=== PATIENT | male | born 1950 | race Caucasian/White ===

== ENCOUNTER → 2018-11-04 | Outpatient (CLI) | payer MEDICARE ==
--- NOTE | 2018-11-04 13:24 | MR ---
EXAMINATION TYPE: MR shoulder LT wo con DATE OF EXAM: 11/04/2018 COMPARISON: None HISTORY: Left shoulder pain TECHNIQUE: Multiplanar, multisequence imaging of the left shoulder is performed without contrast. FINDINGS: Rotator Cuff: There appears to be a supraspinatus tendon tear with approximately 1.3 cm of retraction . This lies just just under the distal acromion. Moderate joint effusion is present. Fluid transverse s the supraspinatus tendon at this level. This may be an incomplete tear however with more complete f ibers posteriorly. Acromioclavicular Joint: There is somewhat some downward sloping acromion which can contribute to imp ingement syndrome. Significant hypertrophy is not present. Glenohumeral Joint: Humeral head articulates with the glenoid. Labrum: Superior glenoid labrum likely is a partial tear. Consider SLAP lesion. Biceps Tendon: The long head of biceps is in normal location within bicipital groove. Fluid surrounds the long head of the biceps tendon. Mild tendinosis may be present. Bone marrow signal: No focal abnormal marrow signal is appreciated. Other: No additional significant abnormality is appreciated. IMPRESSION: Superior supraspinatus tendon tear appears to have retraction to under the distal acromion. 2. Moderate joint effusion. 3. Mild tendinosis long head biceps tendon 4. Consider SLAP lesion of the superior glenoid labrum
== END | disposition home or self-care (01) ==
LOC: RADMRIMAIN 06:27
PROVIDERS: ATTEND Orthopaedic Surgery
DX: M75.102 Unspecified rotator cuff tear or rupture of left shoulder, not specified as traumatic (principal); M75.22 Bicipital tendinitis, left shoulder

== ENCOUNTER → 2018-12-15 | Outpatient (CLI) | payer OTHER ==
--- NOTE | 2018-12-16 12:47 | ENG ---
ELECTRONYSTAGMOGRAM REPORT VNG REPORT: DATE OF SERVICE: 12/15/2018 VNG INDICATIONS: A 68-year-old male with vertigo and other dizziness ongoing for 2-3 years, gradual onset and staying the same. Spells occur every day, 1-2 episodes a day, lasting for 2- 3 minutes at a time. Dizziness can be triggered by positional changes such as going from a lying to a seated position, turning the head left to right, moving the head or when driving. No imbalance or falling. Denies difficulty with hearing, but has pressure in the left ear and has a steady buzzing in the left ear. Dizziness can be associated with lightheadedness. VNG FINDINGS: Saccades shows IMPAIRED velocities, accuracies and latencies. Gaze with fixation shows no nystagmus in any of the directions of gaze including centrally with vision denied. Tracking shows no break-ups. Optokinetic nystagmus shows no significant asymmetry. Static position testing shows no nystagmus in any of the 6 positions tested with eyes open and then with vision denied. Mccalla-Hallpike maneuvers were not performed due to the patient having shoulder pain. Caloric testing shows 5% unilateral right caloric weakness, which is within normal limits. IMPRESSION: Impaired peak velocities, accuracies and latencies saccades favor central nervous system dysfunction. Benign positional vertigo not excluded due to inability to perform Mccalla-Hallpike maneuvers today. MMROYALL / IJN: [id number] /
== END ==
LOC: NEUROMAIN 08:52
PROVIDERS: ATTEND Otolaryngology
DX: R42 Dizziness and giddiness (principal)
CPT/HCPCS: 92537; 92540

== ENCOUNTER 2018-12-23 13:33 | Day surgery (SDC) | payer MEDICARE ==
[2018-12-22 10:25] VITALS: BMI 32.3
--- NOTE | 2018-12-22 16:01 | HP ---
HISTORY AND PHYSICAL DATE OF SURGERY: 12/23/2018 Teodoro Burgess is a 68-year-old patient seen with progressive left shoulder pain. Treatment options were discussed and he elected to proceed with arthroscopy. Consent was obtained. Medical clearance was provided by Dr. Wing Macedo. PAST MEDICAL HISTORY: Hypertension. PAST SURGICAL HISTORY: Appendectomy. DAILY MEDICATIONS: Lexapro, Lotrel. ALLERGIES: NONE. SOCIAL HISTORY: Denies current tobacco use. PHYSICAL EVALUATION OF THE LEFT SHOULDER: Flexion is 150 degrees, abduction 120 degrees, external rotation 50 degrees with pain and weakness. Tenderness along the anterolateral acromion and rotator cuff insertion site. Impingement sign positive at 90 degrees. Drop-arm sign is positive. Distal neurovascular exam is intact. RADIOGRAPHS: Radiographs of the left shoulder demonstrate type 2 anterior acromion, cystic changes of the greater tuberosity. MRI of left shoulder shows retracted rotator cuff tear, biceps tendinosis. IMPRESSION: 1. Left shoulder impingement with rotator cuff tear. 2. Hypertension. PLAN: Left shoulder arthroscopy with subacromial decompression, probable arthroscopic rotator cuff repair, biceps tendon release and debridement. MMODL / IJN: [id number] /
--- NOTE | 2018-12-23 09:11 | P.ONQ ---
Anesthesiology Proc Note - PNB - Peripheral Nerve Block Performed Right Interscalene Single Time Out Performed: Yes Procedure Stop Time: 08:50 Indication: Acute Post-Operative Pain Specifically requested for management of pain by DrGayathri: Francesco Lopez Sedation Type: Sedate with meaningful contact maintained Preparation: Sterile Prep Position: Supine Catheter: None Needle Types: Other (see comment) (Pajunk) Needle Size: 50mm (2") Needle Gauge: 21 Technique: Ultrasound Injectate: 0.5% Ropivacaine (see comment for volume) (20 cc) Blood Aspirated: No Pain Paresthesia on Injection Noted: No Resistance on Injection: Normal Events: Uneventful and Well Tolerated
[2018-12-23 09:15] VITALS: RESP 16
[2018-12-23 11:32] VITALS: TEMP 96.8
--- NOTE | 2018-12-23 11:33 | P.OP ---
Date of Procedure: 12/23/18 Preoperative Diagnosis: Left shoulder impingement Postoperative Diagnosis: 1. Left shoulder rotator cuff tear 2. Left shoulder impingement 3. Left shoulder acromioclavicular joint osteoarthritis 4. Left shoulder partial long head biceps tendon tear Procedure(s) Performed: 1. Left shoulder arthroscopic rotator cuff repair 2. Left shoulder arthroscopic subacromial decompression 3. Left shoulder arthroscopic Tomas procedure 4. Left shoulder arthroscopic biceps tenotomy Implants: 44.75 Arthrex swivel lock anchors Anesthesia: GETA, regional (Interscalene block) Surgeon: Francesco Lopez Deicer Element Winder Machine #1: Kt Alba Estimated Blood Loss (ml): 10 Pathology: none sent Condition: stable Disposition: PACU Indications for Procedure: 68-year-old patient seen with progressive left shoulder pain. After having treatment options discussed, he elected to proceed with arthroscopy. Operative Findings: See description of procedure Description of Procedure: Patient underwent an interscalene block by department of anesthesia. The patient was then taken to the operative suite. The patient underwent a general anesthetic by the department of anesthesia. The patient was placed into a lateral position and secured. There was appropriate padding of the bony prominence. Left shoulder was then prepped and draped in normal sterile orthopedic fashion. We placed the extremity in 10 pounds of longitudinal traction. A posterior incision was now made for a posterior working portal site. The trocar and cannula were inserted into the glenohumeral joint. Arthroscopy was initiated. Spinal needle was now inserted anteriorly, to ascertain the anterior working portal site. An incision was now made in that area, a trocar was inserted followed by a probe. There was significant partial tearing long head biceps tendon with maybe 20% of the fibers remaining. There was some fraying of the anterior labrum. There were grade 1/2 chondromalacia changes of the glenoid with no osteochondral tears present. I could clearly visualize rotator cuff tear from the glenohumeral side. I performed an arthroscopic biceps tenotomy. I debrided that superficial labral fraying with a motorized shaver. The residual labrum was stable. Instruments were removed from the glenohumeral joint. Utilizing the posterior working portal site, the trocar and cannula were inserted into the subacromial space. Arthroscopy initiated. I made an incision 2 fingerbreadths lateral to the acromion. I introduced my trocar followed by my ArthroCare ablator. I now began ablating thick subacromial bursal tissue, which exposed the undersurface of the anterior acromion. There was diminished subacromial space. There was a very prominent anterior acromion. A motorized bur was introduced and a subacromial decompression was performed. I also excised some osteophytes off the inferior aspect of the distal clavicle. The AC joint was visualized and noted to be fairly arthritic. The motorized bur was introduced in the anterior portal site and a Tomas procedure was performed without difficulty, decompressing the AC joint nicely. I turned my attention to the rotator cuff. There was a 2.5 cm rotator cuff tear. I debrided the margins getting down to stable tendon tissue. I introduced my motorized bur and abraded the footprint area, getting some petechial bleeding. I now made an accessory portal site off the lateral aspect of the acromion. I punched 2 holes medial for medial row fixation with the assistance of Alexis PEREZ carefully tapping the punch with a mallet as I held the punch and the camera. I now introduced both anchors into the pre-punched holes and Alexis PEREZ tapped them with the mallet as I held anchors and the camera. Alexis PEREZ now screwed the anchors in place a while I held the anchor guide and camera. All 8 limbs of suture were now passed through good bites of rotator cuff tendon. I now punched 2 holes for lateral row fixation again I held the punch and camera while Alexis PEREZ used a mallet to tap in the punch. We now passed sutures through both anchors and individually I introduced the anchors into the pre- punch holes I held the anchor guide in position with one hand holding the camera with the other hand while Alexis PEREZ tensioned the sutures and screwed in the anchors one at a time. All residual suture limbs were now clipped. We had good compression of the tendon along the entire footprint. Instruments now removed from the portal sites. All portal sites were approximated with nylon suture. Sterile dressings were applied followed by a shoulder immobilizer. Kt PEREZ assisted in this complex case. The patient was awakened, transferred to a bed, and taken to recovery in stable condition.
[2018-12-23 12:49] VITALS: BP 126/69; PULSE 85
[~2018-12-23 13:33] MED LIST: DEXAMETHASONE SOD PHOSPHATE 10 MG/ML 1 ML VIAL IV ONE; GLYCOPYRROLATE 0.2 MG/ML 2 ML VIAL ONE; HYDROmorphone 0.5 MG/0.5 ML SYRINGE IVP PRN; LACTATED RINGERS 1,000 ML IV SCH; LIDOCAINE 1% INJ 10MG/ML (20 ML MDV) ONE; MIDAZOLAM 2 MG/2 ML VIAL IV PRN; MIDAZOLAM 2 MG/2 ML VIAL ONE; NEOSTIGMINE 1 MG/ML 10 ML VIAL ONE; ONDANSETRON 4 MG/2 ML VIAL IVP ONE; PROPOFOL 10 MG/ML 20 ML VIAL IV ONE; ROCURONIUM BROMIDE 10 MG/ML 10 ML VIAL IV ONE; ROPIVACAINE 5 MG/ML 30 ML VIAL ONE; SUCCINYLCHOLINE CHLORIDE VIAL 200 MG/10 ML VIAL IV ONE; ceFAZolin IN SWFI 2 GM/20 ML SYRINGE IVP ONE; ePHEDrine SULFATE/0.9% NACL/PF 50 MG/5 ML SYRINGE IV ONE; fentaNYL (PF) 50 MCG/ML 2 ML AMP IV ONE; fentaNYL (PF) 50 MCG/ML 2 ML AMP ONE
--- NOTE | 2018-12-28 13:57 | CDI ---
Date: 12/28/18 CDS/Well Blower Name: Meena Castillo Phone: If any questions, call Wendy Whitley Human Resources Associate at [phone] Patient Name: Teodoro Burgess Admit Date: 12/23/18 Discharge Date: 12/23/18 ATTENTION: The [facility] Coding Staff appreciate your assistance in clarifying documentation. Please respond to the clarification below the line at the bottom and electronically sign. The [facility] Coding staff will review the response and follow-up if needed. Please note: Queries are made part of the Legal Health Record. If you have any questions, please contact the Human Resources Associate. Dear Dr. Lopez, Please provide clarification as to the reason for the interscalene block to the left shoulder. The patient also received general anesthesia along with the interscalene block to the shoulder. Please clarify if this was for postoperative pain control. Thank you for your kind consideration. MTDD
--- NOTE | 2018-12-30 13:42 | CDI ---
Date: 12/30/18 CDS/Cnc Machine Programmer Name: Meena Castillo Phone: If any questions, call Wendy Whitley Filter Screen Cleaner at [phone] Patient Name: Teodoro Burgess Admit Date: 12/23/18 Discharge Date: 12/23/18 ATTENTION: The [facility] Coding Staff appreciate your assistance in clarifying documentation. Please respond to the clarification below the line at the bottom and electronically sign. The [facility] Coding staff will review the response and follow-up if needed. Please note: Queries are made part of the Legal Health Record. If you have any questions, please contact the Filter Screen Cleaner. Dear Dr. Lopez, In order to capture the correct CPT codes(s), please provide clarification as to the reason for the interscalene block to the left shoulder. The patient also received general anesthesia along with the interscalene block to the shoulder. Please clarify if this was for postoperative pain control or provided along with the general anesthesia for intraoperative anesthesia purposes. Postoperative pain control MTDD
== END 2018-12-23 13:40 | disposition home or self-care (01) ==
LOC: OR 13:33
PROVIDERS: ATTEND Orthopaedic Surgery
DX: M75.102 Unspecified rotator cuff tear or rupture of left shoulder, not specified as traumatic (principal); M75.42 Impingement syndrome of left shoulder; M19.012 Primary osteoarthritis, left shoulder; S46.112A Strain of muscle, fascia and tendon of long head of biceps, left arm, initial encounter; X58.XXXA Exposure to other specified factors, initial encounter; M94.212 Chondromalacia, left shoulder; M25.712 Osteophyte, left shoulder; I10 Essential (primary) hypertension; G47.33 Obstructive sleep apnea (adult) (pediatric); Z99.89 Dependence on other enabling machines and devices; F39 Unspecified mood [affective] disorder; Z79.890 Hormone replacement therapy; Z79.899 Other long term (current) drug therapy
CPT/HCPCS: 29826; 29827; 29824; 64415; C1713 ×3; C1765; J2250; J0330; J1100; J2710; J2405; J2001; J3010; J2795; J2704; J0690

== ENCOUNTER 2021-07-20 12:01 | Emergency (ER) | payer MEDICARE ==
[2021-07-20 12:07] VITALS: BP 117/80; PULSE 96; RESP 20; TEMP 97.7
--- NOTE | 2021-07-20 13:50 | ED ---
General Adult HPI - General Chief complaint: Extremity Problem,Nontraumatic Stated complaint: medication reaction Time Seen by Provider: 07/20/21 13:48 Source: patient Mode of arrival: ambulatory Limitations: no limitations - History of Present Illness Initial comments: 71-year-old male presents to the emergency room for a chief complaint of joint pain. Patient states for the past month or so he has had pain in all of his joints. States it is in his elbows and knees hips and back. Patient states he has seen his primary care provider several times for this. Sates whenever he is on steroids his symptoms resolved. States that this past week he started on steroids and now has no pain. However his doctor told him to come into the emergency room. Patient has had an outpatient workup started for her polyarthralgia but has not seen a napper grinder or specialist. Patient has no other complaints at this time including shortness of breath, chest pain, abdominal pain, nausea or vomiting, headache, or visual changes. - Related Data Home Medications Medication Instructions Recorded Confirmed Benazepril [Lotensin] 20 mg PO DAILY 10/09/14 12/23/18 Citalopram Hydrobromide [CeleXA] 40 mg PO DAILY 10/09/14 12/23/18 amLODIPine [Norvasc] 10 mg PO DAILY 10/09/14 12/23/18 Testosterone [Androgel 1.62% Gel 1 applic TOPICAL DAILY 12/22/18 12/23/18 Pump] Previous Rx's Medication Instructions Recorded Hydrocodone/Acetaminophen [[place] 1 each PO Q6HR PRN #21 tab 12/23/18 5-325] HYDROcodone/APAP 5-325MG [[place] 1 tab PO Q6HR PRN #12 tab 07/20/21 5-325] Allergies Allergy/AdvReac Type Severity Reaction Status Date / Time No Known Allergies Allergy Verified 07/20/21 12:07 Review of Systems ROS Statement: Those systems with pertinent positive or pertinent negative responses have been documented in the HPI. ROS Other: All systems not noted in ROS Statement are negative. Past Medical History Past Medical History: Hypertension, Sleep Apnea/CPAP/BIPAP Additional Past Medical History / Comment(s): hx. colon polyps, mom hx. of colon cancer, Joint inflamation History of Any Multi-Drug Resistant Organisms: None Reported Past Surgical History: Appendectomy, Orthopedic Surgery Additional Past Surgical History / Comment(s): rotator cuff surg., nasal surg. Past Anesthesia/Blood Transfusion Reactions: No Reported Reaction Past Psychological History: Depression Smoking Status: Never smoker Past Alcohol Use History: Heavy Past Drug Use History: None Reported - Past Family History Mother Family Medical History: Cancer Sister(s) Family Medical History: Cancer General Exam Limitations: no limitations General appearance: alert Head exam: Present: atraumatic Eye exam: Present: normal appearance, PERRL, EOMI. Absent: scleral icterus, conjunctival injection ENT exam: Present: normal exam, mucous membranes moist Neck exam: Present: normal inspection, full ROM. Absent: tenderness Respiratory exam: Present: normal lung sounds bilaterally. Absent: respiratory distress, wheezes Cardiovascular Exam: Present: regular rate, normal rhythm, normal heart sounds GI/Abdominal exam: Present: soft, normal bowel sounds. Absent: distended, tenderness Extremities exam: Present: full ROM (Full range of motion of all joints of upper and lower extremities bilaterally). Absent: other (No swelling of the upper or lower extremities) Course Vital Signs 07/20/21 12:04 Temperature 97.7 F Pulse Rate 96 Respiratory 20 Rate Blood Pressure 117/80 O2 Sat by Pulse 96 Oximetry Medical Decision Making - Medical Decision Making Patient has had an negative VENTURA screen, negative Lyme disease screen, normal rheumatoid factor of 10. I discussed with patient that unfortunately we are limited for our testing in the emergency room. At this time there is no evidence for emergent cause of polyarthralgia. There is no evidence for a septic arthritis. At this time I discussed the patient that I could treat his pain outpatient he is agreeable to this. I discussed the need to see a napper grinder referral was given. He will also follow up with primary care. He will return to the emergency room for any worsening symptoms. Disposition Clinical Impression: Polyarthralgia Disposition: HOME SELF-CARE Instructions (If sedation given, give patient instructions): Arthralgia (ED) Additional Instructions: Take Tylenol for pain. If pain is severe take [place]. Follow-up with your doctor in one to 2 days. Return to the emergency room for any worsening symptoms. Prescriptions: HYDROcodone/APAP 5-325MG [[place] 5-325] 1 tab PO Q6HR PRN #12 tab PRN Reason: Pain Is patient prescribed a controlled substance at d/c from ED?: Yes When asked, does pt state using other controlled substances?: No If prescribed controlled substance>3 days was MAPS reviewed?: Prescribed <3 Days If opioid is for acute pain is fill amount 7 days or less?: Yes If Rx opioid, was Start Talking consent form obtained?: Yes Referrals: Wing Macedo DO [Primary Care Provider] - 1-2 days Time of Disposition: 14:33
== END 2021-07-20 14:42 | disposition home or self-care (01) ==
LOC: EC 12:01
DX: M25.50 Pain in unspecified joint (principal); I10 Essential (primary) hypertension; Z79.899 Other long term (current) drug therapy
CPT/HCPCS: 99282

== ENCOUNTER 2021-07-26 11:31 | Day surgery (SDC) | payer MEDICARE ==
[2021-07-23 14:30] VITALS: BMI 32.3
[~2021-07-26 11:31] MED LIST changes: -DEXAMETHASONE SOD PHOSPHATE 10 MG/ML 1 ML VIAL IV ONE; -GLYCOPYRROLATE 0.2 MG/ML 2 ML VIAL ONE; -HYDROmorphone 0.5 MG/0.5 ML SYRINGE IVP PRN; -LIDOCAINE 1% INJ 10MG/ML (20 ML MDV) ONE; -MIDAZOLAM 2 MG/2 ML VIAL IV PRN; -MIDAZOLAM 2 MG/2 ML VIAL ONE; -NEOSTIGMINE 1 MG/ML 10 ML VIAL ONE; -ONDANSETRON 4 MG/2 ML VIAL IVP ONE; -PROPOFOL 10 MG/ML 20 ML VIAL IV ONE; -ROCURONIUM BROMIDE 10 MG/ML 10 ML VIAL IV ONE; -ROPIVACAINE 5 MG/ML 30 ML VIAL ONE; -SUCCINYLCHOLINE CHLORIDE VIAL 200 MG/10 ML VIAL IV ONE; -ceFAZolin IN SWFI 2 GM/20 ML SYRINGE IVP ONE; -ePHEDrine SULFATE/0.9% NACL/PF 50 MG/5 ML SYRINGE IV ONE; -fentaNYL (PF) 50 MCG/ML 2 ML AMP IV ONE; -fentaNYL (PF) 50 MCG/ML 2 ML AMP ONE
[2021-07-26 12:03] VITALS: TEMP 97.3
--- NOTE | 2021-07-26 13:30 | P.GSHP ---
History of Present Illness H&P Date: 07/26/21 Chief Complaint: Anemia This a 71-year-old male presents today for EGD colonoscopy. And issues with anemia. Past Medical History Past Medical History: Hypertension, Sleep Apnea/CPAP/BIPAP Additional Past Medical History / Comment(s): hx. colon polyps, "inflammation of ligaments and tendons in arms,elbows, knees and hips for about 3 weeks". anemia, COVID test neg for antibodies 07/11/21. pt states saw his chiropractor 07/09/21, found out later his chiropractor was exposed to covid on weekend of 07/06- 07/06/21.(not sure of his symptoms). he saw chiropractor again 07/22/21. History of Any Multi-Drug Resistant Organisms: None Reported Past Surgical History: Appendectomy, Orthopedic Surgery Additional Past Surgical History / Comment(s): gema rotator cuff surg., nasal surg. Past Anesthesia/Blood Transfusion Reactions: No Reported Reaction Smoking Status: Never smoker - Past Family History Mother Family Medical History: Cancer Additional Family Medical History / Comment(s): colon Sister(s) Family Medical History: Cancer Medications and Allergies Home Medications Medication Instructions Recorded Confirmed Type Benazepril [Lotensin] 20 mg PO DAILY 10/09/14 07/23/21 History amLODIPine [Norvasc] 10 mg PO DAILY 10/09/14 07/23/21 History Testosterone [Androgel 1.62% Gel 2 pump TOPICAL DAILY 12/22/18 07/26/21 History Pump] HYDROcodone/APAP 5-325MG [[place] 1 tab PO Q6HR PRN #12 tab 07/20/21 07/26/21 Rx 5-325] Ascorbic Acid [Vitamin C] 500 mg PO DAILY 07/23/21 07/23/21 History Citalopram Hydrobromide 20 mg PO DAILY 07/23/21 07/23/21 History [Citalopram HBr] Cyanocobalamin (Vitamin B-12) 1,000 mcg PO DAILY 07/23/21 07/23/21 History [Vitamin B-12] Krill Oil 500 mg PO DAILY 07/23/21 07/23/21 History Latanoprost/Pf [Latanoprost 0.005% 1 drop BOTH EYES HS 07/23/21 07/23/21 History Eye Drop] Querectin 500 mg PO DAILY 07/23/21 07/23/21 History Sambucus 2 tab PO DAILY 07/23/21 07/23/21 History Selenium 200 mcg PO DAILY 07/23/21 07/23/21 History Turmeric Root Extract [Turmeric] 1,053 mg PO DAILY 07/23/21 07/26/21 History Vitamin D3 +K2 1 tab PO DAILY 07/23/21 07/23/21 History Zinc 50 mg PO DAILY 07/23/21 07/23/21 History methylPREDNISolone [Medrol Dose 4 mg PO DIRECTED 07/23/21 07/23/21 History Pack] Allergies Allergy/AdvReac Type Severity Reaction Status Date / Time No Known Allergies Allergy Verified 07/26/21 11:47 Surgical - Exam Vital Signs Temp Pulse Resp BP Pulse Ox 97.3 F L 76 15 134/68 97 07/26/21 12:01 07/26/21 12:01 07/26/21 12:01 07/26/21 12:01 07/26/21 12:01 - General well developed, well nourished, no distress - Eyes PERRL - ENT normal pinna - Neck no masses - Respiratory normal expansion - Cardiovascular Rhythm: regular - Abdomen Abdomen: soft, non tender Assessment and Plan Plan: Anemia. We'll perform EGD and colonoscopy.
[2021-07-26] MEDS ORDERED: PROPOFOL 10 MG/ML 20 ML VIAL IV ONE (13:32)
--- NOTE | 2021-07-26 13:59 | P.OP ---
Date of Procedure: 07/26/21 Preoperative Diagnosis: Anemia Screening colonoscopy Postoperative Diagnosis: Antral gastritis Rectal polyp Procedure(s) Performed: EGD Colonoscopy Anesthesia: MAC Surgeon: Pedro Hill Pathology: other (Antrum, rectal polyp) Condition: stable Disposition: PACU Description of Procedure: The patient's placed on the endoscopy table in the lateral position. She received he received IV sedation. The gastroscope placed oropharynx passed in the esophagus and stomach. Scope was placed through the pylorus. The first and second portion of the duodenum appeared normal. Scope was then brought back the antrum this. Mildly inflamed. A biopsies performed. Scope was then retroflexed and the remainder of the stomach appeared normal. The GE junction was at 47 is. The distal esophagus. Normal. The proximal esophagus. All. Her is no is of any GI bleed in the upper GI tract. Next digital rectal exam was performed which revealed no abnormalities. The prostate was symmetric without nodules. The flexible colonoscope was then placed 8 placed patient anus passed throughout the entire colon. The ileocecal valve was visualized. The cecum, ascending and transverse colon appeared normal. The descending and sigmoid colon appeared normal. Scope was brought back the rectum and a small polyp was seen. This removed with a cold forcep. Scope was withdrawn for patient.
[2021-07-26 14:05] VITALS: RESP 16
[2021-07-26 14:16] VITALS: BP 117/75; PULSE 77
== END 2021-07-26 14:49 | disposition home or self-care (01) ==
LOC: ORWHC2ENDO 11:31
PROVIDERS: ATTEND Surgery
DX: Z12.11 Encounter for screening for malignant neoplasm of colon (principal); D64.9 Anemia, unspecified; G47.30 Sleep apnea, unspecified; I10 Essential (primary) hypertension; F32.9 Major depressive disorder, single episode, unspecified; K62.1 Rectal polyp; Z79.52 Long term (current) use of systemic steroids; Z79.899 Other long term (current) drug therapy; Z87.19 Personal history of other diseases of the digestive system; Z90.49 Acquired absence of other specified parts of digestive tract
CPT/HCPCS: 87635; 45380; 43239; J2704; 88305

== ENCOUNTER → 2025-03-06 | Outpatient (CLI) | payer MEDICARE ==
[2025-03-06 14:56] LABS: HCT 35.4 % (39.6-50.0); HGB 11.4 g/dL (13.0-17.0); MCH 35.1 pg (27.0-32.0); MCHC 32.2 g/dL (32.0-37.0); MCV 108.9 FL (80.0-97.0); Mean Platelet Volume 12.2 FL (9.5-12.2); Platelet Count 126 X 10*3/uL (140-440); RBC 3.25 X 10*6/uL (4.40-5.60); RDW 17.5 % (11.5-14.5); WBC 5.49 X 10*3/uL (4.50-10.00)
[2025-03-06 15:22] LABS: Chloride 102 mmol/L (96-109); Potassium 4.7 mmol/L (3.5-5.5); Sodium 137 mmol/L (135-145)
== END | disposition home or self-care (01) ==
LOC: LABPAT 08:17
PROVIDERS: ATTEND Internal Medicine Interventional Cardiology
DX: Z01.812 Encounter for preprocedural laboratory examination (principal); I35.1 Nonrheumatic aortic (valve) insufficiency; I42.8 Other cardiomyopathies
CPT/HCPCS: 80051; 82565; 84520; 85027

== ENCOUNTER 2025-03-08 06:13 | Day surgery (SDC) | payer MEDICARE ==
[~2025-03-08 06:13] MED LIST changes: +ALPRAZolam 0.25 MG TAB PO PRN; +ALPRAZolam 0.5 MG TAB PO PRN; +HEPARIN SODIUM,PORCINE (1 ML) 2,500 UNIT in SODIUM CHLORIDE 0.9% 250 ML IRRIGATION PRN; +HEPARIN SODIUM,PORCINE 10,000 UNIT in SODIUM CHLORIDE 0.9% 1,000 ML IRRIGATION PRN; -LACTATED RINGERS 1,000 ML IV SCH; +NITROGLYCERIN SL TABS 0.4 MG TAB SUBLINGUAL PRN; +SODIUM CHLORIDE 0.9% 1,000 ML in EMPTY BAG 1 BAG IV SCH
[2025-03-08 06:40] VITALS: RESP 18; TEMP 97.8
[2025-03-08] MEDS: IV FLUID CONTINUATION 1,000 ML IV ONE ×3 (06:40→10:00)
[2025-03-08] MEDS ORDERED: ASPIRIN 325 MG TAB PO ONE (07:00)
[2025-03-08] MEDS: BENZOCAINE SPRAY 1 EACH MM ONE (07:30)
[2025-03-08] MEDS: MIDAZOLAM 2 MG/2 ML VIAL IVP ONE (07:35)
[2025-03-08] MEDS: fentaNYL (PF) 50 MCG/ML 2 ML AMP IVP ONE (07:35)
--- NOTE | 2025-03-08 07:43 | P.GSHP ---
History of Present Illness H&P Date: 03/08/25 CHIEF COMPLAINT: GERD and colon screen HISTORY OF PRESENT ILLNESS: The patient is a 74-year-old male who presents with gastroesophageal reflux disease and need for colon screen. Upper and lower endoscopy were offered for further evaluation and management. PAST MEDICAL HISTORY: Please see list. PAST SURGICAL HISTORY: Please see list. MEDICATIONS: Please see list. ALLERGIES: Please see list. SOCIAL HISTORY: No illicit drug use FAMILY HISTORY: No reports of Crohn disease or ulcerative colitis. REVIEW OF ORGAN SYSTEMS: CONSTITUTIONAL: No reports of fevers or chills. GI: Denies any blood in stools or constipation. PHYSICAL EXAM: VITAL SIGNS: Stable GENERAL: Well-developed pleasant in no acute distress. HEENT: No scleral icterus. Extraocular movements grossly intact. Moist buccal mucosa. NECK: Supple without lymphadenopathy. CHEST: Unlabored respirations. Equal bilateral excursions. CARDIOVASCULAR: Regular rate and rhythm. Distal 2+ pulses. ABDOMEN: Soft, nondistended. MUSCULOSKELETAL: No clubbing, cyanosis, or edema. ASSESSMENT: 1. Gastroesophageal reflux disease 2. Colon screen. PLAN: 1. Recommend proceeding with an upper and lower endoscopy Past Medical History Past Medical History: Atrial Fibrillation, Coronary Artery Disease (CAD), Hypertension, Skin Disorder, Sleep Apnea/CPAP/BIPAP Additional Past Medical History / Comment(s): hx. colon polyps, mom hx. of colon cancer, Joint inflammation. current SOB with exertion. uses cpap. actinic keratosis History of Any Multi-Drug Resistant Organisms: None Reported Past Surgical History: Appendectomy, Orthopedic Surgery Additional Past Surgical History / Comment(s): gema r otator cuff surg., nasal surg. cataract removed and lenses placed. colonoscopy Past Anesthesia/Blood Transfusion Reactions: No Reported Reaction Smoking Status: Never smoker - Past Family History Mother Family Medical History: Cancer Additional Family Medical History / Comment(s): colon cancer Sister(s) Family Medical History: Cancer Medications and Allergies Home Medications Medication Instructions Recorded Confirmed Type Benazepril [Lotensin] 20 mg PO DAILY 10/09/14 03/08/25 History Testosterone [Androgel 1.62% Gel 2 pump TOPICAL Q48H 12/22/18 03/08/25 History Pump] Ascorbic Acid [Vitamin C] 500 mg PO DAILY 07/23/21 03/08/25 History Citalopram Hydrobromide 20 mg PO DAILY 07/23/21 03/08/25 History [Citalopram HBr] Cyanocobalamin (Vitamin B-12) 1,000 mcg PO DAILY 07/23/21 03/08/25 History [Vitamin B-12] Sambucus 2 tab PO DAILY 07/23/21 03/08/25 History Selenium 200 mcg PO DAILY 07/23/21 03/08/25 History Turmeric Root Extract [Turmeric] 1,053 mg PO DAILY 07/23/21 03/08/25 History Vitamin D3 +K2 1 tab PO DAILY 07/23/21 03/08/25 History Zinc 50 mg PO DAILY 07/23/21 03/08/25 History Apixaban [Eliquis] 5 mg PO BID 03/03/25 03/08/25 History carvediloL [Coreg] 6.25 mg PO BID 03/03/25 03/08/25 History Allergies Allergy/AdvReac Type Severity Reaction Status Date / Time No Known Allergies Allergy Verified 03/03/25 13:31 Surgical - Exam Vital Signs Temp Pulse Resp BP Pulse Ox 97.8 F 66 18 128/70 97 03/08/25 06:37 03/08/25 06:37 03/08/25 06:37 03/08/25 06:37 03/08/25 06:37
[2025-03-08] MEDS: HEPARIN SODIUM (1,000 UNIT/ML) 1,000 UNIT in SODIUM CHLORIDE 0.9% 1,000 ML IRRIGATION ONE (07:47)
[2025-03-08] MEDS: HEPARIN SODIUM,PORCINE (1 ML) 2,500 UNIT in SODIUM CHLORIDE 0.9% 250 ML IRRIGATION ONE (07:48)
--- NOTE | 2025-03-08 07:52 | P.PCN ---
Date of Procedure: 03/08/25 Description of Procedure: PREOPERATIVE DIAGNOSIS: Gastroesophageal reflux disease. Dysphagia POSTOPERATIVE DIAGNOSIS: Gastroesophageal reflux disease with erosive esophagitis Esophageal ulcers Gastritis, acute with bleeding Diaphragmatic hiatal hernia OPERATION: Esophagogastroduodenoscopy with cold forceps biopsies along esophagus, antrum and duodenum SURGEON: Kathy Chen MD ANESTHESIA: MAC. INDICATIONS: The patient is a 74-year-old male who presents with dysphagia and reflux disease. Benefits and risks of the procedure were described. Informed consent was obtained. DESCRIPTION: The patient was brought into the endoscopy suite and laid in the left lateral decubitus position. An Olympus gastroscope was passed along the posterior oropharynx down to the distal esophagus where the squamocolumnar junction was encountered at 37 cm from the incisors. The stomach was entered and no bile ref lux was found. Additional findings are listed below. Biopsies with cold forceps were obtained of the antrum. The first through third portion of the duodenum was examined. Retroflexion of the scope confirmed Hill grade 3 lower esophageal valve. The squamocolumnar junction demonstrated LA grade B erosive esophagitis. The stomach was desufflated. The patient tolerated the procedure well. FINDINGS: Squamocolumnar junction 37 cm from the incisors. Diaphragmatic hiatus at 40 cm. Hiatal hernia, 3 cm sliding-type, Hill grade 3 lower esophageal valve. LA grade C erosive esophagitis. Acute esophageal ulcers without bleeding Biopsies obtained of the duodenum. Acute on chronic gastritis with bleeding with with biopsies obtained. RECOMMENDATIONS: Omeprazole 40 mg daily May benefit from repeat upper endoscopy
--- NOTE | 2025-03-08 07:52 | P.PCN ---
Date of Procedure: 03/08/25 Description of Procedure: Indication: Aortic regurgitation Procedure Description: After explaining the procedure to the patient, it's risk and complications, blood pressure, heart rate and O2 saturation were monitored. The throat was sprayed with Cetacaine. Patient received 2 mg intravenous Versed, 50 mcg intravenous fentanyl. The probe was introduced into the esophagus without difficulty. Images were obtained. Following that, the probe was removed. There was no immediate complication. Findings: Left atrial size is mildly dilated, left atrial appendage is normal. Left ventricular systolic function is estimated at 50 to 55% with global hypokinesis. The aortic valve is a tricuspid valve with mild fibrocalcific changes, mild thickening of the mitral valve leaflets was noted. The tricuspid and pulmonic valve are normal. Descending thoracic aorta appears to be normal. Contrast bubble study revealed no shunting across the interatrial septum. No pericardial effusion was noted. Doppler: Pulse wave and color Doppler were obtained, and revealed moderate to severe aortic with mild to moderate mitral and tricuspid regurgitation. There was no shunting across the interatrial septum. Conclusion: 1. Dilated left atrium with normal appearance of the left atrial appendage 2. Left ventricle systolic function borderline normal 3. Moderate to severe aortic regurgitation 4. Mild to moderate mitral and tricuspid regurgitation 5. No shunting across the interatrial septum Duration of sedation: 15 minutes
[2025-03-08] MEDS: LIDOCAINE 1% INJ 10MG/ML (20 ML MDV) SQ ONE (07:56)
[2025-03-08] MEDS: VERAPAMIL SYRINGE (5 MG/10 ML) INTRAARTER ONE (07:58)
[2025-03-08] MEDS: HEPARIN SODIUM 1,000 UN/ML (10ML VL) IVP ONE (08:17)
[2025-03-08 08:23] LABS: O2 Sat Blood Gas 50.4 %
[2025-03-08] MEDS: IOPAMIDOL-370 100ML BTL INJ ONE (08:24)
[2025-03-08 08:25] LABS: O2 Sat Blood Gas 49.9 %
[2025-03-08 08:27] LABS: O2 Sat Blood Gas 95.2 %
[2025-03-08] MEDS ORDERED: RX INFO: IV CONTRAST WAS GIVEN 1 EACH MISC MISCELLANE PRN (08:38)
[2025-03-08] MEDS ORDERED: SODIUM CHLORIDE 0.9% 1,000 ML IV SCH (08:45)
--- NOTE | 2025-03-08 08:50 | P.CARDCATH ---
Date of Procedure: 03/08/25 Description of Procedure: Cardiac Catheterization: The patient is a 74-year-old male with known history of permanent atrial fibrillation, aortic valve disease who has been complaining of significant dyspnea on exertion and was found to have evidence of cardiomyopathy. Recommendations were made regarding cardiac catheterization, the risks and the complications were discussed with the patient who is in full understanding and agreement. Procedure Description: Patient was brought to cardiac cath lab technologist in fasting semi-sedated state after receiving Fentanyl and Benadryl achieiving moderate conscious sedated state. Using Xylocaine Anesthesia and modified Seldinger technique, a 6-Ghanaian sheath was introduced in the right radial artery . The intravenous access in the right basilic vein was exchanged over the wire to a 6 [place]ian sheath. Right heart catheterization was performed using Startex-Issca catheter, multiple pressure and samples were obtained. Cardiac output by thermodilution was calculated. Subsequently, selective coronary angiography was performed using a 5-Gh[place]ian 3.5 bend Shun catheter. Multiple views of the coronary artery including hemiaxial views were obtained. The 6 [place]ian pigtail catheter was used to cross the aortic valve and LVEDP was calculated. An ITALIAN view of the ascending aorta was performed. Following that, catheter and sheath were removed. Hemostasis was obtained with deployment of vascular band . There was no immediate complication. Patient was returned to room in stable condition. Of note, the patient received a total of 4500 units of intravenous heparin as well as intra-arterial verapamil. Findings: Left main: This is a short size vessel, trifurcating into LAD, ramus intermedius and left circumflex, the left main has no obstructive disease LAD: This is a large size vessel, giving rise to a very proximal diagonal branch. The LAD and its branches have no obstructive disease Left circumflex: This is a nondominant vessel moderate caliber giving rise to 1 obtuse marginal branch. High-grade stenosis RCA: This is a dominant vessel tortuous in the midsegment. The mid RCA has 20% stenosis with no high-grade stenosis. It bifurcates distally to PDA and PLV. Ramus intermedius: This is a large size vessel that has no evidence of high- grade stenosis Left Ventriculogram: Not performed. Aortogram: Performed in the ITALIAN view and revealed a 4+ aortic regurgitation. Hemodynamics: Pulmonary artery systolic of 52, diastolic of 30 with a mean of 37 mmHg, pulmonary capillary wedge pressure V wave of 25 with a mean of 26 mmHg, right ventricular systolic pressure of 52 with an end-diastolic 16 mmHg. Right atrium V wave of 16 with a mean of 13 mmHg. LVEDP was 20- 25 mmHg. Cardiac output by thermodilution of 3.9 l/min and by Janell 4 L/min. Right atrial saturation 50%, pulmonary artery saturation 50% arterial saturation 95% Conclusion: 1. Mild obstructive disease 2. Right dominance 3. Moderate pulmonary hypertension 4. 4+ aortic regurgitation Recommendations: I have recommended to continue medical therapy and evaluate the patient for the need to undergo aortic valve intervention. The findings and the recommendations were discussed with the patient and the family and they were in full understanding and agreement. Duration of sedation is 30 minutes.
[2025-03-08 11:39] VITALS: BP 140/65; PULSE 75
[2025-03-08] MEDS ORDERED: carvediloL 6.25 MG TAB PO SCH (17:30)
[2025-03-09] MEDS ORDERED: lisinopriL 20 MG TAB PO SCH (09:00)
== END 2025-03-08 11:39 | disposition home or self-care (01) ==
LOC: CATHCVL 06:13
PROVIDERS: ATTEND Internal Medicine Interventional Cardiology
DX: I48.21 Permanent atrial fibrillation (principal); I08.2 Rheumatic disorders of both aortic and tricuspid valves; I42.8 Other cardiomyopathies; I27.20 Pulmonary hypertension, unspecified; I10 Essential (primary) hypertension; Z82.49 Family history of ischemic heart disease and other diseases of the circulatory system; Z79.899 Other long term (current) drug therapy
CPT/HCPCS: 93312; 93320; 93325; 93460; 93567; 85018; 82810; 99152; C1769 ×2; C1894; C1751; J2250; J1644 ×2; J2003; J3010; Q9967

== ENCOUNTER 2025-04-06 05:39 | Inpatient (IN) | payer MEDICARE ==
[~2025-04-06 05:39] MED LIST changes: +ALBUMIN HUMAN 25% 50 ML IV ONE; +ALBUMIN HUMAN 5% 500 ML IVPB ONE; -ALPRAZolam 0.25 MG TAB PO PRN; -ALPRAZolam 0.5 MG TAB PO PRN; +CALCIUM CHLORIDE 100 MG/ML 10 ML SYRINGE IV ONE; +CARDIOPLEGIC SOLN (K+ 16 MEQ/L 1,000 ML with SODIUM BICARB (1 MEQ/ML) 20 ML, LIDOCAINE ... PERFUSION ONE; +CLEVIDIPINE BUTYRATE 25 MG in EMPTY BAG 1 BAG IV ONE; +HEPARIN SODIUM 1,000 UN/ML (10ML VL) IV ONE; -HEPARIN SODIUM,PORCINE (1 ML) 2,500 UNIT in SODIUM CHLORIDE 0.9% 250 ML IRRIGATION PRN; +HEPARIN SODIUM,PORCINE (1 ML) 5,000 UNIT in SODIUM CHLORIDE 0.9% 500 ML 500 ML IV ONE; -HEPARIN SODIUM,PORCINE 10,000 UNIT in SODIUM CHLORIDE 0.9% 1,000 ML IRRIGATION PRN; +INSULIN REGULAR 100 UNIT in SODIUM CHLORIDE 0.9% 100 ML IV ONE; +LACTATED RINGERS 1,000 ML IV ONE; +MAGNESIUM SULFATE 16.24 MEQ in EMPTY SYRINGE 1 SYR IV ONE; +MANNITOL 25% 12.5 GM/50 ML VIAL IV ONE; +NITROGLYCERIN SL TABS 0.4 MG TAB SUBLINGUAL ONE; -NITROGLYCERIN SL TABS 0.4 MG TAB SUBLINGUAL PRN; +NITROGLYCERIN-D5W PMX 25 MG/250 ML BTL IV ONE; +NITROGLYCERIN-D5W PMX 50 MG in DEXTROSE/WATER 1 250ML.BAG IV ONE; +NOREPINEPHRINE 4 MG in SODIUM CHLORIDE 0.9% 250 ML IV ONE; +PAPAVERINE 360 MG in SODIUM CHLORIDE 0.9% 90 ML IV ONE; +PHENYLEPHRINE 10 MG/ML VIAL IV ONE; +PHENYLEPHRINE 40 MG in SODIUM CHLORIDE 0.9% 250 ML IV ONE; +PROTAMINE SULFATE 10 MG/ML 25 ML VIAL IV ONE; +PROTAMINE SULFATE 250 MG in EMPTY BAG 1 BAG IV ONE; +SODIUM BICARB 8.4% 50 ML SYR (1 MEQ/ML) IV ONE; +SODIUM CHLORIDE 0.9% 1,000 ML IV ONE; -SODIUM CHLORIDE 0.9% 1,000 ML in EMPTY BAG 1 BAG IV SCH; +TRANEXAMIC ACID 2,000 MG in SODIUM CHLORIDE 0.9% 80 ML IV ONE; +ceFAZolin 1,000 MG in SODIUM CHLORIDE 0.9% IRRIGATIO 1,000 ML IRRIGATION ONE; +ceFAZolin 2 GM in DEXTROSE 5% IN WATER 50 ML IVPB ONE; +propofoL 1,000 MG/100 ML VIAL IV ONE
[2025-04-06] MEDS: IV FLUID CONTINUATION 1,000 ML IV ONE (05:53)
[2025-04-06] MEDS ORDERED: MUPIROCIN 2% OINT 22 GM TUBE NASAL ONE (06:00)
[2025-04-06] MEDS: ASPIRIN 325 MG TAB PO ONE (06:31)
[2025-04-06] MEDS: ATORVASTATIN 10 MG TAB PO ONE (06:31)
[2025-04-06] MEDS: CHLORHEXIDINE GLUCONATE 15 ML CUP MUCOUS MEM ONE (06:35)
[2025-04-06] MEDS: METOPROLOL TARTRATE 12.5 MG TAB PO ONE (06:35)
[2025-04-06] MEDS: SODIUM CHLORIDE 0.9% 100 ML with ceFAZolin 2,000 MG IV ONE (08:14)
[2025-04-06] MEDS ORDERED: MIDAZOLAM HCL 10 MG/10 ML VIAL ONE (08:14)
[2025-04-06] MEDS ORDERED: ePHEDrine 50 MG/ML 1 ML VIAL ONE (08:14)
[2025-04-06] MEDS ORDERED: VECURONIUM 10 MG VIAL IV ONE (08:14)
[2025-04-06] MEDS ORDERED: PHENYLEPHRINE 10 MG/ML VIAL ONE (08:14)
[2025-04-06] MEDS ORDERED: TRANEXAMIC 1,000 MG/100ML-NACL PREMIX BAG ONE (08:14)
[2025-04-06] MEDS ORDERED: fentaNYL (PF) 50 MCG/ML 50 ML VIAL ONE (08:14)
[2025-04-06] MEDS ORDERED: PROPOFOL 10 MG/ML 20 ML VIAL IV ONE (08:14)
[2025-04-06] MEDS ORDERED: ALBUMIN HUMAN 5% (25gm) 500 ML VIAL IVPB ONE (08:14)
[2025-04-06] MEDS ORDERED: PROTAMINE SULFATE 10 MG/ML 25 ML VIAL IV ONE (08:14)
[2025-04-06 08:49] LABS: ABG Base Excess -2.7 mmol/L; ABG HCO3 22 mmol/L (21-25); ABG Hematocrit 27 % (34.0-46.0); ABG Ionized Calcium 4.8 mg/dL (4.5-5.3); ABG Oxygen Saturation 97.4 % (94-97); ABG PCO2 39 mmHg (35-45); ABG PH 7.37 (7.35-7.45); ABG PO2 102 mmHg (83-108); ABG Potassium Whole Blood 4.3 mmol/L (3.4-4.5); ABG Sodium Whole Blood 140 mmol/L (135-146); ABG TCO2 21 mmol/L (19-24)
[2025-04-06 09:22] LABS: ABG Base Excess -2.7 mmol/L; ABG HCO3 23 mmol/L (21-25); ABG Hematocrit 27 % (34.0-46.0); ABG Ionized Calcium 4.8 mg/dL (4.5-5.3); ABG Oxygen Saturation 97.5 % (94-97); ABG PCO2 45 mmHg (35-45); ABG PH 7.32 (7.35-7.45); ABG PO2 105 mmHg (83-108); ABG Potassium Whole Blood 4.7 mmol/L (3.4-4.5); ABG Sodium Whole Blood 139 mmol/L (135-146); ABG TCO2 22 mmol/L (19-24)
[2025-04-06] MEDS: SODIUM CHLORIDE 0.9% 500 ML 500 ML with HEPARIN SODIUM,PORCINE (1 ML) 5,000 UNIT IV ONE (09:33)
[2025-04-06] MEDS: ceFAZolin 1,000 MG in SODIUM CHLORIDE 0.9% 1,000 ML IRRIGATION ONE (09:34)
[2025-04-06 09:51] LABS: ABG Base Excess -2.7 mmol/L; ABG HCO3 23 mmol/L (21-25); ABG Ionized Calcium 4.3 mg/dL (4.5-5.3); ABG Oxygen Saturation >99.4 % (94-97); ABG PCO2 42 mmHg (35-45); ABG PH 7.35 (7.35-7.45); ABG PO2 404 mmHg (83-108); ABG Potassium Whole Blood 4.5 mmol/L (3.4-4.5); ABG Sodium Whole Blood 137 mmol/L (135-146)
[2025-04-06 10:23] LABS: ABG Base Excess -3.1 mmol/L; ABG HCO3 23 mmol/L (21-25); ABG Ionized Calcium 4.6 mg/dL (4.5-5.3); ABG Oxygen Saturation 99.3 % (94-97); ABG PCO2 46 mmHg (35-45); ABG PH 7.31 (7.35-7.45); ABG PO2 275 mmHg (83-108); ABG Sodium Whole Blood 138 mmol/L (135-146); ABG TCO2 23 mmol/L (19-24)
[2025-04-06 10:50] LABS: ABG Base Excess -2.8 mmol/L; ABG HCO3 22 mmol/L (21-25); ABG Ionized Calcium 4.6 mg/dL (4.5-5.3); ABG Oxygen Saturation >99.4 % (94-97); ABG PCO2 40 mmHg (35-45); ABG PH 7.36 (7.35-7.45); ABG PO2 339 mmHg (83-108); ABG Potassium Whole Blood 5.2 mmol/L (3.4-4.5); ABG Sodium Whole Blood 138 mmol/L (135-146)
[2025-04-06 12:04] LABS: ABG Base Excess -4.9 mmol/L; ABG HCO3 21 mmol/L (21-25); ABG Hematocrit 25 % (34.0-46.0); ABG Ionized Calcium 4.8 mg/dL (4.5-5.3); ABG Oxygen Saturation 98.7 % (94-97); ABG PCO2 42 mmHg (35-45); ABG PH 7.31 (7.35-7.45); ABG PO2 211 mmHg (83-108); ABG Potassium Whole Blood 4.5 mmol/L (3.4-4.5); ABG Sodium Whole Blood 139 mmol/L (135-146); ABG TCO2 21 mmol/L (19-24)
[2025-04-06 12:31] LABS: ABG Glucose Whole Blood 120 mg/dL (75-99)
[2025-04-06 12:32] LABS: ABG Glucose Whole Blood 139 mg/dL (75-99); ABG Lactic Acid Whole Blood 1.2 mmol/L (0.5-1.6)
[2025-04-06 12:33] LABS: ABG Glucose Whole Blood 121 mg/dL (75-99); ABG Hematocrit 21 % (34.0-46.0)
[2025-04-06 12:34] LABS: ABG Glucose Whole Blood 117 mg/dL (75-99); ABG Hematocrit 21 % (34.0-46.0)
[2025-04-06 12:35] LABS: ABG Glucose Whole Blood 132 mg/dL (75-99); ABG Hematocrit 22 % (34.0-46.0); ABG Lactic Acid Whole Blood 1.1 mmol/L (0.5-1.6)
[2025-04-06 12:36] LABS: ABG Glucose Whole Blood 132 mg/dL (75-99); ABG Lactic Acid Whole Blood 1.3 mmol/L (0.5-1.6)
[2025-04-06] MEDS ORDERED: hydrALAZINE HCL 20 MG/ML 1 ML VIAL IVP PRN (12:37)
[2025-04-06] MEDS ORDERED: CLEVIDIPINE BUTYRATE 25 MG in EMPTY BAG 1 BAG IV PRN (12:37)
[2025-04-06] MEDS ORDERED: Potassium Replacement Protocol 1 EACH MISC MISCELLANE PRN (12:37)
[2025-04-06] MEDS ORDERED: LACTATED RINGERS 1,000 ML IV SCH (12:37)
[2025-04-06] MEDS ORDERED: DEXTROSE 50% SYRINGE 50 ML IVP PRN ×2 (12:37)
[2025-04-06] MEDS ORDERED: Magnesium Replacement Protocol 1 EACH MISC MISCELLANE PRN (12:37)
[2025-04-06] MEDS ORDERED: ONDANSETRON 4 MG/2 ML VIAL IVP PRN (12:37)
[2025-04-06] MEDS ORDERED: IPRATROPIUM-ALBUTEROL 3 ML NEB INHALATION PRN (12:37)
[2025-04-06] MEDS ORDERED: BENZOCAINE/MENTHOL LOZENG 1 EACH LOZENGE MUCOUS MEM PRN (12:37)
[2025-04-06] MEDS ORDERED: METOCLOPRAMIDE 5 MG/ML 2 ML VIAL IVP PRN (12:37)
[2025-04-06] MEDS ORDERED: CALCIUM GLUCONATE IN NACL 2 GM in SALINE 1 100ML.BAG IVPB PRN (12:37)
--- NOTE | 2025-04-06 12:47 | P.OP ---
Date of Procedure: 04/06/25 Preoperative Diagnosis: Aortic valvular insufficiency, chronic atrial fibrillation Postoperative Diagnosis: Same Procedure(s) Performed: Aortic valve replacement with 25 mm Inspiris bovine pericardial valve prosthesis, biatrial modified Smith-Maze procedure with full lesion set and occlusion of the left atrial appendage with 40 mm AtriCure clip, FARHAD by anesthesia Implants: 40 mm AtriCure clip, 25 mm Inspiris bovine pericardial valve Anesthesia: ERASMOA Surgeon: Remington Amezcua Scouring Machine Operator #1: Sean Hernandez Scouring Machine Operator #2: Florentin Rehman Pathology: other (Aortic valve) Condition: critical Disposition: ICU Indications for Procedure: 74-year-old male with longstanding chronic atrial fibrillation as well as aortic valvular insufficiency which was been worsening over time. Recently, he has become increasingly symptomatic despite maximal medical therapy and was referred for aortic valve replacement. Queta mitten complete modified Smith-Maze procedure was performed for chronic atrial fibrillation. Operative Findings: FARHAD revealed dilated hypertrophic left ventricle with mildly decreased global hypokinesia. There was mild central MR. Aortic valve was tricuspid with minimal calcification in the annulus. Ascending aorta was normal. Description of Procedure: Patient was electively admitted the morning of surgery. Monitoring lines were placed in the preop holding area. There was considerable difficulty placing both the arterial and central venous lines. See anesthesia notes. Once aligned, he was brought to the operating room and placed supine on the table. General anesthesia was induced. The patient was intubated and FARHAD probe was placed. Anterior torso and bilateral lower extremities were sterilely prepped and draped after appropriate positioning. Midline sternotomy was performed. The left pleural space was opened fairly widely and the right pleural space was opened minimally. Bilateral pleural effusions were suctioned out. Pericardium was opened the midline and the heart was exposed with pericardial sutures. Patient was systemically heparinized. Patient was cannulated for cardiopulmonary bypass with a 7 mm soft flow cannula in the distal ascending aorta, 36 straight venous cannula through the right atrial appendage into the inferior vena cava and a 30 right angle cannula in the superior vena cava. Antegrade and retrograde cardioplegia lines were placed in standard fashion. Patient was placed on cardiopulmonary bypass and stabilized. Right sided pulmonary veins were encircled and the left atrium was ablated with 3 parallel lines at the entrance of the right sided pulmonary veins. This was performed using the AtriCure RF clamp. Next the left-sided pulmonary veins were exposed. Ligament of Vinod was divided and the left-sided pulmonary veins were encircled. Left atrium was similarly ablated with 3 parallel lines at the entrance of the left-sided pulmonary veins. 40 mm AtriClip was applied to the base of the left atrial appendage. Heart was lowered into anatomic position. The aorta was crossclamped and the heart arrested with a liter of cold crystalloid antegrade cardioplegia followed by retrograde cardioplegia. The left atrium was entered through the interatrial groove and the posterior wall of the left atrium was exposed. Floor lesion was performed with the AtriCure clamp followed by a roof lesion and the mitral annular lesion was performed using the AtriCure cryoprobe. The atrium was now closed with the single layer running 3-0 Prolene suture and a left atrial vent was left in the suture cinched. Aorta was opened transversely and the aortic valve was exposed. Aortic valve was excised. The annulus was at the calcified. Circumferential sutures of pledgeted 2-0 Tycron suture were placed. Pledgets were placed on the ventricular side to allow a supra annular implantation. Annulus was sized and a 25 mm Inspra's valve was chosen. It was brought up on the field and the valve sutures placed through the sewing ring. The valve was seated without difficulty. Sutures were secured with core knots. The annulus and aortic root and left ventricle were copiously irrigated with saline. Aorta was then closed with a 2 layer running closure of 3-0 Prolene suture. Cryoprobe was used to complete the left-sided maze with a epicardial lesion from the incision onto the coronary sinus after removing the coronary sinus catheter. The right atrium was now opened with a small atriotomy. Superior vena cava and inferior vena cava lines were performed with the AtriCure clip with 3 parallel lines each. Cryoprobe was used to place the lesion up onto the right atrial appendage from the incision and then a second lesion from the incision across the annulus of the tricuspid valve. Right atriotomy was closed with 4-0 Prolene suture. Patient was placed in Trendelenburg and the cross-clamp was removed. Returned spontaneously to idioventricular rhythm. Atrial and ventricular pacemaker wires were placed and the patient was AV paced. On testing, AV conduction was intact with a long first-degree block. Inferior vena caval cannula was pulled back into the right atrium and the superior vena cava cannula was removed and the pursestring tied. This was reinforced with a 4 oh pledgeted Prolene suture. Mechanical ventilation was restarted and the ventricle was de-aired under FARHAD guidance. A 16-gauge Angiocath was used to the area of the apex of the ventricle. Following this, aortic vent line was removed and the pursestring suture tied with good hemostasis. Patient was weaned from cardiopulmonary bypass. Heart was somewhat boggy and low-dose Primacor was initiated. Patient tolerated this well. He was very volume dependent. He was decannulated in standard fashion and the aortic cannulation site was reinforced with a 4 oh pledgeted Prolene. Was returned to the patient. Heparin was reversed with protamine and good hemostasis obtained throughout. Pericardial space was drained with 2 36 Qatari chest tubes and the left pleural space was drained with a 32 Qatari chest tube. The mediastinum was irrigated with antibiotic solution. After assuring good hemostasis, sternum was closed with a sternal wires. Fascia was closed with 0 Ethibond. Subcutaneous and subcuticular layers were closed with layers of Vicryl suture. Dry sterile dressings were applied and the patient was transferred to ICU in stable condition. He received no blood transfusions. He was on low-dose Primacor.
[2025-04-06] MEDS: ALBUMIN HUMAN 5% 250 ML in EMPTY BAG 1 BAG IVPB PRN (13:00)
[2025-04-06] MEDS: SODIUM CHLORIDE 0.9% 1,000 ML IV SCH (13:00)
[2025-04-06] MEDS: methylPREDNISolone SOD SUCCI 125 MG/2 ML VIAL IV STA ×2 (13:09→18:25)
[2025-04-06] MEDS: diphenhydrAMINE 50 MG/ML 1 ML VIAL IVP STA (13:13)
[2025-04-06 13:14] LABS: HCT 26.7 % (39.6-50.0); HGB 8.4 g/dL (13.0-17.0); MCH 34.7 pg (27.0-32.0); MCHC 31.5 g/dL (32.0-37.0); MCV 110.3 fL (80.0-97.0); Mean Platelet Volume 12.7 fL (9.5-12.2); RBC 2.42 10*6/uL (4.40-5.60)
[2025-04-06] MEDS: EPINEPHrine 4 MG in DEXTROSE 5% IN WATER 250 ML IV SCH (13:15)
[2025-04-06] MEDS: MILRINONE-D5W PMX 20 MG in DEXTROSE/WATER 1 100ML.BAG IV SCH (13:19)
[2025-04-06 13:21] LABS: Allen Test Performed? Yes
[2025-04-06 13:22] LABS: Ionized Calcium 4.5 mg/dL (4.5-5.3)
[2025-04-06 13:22] LABS: ABG Base Excess -4.3 mmol/L; ABG HCO3 22 mmol/L (21-25); ABG PCO2 44 mmHg (35-45); ABG PH 7.31 (7.35-7.45); ABG PO2 66 mmHg (83-108); ABG TCO2 23 mmol/L (19-24)
[2025-04-06 13:23] LABS: Glucose,Whole Blood 125 mg/dL (70-110)
[2025-04-06 13:35] LABS: INR 1.5 (<1.2); Partial Thromboplastin Time 27.8 sec (22.0-30.0); Prothrombin Time 15.8 sec (10.0-12.5)
[2025-04-06 13:47] LABS: ALT 19 U/L (4-49); AST 105 U/L (17-59); African American GFR (CKD) >90 (>60 ml/min/1.73 sqM); Albumin 3.1 g/dL (3.5-5.0); Alkaline Phosphatase 67 U/L (38-126); Anion Gap 8 mmol/L; Blood Urea Nitrogen 13 mg/dL (9-20); Calcium 7.9 mg/dL (8.4-10.2); Carbon Dioxide 21 mmol/L (22-30); Chloride 110 mmol/L (98-107); Glucose 122 mg/dL (74-99); Magnesium 2.9 mg/dL (1.6-2.3); Non-African American GFR(CKD) >90 (>60 ml/min/1.73 sqM); Potassium 4.5 mmol/L (3.5-5.1); Sodium 139 mmol/L (137-145); Total Bilirubin 1.5 mg/dL (0.2-1.3)
[2025-04-06] MEDS: DEXMEDETOMIDINE/0.9% NACL(PMX) 400 MCG in EMPTY BAG 1 BAG IV SCH (14:05)
--- NOTE | 2025-04-06 14:25 | XR ---
EXAMINATION TYPE: XR chest 1V portable DATE OF EXAM: 04/06/2025 1:37 PM COMPARISON: None. CLINICAL INDICATION: Male, 74 years old with history of Post Operative Cardiac Surgery, TECHNIQUE: XR chest 1V portable view(s) obtained. FINDINGS: The heart size is mildly prominent. The pulmonary vasculature is normal. Artifact overlies left chest. There is left-sided chest tube. No pneumothorax is evident. Mediastinal tube is present. Endotracheal tube tip is 2 cm above the tiffanie. Nasogastric tube travels versus the thorax with tip in therr mid abdomen epigastric region. This should be advanced at least 8 cm for better positioning. Left [place] catheter has its tip in the right main pulmonary artery region IMPRESSION: 1. Multiple lines and catheters discussed above. 2. Nasogastric tube should be advanced 8 cm. [facility], , 04/06/2025 2:23 PM
[2025-04-06] MEDS: INSULIN REGULAR 100 UNIT in SODIUM CHLORIDE 0.9% 100 ML IV SCH (14:30)
[2025-04-06 14:33] LABS: Band Neutrophils % 1 %; Lymphocytes # (M) 3.09 k/uL (1.0-4.8); Metamyelocytes # (M) 0.15 k/uL (0); Metamyelocytes % 1 %; Monocytes # (M) 4.27 k/uL (0-1.0); Myelocytes # (M) 0.15 k/uL (0); Myelocytes % 1 %; Neutrophils # (M) 7.35 k/uL (1.3-7.7); Neutrophils % (M) 49 %; Nucleated Red Blood Cells 4 /100 WBC (0-0); Total Cells Counted 200; WBC 14.71 10*3/uL (4.50-10.00)
[2025-04-06 14:33] LABS: ABG Base Excess -4.4 mmol/L; ABG HCO3 22 mmol/L (21-25); ABG Oxygen Saturation 97.8 % (94-97); ABG PCO2 44 mmHg (35-45); ABG PH 7.31 (7.35-7.45); ABG PO2 113 mmHg (83-108); ABG TCO2 23 mmol/L (19-24); Allen Test Performed? Yes
[2025-04-06 14:35] LABS: Large Platelets Present
[2025-04-06 14:36] LABS: Spherocytes Present
[2025-04-06 14:39] LABS: Glucose,Whole Blood 141 mg/dL (70-110)
[2025-04-06 14:57] LABS: Platelet Count 87 10*3/uL (140-440)
--- NOTE | 2025-04-06 15:27 | P.CNPUL ---
History of Present Illness Consult date: 04/06/25 Chief complaint: Aortic valve replacement. History of cyst History of present illness: This is a 74-year-old male patient underwent aortic valve replacement utilizing an Inspiris bovine pericardial valve prosthesis and the patient also had a mo dified Smith-Maze procedure and occlusion of the left atrial appendage. Postop, the patient was kept intubated, sedated with propofol and the patient was brought into the intensive care unit. Upon arrival to the ICU, the patient seemed to be in anaphylaxis. The patient had developed a maculopapular rash throughout her body and she was also having increase in facial swelling, eye swelling, lip swelling and hypotension. Anaphylaxis was suspected and this was probably drug-induced and only medications was introduced. Was propofol. Immediately, propofol was discontinued. The patient was given a total of 4 doses of IV albumin 5%, Benadryl 50 mg IV and Solu-Medrol 125 mg IV. The patient was also started on low-dose norepinephrine. Noted the patient SVR was quite low at 400 and improved. SVR is at 958. Immediately a chest x-ray was done and the patient showed no evidence of any pneumothorax. ET tube and the rest of the chest tubes are all in good location. Kramer-Issac catheter was also in good location. No significant abnormalities identified. At this point in time, the patient is intubated mechanical ventilator assist-control mode rate of 14, tidal volume of 500, FiO2 100% with a PEEP of 8. Blood gas showed a pH of 7.3 with a PCO2 of 43 and pO2 of 65. Output from the mediastinal and left lower chest tube were minimal. The patient is currently in a paced rhythm, DDD pacing at a rate of 80. Noted underlying rhythm is junctional. He is on milrinone at 0.2 mcg and epinephrine drip at 0.04 mcg and the most recent cardiac output is at 5 with an index of 2.8 with PA pressures of 48/27 and SVR of 958. Urine output is adequate for now. The white cell count of 14.7 with a hemoglobin 8.4 and a platelet count of 87. INR is at 1.5 with a PT of 15.8. Sodium is at 139, potassium is at 4.5, BUN 30 with a 0.7. LFTs Are Normal. Ionized Calcium Is at 4.5. Blood Sugar Is at 141. Review of Systems ROS unobtainable: due to endotracheal tube Past Medical History Past Medical History: Atrial Fibrillation, Coronary Artery Disease (CAD), Hypertension, Skin Disorder, Sleep Apnea/CPAP/BIPAP Additional Past Medical History / Comment(s): hx. colon polyps, mom hx. of colon cancer, Joint inflammation. current SOB with exertion. uses cpap. actinic keratosis History of Any Multi-Drug Resistant Organisms: None Reported Past Surgical History: Appendectomy, Heart Catheterization, Orthopedic Surgery Additional Past Surgical History / Comment(s): gema rotator cuff surg., nasal surg. cataract removed and lenses placed. colonoscopy, cardioversion, recent card. cath. Past Anesthesia/Blood Transfusion Reactions: No Reported Reaction Smoking Status: Never smoker - Past Family History Mother Family Medical History: Cancer Additional Family Medical History / Comment(s): colon cancer Sister(s) Family Medical History: Cancer Brother(s) Family Medical History: Coronary Artery Disease (CAD) Medications and Allergies Home Medications Medication Instructions Recorded Confirmed Type Benazepril [Lotensin] 20 mg PO DAILY 10/09/14 04/06/25 History Testosterone [Androgel 1.62% Gel 2 pump TOPICAL Q48H 12/22/18 04/06/25 History Pump] Ascorbic Acid [Vitamin C] 500 mg PO DAILY 07/23/21 04/06/25 History Cyanocobalamin (Vitamin B-12) 1,000 mcg PO DAILY 07/23/21 04/06/25 History [Vitamin B-12] Sambucus 2 tab PO DAILY 07/23/21 04/06/25 History Selenium 200 mcg PO DAILY 07/23/21 04/06/25 History Vitamin D3 +K2 1 tab PO DAILY 07/23/21 04/06/25 History Zinc 50 mg PO DAILY 07/23/21 04/06/25 History Apixaban [Eliquis] 5 mg PO BID 03/03/25 04/06/25 History carvediloL [Coreg] 6.25 mg PO BID 03/03/25 04/06/25 History Atorvastatin [Lipitor] 10 mg PO DAILY 04/04/25 04/06/25 History Escitalopram [Lexapro] 20 mg PO DAILY 04/04/25 04/06/25 History Magnesium 240 mg PO DAILY 04/04/25 04/06/25 History Mupirocin [Mupirocin 2%] 1 applic NASAL BID #1 tub 04/04/25 04/06/25 Rx Turmeric Root Extract [Turmeric] 1,000 mg PO DAILY 04/04/25 04/06/25 History Allergies Allergy/AdvReac Type Severity Reaction Status Date / Time propofol Allergy Severe Anaphylaxis Verified 04/06/25 13:31 Physical Exam Vitals: Vital Signs Temp Pulse Pulse Resp BP BP BP 04/06/25 15:15 80 18 04/06/25 15:10 04/06/25 15:00 97.3 F L 80 17 04/06/25 14:45 80 16 04/06/25 14:30 80 16 04/06/25 14:15 80 14 04/06/25 14:10 80 14 124/04/06/25 14:05 80 14 124/71 04/06/25 14:00 80 14 124/71 04/06/25 13:55 80 14 124/71 04/06/25 13:50 80 14 124/71 04/06/25 13:45 96.4 F L 80 14 04/06/25 13:40 80 14 04/06/25 13:35 80 14 04/06/25 13:30 80 14 04/06/25 13:25 80 14 04/06/25 13:20 95.5 F L 80 14 04/06/25 13:15 80 14 124/71 04/06/25 13:10 80 14 04/06/25 13:08 04/06/25 13:06 04/06/25 13:05 80 14 74/44 04/06/25 13:00 14 82/45 04/06/25 06:20 97.7 F 100 16 140/65 138/77 Pulse Ox FiO2 04/06/25 15:15 96 80 04/06/25 15:10 80 04/06/25 15:00 99 04/06/25 14:45 100 04/06/25 14:30 100 04/06/25 14:15 100 04/06/25 14:10 100 04/06/25 14:05 100 04/06/25 14:00 100 100 04/06/25 13:55 100 04/06/25 13:50 100 04/06/25 13:45 100 04/06/25 13:40 99 04/06/25 13:35 97 04/06/25 13:30 95 04/06/25 13:25 94 L 04/06/25 13:20 04/06/25 13:15 95 100 04/06/25 13:10 04/06/25 13:08 100 04/06/25 13:06 100 04/06/25 13:05 04/06/25 13:00 04/06/25 06:20 97 Intake and Output 04/06/25 04/06/25 04/06/25 06:59 14:59 22:59 Intake Total 100 968.863 336.641 Output Total 1158 152 Balance 100 -189.137 184.641 Intake: IV 100 159 29 .9NS Cardiac Output 40 20 .9NS Pressure Bag 18 9 Intake, IV Titration 809.863 307.641 Amount Albumin Human 5% 250 ml 750 250 In Empty Bag 1 bag @ 250 mls/hr IVPB Q1HR PRN Rx#: [id number] Dexmedetomidine/0.9% NaCl 2.168 (Pmx) 400 mcg In Empty Bag 1 bag @ Titrate IV . Q0M [facility] Rx#:[id number] EPINEPHrine 4 mg In 7.695 7.641 Dextrose 5% in Water 250 ml @ 0.03 MCG/KG/MIN 9. 754 mls/hr IV .Q24H [facility] Rx#:[id number] Sodium Chloride 0.9% 1, 50 50 000 ml @ 50 mls/hr IV . Q20H [facility] Rx#:[id number] Output: Chest Tube Drainage 48 112 Left Chest Tube 8 32 Mediastinal Chest Tube X 40 80 2 Urine 310 40 Estimated Blood Loss 800 Other: Weight 86.7 kg ABP, PAP, CO, CI - Last 8 Hours Arterial Blood Pressure 98/56 Arterial Blood Pressure 103/56 Arterial Blood Pressure 102/57 Arterial Blood Pressure 97/56 Arterial Blood Pressure 109/61 Arterial Blood Pressure 116/64 Arterial Blood Pressure 113/64 Arterial Blood Pressure 116/65 Arterial Blood Pressure 116/65 Arterial Blood Pressure 121/67 Arterial Blood Pressure 128/70 Arterial Blood Pressure 133/72 Arterial Blood Pressure 121/67 Arterial Blood Pressure 120/66 Arterial Blood Pressure 111/63 Arterial Blood Pressure 104/56 Arterial Blood Pressure 102/57 Arterial Blood Pressure 129/73 Arterial Blood Pressure 50/31 Arterial Blood Pressure 58/21 Pulmonary Artery Pressure 46/22 Pulmonary Artery Pressure 47/23 Pulmonary Artery Pressure 44/23 Pulmonary Artery Pressure 45/23 Pulmonary Artery Pressure 46/25 Pulmonary Artery Pressure 45/23 Pulmonary Artery Pressure 45/24 Pulmonary Artery Pressure 45/25 Pulmonary Artery Pressure 46/26 Pulmonary Artery Pressure 47/26 Pulmonary Artery Pressure 48/26 Pulmonary Artery Pressure 46/25 Pulmonary Artery Pressure 45/25 Pulmonary Artery Pressure 45/27 Pulmonary Artery Pressure 44/26 Pulmonary Artery Pressure 44/24 Pulmonary Artery Pressure 37/17 Pulmonary Artery Pressure 29/6 Pulmonary Artery Pressure 108/15 Cardiac Output 5.2 Cardiac Output 4.5 Cardiac Output 5 Cardiac Output 4.9 Cardiac Index 3 Cardiac Index 2.6 Cardiac Index 2.8 Cardiac Index 2.8 The patient appeared well nourished and is currently intubated on the mechanical ventilator. Orogastric and orotracheal tube are both in place. Sedated on Precedex. Head exam is unremarkable. No scleral icterus or corneal arcus noted. Neck is without jugular venous distension, thyromegaly, or carotid bruits. Carotid upstrokes are brisk bilaterally. Left IJ Kramer-Issac catheter in place Lungs are clear to auscultation and percussion. The patient has a mediastinal left pleural chest tube Cardiac exam reveals the PMI to be normally sized and situated. Rhythm is regular. First and second heart sounds normal. No murmurs, rubs or gallops. The patient is currently paced at rate of 80, DDD pacing Abdominal exam reveals normal bowel sounds, no masses, no organomegaly and no aortic enlargement. Extremities are nonedematous and both femoral and pedal pulses are normal. Examination of the skin revealed no evidence of significant rashes, suspicious appearing nevi or other concerning lesions. Previous described rash at the time of anaphylaxis has essentially subsided. No significant facial or lip swelling. Neurologically, the patient is sedated Results - Laboratory Findings CBC and BMP: 04/06/25 13:02 04/06/25 13:02 ABG ABG pH 7.31 (7.35-7.45) L 04/06/25 14:29 ABG pCO2 44 mmHg (35-45) 04/06/25 14:29 ABG pO2 113 mmHg (83-108) H 04/06/25 14:29 ABG O2 Saturation 97.8 % (94-97) H 04/06/25 14:29 PT/INR, D-dimer PT 15.8 sec (10.0-12.5) H 04/06/25 13:02 INR 1.5 (<1.2) H 04/06/25 13:02 Abnormal lab findings: Abnormal Labs 04/04/25 04/06/25 04/06/25 09:03 08:50 09:23 WBC RBC Hgb Hct MCV MCH MCHC Plt Count MPV Immature Gran # Monocytes # (Manual) Metamyelocytes # (Man) Myelocytes # (Manual) Nucleated RBCs PT INR ABG pH 7.32 L ABG pCO2 ABG pO2 ABG O2 Saturation 97.4 H 97.5 H ABG Hematocrit 27 L 27 L ABG Potassium 4.7 H ABG Ionized Calcium ABG Glucose 120 H 139 H Hemoglobin 8.7 L 8.8 L Chloride Carbon Dioxide Glucose POC Glucose (mg/dL) Calcium Magnesium Total Bilirubin AST Total Protein Albumin Arterial Blood Potassium 4.7 H Arterial Blood Glucose 120 H 139 H Crossmatch See Detail 04/06/25 04/06/25 04/06/25 09:52 10:24 10:51 WBC RBC Hgb Hct MCV MCH MCHC Plt Count MPV Immature Gran # Monocytes # (Manual) Metamyelocytes # (Man) Myelocytes # (Manual) Nucleated RBCs PT INR ABG pH 7.31 L ABG pCO2 46 H ABG pO2 404 H 275 H 339 H ABG O2 Saturation >99.4 H 99.3 H >99.4 H ABG Hematocrit 21 L 21 L 22 L ABG Potassium 5.0 H 5.2 H ABG Ionized Calcium 4.3 L ABG Glucose 121 H 117 H 132 H Hemoglobin 6.7 L* 6.8 L* 7.3 L Chloride Carbon Dioxide Glucose POC Glucose (mg/dL) Calcium Magnesium Total Bilirubin AST Total Protein Albumin Arterial Blood Potassium 5.0 H 5.2 H Arterial Blood Glucose 121 H 117 H 132 H Crossmatch 04/06/25 04/06/25 04/06/25 12:04 13:01 13:02 WBC 14.71 H RBC 2.42 L Hgb 8.4 L Hct 26.7 L MCV 110.3 H MCH 34.7 H MCHC 31.5 L Plt Count 87 L MPV 12.7 H Immature Gran # 2.23 H Monocytes # (Manual) 4.27 H Metamyelocytes # (Man) 0.15 H Myelocytes # (Manual) 0.15 H Nucleated RBCs 4 H PT INR ABG pH 7.31 L ABG pCO2 ABG pO2 211 H ABG O2 Saturation 98.7 H ABG Hematocrit 25 L ABG Potassium ABG Ionized Calcium ABG Glucose 132 H Hemoglobin 8.1 L Chloride Carbon Dioxide Glucose POC Glucose (mg/dL) 125 H Calcium Magnesium Total Bilirubin AST Total Protein Albumin Arterial Blood Potassium Arterial Blood Glucose 132 H Crossmatch 04/06/25 04/06/25 04/06/25 13:02 13:02 13:22 WBC RBC Hgb Hct MCV MCH MCHC Plt Count MPV Immature Gran # Monocytes # (Manual) Metamyelocytes # (Man) Myelocytes # (Manual) Nucleated RBCs PT 15.8 H INR 1.5 H ABG pH 7.31 L ABG pCO2 ABG pO2 66 L ABG O2 Saturation 89.0 L ABG Hematocrit ABG Potassium ABG Ionized Calcium ABG Glucose Hemoglobin 8.6 L Chloride 110 H Carbon Dioxide 21 L Glucose 122 H POC Glucose (mg/dL) Calcium 7.9 L Magnesium 2.9 H Total Bilirubin 1.5 H AST 105 H Total Protein 5.0 L Albumin 3.1 L Arterial Blood Potassium Arterial Blood Glucose Crossmatch 04/06/25 04/06/25 14:29 14:29 WBC RBC Hgb Hct MCV MCH MCHC Plt Count MPV Immature Gran # Monocytes # (Manual) Metamyelocytes # (Man) Myelocytes # (Manual) Nucleated RBCs PT INR ABG pH 7.31 L ABG pCO2 ABG pO2 113 H ABG O2 Saturation 97.8 H ABG Hematocrit ABG Potassium ABG Ionized Calcium ABG Glucose Hemoglobin 8.8 L Chloride Carbon Dioxide Glucose POC Glucose (mg/dL) 141 H Calcium Magnesium Total Bilirubin AST Total Protein Albumin Arterial Blood Potassium Arterial Blood Glucose Crossmatch - Diagnostic Findings Chest x-ray: image reviewed Assessment and Plan Plan: Aortic valve replacement with a bovine tissue valve and the patient also underwent a modified Smith-Maze procedure and occlusion of the left atrial appendage in the patient's postoperative #0. Patient is currently on a combination of milrinone and low-dose norepinephrine. Cardiac rhythm is paced, DDD pacing at a rate of 80. Surgery was done for severe aortic stenosis Postthoracotomy, remains intubated on mechanical ventilator. Blood gas showing ongoing hypoxemia. Chest x-ray shows no evidence of pneumothorax mediastinal chest tube and left pleural chest tube are both in place. Anaphylaxis secondary to propofol/drug-induced. The patient was treated with IV Solu-Medrol and Benadryl and the patient is currently on low-dose epinephrine infusion. Rash is subsiding. No significant swelling at this point in time. Patient had hypotension and significant drop in the SVR with subsequent improved based on hemodynamic monitoring and Kramer-Issac monitoring. Junctional rhythm postop, expected outcome of surgery and the patient is currently DDD paced with a rate of 80 History of atrial fibrillation Coronary artery disease Hypertension History of obstructive sleep apnea maintained on CPAP therapy History of colon polyps Degenerative arthritis Thrombocytopenia, expected outcome of surgery Blood loss anemia, expected outcome of surgery and the patient's hemoglobin is at 8.4. Plan Continue on sedation the patient is currently on Precedex and propofol has been discontinued Monitor hemodynamics Keep the patient remains on mechanical ventilator to decrease the PEEP up to 10 and gradually wean FiO2 t maintain saturation above 90% Obtain follow-up blood gases Continue milrinone Continue low-dose norepinephrine Monitor output from the chest tubes and the patient has a mediastinal and left pleural chest tube Patient is placed on the rate of 80 No immediate plans for extubation. Will monitor hemodynamics and sequelae of recent anaphylaxis and will make further recommendations accordingly. Care was coordinated with the cardiothoracic surgeon
[2025-04-06 16:03] LABS: Glucose,Whole Blood 162 mg/dL (70-110)
[2025-04-06 16:10] LABS: Basophils # (A) 0.06 10*3/uL (0.00-0.10); Basophils % (A) 0.4 %; HCT 26.1 % (39.6-50.0); HGB 8.3 g/dL (13.0-17.0); Lymphocytes # (A) 0.89 10*3/uL (0.90-5.00); Lymphocytes % (A) 5.6 %; MCHC 31.8 g/dL (32.0-37.0); MCV 110.1 fL (80.0-97.0); Mean Platelet Volume 12.2 fL (9.5-12.2); Monocytes # (A) 2.52 10*3/uL (0.20-1.00); Monocytes % (A) 15.9 %; Neutrophils # (A) 10.18 10*3/uL (1.80-7.70); Neutrophils % (A) 64.3 %; RBC 2.37 10*6/uL (4.40-5.60); RDW 18.1 % (11.5-14.5); WBC 15.84 10*3/uL (4.50-10.00)
[2025-04-06] MEDS: IPRATROPIUM-ALBUTEROL 3 ML NEB INHALATION SCH ×2 (16:11→20:37)
[2025-04-06 16:16] LABS: Platelet Count 94 10*3/uL (140-440)
[2025-04-06 16:19] LABS: ABG Base Excess -5.4 mmol/L; ABG HCO3 20 mmol/L (21-25); ABG Oxygen Saturation 99.6 % (94-97); ABG PCO2 37 mmHg (35-45); ABG PH 7.34 (7.35-7.45); ABG PO2 171 mmHg (83-108); ABG TCO2 21 mmol/L (19-24); Allen Test Performed? Yes
[2025-04-06] MEDS: HEPARIN SODIUM,PORCINE 5,000 UNIT/ML 1 ML VIAL SQ SCH (16:46)
[2025-04-06] MEDS: ceFAZolin 2 GM in DEXTROSE 5% IN WATER 50 ML IVPB SCH (16:55)
[2025-04-06 17:05] LABS: Glucose,Whole Blood 168 mg/dL (70-110)
[2025-04-06] MEDS: ACETAMINOPHEN IV (For NPO) 1,000 MG in EMPTY BAG 1 BAG IVPB SCH (17:40)
[2025-04-06 18:10] LABS: ABG Base Excess -3.8 mmol/L; ABG HCO3 21 mmol/L (21-25); ABG Oxygen Saturation 96.7 % (94-97); ABG PCO2 38 mmHg (35-45); ABG PH 7.36 (7.35-7.45); ABG PO2 91 mmHg (83-108); ABG TCO2 23 mmol/L (19-24); Allen Test Performed? Yes
[2025-04-06 18:29] LABS: Glucose,Whole Blood 174 mg/dL (70-110)
[2025-04-06 19:05] LABS: Glucose,Whole Blood 163 mg/dL (70-110)
[2025-04-06 19:13] LABS: HCT 24.5 % (39.6-50.0); HGB 7.9 g/dL (13.0-17.0); MCHC 32.2 g/dL (32.0-37.0); MCV 108.4 fL (80.0-97.0); Mean Platelet Volume 12.1 fL (9.5-12.2); RBC 2.26 10*6/uL (4.40-5.60); RDW 17.9 % (11.5-14.5)
[2025-04-06 19:31] LABS: Platelet Count 91 10*3/uL (140-440)
--- NOTE | 2025-04-06 19:45 | P.ANPRN ---
Procedure Note - Anesthesia - Invasive Line Left [place] Issac Time Out Performed: Yes Date of Procedure: 04/06/25 Time of Procedure: 07:51 Location of Patient: PreOp Preparation: Sterile Prep, Sterile Dressing Central Line Location: Internal Jugular Ultrasound Used: No Purpose - Visualization and Identification of Vasculature: No Image Stored and Saved: No Narrative: Invasive line placement per sterile protocol utilized.
--- NOTE | 2025-04-06 19:45 | P.ANPRN ---
Procedure Note - Anesthesia - Invasive Line Left Central Line Time Out Performed: Yes Date of Procedure: 04/06/25 Time of Procedure: 07:42 Location of Patient: PreOp Preparation: Sterile Prep, Sterile Dressing Central Line Location: Internal Jugular Ultrasound Used: No Purpose - Visualization and Identification of Vasculature: No Image Stored and Saved: No Narrative: Invasive line placement per sterile protocol utilized.
[2025-04-06 20:05] LABS: Glucose,Whole Blood 168 mg/dL (70-110)
[2025-04-06 20:37] LABS: Lymphocytes # (M) 1.15 k/uL (1.0-4.8); Metamyelocytes # (M) 0.46 k/uL (0); Metamyelocytes % 4 %; Monocytes # (M) 0.69 k/uL (0-1.0); Neutrophils # (M) 9.43 k/uL (1.3-7.7); Neutrophils % (M) 82 %; Nucleated Red Blood Cells 1 /100 WBC (0-0); Total Cells Counted 200
[2025-04-06 21:15] LABS: Glucose,Whole Blood 158 mg/dL (70-110)
[2025-04-06] MEDS: SENNOSIDES-DOCUSATE SODIUM 1 EACH TAB PO SCH (21:58)
[2025-04-06 22:05] LABS: Glucose,Whole Blood 155 mg/dL (70-110)
[2025-04-06 23:14] LABS: Glucose,Whole Blood 150 mg/dL (70-110)
[2025-04-07 00:25] LABS: Glucose,Whole Blood 157 mg/dL (70-110)
[2025-04-07] MEDS ORDERED: ACETAMINOPHEN TAB 325 MG TAB PO PRN (00:31)
[2025-04-07 01:19] LABS: Glucose,Whole Blood 137 mg/dL (70-110)
[2025-04-07 02:13] LABS: Glucose,Whole Blood 132 mg/dL (70-110)
[2025-04-07 03:08] LABS: Glucose,Whole Blood 125 mg/dL (70-110)
[2025-04-07 04:14] LABS: Glucose,Whole Blood 124 mg/dL (70-110)
[2025-04-07 04:26] LABS: HCT 22.5 % (39.6-50.0); MCH 33.8 pg (27.0-32.0); MCHC 31.1 g/dL (32.0-37.0); Mean Platelet Volume 12.2 fL (9.5-12.2); Platelet Count 100 10*3/uL (140-440); RBC 2.07 10*6/uL (4.40-5.60); RDW 17.9 % (11.5-14.5); WBC 7.08 10*3/uL (4.50-10.00)
[2025-04-07 04:54] LABS: Ionized Calcium 4.6 mg/dL (4.5-5.3)
[2025-04-07 05:02] LABS: Glucose,Whole Blood 121 mg/dL (70-110)
[2025-04-07 05:05] LABS: ALT 17 U/L (4-49); AST 76 U/L (17-59); African American GFR (CKD) >90 (>60 ml/min/1.73 sqM); Albumin 3.3 g/dL (3.5-5.0); Alkaline Phosphatase 56 U/L (38-126); Anion Gap 11 mmol/L; Blood Urea Nitrogen 14 mg/dL (9-20); Calcium 8.2 mg/dL (8.4-10.2); Carbon Dioxide 22 mmol/L (22-30); Chloride 106 mmol/L (98-107); Glucose 106 mg/dL (74-99); Magnesium 2.5 mg/dL (1.6-2.3); Non-African American GFR(CKD) 88 (>60 ml/min/1.73 sqM); Potassium 4.2 mmol/L (3.5-5.1); Sodium 139 mmol/L (137-145); Total Bilirubin 1.2 mg/dL (0.2-1.3); Total Protein 5.2 g/dL (6.3-8.2)
[2025-04-07 05:56] LABS: Glucose,Whole Blood 114 mg/dL (70-110)
[2025-04-07 05:58] LABS: MCV 108.7 fL (80.0-97.0)
[2025-04-07 07:00] LABS: Glucose,Whole Blood 243 mg/dL (70-110)
[2025-04-07 07:03] LABS: Glucose,Whole Blood 134 mg/dL (70-110)
[2025-04-07 08:04] LABS: Glucose,Whole Blood 224 mg/dL (70-110)
--- NOTE | 2025-04-07 08:15 | XR ---
EXAMINATION TYPE: XR chest 1V portable DATE OF EXAM: 04/07/2025 5:29 AM COMPARISON: 04/06/2025 CLINICAL INDICATION: Male, 74 years old with history of Post Operative Cardiac Surgery, TECHNIQUE: XR chest 1V portable view(s) obtained. FINDINGS: The heart size is enlarged. The pulmonary vasculature is normal. The lungs are clear. Endotracheal tube is been removed. Nasogastric tube is been removed. [place]-Issac catheter is present wi th the tip in the main pulmonary artery region. Mediastinal tube is present. Left-sided chest tube is present. No pneumothorax is evident. Sternotomy wires from cardiac valve surgery are evident. IMPRESSION: 1. Cardiomegaly. 2. No acute pulmonary process. 3. Lines and catheters discussed above [facility], , 04/07/2025 8:12 AM
[2025-04-07] MEDS: CYANOCOBALAMIN 500 MCG TAB PO SCH (08:25)
[2025-04-07] MEDS: CLOPIDOGREL 75 MG TAB PO SCH (08:25)
[2025-04-07] MEDS: ESCITALOPRAM 20 MG TAB PO SCH (08:26)
[2025-04-07] MEDS: ATORVASTATIN 10 MG TAB PO SCH (08:26)
[2025-04-07] MEDS: ASCORBIC ACID 500 MG TAB PO SCH (08:26)
[2025-04-07] MEDS: PANTOPRAZOLE 40 MG/10 ML VIAL IVP SCH (08:28)
[2025-04-07] MEDS: ASPIRIN 325 MG TAB PO SCH (08:32)
[2025-04-07 08:43] LABS: Band Neutrophils % 1 %; Lymphocytes # (M) 0.78 k/uL (1.0-4.8); Monocytes # (M) 0.99 k/uL (0-1.0); Neutrophils # (M) 5.31 k/uL (1.3-7.7); Neutrophils % (M) 74 %; Nucleated Red Blood Cells 0 /100 WBC (0-0); Total Cells Counted 100
[2025-04-07 08:44] LABS: RBC Fragments Present
[2025-04-07] MEDS ORDERED: bisacodyL 10 MG SUPP RECTAL PRN (09:00)
[2025-04-07] MEDS ORDERED: MAGNESIUM HYDROXIDE 2,400 MG/30 ML CUP PO PRN (09:00)
[2025-04-07] MEDS ORDERED: METOPROLOL TARTRATE 12.5 MG TAB PO SCH (09:00)
[2025-04-07 09:10] LABS: Glucose,Whole Blood 171 mg/dL (70-110)
[2025-04-07 09:21] LABS: Glucose,Whole Blood 157 mg/dL (70-110)
--- NOTE | 2025-04-07 09:32 | P.PN ---
Subjective Progress Note Date: 04/07/25 Principal diagnosis: Aortic valvular insufficiency, chronic atrial fibrillation. History of chronic persistent atrial fibrillation with previous unsuccessful cardioversion on [facility] outpatient for anticoagulation, hypertension, obstructive sleep apnea, lifelong non-smoker, drinks 2 beers per night. 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 He was successfully extubated last night at 18:47. Was AV paced this morning although underlying rhythm was sinus rhythm in the 60s, pacer placed to VVI with backup rate of 60 bpm. Hemodynamically stable on low-dose epi and Primacor, epinephrine was discontinued this morning. States pain is controlled on current medication regimen, denies shortness of breath. Currently on 2 L nasal cannula with oxygen saturation in the mid 90s, able to achieve 1000 mL on incentive spirometry. Left internal Oakley/Cordis, right brachial arterial line, mediastinal/left pleural chest tubes all remain. No other new concerns. Objective - Vital Signs Vital signs: Vital Signs Temp 98.1 F 04/07/25 04:30 Pulse 80 04/07/25 07:00 Resp 18 04/07/25 07:00 BP 105/65 04/07/25 03:00 Pulse Ox 96 04/07/25 07:00 FiO2 40 04/06/25 18:30 Intake & Output 04/06/25 04/07/25 04/07/25 18:59 06:59 18:59 Intake Total 0856.326 2560.394 59 Output Total 1823 980 40 Balance -221.426 425.394 19 Weight 88.6 kg Intake: IV 264 1189 59 0.9 @ 50 550 50 ACETAMINOPHEN IV (For NPO 400 ) 1,000 mg In Empty Bag 1 bag @ 400 mls/hr IVPB Q6HR [facility] Rx#:[id number] CO/CI 100 90 0 Pressure Bag 63 99 9 ceFAZolin 2 gm In 50 Dextrose 5% in Water 50 ml @ 100 mls/hr IVPB Q8HR [facility] Rx#:[id number] Intake, IV Titration 1337.574 216.394 0 Amount Albumin Human 5% 250 ml 1000 In Empty Bag 1 bag @ 250 mls/hr IVPB Q1HR PRN Rx#: [id number] Dexmedetomidine/0.9% NaCl 13.375 (Pmx) 400 mcg In Empty Bag 1 bag @ Titrate IV . Q0M [facility] Rx#:[id number] EPINEPHrine 4 mg In 15.336 63.292 Dextrose 5% in Water 250 ml @ 0.03 MCG/KG/MIN 9. 754 mls/hr IV .Q24H [facility] Rx#:[id number] Insulin Regular 100 unit 8.863 71.257 0 In Sodium Chloride 0.9% 100 ml @ Per Protocol IV .Q0M [facility] Rx#:[id number] Lactated Ringers 1,000 ml 100 @ 50 mls/hr IV .Q20H [facility] Rx#:[id number] Milrinone-D5w Pmx 20 mg 81.845 In Dextrose/Water 1 100ml .bag @ 0.2 MCG/KG/MIN 5. 202 mls/hr IV .[id number] [facility] Rx#:[id number] Sodium Chloride 0.9% 1, 200 000 ml @ 20 mls/hr IV . Q24H [facility] Rx#:[id number] Output: Chest Tube Drainage 288 620 20 Left Chest Tube 88 240 10 Mediastinal Chest Tube X 200 380 10 2 Urine 735 360 20 Estimated Blood Loss 800 Other: Voiding Method Indwelling Catheter Indwelling Catheter ABP, PAP, CO, CI - Last Documented Arterial Blood Pressure 127/52 Pulmonary Artery Pressure 43/12 Cardiac Output 5 Cardiac Index 2.8 - Exam CONSTITUTIONAL: Appears comfortable, cooperative, no acute distress RESPIRATORY: Lungs sounds diminished bilaterally. Respirations even, nonlabored. Currently on 2 L nasal cannula with oxygen saturation 95%. Able to achieve 1000 mL on incentive spirometry. Strong cough. CARDIOVASCULAR: S1, S2 present. Regular rate and rhythm, sinus rhythm on telemetry. Sternum stable. Palpable peripheral pulses bilaterally. No edema present. No calf pain or tenderness noted. Heart hugger in place with patient demonstrating appropriate use. Antiembolism stockings, SCDs present. GASTROINTESTINAL: Abdomen soft, nontender, nondistended. Hypoactive bowel sounds present 4 quadrants. Tolerating minimal clear liquids. Denies flatus GENITOURINARY: Osorio present draining clear, yellow urine. Output overnight 20-50 mL per hour INTEGUMENTARY: Skin is warm and dry with evidence of good perfusion. Anterior chest incision well approximated and covered with dry intact dressing. NEUROLOGIC: Cranial nerves II through XII intact MUSKULOSKELETAL: Able to move all extremities, strength equal bilaterally, gait normal PSYCHIATRIC: Alert and oriented to person place and time, appropriate affect, intact judgment and insight INVASIVE LINES AND TUBES: Mediastinal/left pleural chest tubes present and connected to wall suction, no air leaks present. Mediastinal tube with 240 mL serosanguineous drainage overnight, 650 mL in surgery. Left pleural chest tube with 150 mL serosanguineous drainage overnight, 350 mL since surgery. A/V epicardial pacemaker wires present, connected to generator, VVI mode with backup rate 60 bpm. Left internal jugular Oakley/Cordis, right brachial arterial line present. Last CO/CI 5.0/2.8, PA 46/16, CVP 8. - Allied health notes Allied health notes reviewed: nursing - Labs CBC & Chem 7: 04/07/25 04:16 04/07/25 04:16 Labs: Abnormal Lab Results - Last 24 Hours (Table) 04/04/25 04/06/25 04/06/25 Range/Units 09:03 08:50 09:23 WBC (4.50-10.00) 10*3/uL RBC (4.40-5.60) 10*6/uL Hgb (13.0-17.0) g/dL Hct (39.6-50.0) % MCV (80.0-97.0) fL MCH (27.0-32.0) pg MCHC (32.0-37.0) g/dL Plt Count (140-440) 10*3/uL MPV (9.5-12.2) fL Immature Gran # (0.00-0.04) 10*3/uL Neutrophils # (1.80-7.70) 10*3/uL Neutrophils # (Manual) (1.3-7.7) k/uL Lymphocytes # (0.90-5.00) 10*3/uL Monocytes # (0.20-1.00) 10*3/uL Monocytes # (Manual) (0-1.0) k/uL Eosinophils # (0.04-0.35) 10*3/uL Metamyelocytes # (Man) (0) k/uL Myelocytes # (Manual) (0) k/uL Nucleated RBCs (0-0) /100 WBC PT (10.0-12.5) sec INR (<1.2) ABG pH 7.32 L (7.35-7.45) ABG pCO2 (35-45) mmHg ABG pO2 (83-108) mmHg ABG HCO3 (21-25) mmol/L ABG O2 Saturation 97.4 H 97.5 H (94-97) % ABG Hematocrit 27 L 27 L (34.0-46.0) % ABG Potassium 4.7 H (3.4-4.5) mmol/L ABG Ionized Calcium (4.5-5.3) mg/dL ABG Glucose 120 H 139 H (75-99) mg/dL Hemoglobin 8.7 L 8.8 L (13.0-17.5) gm/dL Chloride (98-107) mmol/L Carbon Dioxide (22-30) mmol/L Glucose (74-99) mg/dL POC Glucose (mg/dL) (70-110) mg/dL Calcium (8.4-10.2) mg/dL Magnesium (1.6-2.3) mg/dL Total Bilirubin (0.2-1.3) mg/dL AST (17-59) U/L Total Protein (6.3-8.2) g/dL Albumin (3.5-5.0) g/dL Arterial Blood Potassium 4.7 H (3.4-4.5) mmol/L Arterial Blood Glucose 120 H 139 H (75-99) mg/dL Crossmatch See Detail 04/06/25 04/06/25 04/06/25 Range/Units 09:52 10:24 10:51 WBC (4.50-10.00) 10*3/uL RBC (4.40-5.60) 10*6/uL Hgb (13.0-17.0) g/dL Hct (39.6-50.0) % MCV (80.0-97.0) fL MCH (27.0-32.0) pg MCHC (32.0-37.0) g/dL Plt Count (140-440) 10*3/uL MPV (9.5-12.2) fL Immature Gran # (0.00-0.04) 10*3/uL Neutrophils # (1.80-7.70) 10*3/uL Neutrophils # (Manual) (1.3-7.7) k/uL Lymphocytes # (0.90-5.00) 10*3/uL Monocytes # (0.20-1.00) 10*3/uL Monocytes # (Manual) (0-1.0) k/uL Eosinophils # (0.04-0.35) 10*3/uL Metamyelocytes # (Man) (0) k/uL Myelocytes # (Manual) (0) k/uL Nucleated RBCs (0-0) /100 WBC PT (10.0-12.5) sec INR (<1.2) ABG pH 7.31 L (7.35-7.45) ABG pCO2 46 H (35-45) mmHg ABG pO2 404 H 275 H 339 H (83-108) mmHg ABG HCO3 (21-25) mmol/L ABG O2 Saturation >99.4 H 99.3 H >99.4 H (94-97) % ABG Hematocrit 21 L 21 L 22 L (34.0-46.0) % ABG Potassium 5.0 H 5.2 H (3.4-4.5) mmol/L ABG Ionized Calcium 4.3 L (4.5-5.3) mg/dL ABG Glucose 121 H 117 H 132 H (75-99) mg/dL Hemoglobin 6.7 L* 6.8 L* 7.3 L (13.0-17.5) gm/dL Chloride (98-107) mmol/L Carbon Dioxide (22-30) mmol/L Glucose (74-99) mg/dL POC Glucose (mg/dL) (70-110) mg/dL Calcium (8.4-10.2) mg/dL Magnesium (1.6-2.3) mg/dL Total Bilirubin (0.2-1.3) mg/dL AST (17-59) U/L Total Protein (6.3-8.2) g/dL Albumin (3.5-5.0) g/dL Arterial Blood Potassium 5.0 H 5.2 H (3.4-4.5) mmol/L Arterial Blood Glucose 121 H 117 H 132 H (75-99) mg/dL Crossmatch 04/06/25 04/06/25 04/06/25 Range/Units 12:04 13:01 13:02 WBC 14.71 H (4.50-10.00) 10*3/uL RBC 2.42 L (4.40-5.60) 10*6/uL Hgb 8.4 L (13.0-17.0) g/dL Hct 26.7 L (39.6-50.0) % MCV 110.3 H (80.0-97.0) fL MCH 34.7 H (27.0-32.0) pg MCHC 31.5 L (32.0-37.0) g/dL Plt Count 87 L (140-440) 10*3/uL MPV 12.7 H (9.5-12.2) fL Immature Gran # 2.23 H (0.00-0.04) 10*3/uL Neutrophils # (1.80-7.70) 10*3/uL Neutrophils # (Manual) (1.3-7.7) k/uL Lymphocytes # (0.90-5.00) 10*3/uL Monocytes # (0.20-1.00) 10*3/uL Monocytes # (Manual) 4.27 H (0-1.0) k/uL Eosinophils # (0.04-0.35) 10*3/uL Metamyelocytes # (Man) 0.15 H (0) k/uL Myelocytes # (Manual) 0.15 H (0) k/uL Nucleated RBCs 4 H (0-0) /100 WBC PT (10.0-12.5) sec INR (<1.2) ABG pH 7.31 L (7.35-7.45) ABG pCO2 (35-45) mmHg ABG pO2 211 H (83-108) mmHg ABG HCO3 (21-25) mmol/L ABG O2 Saturation 98.7 H (94-97) % ABG Hematocrit 25 L (34.0-46.0) % ABG Potassium (3.4-4.5) mmol/L ABG Ionized Calcium (4.5-5.3) mg/dL ABG Glucose 132 H (75-99) mg/dL Hemoglobin 8.1 L (13.0-17.5) gm/dL Chloride (98-107) mmol/L Carbon Dioxide (22-30) mmol/L Glucose (74-99) mg/dL POC Glucose (mg/dL) 125 H (70-110) mg/dL Calcium (8.4-10.2) mg/dL Magnesium (1.6-2.3) mg/dL Total Bilirubin (0.2-1.3) mg/dL AST (17-59) U/L Total Protein (6.3-8.2) g/dL Albumin (3.5-5.0) g/dL Arterial Blood Potassium (3.4-4.5) mmol/L Arterial Blood Glucose 132 H (75-99) mg/dL Crossmatch 04/06/25 04/06/25 04/06/25 Range/Units 13:02 13:02 13:22 WBC (4.50-10.00) 10*3/uL RBC (4.40-5.60) 10*6/uL Hgb (13.0-17.0) g/dL Hct (39.6-50.0) % MCV (80.0-97.0) fL MCH (27.0-32.0) pg MCHC (32.0-37.0) g/dL Plt Count (140-440) 10*3/uL MPV (9.5-12.2) fL Immature Gran # (0.00-0.04) 10*3/uL Neutrophils # (1.80-7.70) 10*3/uL Neutrophils # (Manual) (1.3-7.7) k/uL Lymphocytes # (0.90-5.00) 10*3/uL Monocytes # (0.20-1.00) 10*3/uL Monocytes # (Manual) (0-1.0) k/uL Eosinophils # (0.04-0.35) 10*3/uL Metamyelocytes # (Man) (0) k/uL Myelocytes # (Manual) (0) k/uL Nucleated RBCs (0-0) /100 WBC PT 15.8 H (10.0-12.5) sec INR 1.5 H (<1.2) ABG pH 7.31 L (7.35-7.45) ABG pCO2 (35-45) mmHg ABG pO2 66 L (83-108) mmHg ABG HCO3 (21-25) mmol/L ABG O2 Saturation 89.0 L (94-97) % ABG Hematocrit (34.0-46.0) % ABG Potassium (3.4-4.5) mmol/L ABG Ionized Calcium (4.5-5.3) mg/dL ABG Glucose (75-99) mg/dL Hemoglobin 8.6 L (13.0-17.5) gm/dL Chloride 110 H (98-107) mmol/L Carbon Dioxide 21 L (22-30) mmol/L Glucose 122 H (74-99) mg/dL POC Glucose (mg/dL) (70-110) mg/dL Calcium 7.9 L (8.4-10.2) mg/dL Magnesium 2.9 H (1.6-2.3) mg/dL Total Bilirubin 1.5 H (0.2-1.3) mg/dL AST 105 H (17-59) U/L Total Protein 5.0 L (6.3-8.2) g/dL Albumin 3.1 L (3.5-5.0) g/dL Arterial Blood Potassium (3.4-4.5) mmol/L Arterial Blood Glucose (75-99) mg/dL Crossmatch 04/06/25 04/06/25 04/06/25 Range/Units 14:29 14:29 16:01 WBC (4.50-10.00) 10*3/uL RBC (4.40-5.60) 10*6/uL Hgb (13.0-17.0) g/dL Hct (39.6-50.0) % MCV (80.0-97.0) fL MCH (27.0-32.0) pg MCHC (32.0-37.0) g/dL Plt Count (140-440) 10*3/uL MPV (9.5-12.2) fL Immature Gran # (0.00-0.04) 10*3/uL Neutrophils # (1.80-7.70) 10*3/uL Neutrophils # (Manual) (1.3-7.7) k/uL Lymphocytes # (0.90-5.00) 10*3/uL Monocytes # (0.20-1.00) 10*3/uL Monocytes # (Manual) (0-1.0) k/uL Eosinophils # (0.04-0.35) 10*3/uL Metamyelocytes # (Man) (0) k/uL Myelocytes # (Manual) (0) k/uL Nucleated RBCs (0-0) /100 WBC PT (10.0-12.5) sec INR (<1.2) ABG pH 7.31 L (7.35-7.45) ABG pCO2 (35-45) mmHg ABG pO2 113 H (83-108) mmHg ABG HCO3 (21-25) mmol/L ABG O2 Saturation 97.8 H (94-97) % ABG Hematocrit (34.0-46.0) % ABG Potassium (3.4-4.5) mmol/L ABG Ionized Calcium (4.5-5.3) mg/dL ABG Glucose (75-99) mg/dL Hemoglobin 8.8 L (13.0-17.5) gm/dL Chloride (98-107) mmol/L Carbon Dioxide (22-30) mmol/L Glucose (74-99) mg/dL POC Glucose (mg/dL) 141 H 162 H (70-110) mg/dL Calcium (8.4-10.2) mg/dL Magnesium (1.6-2.3) mg/dL Total Bilirubin (0.2-1.3) mg/dL AST (17-59) U/L Total Protein (6.3-8.2) g/dL Albumin (3.5-5.0) g/dL Arterial Blood Potassium (3.4-4.5) mmol/L Arterial Blood Glucose (75-99) mg/dL Crossmatch 04/06/25 04/06/25 04/06/25 Range/Units 16:02 16:19 17:03 WBC 15.84 H (4.50-10.00) 10*3/uL RBC 2.37 L (4.40-5.60) 10*6/uL Hgb 8.3 L (13.0-17.0) g/dL Hct 26.1 L (39.6-50.0) % MCV 110.1 H (80.0-97.0) fL MCH 35.0 H (27.0-32.0) pg MCHC 31.8 L (32.0-37.0) g/dL Plt Count 94 L (140-440) 10*3/uL MPV (9.5-12.2) fL Immature Gran # 2.19 H (0.00-0.04) 10*3/uL Neutrophils # 10.18 H (1.80-7.70) 10*3/uL Neutrophils # (Manual) (1.3-7.7) k/uL Lymphocytes # 0.89 L (0.90-5.00) 10*3/uL Monocytes # 2.52 H (0.20-1.00) 10*3/uL Monocytes # (Manual) (0-1.0) k/uL Eosinophils # 0.00 L (0.04-0.35) 10*3/uL Metamyelocytes # (Man) (0) k/uL Myelocytes # (Manual) (0) k/uL Nucleated RBCs (0-0) /100 WBC PT (10.0-12.5) sec INR (<1.2) ABG pH 7.34 L (7.35-7.45) ABG pCO2 (35-45) mmHg ABG pO2 171 H (83-108) mmHg ABG HCO3 20 L (21-25) mmol/L ABG O2 Saturation 99.6 H (94-97) % ABG Hematocrit (34.0-46.0) % ABG Potassium (3.4-4.5) mmol/L ABG Ionized Calcium (4.5-5.3) mg/dL ABG Glucose (75-99) mg/dL Hemoglobin 8.4 L (13.0-17.5) gm/dL Chloride (98-107) mmol/L Carbon Dioxide (22-30) mmol/L Glucose (74-99) mg/dL POC Glucose (mg/dL) 168 H (70-110) mg/dL Calcium (8.4-10.2) mg/dL Magnesium (1.6-2.3) mg/dL Total Bilirubin (0.2-1.3) mg/dL AST (17-59) U/L Total Protein (6.3-8.2) g/dL Albumin (3.5-5.0) g/dL Arterial Blood Potassium (3.4-4.5) mmol/L Arterial Blood Glucose (75-99) mg/dL Crossmatch 04/06/25 04/06/25 04/06/25 Range/Units 18:03 18:12 19:03 WBC 11.50 H (4.50-10.00) 10*3/uL RBC 2.26 L (4.40-5.60) 10*6/uL Hgb 7.9 L (13.0-17.0) g/dL Hct 24.5 L (39.6-50.0) % MCV 108.4 H (80.0-97.0) fL MCH 35.0 H (27.0-32.0) pg MCHC (32.0-37.0) g/dL Plt Count 91 L (140-440) 10*3/uL MPV (9.5-12.2) fL Immature Gran # 1.76 H (0.00-0.04) 10*3/uL Neutrophils # (1.80-7.70) 10*3/uL Neutrophils # (Manual) 9.43 H (1.3-7.7) k/uL Lymphocytes # (0.90-5.00) 10*3/uL Monocytes # (0.20-1.00) 10*3/uL Monocytes # (Manual) (0-1.0) k/uL Eosinophils # (0.04-0.35) 10*3/uL Metamyelocytes # (Man) 0.46 H (0) k/uL Myelocytes # (Manual) (0) k/uL Nucleated RBCs 1 H (0-0) /100 WBC PT (10.0-12.5) sec INR (<1.2) ABG pH (7.35-7.45) ABG pCO2 (35-45) mmHg ABG pO2 (83-108) mmHg ABG HCO3 (21-25) mmol/L ABG O2 Saturation (94-97) % ABG Hematocrit (34.0-46.0) % ABG Potassium (3.4-4.5) mmol/L ABG Ionized Calcium (4.5-5.3) mg/dL ABG Glucose (75-99) mg/dL Hemoglobin 8.3 L (13.0-17.5) gm/dL Chloride (98-107) mmol/L Carbon Dioxide (22-30) mmol/L Glucose (74-99) mg/dL POC Glucose (mg/dL) 174 H (70-110) mg/dL Calcium (8.4-10.2) mg/dL Magnesium (1.6-2.3) mg/dL Total Bilirubin (0.2-1.3) mg/dL AST (17-59) U/L Total Protein (6.3-8.2) g/dL Albumin (3.5-5.0) g/dL Arterial Blood Potassium (3.4-4.5) mmol/L Arterial Blood Glucose (75-99) mg/dL Crossmatch 04/06/25 04/06/25 04/06/25 Range/Units 19:04 20:04 21:14 WBC (4.50-10.00) 10*3/uL RBC (4.40-5.60) 10*6/uL Hgb (13.0-17.0) g/dL Hct (39.6-50.0) % MCV (80.0-97.0) fL MCH (27.0-32.0) pg MCHC (32.0-37.0) g/dL Plt Count (140-440) 10*3/uL MPV (9.5-12.2) fL Immature Gran # (0.00-0.04) 10*3/uL Neutrophils # (1.80-7.70) 10*3/uL Neutrophils # (Manual) (1.3-7.7) k/uL Lymphocytes # (0.90-5.00) 10*3/uL Monocytes # (0.20-1.00) 10*3/uL Monocytes # (Manual) (0-1.0) k/uL Eosinophils # (0.04-0.35) 10*3/uL Metamyelocytes # (Man) (0) k/uL Myelocytes # (Manual) (0) k/uL Nucleated RBCs (0-0) /100 WBC PT (10.0-12.5) sec INR (<1.2) ABG pH (7.35-7.45) ABG pCO2 (35-45) mmHg ABG pO2 (83-108) mmHg ABG HCO3 (21-25) mmol/L ABG O2 Saturation (94-97) % ABG Hematocrit (34.0-46.0) % ABG Potassium (3.4-4.5) mmol/L ABG Ionized Calcium (4.5-5.3) mg/dL ABG Glucose (75-99) mg/dL Hemoglobin (13.0-17.5) gm/dL Chloride (98-107) mmol/L Carbon Dioxide (22-30) mmol/L Glucose (74-99) mg/dL POC Glucose (mg/dL) 163 H 168 H 158 H (70-110) mg/dL Calcium (8.4-10.2) mg/dL Magnesium (1.6-2.3) mg/dL Total Bilirubin (0.2-1.3) mg/dL AST (17-59) U/L Total Protein (6.3-8.2) g/dL Albumin (3.5-5.0) g/dL Arterial Blood Potassium (3.4-4.5) mmol/L Arterial Blood Glucose (75-99) mg/dL Crossmatch 04/06/25 04/06/25 04/07/25 Range/Units 22:04 23:13 00:24 WBC (4.50-10.00) 10*3/uL RBC (4.40-5.60) 10*6/uL Hgb (13.0-17.0) g/dL Hct (39.6-50.0) % MCV (80.0-97.0) fL MCH (27.0-32.0) pg MCHC (32.0-37.0) g/dL Plt Count (140-440) 10*3/uL MPV (9.5-12.2) fL Immature Gran # (0.00-0.04) 10*3/uL Neutrophils # (1.80-7.70) 10*3/uL Neutrophils # (Manual) (1.3-7.7) k/uL Lymphocytes # (0.90-5.00) 10*3/uL Monocytes # (0.20-1.00) 10*3/uL Monocytes # (Manual) (0-1.0) k/uL Eosinophils # (0.04-0.35) 10*3/uL Metamyelocytes # (Man) (0) k/uL Myelocytes # (Manual) (0) k/uL Nucleated RBCs (0-0) /100 WBC PT (10.0-12.5) sec INR (<1.2) ABG pH (7.35-7.45) ABG pCO2 (35-45) mmHg ABG pO2 (83-108) mmHg ABG HCO3 (21-25) mmol/L ABG O2 Saturation (94-97) % ABG Hematocrit (34.0-46.0) % ABG Potassium (3.4-4.5) mmol/L ABG Ionized Calcium (4.5-5.3) mg/dL ABG Glucose (75-99) mg/dL Hemoglobin (13.0-17.5) gm/dL Chloride (98-107) mmol/L Carbon Dioxide (22-30) mmol/L Glucose (74-99) mg/dL POC Glucose (mg/dL) 155 H 150 H 157 H (70-110) mg/dL Calcium (8.4-10.2) mg/dL Magnesium (1.6-2.3) mg/dL Total Bilirubin (0.2-1.3) mg/dL AST (17-59) U/L Total Protein (6.3-8.2) g/dL Albumin (3.5-5.0) g/dL Arterial Blood Potassium (3.4-4.5) mmol/L Arterial Blood Glucose (75-99) mg/dL Crossmatch 04/07/25 04/07/25 04/07/25 Range/Units 01:18 02:13 03:07 WBC (4.50-10.00) 10*3/uL RBC (4.40-5.60) 10*6/uL Hgb (13.0-17.0) g/dL Hct (39.6-50.0) % MCV (80.0-97.0) fL MCH (27.0-32.0) pg MCHC (32.0-37.0) g/dL Plt Count (140-440) 10*3/uL MPV (9.5-12.2) fL Immature Gran # (0.00-0.04) 10*3/uL Neutrophils # (1.80-7.70) 10*3/uL Neutrophils # (Manual) (1.3-7.7) k/uL Lymphocytes # (0.90-5.00) 10*3/uL Monocytes # (0.20-1.00) 10*3/uL Monocytes # (Manual) (0-1.0) k/uL Eosinophils # (0.04-0.35) 10*3/uL Metamyelocytes # (Man) (0) k/uL Myelocytes # (Manual) (0) k/uL Nucleated RBCs (0-0) /100 WBC PT (10.0-12.5) sec INR (<1.2) ABG pH (7.35-7.45) ABG pCO2 (35-45) mmHg ABG pO2 (83-108) mmHg ABG HCO3 (21-25) mmol/L ABG O2 Saturation (94-97) % ABG Hematocrit (34.0-46.0) % ABG Potassium (3.4-4.5) mmol/L ABG Ionized Calcium (4.5-5.3) mg/dL ABG Glucose (75-99) mg/dL Hemoglobin (13.0-17.5) gm/dL Chloride (98-107) mmol/L Carbon Dioxide (22-30) mmol/L Glucose (74-99) mg/dL POC Glucose (mg/dL) 137 H 132 H 125 H (70-110) mg/dL Calcium (8.4-10.2) mg/dL Magnesium (1.6-2.3) mg/dL Total Bilirubin (0.2-1.3) mg/dL AST (17-59) U/L Total Protein (6.3-8.2) g/dL Albumin (3.5-5.0) g/dL Arterial Blood Potassium (3.4-4.5) mmol/L Arterial Blood Glucose (75-99) mg/dL Crossmatch 04/07/25 04/07/25 04/07/25 Range/Units 04:12 04:16 04:16 WBC (4.50-10.00) 10*3/uL RBC 2.07 L (4.40-5.60) 10*6/uL Hgb 7.0 L (13.0-17.0) g/dL Hct 22.5 L (39.6-50.0) % MCV (80.0-97.0) fL MCH 33.8 H (27.0-32.0) pg MCHC 31.1 L (32.0-37.0) g/dL Plt Count 100 L (140-440) 10*3/uL MPV (9.5-12.2) fL Immature Gran # 0.83 H (0.00-0.04) 10*3/uL Neutrophils # (1.80-7.70) 10*3/uL Neutrophils # (Manual) (1.3-7.7) k/uL Lymphocytes # (0.90-5.00) 10*3/uL Monocytes # (0.20-1.00) 10*3/uL Monocytes # (Manual) (0-1.0) k/uL Eosinophils # (0.04-0.35) 10*3/uL Metamyelocytes # (Man) (0) k/uL Myelocytes # (Manual) (0) k/uL Nucleated RBCs (0-0) /100 WBC PT (10.0-12.5) sec INR (<1.2) ABG pH (7.35-7.45) ABG pCO2 (35-45) mmHg ABG pO2 (83-108) mmHg ABG HCO3 (21-25) mmol/L ABG O2 Saturation (94-97) % ABG Hematocrit (34.0-46.0) % ABG Potassium (3.4-4.5) mmol/L ABG Ionized Calcium (4.5-5.3) mg/dL ABG Glucose (75-99) mg/dL Hemoglobin (13.0-17.5) gm/dL Chloride (98-107) mmol/L Carbon Dioxide (22-30) mmol/L Glucose 106 H (74-99) mg/dL POC Glucose (mg/dL) 124 H (70-110) mg/dL Calcium 8.2 L (8.4-10.2) mg/dL Magnesium 2.5 H (1.6-2.3) mg/dL Total Bilirubin (0.2-1.3) mg/dL AST 76 H (17-59) U/L Total Protein 5.2 L (6.3-8.2) g/dL Albumin 3.3 L (3.5-5.0) g/dL Arterial Blood Potassium (3.4-4.5) mmol/L Arterial Blood Glucose (75-99) mg/dL Crossmatch 04/07/25 04/07/25 04/07/25 Range/Units 05:00 05:55 06:59 WBC (4.50-10.00) 10*3/uL RBC (4.40-5.60) 10*6/uL Hgb (13.0-17.0) g/dL Hct (39.6-50.0) % MCV (80.0-97.0) fL MCH (27.0-32.0) pg MCHC (32.0-37.0) g/dL Plt Count (140-440) 10*3/uL MPV (9.5-12.2) fL Immature Gran # (0.00-0.04) 10*3/uL Neutrophils # (1.80-7.70) 10*3/uL Neutrophils # (Manual) (1.3-7.7) k/uL Lymphocytes # (0.90-5.00) 10*3/uL Monocytes # (0.20-1.00) 10*3/uL Monocytes # (Manual) (0-1.0) k/uL Eosinophils # (0.04-0.35) 10*3/uL Metamyelocytes # (Man) (0) k/uL Myelocytes # (Manual) (0) k/uL Nucleated RBCs (0-0) /100 WBC PT (10.0-12.5) sec INR (<1.2) ABG pH (7.35-7.45) ABG pCO2 (35-45) mmHg ABG pO2 (83-108) mmHg ABG HCO3 (21-25) mmol/L ABG O2 Saturation (94-97) % ABG Hematocrit (34.0-46.0) % ABG Potassium (3.4-4.5) mmol/L ABG Ionized Calcium (4.5-5.3) mg/dL ABG Glucose (75-99) mg/dL Hemoglobin (13.0-17.5) gm/dL Chloride (98-107) mmol/L Carbon Dioxide (22-30) mmol/L Glucose (74-99) mg/dL POC Glucose (mg/dL) 121 H 114 H 243 H (70-110) mg/dL Calcium (8.4-10.2) mg/dL Magnesium (1.6-2.3) mg/dL Total Bilirubin (0.2-1.3) mg/dL AST (17-59) U/L Total Protein (6.3-8.2) g/dL Albumin (3.5-5.0) g/dL Arterial Blood Potassium (3.4-4.5) mmol/L Arterial Blood Glucose (75-99) mg/dL Crossmatch 04/07/25 Range/Units 07:02 WBC (4.50-10.00) 10*3/uL RBC (4.40-5.60) 10*6/uL Hgb (13.0-17.0) g/dL Hct (39.6-50.0) % MCV (80.0-97.0) fL MCH (27.0-32.0) pg MCHC (32.0-37.0) g/dL Plt Count (140-440) 10*3/uL MPV (9.5-12.2) fL Immature Gran # (0.00-0.04) 10*3/uL Neutrophils # (1.80-7.70) 10*3/uL Neutrophils # (Manual) (1.3-7.7) k/uL Lymphocytes # (0.90-5.00) 10*3/uL Monocytes # (0.20-1.00) 10*3/uL Monocytes # (Manual) (0-1.0) k/uL Eosinophils # (0.04-0.35) 10*3/uL Metamyelocytes # (Man) (0) k/uL Myelocytes # (Manual) (0) k/uL Nucleated RBCs (0-0) /100 WBC PT (10.0-12.5) sec INR (<1.2) ABG pH (7.35-7.45) ABG pCO2 (35-45) mmHg ABG pO2 (83-108) mmHg ABG HCO3 (21-25) mmol/L ABG O2 Saturation (94-97) % ABG Hematocrit (34.0-46.0) % ABG Potassium (3.4-4.5) mmol/L ABG Ionized Calcium (4.5-5.3) mg/dL ABG Glucose (75-99) mg/dL Hemoglobin (13.0-17.5) gm/dL Chloride (98-107) mmol/L Carbon Dioxide (22-30) mmol/L Glucose (74-99) mg/dL POC Glucose (mg/dL) 134 H (70-110) mg/dL Calcium (8.4-10.2) mg/dL Magnesium (1.6-2.3) mg/dL Total Bilirubin (0.2-1.3) mg/dL AST (17-59) U/L Total Protein (6.3-8.2) g/dL Albumin (3.5-5.0) g/dL Arterial Blood Potassium (3.4-4.5) mmol/L Arterial Blood Glucose (75-99) mg/dL Crossmatch - Imaging and Cardiology Chest x-ray: report reviewed, image reviewed Assessment and Plan Assessment: Aortic valvular insufficiency, status post aortic valve replacement Chronic atrial fibrillation, status post biatrial modified Smith-Maze procedure with full lesion set and occlusion of the left atrial appendage with 40 mm AtriCure clip Acute anaphylactic reaction, thought to be from propofol Postoperative acute blood loss anemia and thrombocytopenia, expected given hemodilution and cardiopulmonary bypass pump Junctional rhythm which is somewhat expected with aortic valve replacement, currently sinus History of chronic persistent atrial fibrillation with previous unsuccessful cardioversion on Eliquis outpatient for anticoagulation Hypertension Obstructive sleep apnea Lifelong non-smoker Drinks 2 beers per night Plan: Continue to maximize medical therapy with aspirin, statin, Plavix. Will hold beta-nafisa for now. Will start low-dose SHANELL for afterload reduction Discontinue IV epi Continue Primacor at current dose, will wean over the weekend Will drop aspirin to baby aspirin, discontinue Plavix, restart Eliquis after all lines and tubes have been discontinued Wean oxygen as tolerated. Encourage incentive spirometry use 10 times every hour while awake. Bronchodilators per pulmonology Continue epicardial pacemaker at VVI mode with backup rate 60 bpm Will monitor daily labs and x-rays, electrolyte replacement per protocol Increase activity, ambulate as tolerated. PT/OT/cardiac rehab consulted GI/DVT prophylaxis Pain control per current medication regimen Insulin management per internal medicine. Patient is not diabetic, preoperative hemoglobin A1c 5.6%. Patient should remain on continuous IV insulin for 48 hours, then may transition to subcutaneous per protocol Continue [facility]is for now Continue chest tubes for another 24 hours. Monitor and record output Continue Osorio catheter for another 24 hours, continue to monitor record strict accurate intake and output Our recommendations to follow as patient progresses
[2025-04-07 10:36] LABS: Glucose,Whole Blood 128 mg/dL (70-110)
[2025-04-07 11:17] LABS: Glucose,Whole Blood 114 mg/dL (70-110)
[2025-04-07 11:36] VITALS: BMI 31.5
--- NOTE | 2025-04-07 11:56 | P.ANPRN ---
Procedure Note - Anesthesia - Invasive Line Left Arterial Line Time Out Performed: Yes ([id number]) Date of Procedure: 04/07/25 Time of Procedure: 07:34 Location of Patient: Phase I Preparation: Sterile Prep, Sterile Dressing Arterial Line Location: Briachial (left) Ultrasound Used: Yes Purpose - Visualization and Identification of Vasculature: Yes Needle Guage: 20g Image Stored and Saved: Yes Narrative: Invasive line placement per sterile protocol utilized. 20g left brachial in 1 attempt. lumen bled and flushed. secured and dressed. radial attempted x3
[2025-04-07 12:02] LABS: Glucose,Whole Blood 134 mg/dL (70-110)
--- NOTE | 2025-04-07 12:31 | P.CRDCN ---
History of Present Illness Consult date: 04/07/25 History of present illness: The patient is a pleasant 74-year-old female patient who is known to our service from before who sees Dr. Quiles on a regular basis who was diagnosed recently with severe symptomatic aortic insufficiency. Recently she underwent a FARHAD which revealed moderate to severe aortic insufficiency with preserved LV systolic function. The heart catheterization revealed no evidence of obstructive coronary artery disease. The patient was referred to undergo aortic valve replacement. Yesterday she underwent aortic valve replacement using 25 mm bovine pericardial valve along with the exclusion of the left atrial appendage. The procedure/surgery was uneventful and this is postoperation day #1. The patient was extubated yesterday. Hemodynamically she is stable. Urine output has been adequate. Hemoglobin was 7.0. Electrolytes are within normal limits as well. The creatinine also appears to be within normal limits with normal GFR as well. The chest x-ray was reviewed from this morning as well. Overall the patient is stable from a cardiovascular standpoint of view. She is on dual antiplatelet therapy using aspirin and Plavix and she is also on statin. The physical examination is remarkable for distant heart sounds and diminished breathing sounds bilaterally and no significant edema was noted in the lower extremities Assessment Severe symptomatic aortic insufficiency status post AVR as described above Status post exclusion of the left atrial appendage as well Multiple comorbid conditions Plan Continue the current medical regimen Continue monitoring the hemoglobin and kidney function and electrolytes Continue follow-up with the serial chest x-ray Continue monitoring urine output as well Continue dual antiplatelet therapy at this point Follow-up with the patient Past Medical History Past Medical History: Atrial Fibrillation, Coronary Artery Disease (CAD), Hypertension, Skin Disorder, Sleep Apnea/CPAP/BIPAP Additional Past Medical History / Comment(s): hx. colon polyps, mom hx. of colon cancer, Joint inflammation. current SOB with exertion. uses cpap. actinic keratosis History of Any Multi-Drug Resistant Organisms: None Reported Past Surgical History: Appendectomy, Heart Catheterization, Orthopedic Surgery Additional Past Surgical History / Comment(s): gema rotator cuff surg., nasal surg. cataract removed and lenses placed. colonoscopy, cardioversion, recent card. cath. Past Anesthesia/Blood Transfusion Reactions: No Reported Reaction Smoking Status: Never smoker - Past Family History Mother Family Medical History: Cancer Additional Family Medical History / Comment(s): colon cancer Sister(s) Family Medical History: Cancer Brother(s) Family Medical History: Coronary Artery Disease (CAD) Medications and Allergies Home Medications Medication Instructions Recorded Confirmed Type Benazepril [Lotensin] 20 mg PO DAILY 10/09/14 04/06/25 History Testosterone [Androgel 1.62% Gel 2 pump TOPICAL Q48H 12/22/18 04/06/25 History Pump] Ascorbic Acid [Vitamin C] 500 mg PO DAILY 07/23/21 04/06/25 History Cyanocobalamin (Vitamin B-12) 1,000 mcg PO DAILY 07/23/21 04/06/25 History [Vitamin B-12] Sambucus 2 tab PO DAILY 07/23/21 04/06/25 History Selenium 200 mcg PO DAILY 07/23/21 04/06/25 History Vitamin D3 +K2 1 tab PO DAILY 07/23/21 04/06/25 History Zinc 50 mg PO DAILY 07/23/21 04/06/25 History Apixaban [Eliquis] 5 mg PO BID 03/03/25 04/06/25 History carvediloL [Coreg] 6.25 mg PO BID 03/03/25 04/06/25 History Atorvastatin [Lipitor] 10 mg PO DAILY 04/04/25 04/06/25 History Escitalopram [Lexapro] 20 mg PO DAILY 04/04/25 04/06/25 History Magnesium 240 mg PO DAILY 04/04/25 04/06/25 History Mupirocin [Mupirocin 2%] 1 applic NASAL BID #1 tub 04/04/25 04/06/25 Rx Turmeric Root Extract [Turmeric] 1,000 mg PO DAILY 04/04/25 04/06/25 History Allergies Allergy/AdvReac Type Severity Reaction Status Date / Time propofol Allergy Severe Anaphylaxis Verified 04/06/25 13:31 Physical Exam Vitals: Vital Signs Temp Pulse Resp BP Pulse Ox FiO2 04/07/25 12:00 98.6 F 72 16 96 04/07/25 11:45 81 19 96 04/07/25 11:30 75 12 96 04/07/25 11:15 75 13 97 04/07/25 11:00 76 16 98 04/07/25 10:45 74 14 95 04/07/25 10:30 76 16 99 04/07/25 10:15 72 14 96 04/07/25 10:00 74 14 97 06/06/25 09:45 75 14 96 04/07/25 09:30 74 16 96 04/07/25 09:21 77 04/07/25 09:15 70 16 98 04/07/25 09:11 73 95 04/07/25 09:00 70 12 97 04/07/25 08:45 73 12 97 04/07/25 08:30 70 18 96 04/07/25 08:15 71 12 97 04/07/25 08:00 97.5 F L 80 18 95 04/07/25 07:45 80 18 95 04/07/25 07:30 80 23 96 04/07/25 07:15 80 13 96 04/07/25 07:00 80 18 96 04/07/25 06:45 80 15 97 04/07/25 06:30 80 17 97 04/07/25 06:15 80 18 97 04/07/25 06:00 78 19 93 L 04/07/25 05:45 80 22 04/07/25 05:30 80 27 H 04/07/25 05:15 80 20 04/07/25 05:00 80 17 96 04/07/25 04:45 80 16 95 04/07/25 04:30 98.1 F 80 16 96 04/07/25 04:15 55 L 19 97 04/07/25 04:00 80 16 91 L 04/07/25 03:45 80 15 97 04/07/25 03:30 80 13 98 04/07/25 03:15 80 15 97 04/07/25 03:00 80 16 105/65 98 04/07/25 02:45 80 17 92 L 04/07/25 02:30 80 17 92 L 04/07/25 02:15 79 13 94 L 04/07/25 02:00 80 17 95 04/07/25 01:45 80 16 96 04/07/25 01:30 79 18 96 04/07/25 01:15 80 17 96 04/07/25 01:00 80 15 97 04/07/25 00:45 80 14 97 04/07/25 00:40 80 15 97 04/07/25 00:30 80 14 95 04/07/25 00:15 80 17 98 04/07/25 00:00 98.1 F 80 15 98 04/06/25 23:45 80 17 97 0605 23:30 80 14 98 05 23:15 80 16 97 0605 23:00 80 14 98 05 22:45 80 13 96 04/06/25 22:30 80 19 95 04/06/25 22:15 80 15 105/65 96 04/06/25 22:00 80 16 96 05 21:45 80 14 95 05 21:30 80 14 95 05 21:15 80 15 94 L 04/06/25 21:00 80 16 95 05 20:46 80 0605 20:45 80 16 99 0605 20:39 80 0605 20:30 80 14 105/65 95 05 20:15 80 15 94 L 04/06/25 20:00 98.1 F 80 15 94 L 05 19:45 80 16 94 L 04/06/25 19:30 80 14 96 05 19:15 80 13 96 04/06/25 19:00 80 18 95 04/06/25 18:53 97 05 18:30 80 15 97 40 05 18:00 80 15 96 05 17:42 40 04/06/25 17:30 80 18 98 05 17:00 80 18 96 50 04/06/25 16:30 80 12 96 05 16:24 50 04/06/25 16:11 80 04/06/25 16:00 98.1 F 80 19 99 80 05 15:45 80 20 99 0605 15:30 80 18 96 05 15:15 80 18 96 80 0605/ 15:10 80 05 15:00 97.3 F L 80 17 99 05/25 14:45 80 16 100 0605 14:30 80 16 100 0605/ 14:15 80 14 100 05/ 14:10 80 14 124/71 100 06/05/25 14:05 80 14 124/71 100 06/05/25 14:00 80 14 124/71 100 100 06/05/ 13:55 80 14 124/71 100 06/05/25 13:50 80 14 124/71 100 04/06/25 13:45 96.4 F L 80 14 100 04/06/25 13:40 80 14 99 04/06/25 13:35 80 14 97 04/06/25 13:30 80 14 95 04/06/25 13:25 80 14 94 L 04/06/25 13:20 95.5 F L 80 14 04/06/25 13:15 80 14 124/71 95 100 04/06/25 13:10 80 14 04/06/25 13:08 100 04/06/25 13:06 100 04/06/25 13:05 80 14 74/44 04/06/25 13:00 14 82/45 Intake and Output 04/06/25 04/07/25 04/07/25 22:59 06:59 14:59 Intake Total 090.909 3037.968 283.855 Output Total 980 665 235 Balance -36.863 429.968 48.855 Intake: IV 332 962 225 0.9 @ 50 150 400 100 ACETAMINOPHEN IV (For NPO 400 ) 1,000 mg In Empty Bag 1 bag @ 400 mls/hr IVPB Q6HR SUMAYA Rx#:[id number] CO/CI 110 40 20 Pressure Bag 72 72 45 Sodium Chloride 0.9% 1, 60 000 ml @ 20 mls/hr IV . Q24H SUMAYA Rx#:[id number] ceFAZolin 2 gm In 50 Dextrose 5% in Water 50 ml @ 100 mls/hr IVPB Q8HR SUMAYA Rx#:[id number] Intake, IV Titration 611.137 132.968 58.855 Amount Albumin Human 5% 250 ml 250 In Empty Bag 1 bag @ 250 mls/hr IVPB Q1HR PRN Rx#: [id number] Dexmedetomidine/0.9% NaCl 11.207 (Pmx) 400 mcg In Empty Bag 1 bag @ Titrate IV . Q0M SUMAYA Rx#:[id number] EPINEPHrine 4 mg In 70.933 37.874 Dextrose 5% in Water 250 ml @ 0.03 MCG/KG/MIN 9. 754 mls/hr IV .Q24H SUMAYA Rx#:[id number] Insulin Regular 100 unit 28.997 51.123 20.981 In Sodium Chloride 0.9% 100 ml @ Per Protocol IV .Q0M SUMAYA Rx#:[id number] Lactated Ringers 1,000 ml 100 @ 50 mls/hr IV .Q20H SUMAYA Rx#:[id number] Milrinone-D5w Pmx 20 mg 81.845 In Dextrose/Water 1 100ml .bag @ 0.2 MCG/KG/MIN 5. 202 mls/hr IV .[id number] SUMAYA Rx#:[id number] Sodium Chloride 0.9% 1, 150 000 ml @ 20 mls/hr IV . Q24H SUMAYA Rx#:[id number] Output: Chest Tube Drainage 470 390 100 Left Chest Tube 170 150 70 Mediastinal Chest Tube X 300 240 30 2 Urine 510 275 135 Other: Voiding Method Indwelling Catheter Indwelling Catheter Indwelling Catheter Weight 88.6 kg 88.6 kg ABP, PAP, CO, CI - Last 8 Hours Arterial Blood Pressure 133/54 Arterial Blood Pressure 137/54 Arterial Blood Pressure 140/60 Arterial Blood Pressure 148/62 Arterial Blood Pressure 150/63 Arterial Blood Pressure 146/59 Arterial Blood Pressure 138/57 Arterial Blood Pressure 149/63 Arterial Blood Pressure 149/68 Arterial Blood Pressure 134/62 Arterial Blood Pressure 112/52 Arterial Blood Pressure 138/43 Arterial Blood Pressure 144/62 Arterial Blood Pressure 130/56 Arterial Blood Pressure 133/55 Arterial Blood Pressure 144/59 Arterial Blood Pressure 136/52 Arterial Blood Pressure 137/54 Arterial Blood Pressure 126/55 Arterial Blood Pressure 112/54 Arterial Blood Pressure 127/52 Arterial Blood Pressure 128/55 Arterial Blood Pressure 129/56 Arterial Blood Pressure 121/53 Arterial Blood Pressure 115/50 Arterial Blood Pressure 120/31 Arterial Blood Pressure 120/55 Arterial Blood Pressure 131/60 Arterial Blood Pressure 129/120 Arterial Blood Pressure 126/58 Arterial Blood Pressure 127/59 Pulmonary Artery Pressure 47/17 Pulmonary Artery Pressure 58/20 Pulmonary Artery Pressure 46/16 Pulmonary Artery Pressure 49/18 Pulmonary Artery Pressure 49/16 Pulmonary Artery Pressure 46/17 Pulmonary Artery Pressure 48/16 Pulmonary Artery Pressure 45/16 Pulmonary Artery Pressure 45/17 Pulmonary Artery Pressure 49/18 Pulmonary Artery Pressure 43/16 Pulmonary Artery Pressure 53/16 Pulmonary Artery Pressure 49/17 Pulmonary Artery Pressure 48/18 Pulmonary Artery Pressure 50/18 Pulmonary Artery Pressure 51/16 Pulmonary Artery Pressure 55/18 Pulmonary Artery Pressure 54/15 Pulmonary Artery Pressure 50/16 Pulmonary Artery Pressure 49/13 Pulmonary Artery Pressure 43/12 Pulmonary Artery Pressure 43/11 Pulmonary Artery Pressure 40/13 Pulmonary Artery Pressure 38/12 Pulmonary Artery Pressure 33/11 Pulmonary Artery Pressure 50/15 Pulmonary Artery Pressure 47/18 Pulmonary Artery Pressure 44/18 Pulmonary Artery Pressure 43/18 Pulmonary Artery Pressure 43/16 Cardiac Output 6.0 Cardiac Output 6.2 Cardiac Index 3.4 Cardiac Index 3.5 Results 04/07/25 04:16 04/07/25 04:16 Cardiac Enzymes 04/06/25 04/07/25 Range/Units 13:02 04:16 AST 105 H 76 H (17-59) U/L Coagulation 04/06/25 Range/Units 13:02 PT 15.8 H (10.0-12.5) sec APTT 27.8 (22.0-30.0) sec CBC 04/06/25 04/06/25 04/06/25 Range/Units 13:02 16:02 19:03 WBC 14.71 H 15.84 H 11.50 H (4.50-10.00) 10*3/uL RBC 2.42 L 2.37 L 2.26 L (4.40-5.60) 10*6/uL Hgb 8.4 L 8.3 L 7.9 L (13.0-17.0) g/dL Hct 26.7 L 26.1 L 24.5 L (39.6-50.0) % Plt Count 87 L 94 L 91 L (140-440) 10*3/uL 04/07/25 Range/Units 04:16 WBC 7.08 (4.50-10.00) 10*3/uL RBC 2.07 L (4.40-5.60) 10*6/uL Hgb 7.0 L (13.0-17.0) g/dL Hct 22.5 L (39.6-50.0) % Plt Count 100 L (140-440) 10*3/uL Comprehensive Metabolic Panel 04/06/25 04/07/25 Range/Units 13:02 04:16 Sodium 139 139 (137-145) mmol/L Potassium 4.5 4.2 (3.5-5.1) mmol/L Chloride 110 H 106 (98-107) mmol/L Carbon Dioxide 21 L 22 (22-30) mmol/L BUN 13 14 (9-20) mg/dL Creatinine 0.73 0.78 (0.66-1.25) mg/dL Glucose 122 H 106 H (74-99) mg/dL Calcium 7.9 L 8.2 L (8.4-10.2) mg/dL AST 105 H 76 H (17-59) U/L ALT 19 17 (4-49) U/L Alkaline Phosphatase 67 56 (38-126) U/L Total Protein 5.0 L 5.2 L (6.3-8.2) g/dL Albumin 3.1 L 3.3 L (3.5-5.0) g/dL Current Medications Generic Name Dose Route Start Last Admin Trade Name Freq PRN Reason Stop Dose Admin Acetaminophen 650 mg 04/07/25 00:31 Acetaminophen Tab 325 Mg Tab PO Q4HR PRN Fever And/ Or Mild Pain (1-3) Albuterol/Ipratropium 3 ml 04/06/25 12:37 Ipratropium-Albuterol 3 Ml Neb INHALATION RT-Q2H PRN Shortness Of Breath Or Wheezing Albuterol/Ipratropium 3 ml 04/06/25 20:00 04/07/25 09:09 Ipratropium-Albuterol 3 Ml Neb INHALATION 3 ml RT-QID SUMAYA Administration Ascorbic Acid 500 mg 04/07/25 09:00 04/07/25 08:26 Ascorbic Acid 500 Mg Tab PO 500 mg DAILY SUMAYA Administration Aspirin 325 mg 04/07/25 09:00 04/07/25 08:32 Aspirin 325 Mg Tab PO 325 mg DAILY SUMAYA Administration Atorvastatin Calcium 10 mg 04/07/25 09:00 04/07/25 08:26 Atorvastatin 10 Mg Tab PO 10 mg DAILY SUMAYA Administration Benzocaine/Menthol 1 each 04/06/25 12:37 Benzocaine/Menthol Lozeng 1 Each Lozenge MUCOUS MEM Q2H PRN Sore Throat Bisacodyl 10 mg 04/07/25 09:00 Bisacodyl 10 Mg Supp RECTAL DAILY PRN Constipation Clopidogrel Bisulfate 75 mg 04/07/25 09:00 04/07/25 08:25 Clopidogrel 75 Mg Tab PO 75 mg DAILY SUMAYA Administration Cyanocobalamin 1,000 mcg 04/07/25 09:00 04/07/25 08:25 Cyanocobalamin 500 Mcg Tab PO 1,000 mcg DAILY SUMAYA Administration Dextrose/Water 25 ml 04/06/25 12:37 Dextrose 50% Syringe 50 Ml IVP PER PROTOCOL PRN Hypoglycemia Protocol Dextrose/Water 50 ml 04/06/25 12:37 Dextrose 50% Syringe 50 Ml IVP PER PROTOCOL PRN Hypoglycemia Protocol Escitalopram Oxalate 20 mg 04/07/25 09:00 04/07/25 08:26 Escitalopram 20 Mg Tab PO 20 mg DAILY SUMAYA Administration Heparin Sodium (Porcine) 5,000 unit 04/06/25 16:00 04/07/25 08:26 Heparin Sodium,Porcine 5,000 Unit/Ml 1 Ml Vial SQ 5,000 unit Q8HR SUMAYA Administration Hydralazine HCl 10 mg 04/06/25 12:37 Hydralazine Hcl 20 Mg/Ml 1 Ml Vial IVP Q1H PRN Blood Pressure - High Clevidipine 25 mg/ IV Solution 50 mls @ 2 mls/hr 04/06/25 12:37 IV .Q24H PRN Hypertension Protocol 1 MG/HR Amiodarone HCl 150 mg/ 103 mls @ 618 mls/hr 04/06/25 12:37 Dextrose/Water IV .Q10M PRN A.FIB/FLUTTER Protocol Amiodarone HCl 450 mg/ 250 mls @ 16.667 mls/hr 04/06/25 12:37 Dextrose/Water IV .Q15H PRN A.FIB/FLUTTER Protocol 0.5 MG/MIN Amiodarone HCl 360 mg/ 207.2 mls @ 34.533 mls/hr 04/06/25 12:37 Dextrose/Water IV .Q6H PRN A.FIB/FLUTTER Protocol 1 MG/MIN Albumin Human 250 ml/ IV 250 mls @ 250 mls/hr 04/06/25 12:37 04/06/25 13:51 Solution IVPB 04/08/25 12:36 250 mls/hr Q1HR PRN Administration For Volume Protocol Calcium Gluconate/Sodium 100 mls @ 100 mls/hr 04/06/25 12:37 Chloride 2 gm/ IV Solution IVPB 04/10/25 23:00 ONCE PRN Ionized Calcium less than 4.4 Insulin Human Regular 100 unit 101 mls @ 0 mls/hr 04/06/25 12:37 04/07/25 12:07 / Sodium Chloride IV 5.5 units/hr .Q0M SUMAYA 5.555 mls/hr Titration Protocol Per Protocol Sodium Chloride 1,000 mls @ 20 mls/hr 04/06/25 12:37 04/07/25 11:18 Saline 0.9% IV 20 mls/hr .Q24H SUMAYA Administration Milrinone Lactate/Dextrose 20 100 mls @ 5.202 mls/hr 04/06/25 12:45 04/07/25 05:03 mg/ IV Solution IV 0.2 mcg/kg/min .[id number] SUMAYA 5.202 mls/hr Administration 0.2 MCG/KG/MIN Lisinopril 5 mg 04/08/25 09:00 Lisinopril 5 Mg Tab PO DAILY SUMAYA Magnesium Hydroxide 2,400 mg 04/07/25 09:00 Magnesium Hydroxide 2,400 Mg/30 Ml Cup PO BID PRN Constipation Metoclopramide HCl 10 mg 04/06/25 12:37 Metoclopramide 5 Mg/Ml 2 Ml Vial IVP Q4H PRN Nausea And Vomiting Miscellaneous Information 1 each 04/06/25 12:37 Potassium Replacement Protocol 1 Each Misc MISCELLANE DAILY PRN Per Protocol Protocol Miscellaneous Information 1 each 04/06/25 12:37 Magnesium Replacement Protocol 1 Each Misc MISCELLANE DAILY PRN Per Protocol Protocol Ondansetron HCl 4 mg 04/06/25 12:37 Ondansetron 4 Mg/2 Ml Vial IVP Q6HR PRN Nausea And Vomiting Oxycodone HCl 5 mg 04/06/25 12:37 04/07/25 08:29 Oxycodone Hcl 5 Mg Tab PO 5 mg Q4HR PRN Administration Moderate Pain (Scale 4 to 6) Oxycodone HCl 10 mg 04/06/25 12:37 04/07/25 04:49 Oxycodone Hcl 5 Mg Tab PO 10 mg Q4HR PRN Administration Severe Pain (Scale 7 to 10) Pantoprazole Sodium 40 mg 04/08/25 07:30 Pantoprazole 40 Mg Tablet PO AC-BRKFST SUMAYA Senna/Docusate Sodium 2 each 04/06/25 21:00 04/06/25 21:58 Sennosides-Docusate Sodium 1 Each Tab PO Not Given HS [facility] Sodium Chloride 10 ml 04/06/25 21:00 04/07/25 08:29 Sodium Chloride 0.9% Flush 10 Ml Syringe IV 10 ml BID SUMAYA Administration Intake and Output 04/06/25 04/07/25 04/07/25 22:59 06:59 14:59 Intake Total 995.438 0491.968 283.855 Output Total 980 665 235 Balance -36.863 429.968 48.855 Intake: IV 332 962 225 0.9 @ 50 150 400 100 ACETAMINOPHEN IV (For NPO 400 ) 1,000 mg In Empty Bag 1 bag @ 400 mls/hr IVPB Q6HR SUMAYA Rx#:[id number] CO/CI 110 40 20 Pressure Bag 72 72 45 Sodium Chloride 0.9% 1, 60 000 ml @ 20 mls/hr IV . Q24H [facility]MAYA Rx#:[id number] ceFAZolin 2 gm In 50 Dextrose 5% in Water 50 ml @ 100 mls/hr IVPB Q8HR SUMAYA Rx#:[id number] Intake, IV Titration 611.137 132.968 58.855 Amount Albumin Human 5% 250 ml 250 In Empty Bag 1 bag @ 250 mls/hr IVPB Q1HR PRN Rx#: [id number] Dexmedetomidine/0.9% NaCl 11.207 (Pmx) 400 mcg In Empty Bag 1 bag @ Titrate IV . Q0M SUMAYA Rx#:[id number] EPINEPHrine 4 mg In 70.933 37.874 Dextrose 5% in Water 250 ml @ 0.03 MCG/KG/MIN 9. 754 mls/hr IV .Q24H SUMAYA Rx#:[id number] Insulin Regular 100 unit 28.997 51.123 20.981 In Sodium Chloride 0.9% 100 ml @ Per Protocol IV .Q0M SUMAYA Rx#:[id number] Lactated Ringers 1,000 ml 100 @ 50 mls/hr IV .Q20H SUMAYA Rx#:[id number] Milrinone-D5w Pmx 20 mg 81.845 In Dextrose/Water 1 100ml .bag @ 0.2 MCG/KG/MIN 5. 202 mls/hr IV .[id number] SUMAYA Rx#:[id number] Sodium Chloride 0.9% 1, 150 000 ml @ 20 mls/hr IV . Q24H SUMAYA Rx#:[id number] Output: Chest Tube Drainage 470 390 100 Left Chest Tube 170 150 70 Mediastinal Chest Tube X 300 240 30 2 Urine 510 275 135 Other: Voiding Method Indwelling Catheter Indwelling Catheter Indwelling Catheter Weight 88.6 kg 88.6 kg Patient Weight 04/08/25 06:59 Weight 88.6 kg 04/07/25 04:16 04/07/25 04:16
[2025-04-07 14:20] LABS: Glucose,Whole Blood 203 mg/dL (70-110)
[2025-04-07 15:08] LABS: Glucose,Whole Blood 181 mg/dL (70-110)
--- NOTE | 2025-04-07 16:03 | P.CONS ---
History of Present Illness - Reason for Consult Consult date: 04/07/25 Medical management Requesting physician: Remington Amezcua - Chief Complaint Status post AVR - History of Present Illness This is a pleasant 74-year-old gentleman admitted with severe symptomatic aortic insufficiency status post AVR with bovine valve, postop day #1. Tolerated procedure well. Extubated last night. Maintained on Primacor, epi and insulin drips. Apparently patient had acute anaphylactic reaction suspected related to diprovan and was placed on epi. Incentive spirometer up to 1000. Telemetry paced/sinus. Blood sugars controlled. Denies chest pain, palpitations or shortness of breath. Reports surgical pain controlled. Review of Systems ROS Statement: Those systems with pertinent positive or pertinent negative responses have been documented in the HPI. ROS Other: All systems not noted in ROS Statement are negative. Past Medical History Past Medical History: Atrial Fibrillation, Coronary Artery Disease (CAD), Hyp ertension, Skin Disorder, Sleep Apnea/CPAP/BIPAP Additional Past Medical History / Comment(s): hx. colon polyps, mom hx. of colon cancer, Joint inflammation. current SOB with exertion. uses cpap. actinic keratosis History of Any Multi-Drug Resistant Organisms: None Reported Past Surgical History: Appendectomy, Heart Catheterization, Orthopedic Surgery Additional Past Surgical History / Comment(s): gema rotator cuff surg., nasal surg. cataract removed and lenses placed. colonoscopy, cardioversion, recent card. cath. Past Anesthesia/Blood Transfusion Reactions: No Reported Reaction Smoking Status: Never smoker - Past Family History Mother Family Medical History: Cancer Additional Family Medical History / Comment(s): colon cancer Sister(s) Family Medical History: Cancer Brother(s) Family Medical History: Coronary Artery Disease (CAD) Medications and Allergies Home Medications Medication Instructions Recorded Confirmed Type Benazepril [Lotensin] 20 mg PO DAILY 10/09/14 04/06/25 History Testosterone [Androgel 1.62% Gel 2 pump TOPICAL Q48H 12/22/18 04/06/25 History Pump] Ascorbic Acid [Vitamin C] 500 mg PO DAILY 07/23/21 04/06/25 History Cyanocobalamin (Vitamin B-12) 1,000 mcg PO DAILY 07/23/21 04/06/25 History [Vitamin B-12] Sambucus 2 tab PO DAILY 07/23/21 04/06/25 History Selenium 200 mcg PO DAILY 07/23/21 04/06/25 History Vitamin D3 +K2 1 tab PO DAILY 07/23/21 04/06/25 History Zinc 50 mg PO DAILY 07/23/21 04/06/25 History Apixaban [Eliquis] 5 mg PO BID 03/03/25 04/06/25 History carvediloL [Coreg] 6.25 mg PO BID 03/03/25 04/06/25 History Atorvastatin [Lipitor] 10 mg PO DAILY 04/04/25 04/06/25 History Escitalopram [Lexapro] 20 mg PO DAILY 04/04/25 04/06/25 History Magnesium 240 mg PO DAILY 04/04/25 04/06/25 History Mupirocin [Mupirocin 2%] 1 applic NASAL BID #1 tub 04/04/25 04/06/25 Rx Turmeric Root Extract [Turmeric] 1,000 mg PO DAILY 04/04/25 04/06/25 History Allergies Allergy/AdvReac Type Severity Reaction Status Date / Time propofol Allergy Severe Anaphylaxis Verified 04/06/25 13:31 Physical Exam Vitals: Vital Signs Temp Pulse Resp BP Pulse Ox FiO2 04/07/25 15:00 79 21 96 04/07/25 14:45 77 17 96 04/07/25 14:30 81 21 96 04/07/25 14:15 79 15 96 04/07/25 14:00 79 14 90 L 04/07/25 13:45 78 14 89 L 04/07/25 13:30 79 17 96 04/07/25 13:15 78 16 95 04/07/25 13:00 73 16 99 04/07/25 12:59 73 04/07/25 12:52 72 04/07/25 12:45 75 12 95 04/07/25 12:30 75 12 95 04/07/25 12:15 78 16 95 04/07/25 12:00 98.6 F 72 16 96 04/07/25 11:45 81 19 96 04/07/25 11:30 75 12 96 04/07/25 11:15 75 13 97 04/07/25 11:00 76 16 98 04/07/25 10:45 74 14 95 04/07/25 10:30 76 16 99 04/07/25 10:15 72 14 96 04/07/25 10:00 74 14 97 04/07/25 09:45 75 14 96 04/07/25 09:30 74 16 96 04/07/25 09:21 77 04/07/25 09:15 70 16 98 04/07/25 09:11 73 95 04/07/25 09:00 70 12 97 04/07/25 08:45 73 12 97 04/07/25 08:30 70 18 96 04/07/25 08:15 71 12 97 04/07/25 08:00 97.5 F L 80 18 95 04/07/25 07:45 80 18 95 04/07/25 07:30 80 23 96 04/07/25 07:15 80 13 96 04/07/25 07:00 80 18 96 04/07/25 06:45 80 15 97 04/07/25 06:30 80 17 97 04/07/25 06:15 80 18 97 04/07/25 06:00 78 19 93 L 04/07/25 05:45 80 22 04/07/25 05:30 80 27 H 04/07/25 05:15 80 20 04/07/25 05:00 80 17 96 04/07/25 04:45 80 16 95 04/07/25 04:30 98.1 F 80 16 96 04/07/25 04:15 55 L 19 97 04/07/25 04:00 80 16 91 L 04/07/25 03:45 80 15 97 04/07/25 03:30 80 13 98 04/07/25 03:15 80 15 97 04/07/25 03:00 80 16 105/65 98 04/07/25 02:45 80 17 92 L 04/07/25 02:30 80 17 92 L 04/07/25 02:15 79 13 94 L 04/07/25 02:00 80 17 95 04/07/25 01:45 80 16 96 04/07/25 01:30 79 18 96 04/07/25 01:15 80 17 96 04/07/25 01:00 80 15 97 04/07/25 00:45 80 14 97 04/07/25 00:40 80 15 97 04/07/25 00:30 80 14 95 04/07/25 00:15 80 17 98 04/07/25 00:00 98.1 F 80 15 98 04/06/25 23:45 80 17 97 04/06/25 23:30 80 14 98 04/06/25 23:15 80 16 97 04/06/25 23:00 80 14 98 04/06/25 22:45 80 13 96 04/06/25 22:30 80 19 95 04/06/25 22:15 80 15 105/65 96 04/06/25 22:00 80 16 96 04/06/25 21:45 80 14 95 04/06/25 21:30 80 14 95 04/06/25 21:15 80 15 94 L 04/06/25 21:00 80 16 95 04/06/25 20:46 80 06 20:45 80 16 99 06 20:39 80 04/06/25 20:30 80 14 105/65 95 04/06/25 20:15 80 15 94 L 04/06/25 20:00 98.1 F 80 15 94 L 04/06/25 19:45 80 16 94 L 04/06/25 19:30 80 14 96 04/06/25 19:15 80 13 96 04/06/25 19:00 80 18 95 04/06/25 18:53 97 04/06/25 18:30 80 15 97 40 04/06/25 18:00 80 15 96 04/06/25 17:42 40 04/06/25 17:30 80 18 98 04/06/25 17:00 80 18 96 50 04/06/25 16:30 80 12 96 04/06/25 16:24 50 04/06/25 16:11 80 04/06/25 16:00 98.1 F 80 19 99 80 04/06/25 15:45 80 20 99 Intake and Output 04/07/25 04/07/25 04/07/25 06:59 14:59 22:59 Intake Total 1094.968 912.335 8.871 Output Total 665 395 Balance 429.968 517.335 8.871 Intake: IV 962 342 0.9 @ 50 400 100 ACETAMINOPHEN IV (For NPO 400 ) 1,000 mg In Empty Bag 1 bag @ 400 mls/hr IVPB Q6HR [facility] [place] Rx#:[id number] CO/CI 40 50 Pressure Bag 72 72 Sodium Chloride 0.9% 1, 120 000 ml @ 20 mls/hr IV . Q24H [facility] Rx#:[id number] ceFAZolin 2 gm In 50 Dextrose 5% in Water 50 ml @ 100 mls/hr IVPB Q8HR [facility] Rx#:[id number] Intake, IV Titration 132.968 70.335 8.871 Amount EPINEPHrine 4 mg In 37.874 Dextrose 5% in Water 250 ml @ 0.03 MCG/KG/MIN 9. 754 mls/hr IV .Q24H [facility] Rx#:[id number] Insulin Regular 100 unit 51.123 32.461 8.871 In Sodium Chloride 0.9% 100 ml @ Per Protocol IV .Q0M [facility] Rx#:[id number] Milrinone-D5w Pmx 20 mg 81.845 In Dextrose/Water 1 100ml .bag @ 0.2 MCG/KG/MIN 5. 202 mls/hr IV .[id number] [facility] [place] Rx#:[id number] Oral 500 Output: Chest Tube Drainage 390 150 Left Chest Tube 150 100 Mediastinal Chest Tube X 240 50 2 Urine 275 245 Other: Voiding Method Indwelling Catheter Indwelling Catheter Weight 88.6 kg 88.6 kg ABP, PAP, CO, CI - Last 8 Hours Arterial Blood Pressure 148/64 Arterial Blood Pressure 135/60 Arterial Blood Pressure 114/49 Arterial Blood Pressure 137/57 Arterial Blood Pressure 129/54 Arterial Blood Pressure 128/56 Arterial Blood Pressure 141/58 Arterial Blood Pressure 129/49 Arterial Blood Pressure 137/55 Arterial Blood Pressure 108/44 Arterial Blood Pressure 127/51 Arterial Blood Pressure 140/54 Arterial Blood Pressure 133/54 Arterial Blood Pressure 137/54 Arterial Blood Pressure 140/60 Arterial Blood Pressure 148/62 Arterial Blood Pressure 150/63 Arterial Blood Pressure 146/59 Arterial Blood Pressure 138/57 Arterial Blood Pressure 149/63 Arterial Blood Pressure 149/68 Arterial Blood Pressure 134/62 Arterial Blood Pressure 112/52 Arterial Blood Pressure 138/43 Arterial Blood Pressure 144/62 Arterial Blood Pressure 130/56 Arterial Blood Pressure 133/55 Arterial Blood Pressure 144/59 Arterial Blood Pressure 136/52 Arterial Blood Pressure 137/54 Pulmonary Artery Pressure 59/26 Pulmonary Artery Pressure 55/24 Pulmonary Artery Pressure 54/23 Pulmonary Artery Pressure 56/23 Pulmonary Artery Pressure 58/23 Pulmonary Artery Pressure 56/23 Pulmonary Artery Pressure 60/24 Pulmonary Artery Pressure 54/17 Pulmonary Artery Pressure 50/19 Pulmonary Artery Pressure 51/16 Pulmonary Artery Pressure 53/19 Pulmonary Artery Pressure 53/18 Pulmonary Artery Pressure 47/17 Pulmonary Artery Pressure 58/20 Pulmonary Artery Pressure 46/16 Pulmonary Artery Pressure 49/18 Pulmonary Artery Pressure 49/16 Pulmonary Artery Pressure 46/17 Pulmonary Artery Pressure 48/16 Pulmonary Artery Pressure 45/16 Pulmonary Artery Pressure 45/17 Pulmonary Artery Pressure 49/18 Pulmonary Artery Pressure 43/16 Pulmonary Artery Pressure 53/16 Pulmonary Artery Pressure 49/17 Pulmonary Artery Pressure 48/18 Pulmonary Artery Pressure 50/18 Pulmonary Artery Pressure 51/16 Pulmonary Artery Pressure 55/18 Pulmonary Artery Pressure 54/15 Cardiac Output 6.0 Cardiac Output 6.2 Cardiac Index 3.4 Cardiac Index 3.5 PHYSICAL EXAM: VITAL SIGNS: [Reviewed] GENERAL: Pleasant, well-nourished,sitting up in chair, alert and oriented x 3, no acute distress. HEENT: Normocephalic, atraumatic, conjunctivae normal. eyes normal. MMM. NECK: Supple, no JVD. CARDIOVASCULAR: S1, S2 regular.No murmur RESPIRATION: Unlabored, equal air entry, lungs diminished throughout. Mediastinal, left pleural chest tubes present. ABDOMEN: Soft, nondistended, nontender . No guarding. Positive bowel sounds. LEGS: No edema. no swelling NERVOUS SYSTEM: Cranial N 2-12 grossly normal. No focal deficits. Skin: Warm and dry, no rash . Results CBC & Chem 7: 04/07/25 04:16 04/07/25 04:16 Labs: Abnormal Lab Results - Last 24 Hours (Table) 04/04/25 04/06/25 04/06/25 Range/Units 09:03 16:01 16:02 WBC 15.84 H (4.50-10.00) 10*3/uL RBC 2.37 L (4.40-5.60) 10*6/uL Hgb 8.3 L (13.0-17.0) g/dL Hct 26.1 L (39.6-50.0) % MCV 110.1 H (80.0-97.0) fL MCH 35.0 H (27.0-32.0) pg MCHC 31.8 L (32.0-37.0) g/dL Plt Count 94 L (140-440) 10*3/uL Immature Gran # 2.19 H (0.00-0.04) 10*3/uL Neutrophils # 10.18 H (1.80-7.70) 10*3/uL Neutrophils # (Manual) (1.3-7.7) k/uL Lymphocytes # 0.89 L (0.90-5.00) 10*3/uL Lymphocytes # (Manual) (1.0-4.8) k/uL Monocytes # 2.52 H (0.20-1.00) 10*3/uL Eosinophils # 0.00 L (0.04-0.35) 10*3/uL Metamyelocytes # (Man) (0) k/uL Nucleated RBCs (0-0) /100 WBC ABG pH (7.35-7.45) ABG pO2 (83-108) mmHg ABG HCO3 (21-25) mmol/L ABG O2 Saturation (94-97) % Hemoglobin (13.0-17.5) gm/dL Glucose (74-99) mg/dL POC Glucose (mg/dL) 162 H (70-110) mg/dL Calcium (8.4-10.2) mg/dL Magnesium (1.6-2.3) mg/dL AST (17-59) U/L Total Protein (6.3-8.2) g/dL Albumin (3.5-5.0) g/dL Crossmatch See Detail 04/06/25 04/06/25 04/06/25 Range/Units 16:19 17:03 18:03 WBC (4.50-10.00) 10*3/uL RBC (4.40-5.60) 10*6/uL Hgb (13.0-17.0) g/dL Hct (39.6-50.0) % MCV (80.0-97.0) fL MCH (27.0-32.0) pg MCHC (32.0-37.0) g/dL Plt Count (140-440) 10*3/uL Immature Gran # (0.00-0.04) 10*3/uL Neutrophils # (1.80-7.70) 10*3/uL Neutrophils # (Manual) (1.3-7.7) k/uL Lymphocytes # (0.90-5.00) 10*3/uL Lymphocytes # (Manual) (1.0-4.8) k/uL Monocytes # (0.20-1.00) 10*3/uL Eosinophils # (0.04-0.35) 10*3/uL Metamyelocytes # (Man) (0) k/uL Nucleated RBCs (0-0) /100 WBC ABG pH 7.34 L (7.35-7.45) ABG pO2 171 H (83-108) mmHg ABG HCO3 20 L (21-25) mmol/L ABG O2 Saturation 99.6 H (94-97) % Hemoglobin 8.4 L 8.3 L (13.0-17.5) gm/dL Glucose (74-99) mg/dL POC Glucose (mg/dL) 168 H (70-110) mg/dL Calcium (8.4-10.2) mg/dL Magnesium (1.6-2.3) mg/dL AST (17-59) U/L Total Protein (6.3-8.2) g/dL Albumin (3.5-5.0) g/dL Crossmatch 04/06/25 04/06/25 04/06/25 Range/Units 18:12 19:03 19:04 WBC 11.50 H (4.50-10.00) 10*3/uL RBC 2.26 L (4.40-5.60) 10*6/uL Hgb 7.9 L (13.0-17.0) g/dL Hct 24.5 L (39.6-50.0) % MCV 108.4 H (80.0-97.0) fL MCH 35.0 H (27.0-32.0) pg MCHC (32.0-37.0) g/dL Plt Count 91 L (140-440) 10*3/uL Immature Gran # 1.76 H (0.00-0.04) 10*3/uL Neutrophils # (1.80-7.70) 10*3/uL Neutrophils # (Manual) 9.43 H (1.3-7.7) k/uL Lymphocytes # (0.90-5.00) 10*3/uL Lymphocytes # (Manual) (1.0-4.8) k/uL Monocytes # (0.20-1.00) 10*3/uL Eosinophils # (0.04-0.35) 10*3/uL Metamyelocytes # (Man) 0.46 H (0) k/uL Nucleated RBCs 1 H (0-0) /100 WBC ABG pH (7.35-7.45) ABG pO2 (83-108) mmHg ABG HCO3 (21-25) mmol/L ABG O2 Saturation (94-97) % Hemoglobin (13.0-17.5) gm/dL Glucose (74-99) mg/dL POC Glucose (mg/dL) 174 H 163 H (70-110) mg/dL Calcium (8.4-10.2) mg/dL Magnesium (1.6-2.3) mg/dL AST (17-59) U/L Total Protein (6.3-8.2) g/dL Albumin (3.5-5.0) g/dL Crossmatch 04/06/25 04/06/25 04/06/25 Range/Units 20:04 21:14 22:04 WBC (4.50-10.00) 10*3/uL RBC (4.40-5.60) 10*6/uL Hgb (13.0-17.0) g/dL Hct (39.6-50.0) % MCV (80.0-97.0) fL MCH (27.0-32.0) pg MCHC (32.0-37.0) g/dL Plt Count (140-440) 10*3/uL Immature Gran # (0.00-0.04) 10*3/uL Neutrophils # (1.80-7.70) 10*3/uL Neutrophils # (Manual) (1.3-7.7) k/uL Lymphocytes # (0.90-5.00) 10*3/uL Lymphocytes # (Manual) (1.0-4.8) k/uL Monocytes # (0.20-1.00) 10*3/uL Eosinophils # (0.04-0.35) 10*3/uL Metamyelocytes # (Man) (0) k/uL Nucleated RBCs (0-0) /100 WBC ABG pH (7.35-7.45) ABG pO2 (83-108) mmHg ABG HCO3 (21-25) mmol/L ABG O2 Saturation (94-97) % Hemoglobin (13.0-17.5) gm/dL Glucose (74-99) mg/dL POC Glucose (mg/dL) 168 H 158 H 155 H (70-110) mg/dL Calcium (8.4-10.2) mg/dL Magnesium (1.6-2.3) mg/dL AST (17-59) U/L Total Protein (6.3-8.2) g/dL Albumin (3.5-5.0) g/dL Crossmatch 04/06/25 04/07/25 04/07/25 Range/Units 23:13 00:24 01:18 WBC (4.50-10.00) 10*3/uL RBC (4.40-5.60) 10*6/uL Hgb (13.0-17.0) g/dL Hct (39.6-50.0) % MCV (80.0-97.0) fL MCH (27.0-32.0) pg MCHC (32.0-37.0) g/dL Plt Count (140-440) 10*3/uL Immature Gran # (0.00-0.04) 10*3/uL Neutrophils # (1.80-7.70) 10*3/uL Neutrophils # (Manual) (1.3-7.7) k/uL Lymphocytes # (0.90-5.00) 10*3/uL Lymphocytes # (Manual) (1.0-4.8) k/uL Monocytes # (0.20-1.00) 10*3/uL Eosinophils # (0.04-0.35) 10*3/uL Metamyelocytes # (Man) (0) k/uL Nucleated RBCs (0-0) /100 WBC ABG pH (7.35-7.45) ABG pO2 (83-108) mmHg ABG HCO3 (21-25) mmol/L ABG O2 Saturation (94-97) % Hemoglobin (13.0-17.5) gm/dL Glucose (74-99) mg/dL POC Glucose (mg/dL) 150 H 157 H 137 H (70-110) mg/dL Calcium (8.4-10.2) mg/dL Magnesium (1.6-2.3) mg/dL AST (17-59) U/L Total Protein (6.3-8.2) g/dL Albumin (3.5-5.0) g/dL Crossmatch 04/07/25 04/07/25 04/07/25 Range/Units 02:13 03:07 04:12 WBC (4.50-10.00) 10*3/uL RBC (4.40-5.60) 10*6/uL Hgb (13.0-17.0) g/dL Hct (39.6-50.0) % MCV (80.0-97.0) fL MCH (27.0-32.0) pg MCHC (32.0-37.0) g/dL Plt Count (140-440) 10*3/uL Immature Gran # (0.00-0.04) 10*3/uL Neutrophils # (1.80-7.70) 10*3/uL Neutrophils # (Manual) (1.3-7.7) k/uL Lymphocytes # (0.90-5.00) 10*3/uL Lymphocytes # (Manual) (1.0-4.8) k/uL Monocytes # (0.20-1.00) 10*3/uL Eosinophils # (0.04-0.35) 10*3/uL Metamyelocytes # (Man) (0) k/uL Nucleated RBCs (0-0) /100 WBC ABG pH (7.35-7.45) ABG pO2 (83-108) mmHg ABG HCO3 (21-25) mmol/L ABG O2 Saturation (94-97) % Hemoglobin (13.0-17.5) gm/dL Glucose (74-99) mg/dL POC Glucose (mg/dL) 132 H 125 H 124 H (70-110) mg/dL Calcium (8.4-10.2) mg/dL Magnesium (1.6-2.3) mg/dL AST (17-59) U/L Total Protein (6.3-8.2) g/dL Albumin (3.5-5.0) g/dL Crossmatch 04/07/25 04/07/25 04/07/25 Range/Units 04:16 04:16 05:00 WBC (4.50-10.00) 10*3/uL RBC 2.07 L (4.40-5.60) 10*6/uL Hgb 7.0 L (13.0-17.0) g/dL Hct 22.5 L (39.6-50.0) % MCV 108.7 H (80.0-97.0) fL MCH 33.8 H (27.0-32.0) pg MCHC 31.1 L (32.0-37.0) g/dL Plt Count 100 L (140-440) 10*3/uL Immature Gran # 0.83 H (0.00-0.04) 10*3/uL Neutrophils # (1.80-7.70) 10*3/uL Neutrophils # (Manual) (1.3-7.7) k/uL Lymphocytes # (0.90-5.00) 10*3/uL Lymphocytes # (Manual) 0.78 L (1.0-4.8) k/uL Monocytes # (0.20-1.00) 10*3/uL Eosinophils # (0.04-0.35) 10*3/uL Metamyelocytes # (Man) (0) k/uL Nucleated RBCs (0-0) /100 WBC ABG pH (7.35-7.45) ABG pO2 (83-108) mmHg ABG HCO3 (21-25) mmol/L ABG O2 Saturation (94-97) % Hemoglobin (13.0-17.5) gm/dL Glucose 106 H (74-99) mg/dL POC Glucose (mg/dL) 121 H (70-110) mg/dL Calcium 8.2 L (8.4-10.2) mg/dL Magnesium 2.5 H (1.6-2.3) mg/dL AST 76 H (17-59) U/L Total Protein 5.2 L (6.3-8.2) g/dL Albumin 3.3 L (3.5-5.0) g/dL Crossmatch 04/07/25 04/07/25 04/07/25 Range/Units 05:55 06:59 07:02 WBC (4.50-10.00) 10*3/uL RBC (4.40-5.60) 10*6/uL Hgb (13.0-17.0) g/dL Hct (39.6-50.0) % MCV (80.0-97.0) fL MCH (27.0-32.0) pg MCHC (32.0-37.0) g/dL Plt Count (140-440) 10*3/uL Immature Gran # (0.00-0.04) 10*3/uL Neutrophils # (1.80-7.70) 10*3/uL Neutrophils # (Manual) (1.3-7.7) k/uL Lymphocytes # (0.90-5.00) 10*3/uL Lymphocytes # (Manual) (1.0-4.8) k/uL Monocytes # (0.20-1.00) 10*3/uL Eosinophils # (0.04-0.35) 10*3/uL Metamyelocytes # (Man) (0) k/uL Nucleated RBCs (0-0) /100 WBC ABG pH (7.35-7.45) ABG pO2 (83-108) mmHg ABG HCO3 (21-25) mmol/L ABG O2 Saturation (94-97) % Hemoglobin (13.0-17.5) gm/dL Glucose (74-99) mg/dL POC Glucose (mg/dL) 114 H 243 H 134 H (70-110) mg/dL Calcium (8.4-10.2) mg/dL Magnesium (1.6-2.3) mg/dL AST (17-59) U/L Total Protein (6.3-8.2) g/dL Albumin (3.5-5.0) g/dL Crossmatch 04/07/25 04/07/25 04/07/25 Range/Units 08:02 09:08 09:20 WBC (4.50-10.00) 10*3/uL RBC (4.40-5.60) 10*6/uL Hgb (13.0-17.0) g/dL Hct (39.6-50.0) % MCV (80.0-97.0) fL MCH (27.0-32.0) pg MCHC (32.0-37.0) g/dL Plt Count (140-440) 10*3/uL Immature Gran # (0.00-0.04) 10*3/uL Neutrophils # (1.80-7.70) 10*3/uL Neutrophils # (Manual) (1.3-7.7) k/uL Lymphocytes # (0.90-5.00) 10*3/uL Lymphocytes # (Manual) (1.0-4.8) k/uL Monocytes # (0.20-1.00) 10*3/uL Eosinophils # (0.04-0.35) 10*3/uL Metamyelocytes # (Man) (0) k/uL Nucleated RBCs (0-0) /100 WBC ABG pH (7.35-7.45) ABG pO2 (83-108) mmHg ABG HCO3 (21-25) mmol/L ABG O2 Saturation (94-97) % Hemoglobin (13.0-17.5) gm/dL Glucose (74-99) mg/dL POC Glucose (mg/dL) 224 H 171 H 157 H (70-110) mg/dL Calcium (8.4-10.2) mg/dL Magnesium (1.6-2.3) mg/dL AST (17-59) U/L Total Protein (6.3-8.2) g/dL Albumin (3.5-5.0) g/dL Crossmatch 04/07/25 04/07/25 04/07/25 Range/Units 10:34 11:16 12:01 WBC (4.50-10.00) 10*3/uL RBC (4.40-5.60) 10*6/uL Hgb (13.0-17.0) g/dL Hct (39.6-50.0) % MCV (80.0-97.0) fL MCH (27.0-32.0) pg MCHC (32.0-37.0) g/dL Plt Count (140-440) 10*3/uL Immature Gran # (0.00-0.04) 10*3/uL Neutrophils # (1.80-7.70) 10*3/uL Neutrophils # (Manual) (1.3-7.7) k/uL Lymphocytes # (0.90-5.00) 10*3/uL Lymphocytes # (Manual) (1.0-4.8) k/uL Monocytes # (0.20-1.00) 10*3/uL Eosinophils # (0.04-0.35) 10*3/uL Metamyelocytes # (Man) (0) k/uL Nucleated RBCs (0-0) /100 WBC ABG pH (7.35-7.45) ABG pO2 (83-108) mmHg ABG HCO3 (21-25) mmol/L ABG O2 Saturation (94-97) % Hemoglobin (13.0-17.5) gm/dL Glucose (74-99) mg/dL POC Glucose (mg/dL) 128 H 114 H 134 H (70-110) mg/dL Calcium (8.4-10.2) mg/dL Magnesium (1.6-2.3) mg/dL AST (17-59) U/L Total Protein (6.3-8.2) g/dL Albumin (3.5-5.0) g/dL Crossmatch 04/07/25 04/07/25 Range/Units 14:09 15:06 WBC (4.50-10.00) 10*3/uL RBC (4.40-5.60) 10*6/uL Hgb (13.0-17.0) g/dL Hct (39.6-50.0) % MCV (80.0-97.0) fL MCH (27.0-32.0) pg MCHC (32.0-37.0) g/dL Plt Count (140-440) 10*3/uL Immature Gran # (0.00-0.04) 10*3/uL Neutrophils # (1.80-7.70) 10*3/uL Neutrophils # (Manual) (1.3-7.7) k/uL Lymphocytes # (0.90-5.00) 10*3/uL Lymphocytes # (Manual) (1.0-4.8) k/uL Monocytes # (0.20-1.00) 10*3/uL Eosinophils # (0.04-0.35) 10*3/uL Metamyelocytes # (Man) (0) k/uL Nucleated RBCs (0-0) /100 WBC ABG pH (7.35-7.45) ABG pO2 (83-108) mmHg ABG HCO3 (21-25) mmol/L ABG O2 Saturation (94-97) % Hemoglobin (13.0-17.5) gm/dL Glucose (74-99) mg/dL POC Glucose (mg/dL) 203 H 181 H (70-110) mg/dL Calcium (8.4-10.2) mg/dL Magnesium (1.6-2.3) mg/dL AST (17-59) U/L Total Protein (6.3-8.2) g/dL Albumin (3.5-5.0) g/dL Crossmatch Assessment and Plan Assessment: Aortic valvular insufficiency, status post aortic valve replacement with bovine valve, biatrial modified Smith-Maze procedure, occlusion of left atrial appendage. Acute anaphylactic reaction suspected related to propofol Acute blood loss anemia with thrombocytopenia, postoperative, expected outcome Chronic atrial fibrillation Hypertension Obstructive sleep apnea Obesity, BMI 32 Alcohol use, 2 beers nightly Plan: Continue on current medication regimen ,monitoring and symptomatic treatment. Maximizing medical therapy, anticoagulation as per CTS. close monitoring of hemoglobin, platelets, electrolytes with repeat labs ordered for a.m. aggressive pulmonary toileting with nebulized bronchodilators, incentive spirometer reinforced. Increase ambulation as tolerated. Tight glycemic control, currently on insulin drip. The impression and plan of care has been dictated as directed. : I performed a history and examination of this patient, discussed the same with the dictator. I agree with the dictator's note ,documented as a scribe. Any additional findings or plans will be noted.
[2025-04-07 16:18] LABS: Glucose,Whole Blood 144 mg/dL (70-110)
[2025-04-07 17:07] LABS: Glucose,Whole Blood 121 mg/dL (70-110)
[2025-04-07 18:05] LABS: Glucose,Whole Blood 137 mg/dL (70-110)
[2025-04-07 19:01] LABS: Glucose,Whole Blood 146 mg/dL (70-110)
--- NOTE | 2025-04-07 19:11 | P.PN ---
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 Postop, the patient was kept intubated, sedated with propofol and the patient was brought into the intensive care unit. Upon arrival to the ICU, the patient seemed to be in anaphylaxis. The patient had developed a maculopapular rash throughout her body and she was also having increase in facial swelling, eye swelling, lip swelling and hypotension. Anaphylaxis was suspected and this was probably drug-induced and only medications was introduced. Was propofol. Immediately, propofol was discontinued. The patient was given a total of 4 doses of IV albumin 5%, Benadryl 50 mg IV and Solu-Medrol 125 mg IV. The patient was also started on low-dose norepinephrine. Noted the patient SVR was quite low at 400 and improved. SVR is at 958. Immediately a chest x-ray was d one and the patient showed no evidence of any pneumothorax. ET tube and the rest of the chest tubes are all in good location. Mcdonald-Issac catheter was also in good location. No significant abnormalities identified. At this point in time, the patient is intubated mechanical ventilator assist-control mode rate of 14, tidal volume of 500, FiO2 100% with a PEEP of 8. Blood gas showed a pH of 7.3 with a PCO2 of 43 and pO2 of 65. Output from the mediastinal and left lower chest tube were minimal. The patient is currently in a paced rhythm, DDD pacing at a rate of 80. Noted underlying rhythm is junctional. He is on milrinone at 0.2 mcg and epinephrine drip at 0.04 mcg and the most recent cardiac output is at 5 with an index of 2.8 with PA pressures of 48/27 and SVR of 958. Urine output is adequate for now. The white cell count of 14.7 with a hemoglobin 8.4 and a platelet count of 87. INR is at 1.5 with a PT of 15.8. Sodium is at 139, potassium is at 4.5, BUN 30 with a 0.7. LFTs Are Normal. Ionized Calcium Is at 4.5. Blood Sugar Is at 141. On 04/07/2025, the patient is postop to a #1. The patient was weaned off the mechanical ventilator and the patient was extubated without any major difficulties and the patient is awake and alert and sitting up in a chair. He is calm and comfortable. The patient underwent an aortic valve replacement surgery with a pericardial bovine prosthesis. He is initial cardiac rhythm was junctional and the patient required AV pacing and his current rhythm is sinus and the patient's pacer has been placed to VVI backup at rate of 60. The pat ient also was requiring low-dose epinephrine for symptoms and signs of anaphylaxis/drug-induced and this has been discontinued. The patient remains on Primacor running at 0.2 mcg/kg/min. Insulin drip is at 6 units an hour. Cardiac rhythm is sinus. The PA pressure is 47/16 mmHg and the cardiac output is 6.2 with an index of 3.5 and the patient is currently on 2 L of oxygen by nasal cannula, pulling approximately 1000 on his incentive spirometer. He has a left IJ Mcdonald-Issac catheter. He has a mediastinal left lower chest tube and output he is noted and the left pleural chest tube is drained around 350 cc in surgery and mediastinal chest tube has drained approximately 650 cc since surgery. The patient is awake alert and communicating. No tongue swelling. No lip swelling. No stridor. The hemoglobin is at 7 with a white cell count of 7 and a platelet count of 100. BUN is 14 with a creatinine of 0.7 and sodium levels at 139 and a potassium level is at 4.2. The patient is currently on aspirin and Plavix. The patient is also started on Zestril 5 mg p.o. daily. Beta-blockers have not been initiated yet. Remains on Lipitor 10 mg p.o. daily. Objective - Vital Signs Vital signs: Vital Signs Temp 97.5 F L 04/07/25 08:00 Pulse 76 04/07/25 10:30 Resp 16 04/07/25 10:30 BP 105/65 04/07/25 03:00 Pulse Ox 99 04/07/25 10:30 FiO2 40 04/06/25 18:30 Intake & Output 04/06/25 04/07/25 04/07/25 18:59 06:59 18:59 Intake Total 4804.954 7788.394 254.754 Output Total 1823 980 200 Balance -221.426 425.394 54.754 Weight 88.6 kg Intake: IV 264 1189 196 0.9 @ 50 550 100 ACETAMINOPHEN IV (For NPO 400 ) 1,000 mg In Empty Bag 1 bag @ 400 mls/hr IVPB Q6HR [facility] Rx#:[id number] CO/CI 100 90 20 Pressure Bag 63 99 36 Sodium Chloride 0.9% 1, 40 000 ml @ 20 mls/hr IV . Q24H [facility]MA[facility] Rx#:[id number] ceFAZolin 2 gm In 50 Dextrose 5% in Water 50 ml @ 100 mls/hr IVPB Q8HR [facility] Rx#:[id number] Intake, IV Titration 1337.574 216.394 58.754 Amount Albumin Human 5% 250 ml 1000 In Empty Bag 1 bag @ 250 mls/hr IVPB Q1HR PRN Rx#: [id number] Dexmedetomidine/0.9% NaCl 13.375 (Pmx) 400 mcg In Empty Bag 1 bag @ Titrate IV . Q0M [facility] Rx#:[id number] EPINEPHrine 4 mg In 15.336 63.292 37.874 Dextrose 5% in Water 250 ml @ 0.03 MCG/KG/MIN 9. 754 mls/hr IV .Q24H [facility] Rx#:[id number] Insulin Regular 100 unit 8.863 71.257 20.880 In Sodium Chloride 0.9% 100 ml @ Per Protocol IV .Q0M [facility] Rx#:[id number] Lactated Ringers 1,000 ml 100 @ 50 mls/hr IV .Q20H [facility] Rx#:[id number] Milrinone-D5w Pmx 20 mg 81.845 In Dextrose/Water 1 100ml .bag @ 0.2 MCG/KG/MIN 5. 202 mls/hr IV .[id number] [facility] Rx#:[id number] Sodium Chloride 0.9% 1, 200 000 ml @ 20 mls/hr IV . Q24H [facility]MAYA Rx#:[id number] Output: Chest Tube Drainage 288 620 80 Left Chest Tube 88 240 50 Mediastinal Chest Tube X 200 380 30 2 Urine 735 360 120 Estimated Blood Loss 800 Other: Voiding Method Indwelling Catheter Indwelling Catheter Indwelling Catheter ABP, PAP, CO, CI - Last Documented Arterial Blood Pressure 138/57 Pulmonary Artery Pressure 48/16 Cardiac Output 6.2 Cardiac Index 3.5 - Exam CONSTITUTIONAL: Appears comfortable, cooperative, no acute distress RESPIRATORY: Lungs sounds diminished bilaterally. Respirations even, nonlabored. Currently on 2 L nasal cannula with oxygen saturation 95%. Able to achieve 1000 mL on incentive spirometry. Strong cough. CARDIOVASCULAR: S1, S2 present. Regular rate and rhythm, sinus rhythm on telemetry. Sternum stable. Palpable peripheral pulses bilaterally. No edema present. No calf pain or tenderness noted. Heart hugger in place with patient demonstrating appropriate use. Antiembolism stockings, SCDs present. GASTROINTESTINAL: Abdomen soft, nontender, nondistended. Hypoactive bowel sounds present 4 quadrants. Tolerating minimal clear liquids. Denies flatus GENITOURINARY: Osorio present draining clear, yellow urine. Output overnight 20-50 mL per hour INTEGUMENTARY: Skin is warm and dry with evidence of good perfusion. Anterior chest incision well approximated and covered with dry intact dressing. NEUROLOGIC: Cranial nerves II through XII intact MUSKULOSKELETAL: Able to move all extremities, strength equal bilaterally, gait normal PSYCHIATRIC: Alert and oriented to person place and time, appropriate affect, intact judgment and insight INVASIVE LINES AND TUBES: Mediastinal/left pleural chest tubes present and connected to wall suction, no air leaks present. Mediastinal tube with 240 mL serosanguineous drainage overnight, 650 mL in surgery. Left pleural chest tube with 150 mL serosanguineous drainage overnight, 350 mL since surgery. A/V epicardial pacemaker wires present, connected to generator, VVI mode with backup rate 60 bpm. Left internal jugular Mcdonald/Cordis, right brachial arterial line present. Last CO/CI 5.0/2.8, PA 46/16, CVP 8. - Labs CBC & Chem 7: 04/07/25 04:16 04/07/25 04:16 Labs: Abnormal Lab Results - Last 24 Hours (Table) 04/04/25 04/06/25 04/06/25 Range/Units 09:03 08:50 09:23 WBC (4.50-10.00) 10*3/uL RBC (4.40-5.60) 10*6/uL Hgb (13.0-17.0) g/dL Hct (39.6-50.0) % MCV (80.0-97.0) fL MCH (27.0-32.0) pg MCHC (32.0-37.0) g/dL Plt Count (140-440) 10*3/uL MPV (9.5-12.2) fL Immature Gran # (0.00-0.04) 10*3/uL Neutrophils # (1.80-7.70) 10*3/uL Neutrophils # (Manual) (1.3-7.7) k/uL Lymphocytes # (0.90-5.00) 10*3/uL Lymphocytes # (Manual) (1.0-4.8) k/uL Monocytes # (0.20-1.00) 10*3/uL Monocytes # (Manual) (0-1.0) k/uL Eosinophils # (0.04-0.35) 10*3/uL Metamyelocytes # (Man) (0) k/uL Myelocytes # (Manual) (0) k/uL Nucleated RBCs (0-0) /100 WBC PT (10.0-12.5) sec INR (<1.2) ABG pH 7.32 L (7.35-7.45) ABG pCO2 (35-45) mmHg ABG pO2 (83-108) mmHg ABG HCO3 (21-25) mmol/L ABG O2 Saturation 97.4 H 97.5 H (94-97) % ABG Hematocrit 27 L 27 L (34.0-46.0) % ABG Potassium 4.7 H (3.4-4.5) mmol/L ABG Ionized Calcium (4.5-5.3) mg/dL ABG Glucose 120 H 139 H (75-99) mg/dL Hemoglobin 8.7 L 8.8 L (13.0-17.5) gm/dL Chloride (98-107) mmol/L Carbon Dioxide (22-30) mmol/L Glucose (74-99) mg/dL POC Glucose (mg/dL) (70-110) mg/dL Calcium (8.4-10.2) mg/dL Magnesium (1.6-2.3) mg/dL Total Bilirubin (0.2-1.3) mg/dL AST (17-59) U/L Total Protein (6.3-8.2) g/dL Albumin (3.5-5.0) g/dL Arterial Blood Potassium 4.7 H (3.4-4.5) mmol/L Arterial Blood Glucose 120 H 139 H (75-99) mg/dL Crossmatch See Detail 04/06/25 04/06/25 04/06/25 Range/Units 09:52 10:24 10:51 WBC (4.50-10.00) 10*3/uL RBC (4.40-5.60) 10*6/uL Hgb (13.0-17.0) g/dL Hct (39.6-50.0) % MCV (80.0-97.0) fL MCH (27.0-32.0) pg MCHC (32.0-37.0) g/dL Plt Count (140-440) 10*3/uL MPV (9.5-12.2) fL Immature Gran # (0.00-0.04) 10*3/uL Neutrophils # (1.80-7.70) 10*3/uL Neutrophils # (Manual) (1.3-7.7) k/uL Lymphocytes # (0.90-5.00) 10*3/uL Lymphocytes # (Manual) (1.0-4.8) k/uL Monocytes # (0.20-1.00) 10*3/uL Monocytes # (Manual) (0-1.0) k/uL Eosinophils # (0.04-0.35) 10*3/uL Metamyelocytes # (Man) (0) k/uL Myelocytes # (Manual) (0) k/uL Nucleated RBCs (0-0) /100 WBC PT (10.0-12.5) sec INR (<1.2) ABG pH 7.31 L (7.35-7.45) ABG pCO2 46 H (35-45) mmHg ABG pO2 404 H 275 H 339 H (83-108) mmHg ABG HCO3 (21-25) mmol/L ABG O2 Saturation >99.4 H 99.3 H >99.4 H (94-97) % ABG Hematocrit 21 L 21 L 22 L (34.0-46.0) % ABG Potassium 5.0 H 5.2 H (3.4-4.5) mmol/L ABG Ionized Calcium 4.3 L (4.5-5.3) mg/dL ABG Glucose 121 H 117 H 132 H (75-99) mg/dL Hemoglobin 6.7 L* 6.8 L* 7.3 L (13.0-17.5) gm/dL Chloride (98-107) mmol/L Carbon Dioxide (22-30) mmol/L Glucose (74-99) mg/dL POC Glucose (mg/dL) (70-110) mg/dL Calcium (8.4-10.2) mg/dL Magnesium (1.6-2.3) mg/dL Total Bilirubin (0.2-1.3) mg/dL AST (17-59) U/L Total Protein (6.3-8.2) g/dL Albumin (3.5-5.0) g/dL Arterial Blood Potassium 5.0 H 5.2 H (3.4-4.5) mmol/L Arterial Blood Glucose 121 H 117 H 132 H (75-99) mg/dL Crossmatch 04/06/25 04/06/25 04/06/25 Range/Units 12:04 13:01 13:02 WBC 14.71 H (4.50-10.00) 10*3/uL RBC 2.42 L (4.40-5.60) 10*6/uL Hgb 8.4 L (13.0-17.0) g/dL Hct 26.7 L (39.6-50.0) % MCV 110.3 H (80.0-97.0) fL MCH 34.7 H (27.0-32.0) pg MCHC 31.5 L (32.0-37.0) g/dL Plt Count 87 L (140-440) 10*3/uL MPV 12.7 H (9.5-12.2) fL Immature Gran # 2.23 H (0.00-0.04) 10*3/uL Neutrophils # (1.80-7.70) 10*3/uL Neutrophils # (Manual) (1.3-7.7) k/uL Lymphocytes # (0.90-5.00) 10*3/uL Lymphocytes # (Manual) (1.0-4.8) k/uL Monocytes # (0.20-1.00) 10*3/uL Monocytes # (Manual) 4.27 H (0-1.0) k/uL Eosinophils # (0.04-0.35) 10*3/uL Metamyelocytes # (Man) 0.15 H (0) k/uL Myelocytes # (Manual) 0.15 H (0) k/uL Nucleated RBCs 4 H (0-0) /100 WBC PT (10.0-12.5) sec INR (<1.2) ABG pH 7.31 L (7.35-7.45) ABG pCO2 (35-45) mmHg ABG pO2 211 H (83-108) mmHg ABG HCO3 (21-25) mmol/L ABG O2 Saturation 98.7 H (94-97) % ABG Hematocrit 25 L (34.0-46.0) % ABG Potassium (3.4-4.5) mmol/L ABG Ionized Calcium (4.5-5.3) mg/dL ABG Glucose 132 H (75-99) mg/dL Hemoglobin 8.1 L (13.0-17.5) gm/dL Chloride (98-107) mmol/L Carbon Dioxide (22-30) mmol/L Glucose (74-99) mg/dL POC Glucose (mg/dL) 125 H (70-110) mg/dL Calcium (8.4-10.2) mg/dL Magnesium (1.6-2.3) mg/dL Total Bilirubin (0.2-1.3) mg/dL AST (17-59) U/L Total Protein (6.3-8.2) g/dL Albumin (3.5-5.0) g/dL Arterial Blood Potassium (3.4-4.5) mmol/L Arterial Blood Glucose 132 H (75-99) mg/dL Crossmatch 04/06/25 04/06/25 04/06/25 Range/Units 13:02 13:02 13:22 WBC (4.50-10.00) 10*3/uL RBC (4.40-5.60) 10*6/uL Hgb (13.0-17.0) g/dL Hct (39.6-50.0) % MCV (80.0-97.0) fL MCH (27.0-32.0) pg MCHC (32.0-37.0) g/dL Plt Count (140-440) 10*3/uL MPV (9.5-12.2) fL Immature Gran # (0.00-0.04) 10*3/uL Neutrophils # (1.80-7.70) 10*3/uL Neutrophils # (Manual) (1.3-7.7) k/uL Lymphocytes # (0.90-5.00) 10*3/uL Lymphocytes # (Manual) (1.0-4.8) k/uL Monocytes # (0.20-1.00) 10*3/uL Monocytes # (Manual) (0-1.0) k/uL Eosinophils # (0.04-0.35) 10*3/uL Metamyelocytes # (Man) (0) k/uL Myelocytes # (Manual) (0) k/uL Nucleated RBCs (0-0) /100 WBC PT 15.8 H (10.0-12.5) sec INR 1.5 H (<1.2) ABG pH 7.31 L (7.35-7.45) ABG pCO2 (35-45) mmHg ABG pO2 66 L (83-108) mmHg ABG HCO3 (21-25) mmol/L ABG O2 Saturation 89.0 L (94-97) % ABG Hematocrit (34.0-46.0) % ABG Potassium (3.4-4.5) mmol/L ABG Ionized Calcium (4.5-5.3) mg/dL ABG Glucose (75-99) mg/dL Hemoglobin 8.6 L (13.0-17.5) gm/dL Chloride 110 H (98-107) mmol/L Carbon Dioxide 21 L (22-30) mmol/L Glucose 122 H (74-99) mg/dL POC Glucose (mg/dL) (70-110) mg/dL Calcium 7.9 L (8.4-10.2) mg/dL Magnesium 2.9 H (1.6-2.3) mg/dL Total Bilirubin 1.5 H (0.2-1.3) mg/dL AST 105 H (17-59) U/L Total Protein 5.0 L (6.3-8.2) g/dL Albumin 3.1 L (3.5-5.0) g/dL Arterial Blood Potassium (3.4-4.5) mmol/L Arterial Blood Glucose (75-99) mg/dL Crossmatch 04/06/25 04/06/2525 Range/Units 14:29 14:29 16:01 WBC (4.50-10.00) 10*3/uL RBC (4.40-5.60) 10*6/uL Hgb (13.0-17.0) g/dL Hct (39.6-50.0) % MCV (80.0-97.0) fL MCH (27.0-32.0) pg MCHC (32.0-37.0) g/dL Plt Count (140-440) 10*3/uL MPV (9.5-12.2) fL Immature Gran # (0.00-0.04) 10*3/uL Neutrophils # (1.80-7.70) 10*3/uL Neutrophils # (Manual) (1.3-7.7) k/uL Lymphocytes # (0.90-5.00) 10*3/uL Lymphocytes # (Manual) (1.0-4.8) k/uL Monocytes # (0.20-1.00) 10*3/uL Monocytes # (Manual) (0-1.0) k/uL Eosinophils # (0.04-0.35) 10*3/uL Metamyelocytes # (Man) (0) k/uL Myelocytes # (Manual) (0) k/uL Nucleated RBCs (0-0) /100 WBC PT (10.0-12.5) sec INR (<1.2) ABG pH 7.31 L (7.35-7.45) ABG pCO2 (35-45) mmHg ABG pO2 113 H (83-108) mmHg ABG HCO3 (21-25) mmol/L ABG O2 Saturation 97.8 H (94-97) % ABG Hematocrit (34.0-46.0) % ABG Potassium (3.4-4.5) mmol/L ABG Ionized Calcium (4.5-5.3) mg/dL ABG Glucose (75-99) mg/dL Hemoglobin 8.8 L (13.0-17.5) gm/dL Chloride (98-107) mmol/L Carbon Dioxide (22-30) mmol/L Glucose (74-99) mg/dL POC Glucose (mg/dL) 141 H 162 H (70-110) mg/dL Calcium (8.4-10.2) mg/dL Magnesium (1.6-2.3) mg/dL Total Bilirubin (0.2-1.3) mg/dL AST (17-59) U/L Total Protein (6.3-8.2) g/dL Albumin (3.5-5.0) g/dL Arterial Blood Potassium (3.4-4.5) mmol/L Arterial Blood Glucose (75-99) mg/dL Crossmatch 04/06/25 04/06/25 04/06/25 Range/Units 16:02 16:19 17:03 WBC 15.84 H (4.50-10.00) 10*3/uL RBC 2.37 L (4.40-5.60) 10*6/uL Hgb 8.3 L (13.0-17.0) g/dL Hct 26.1 L (39.6-50.0) % MCV 110.1 H (80.0-97.0) fL MCH 35.0 H (27.0-32.0) pg MCHC 31.8 L (32.0-37.0) g/dL Plt Count 94 L (140-440) 10*3/uL MPV (9.5-12.2) fL Immature Gran # 2.19 H (0.00-0.04) 10*3/uL Neutrophils # 10.18 H (1.80-7.70) 10*3/uL Neutrophils # (Manual) (1.3-7.7) k/uL Lymphocytes # 0.89 L (0.90-5.00) 10*3/uL Lymphocytes # (Manual) (1.0-4.8) k/uL Monocytes # 2.52 H (0.20-1.00) 10*3/uL Monocytes # (Manual) (0-1.0) k/uL Eosinophils # 0.00 L (0.04-0.35) 10*3/uL Metamyelocytes # (Man) (0) k/uL Myelocytes # (Manual) (0) k/uL Nucleated RBCs (0-0) /100 WBC PT (10.0-12.5) sec INR (<1.2) ABG pH 7.34 L (7.35-7.45) ABG pCO2 (35-45) mmHg ABG pO2 171 H (83-108) mmHg ABG HCO3 20 L (21-25) mmol/L ABG O2 Saturation 99.6 H (94-97) % ABG Hematocrit (34.0-46.0) % ABG Potassium (3.4-4.5) mmol/L ABG Ionized Calcium (4.5-5.3) mg/dL ABG Glucose (75-99) mg/dL Hemoglobin 8.4 L (13.0-17.5) gm/dL Chloride (98-107) mmol/L Carbon Dioxide (22-30) mmol/L Glucose (74-99) mg/dL POC Glucose (mg/dL) 168 H (70-110) mg/dL Calcium (8.4-10.2) mg/dL Magnesium (1.6-2.3) mg/dL Total Bilirubin (0.2-1.3) mg/dL AST (17-59) U/L Total Protein (6.3-8.2) g/dL Albumin (3.5-5.0) g/dL Arterial Blood Potassium (3.4-4.5) mmol/L Arterial Blood Glucose (75-99) mg/dL Crossmatch 04/06/25 04/06/25 04/06/25 Range/Units 18:03 18:12 19:03 WBC 11.50 H (4.50-10.00) 10*3/uL RBC 2.26 L (4.40-5.60) 10*6/uL Hgb 7.9 L (13.0-17.0) g/dL Hct 24.5 L (39.6-50.0) % MCV 108.4 H (80.0-97.0) fL MCH 35.0 H (27.0-32.0) pg MCHC (32.0-37.0) g/dL Plt Count 91 L (140-440) 10*3/uL MPV (9.5-12.2) fL Immature Gran # 1.76 H (0.00-0.04) 10*3/uL Neutrophils # (1.80-7.70) 10*3/uL Neutrophils # (Manual) 9.43 H (1.3-7.7) k/uL Lymphocytes # (0.90-5.00) 10*3/uL Lymphocytes # (Manual) (1.0-4.8) k/uL Monocytes # (0.20-1.00) 10*3/uL Monocytes # (Manual) (0-1.0) k/uL Eosinophils # (0.04-0.35) 10*3/uL Metamyelocytes # (Man) 0.46 H (0) k/uL Myelocytes # (Manual) (0) k/uL Nucleated RBCs 1 H (0-0) /100 WBC PT (10.0-12.5) sec INR (<1.2) ABG pH (7.35-7.45) ABG pCO2 (35-45) mmHg ABG pO2 (83-108) mmHg ABG HCO3 (21-25) mmol/L ABG O2 Saturation (94-97) % ABG Hematocrit (34.0-46.0) % ABG Potassium (3.4-4.5) mmol/L ABG Ionized Calcium (4.5-5.3) mg/dL ABG Glucose (75-99) mg/dL Hemoglobin 8.3 L (13.0-17.5) gm/dL Chloride (98-107) mmol/L Carbon Dioxide (22-30) mmol/L Glucose (74-99) mg/dL POC Glucose (mg/dL) 174 H (70-110) mg/dL Calcium (8.4-10.2) mg/dL Magnesium (1.6-2.3) mg/dL Total Bilirubin (0.2-1.3) mg/dL AST (17-59) U/L Total Protein (6.3-8.2) g/dL Albumin (3.5-5.0) g/dL Arterial Blood Potassium (3.4-4.5) mmol/L Arterial Blood Glucose (75-99) mg/dL Crossmatch 04/06/25 04/06/25 04/06/25 Range/Units 19:04 20:04 21:14 WBC (4.50-10.00) 10*3/uL RBC (4.40-5.60) 10*6/uL Hgb (13.0-17.0) g/dL Hct (39.6-50.0) % MCV (80.0-97.0) fL MCH (27.0-32.0) pg MCHC (32.0-37.0) g/dL Plt Count (140-440) 10*3/uL MPV (9.5-12.2) fL Immature Gran # (0.00-0.04) 10*3/uL Neutrophils # (1.80-7.70) 10*3/uL Neutrophils # (Manual) (1.3-7.7) k/uL Lymphocytes # (0.90-5.00) 10*3/uL Lymphocytes # (Manual) (1.0-4.8) k/uL Monocytes # (0.20-1.00) 10*3/uL Monocytes # (Manual) (0-1.0) k/uL Eosinophils # (0.04-0.35) 10*3/uL Metamyelocytes # (Man) (0) k/uL Myelocytes # (Manual) (0) k/uL Nucleated RBCs (0-0) /100 WBC PT (10.0-12.5) sec INR (<1.2) ABG pH (7.35-7.45) ABG pCO2 (35-45) mmHg ABG pO2 (83-108) mmHg ABG HCO3 (21-25) mmol/L ABG O2 Saturation (94-97) % ABG Hematocrit (34.0-46.0) % ABG Potassium (3.4-4.5) mmol/L ABG Ionized Calcium (4.5-5.3) mg/dL ABG Glucose (75-99) mg/dL Hemoglobin (13.0-17.5) gm/dL Chloride (98-107) mmol/L Carbon Dioxide (22-30) mmol/L Glucose (74-99) mg/dL POC Glucose (mg/dL) 163 H 168 H 158 H (70-110) mg/dL Calcium (8.4-10.2) mg/dL Magnesium (1.6-2.3) mg/dL Total Bilirubin (0.2-1.3) mg/dL AST (17-59) U/L Total Protein (6.3-8.2) g/dL Albumin (3.5-5.0) g/dL Arterial Blood Potassium (3.4-4.5) mmol/L Arterial Blood Glucose (75-99) mg/dL Crossmatch 04/06/25 04/06/25 04/07/25 Range/Units 22:04 23:13 00:24 WBC (4.50-10.00) 10*3/uL RBC (4.40-5.60) 10*6/uL Hgb (13.0-17.0) g/dL Hct (39.6-50.0) % MCV (80.0-97.0) fL MCH (27.0-32.0) pg MCHC (32.0-37.0) g/dL Plt Count (140-440) 10*3/uL MPV (9.5-12.2) fL Immature Gran # (0.00-0.04) 10*3/uL Neutrophils # (1.80-7.70) 10*3/uL Neutrophils # (Manual) (1.3-7.7) k/uL Lymphocytes # (0.90-5.00) 10*3/uL Lymphocytes # (Manual) (1.0-4.8) k/uL Monocytes # (0.20-1.00) 10*3/uL Monocytes # (Manual) (0-1.0) k/uL Eosinophils # (0.04-0.35) 10*3/uL Metamyelocytes # (Man) (0) k/uL Myelocytes # (Manual) (0) k/uL Nucleated RBCs (0-0) /100 WBC PT (10.0-12.5) sec INR (<1.2) ABG pH (7.35-7.45) ABG pCO2 (35-45) mmHg ABG pO2 (83-108) mmHg ABG HCO3 (21-25) mmol/L ABG O2 Saturation (94-97) % ABG Hematocrit (34.0-46.0) % ABG Potassium (3.4-4.5) mmol/L ABG Ionized Calcium (4.5-5.3) mg/dL ABG Glucose (75-99) mg/dL Hemoglobin (13.0-17.5) gm/dL Chloride (98-107) mmol/L Carbon Dioxide (22-30) mmol/L Glucose (74-99) mg/dL POC Glucose (mg/dL) 155 H 150 H 157 H (70-110) mg/dL Calcium (8.4-10.2) mg/dL Magnesium (1.6-2.3) mg/dL Total Bilirubin (0.2-1.3) mg/dL AST (17-59) U/L Total Protein (6.3-8.2) g/dL Albumin (3.5-5.0) g/dL Arterial Blood Potassium (3.4-4.5) mmol/L Arterial Blood Glucose (75-99) mg/dL Crossmatch 04/07/25 04/07/25 04/07/25 Range/Units 01:18 02:13 03:07 WBC (4.50-10.00) 10*3/uL RBC (4.40-5.60) 10*6/uL Hgb (13.0-17.0) g/dL Hct (39.6-50.0) % MCV (80.0-97.0) fL MCH (27.0-32.0) pg MCHC (32.0-37.0) g/dL Plt Count (140-440) 10*3/uL MPV (9.5-12.2) fL Immature Gran # (0.00-0.04) 10*3/uL Neutrophils # (1.80-7.70) 10*3/uL Neutrophils # (Manual) (1.3-7.7) k/uL Lymphocytes # (0.90-5.00) 10*3/uL Lymphocytes # (Manual) (1.0-4.8) k/uL Monocytes # (0.20-1.00) 10*3/uL Monocytes # (Manual) (0-1.0) k/uL Eosinophils # (0.04-0.35) 10*3/uL Metamyelocytes # (Man) (0) k/uL Myelocytes # (Manual) (0) k/uL Nucleated RBCs (0-0) /100 WBC PT (10.0-12.5) sec INR (<1.2) ABG pH (7.35-7.45) ABG pCO2 (35-45) mmHg ABG pO2 (83-108) mmHg ABG HCO3 (21-25) mmol/L ABG O2 Saturation (94-97) % ABG Hematocrit (34.0-46.0) % ABG Potassium (3.4-4.5) mmol/L ABG Ionized Calcium (4.5-5.3) mg/dL ABG Glucose (75-99) mg/dL Hemoglobin (13.0-17.5) gm/dL Chloride (98-107) mmol/L Carbon Dioxide (22-30) mmol/L Glucose (74-99) mg/dL POC Glucose (mg/dL) 137 H 132 H 125 H (70-110) mg/dL Calcium (8.4-10.2) mg/dL Magnesium (1.6-2.3) mg/dL Total Bilirubin (0.2-1.3) mg/dL AST (17-59) U/L Total Protein (6.3-8.2) g/dL Albumin (3.5-5.0) g/dL Arterial Blood Potassium (3.4-4.5) mmol/L Arterial Blood Glucose (75-99) mg/dL Crossmatch 04/07/25 04/07/25 04/07/25 Range/Units 04:12 04:16 04:16 WBC (4.50-10.00) 10*3/uL RBC 2.07 L (4.40-5.60) 10*6/uL Hgb 7.0 L (13.0-17.0) g/dL Hct 22.5 L (39.6-50.0) % MCV 108.7 H (80.0-97.0) fL MCH 33.8 H (27.0-32.0) pg MCHC 31.1 L (32.0-37.0) g/dL Plt Count 100 L (140-440) 10*3/uL MPV (9.5-12.2) fL Immature Gran # 0.83 H (0.00-0.04) 10*3/uL Neutrophils # (1.80-7.70) 10*3/uL Neutrophils # (Manual) (1.3-7.7) k/uL Lymphocytes # (0.90-5.00) 10*3/uL Lymphocytes # (Manual) 0.78 L (1.0-4.8) k/uL Monocytes # (0.20-1.00) 10*3/uL Monocytes # (Manual) (0-1.0) k/uL Eosinophils # (0.04-0.35) 10*3/uL Metamyelocytes # (Man) (0) k/uL Myelocytes # (Manual) (0) k/uL Nucleated RBCs (0-0) /100 WBC PT (10.0-12.5) sec INR (<1.2) ABG pH (7.35-7.45) ABG pCO2 (35-45) mmHg ABG pO2 (83-108) mmHg ABG HCO3 (21-25) mmol/L ABG O2 Saturation (94-97) % ABG Hematocrit (34.0-46.0) % ABG Potassium (3.4-4.5) mmol/L ABG Ionized Calcium (4.5-5.3) mg/dL ABG Glucose (75-99) mg/dL Hemoglobin (13.0-17.5) gm/dL Chloride (98-107) mmol/L Carbon Dioxide (22-30) mmol/L Glucose 106 H (74-99) mg/dL POC Glucose (mg/dL) 124 H (70-110) mg/dL Calcium 8.2 L (8.4-10.2) mg/dL Magnesium 2.5 H (1.6-2.3) mg/dL Total Bilirubin (0.2-1.3) mg/dL AST 76 H (17-59) U/L Total Protein 5.2 L (6.3-8.2) g/dL Albumin 3.3 L (3.5-5.0) g/dL Arterial Blood Potassium (3.4-4.5) mmol/L Arterial Blood Glucose (75-99) mg/dL Crossmatch 04/07/25 04/07/25 04/07/25 Range/Units 05:00 05:55 06:59 WBC (4.50-10.00) 10*3/uL RBC (4.40-5.60) 10*6/uL Hgb (13.0-17.0) g/dL Hct (39.6-50.0) % MCV (80.0-97.0) fL MCH (27.0-32.0) pg MCHC (32.0-37.0) g/dL Plt Count (140-440) 10*3/uL MPV (9.5-12.2) fL Immature Gran # (0.00-0.04) 10*3/uL Neutrophils # (1.80-7.70) 10*3/uL Neutrophils # (Manual) (1.3-7.7) k/uL Lymphocytes # (0.90-5.00) 10*3/uL Lymphocytes # (Manual) (1.0-4.8) k/uL Monocytes # (0.20-1.00) 10*3/uL Monocytes # (Manual) (0-1.0) k/uL Eosinophils # (0.04-0.35) 10*3/uL Metamyelocytes # (Man) (0) k/uL Myelocytes # (Manual) (0) k/uL Nucleated RBCs (0-0) /100 WBC PT (10.0-12.5) sec INR (<1.2) ABG pH (7.35-7.45) ABG pCO2 (35-45) mmHg ABG pO2 (83-108) mmHg ABG HCO3 (21-25) mmol/L ABG O2 Saturation (94-97) % ABG Hematocrit (34.0-46.0) % ABG Potassium (3.4-4.5) mmol/L ABG Ionized Calcium (4.5-5.3) mg/dL ABG Glucose (75-99) mg/dL Hemoglobin (13.0-17.5) gm/dL Chloride (98-107) mmol/L Carbon Dioxide (22-30) mmol/L Glucose (74-99) mg/dL POC Glucose (mg/dL) 121 H 114 H 243 H (70-110) mg/dL Calcium (8.4-10.2) mg/dL Magnesium (1.6-2.3) mg/dL Total Bilirubin (0.2-1.3) mg/dL AST (17-59) U/L Total Protein (6.3-8.2) g/dL Albumin (3.5-5.0) g/dL Arterial Blood Potassium (3.4-4.5) mmol/L Arterial Blood Glucose (75-99) mg/dL Crossmatch 04/07/25 04/07/25 04/07/25 Range/Units 07:02 08:02 09:08 WBC (4.50-10.00) 10*3/uL RBC (4.40-5.60) 10*6/uL Hgb (13.0-17.0) g/dL Hct (39.6-50.0) % MCV (80.0-97.0) fL MCH (27.0-32.0) pg MCHC (32.0-37.0) g/dL Plt Count (140-440) 10*3/uL MPV (9.5-12.2) fL Immature Gran # (0.00-0.04) 10*3/uL Neutrophils # (1.80-7.70) 10*3/uL Neutrophils # (Manual) (1.3-7.7) k/uL Lymphocytes # (0.90-5.00) 10*3/uL Lymphocytes # (Manual) (1.0-4.8) k/uL Monocytes # (0.20-1.00) 10*3/uL Monocytes # (Manual) (0-1.0) k/uL Eosinophils # (0.04-0.35) 10*3/uL Metamyelocytes # (Man) (0) k/uL Myelocytes # (Manual) (0) k/uL Nucleated RBCs (0-0) /100 WBC PT (10.0-12.5) sec INR (<1.2) ABG pH (7.35-7.45) ABG pCO2 (35-45) mmHg ABG pO2 (83-108) mmHg ABG HCO3 (21-25) mmol/L ABG O2 Saturation (94-97) % ABG Hematocrit (34.0-46.0) % ABG Potassium (3.4-4.5) mmol/L ABG Ionized Calcium (4.5-5.3) mg/dL ABG Glucose (75-99) mg/dL Hemoglobin (13.0-17.5) gm/dL Chloride (98-107) mmol/L Carbon Dioxide (22-30) mmol/L Glucose (74-99) mg/dL POC Glucose (mg/dL) 134 H 224 H 171 H (70-110) mg/dL Calcium (8.4-10.2) mg/dL Magnesium (1.6-2.3) mg/dL Total Bilirubin (0.2-1.3) mg/dL AST (17-59) U/L Total Protein (6.3-8.2) g/dL Albumin (3.5-5.0) g/dL Arterial Blood Potassium (3.4-4.5) mmol/L Arterial Blood Glucose (75-99) mg/dL Crossmatch 04/07/25 04/07/25 Range/Units 09:20 10:34 WBC (4.50-10.00) 10*3/uL RBC (4.40-5.60) 10*6/uL Hgb (13.0-17.0) g/dL Hct (39.6-50.0) % MCV (80.0-97.0) fL MCH (27.0-32.0) pg MCHC (32.0-37.0) g/dL Plt Count (140-440) 10*3/uL MPV (9.5-12.2) fL Immature Gran # (0.00-0.04) 10*3/uL Neutrophils # (1.80-7.70) 10*3/uL Neutrophils # (Manual) (1.3-7.7) k/uL Lymphocytes # (0.90-5.00) 10*3/uL Lymphocytes # (Manual) (1.0-4.8) k/uL Monocytes # (0.20-1.00) 10*3/uL Monocytes # (Manual) (0-1.0) k/uL Eosinophils # (0.04-0.35) 10*3/uL Metamyelocytes # (Man) (0) k/uL Myelocytes # (Manual) (0) k/uL Nucleated RBCs (0-0) /100 WBC PT (10.0-12.5) sec INR (<1.2) ABG pH (7.35-7.45) ABG pCO2 (35-45) mmHg ABG pO2 (83-108) mmHg ABG HCO3 (21-25) mmol/L ABG O2 Saturation (94-97) % ABG Hematocrit (34.0-46.0) % ABG Potassium (3.4-4.5) mmol/L ABG Ionized Calcium (4.5-5.3) mg/dL ABG Glucose (75-99) mg/dL Hemoglobin (13.0-17.5) gm/dL Chloride (98-107) mmol/L Carbon Dioxide (22-30) mmol/L Glucose (74-99) mg/dL POC Glucose (mg/dL) 157 H 128 H (70-110) mg/dL Calcium (8.4-10.2) mg/dL Magnesium (1.6-2.3) mg/dL Total Bilirubin (0.2-1.3) mg/dL AST (17-59) U/L Total Protein (6.3-8.2) g/dL Albumin (3.5-5.0) g/dL Arterial Blood Potassium (3.4-4.5) mmol/L Arterial Blood Glucose (75-99) mg/dL Crossmatch Assessment and Plan Plan: Aortic valve replacement with a bovine tissue valve and the patient also underwent a modified Smith-Maze procedure and occlusion of the left atrial appendage in the patient's postoperative #1. Patient is currently on a combination milrinone and the patient is off epinephrine drip. Cardiac rhythm is back to sinus and the patient has been placed on backup VVI pacing at rate of 60. Postthoracotomy, extubated to 2 L of oxygen by nasal cannula. Chest tubes are still in place. Anaphylaxis secondary to propofol/drug-induced. The patient has recovered and the patient is off epinephrine drip. Junctional rhythm postop, expected outcome of surgery and the patient is back into normal sinus rhythm. History of atrial fibrillation Coronary artery disease Hypertension History of obstructive sleep apnea maintained on CPAP therapy History of colon polyps Degenerative arthritis Thrombocytopenia, expected outcome of surgery Blood loss anemia, expected outcome of surgery and the patient's hemoglobin is at 7 Plan Patient is currently on 2 L of oxygen by nasal cannula. Monitor chest tube output Keep the chest tubes in place Continue incentive spirometer Monitor hemodynamics and may wean off milrinone discontinue Patient is off epinephrine drip Low-dose SHANELL inhibitors Or beta-blockers for now Monitor output from the chest tubes and the patient has a mediastinal and left pleural chest tube Awake and alert and communicating. Aggressive pulmonary toileting. Will continue to follow make further recommendations based on his progress. Condition is stable for now. Time with Patient: Greater than 30
[2025-04-07 19:49] LABS: Glucose,Whole Blood 142 mg/dL (70-110)
[2025-04-07 20:55] LABS: Glucose,Whole Blood 138 mg/dL (70-110)
[2025-04-07 22:04] LABS: Glucose,Whole Blood 146 mg/dL (70-110)
[2025-04-07 23:03] LABS: Glucose,Whole Blood 143 mg/dL (70-110)
[2025-04-08 00:03] LABS: Glucose,Whole Blood 122 mg/dL (70-110)
[2025-04-08 00:03] LABS: Glucose,Whole Blood 121 mg/dL (70-110)
[2025-04-08 01:04] LABS: Glucose,Whole Blood 116 mg/dL (70-110)
[2025-04-08 02:02] LABS: Glucose,Whole Blood 109 mg/dL (70-110)
[2025-04-08 02:54] LABS: Glucose,Whole Blood 131 mg/dL (70-110)
[2025-04-08 04:05] LABS: Glucose,Whole Blood 125 mg/dL (70-110)
[2025-04-08 04:54] LABS: Glucose,Whole Blood 112 mg/dL (70-110)
[2025-04-08 04:59] LABS: Ionized Calcium 4.8 mg/dL (4.5-5.3)
[2025-04-08 05:11] LABS: ALT 15 U/L (4-49); AST 59 U/L (17-59); African American GFR (CKD) 61 (>60 ml/min/1.73 sqM); Albumin 3.4 g/dL (3.5-5.0); Alkaline Phosphatase 67 U/L (38-126); Anion Gap 9 mmol/L; Blood Urea Nitrogen 24 mg/dL (9-20); Calcium 8.9 mg/dL (8.4-10.2); Carbon Dioxide 22 mmol/L (22-30); Chloride 103 mmol/L (98-107); Glucose 104 mg/dL (74-99); Non-African American GFR(CKD) 53 (>60 ml/min/1.73 sqM); Potassium 4.2 mmol/L (3.5-5.1); Sodium 134 mmol/L (137-145); Total Bilirubin 1.2 mg/dL (0.2-1.3); Total Protein 5.4 g/dL (6.3-8.2)
[2025-04-08 05:19] LABS: Basophils # (A) 0.02 10*3/uL (0.00-0.10); Basophils % (A) 0.2 %; HCT 21.1 % (39.6-50.0); Lymphocytes % (A) 8.3 %; MCH 34.2 pg (27.0-32.0); MCHC 30.8 g/dL (32.0-37.0); MCV 111.1 fL (80.0-97.0); Mean Platelet Volume 12.1 fL (9.5-12.2); Monocytes # (A) 5.68 10*3/uL (0.20-1.00); Monocytes % (A) 42.9 %; Neutrophils # (A) 5.28 10*3/uL (1.80-7.70); Neutrophils % (A) 39.8 %; RDW 18.6 % (11.5-14.5); WBC 13.25 10*3/uL (4.50-10.00)
[2025-04-08 05:26] LABS: Platelet Count 88 10*3/uL (140-440)
[2025-04-08 05:27] LABS: HGB 6.5 g/dL (13.0-17.0)
[2025-04-08 06:25] LABS: Glucose,Whole Blood 165 mg/dL (70-110)
[2025-04-08 06:57] LABS: Glucose,Whole Blood 143 mg/dL (70-110)
[2025-04-08] MEDS: PANTOPRAZOLE 40 MG TABLET PO SCH (07:01)
[2025-04-08 08:13] LABS: Glucose,Whole Blood 134 mg/dL (70-110)
[2025-04-08 08:20] LABS: HCT 20.9 % (39.6-50.0); MCH 34.2 pg (27.0-32.0); MCHC 31.1 g/dL (32.0-37.0); RDW 18.8 % (11.5-14.5); WBC 13.43 10*3/uL (4.50-10.00)
[2025-04-08 08:35] LABS: Platelet Count 87 10*3/uL (140-440)
[2025-04-08 08:36] LABS: HGB 6.5 g/dL (13.0-17.0)
[2025-04-08 09:28] LABS: Glucose,Whole Blood 136 mg/dL (70-110)
[2025-04-08] MEDS: lisinopriL 5 MG TAB PO SCH (09:31)
--- NOTE | 2025-04-08 10:02 | XR ---
EXAMINATION TYPE: XR chest 1V portable DATE OF EXAM: 04/08/2025 4:58 AM COMPARISON: 04/07/2025 CLINICAL INDICATION: Male, 74 years old with history of Post Operative Cardiac Surgery, TECHNIQUE: XR chest 1V portable view(s) obtained. FINDINGS: The heart size is mildly prominent. The pulmonary vasculature is normal. No suspicious infiltrates. Left-sided chest tube remains present. Crockett-Issac catheter tip in the main pulmonary artery region. Me diastinal tube present. Sternotomy wires from cardiac valve surgery. IMPRESSION: 1. No acute pulmonary process. 2. Lines and catheters discussed above. 3. Cardiomegaly [facility], , 04/08/2025 10:00 AM
[2025-04-08 10:18] LABS: Glucose,Whole Blood 120 mg/dL (70-110)
[2025-04-08] MEDS ORDERED: ACETAMINOPHEN TAB 500 MG TAB PO PRN (10:29)
[2025-04-08] MEDS: POTASSIUM CHLORIDE ER 10 MEQ TAB.ER.PRT PO STA (10:30)
[2025-04-08] MEDS: FUROSEMIDE 10 MG/ML 2 ML VIAL IV SCH (10:36)
[2025-04-08] MEDS: FONDAPARINUX 2.5 MG/0.5 ML SYRINGE SQ SCH (11:07)
[2025-04-08 11:13] LABS: Glucose,Whole Blood 117 mg/dL (70-110)
--- NOTE | 2025-04-08 11:44 | P.PN ---
Subjective Progress Note Date: 04/08/25 This is a 74-year-old male patient underwent aortic valve replacement utilizing an Inspiris bovine pericardial valve prosthesis and the patient also had a modified Smith-Maze procedure and occlusion of the left atrial appendage. Postop, the patient was kept intubated, sedated with propofol and the patient was brought into the intensive care unit. Upon arrival to the ICU, the patient seemed to be in anaphylaxis. The patient had developed a maculopapular rash throughout her body and she was also having increase in facial swelling, eye swelling, lip swelling and hypotension. Anaphylaxis was suspected and this was probably drug-induced and only medications was introduced. Was propofol. Immediately, propofol was discontinued. The patient was given a total of 4 doses of IV albumin 5%, Benadryl 50 mg IV and Solu-Medrol 125 mg IV. The patient was also started on low-dose norepinephrine. Noted the patient SVR was quite low at 400 and improved. SVR is at 958. Immediately a chest x-ray was d one and the patient showed no evidence of any pneumothorax. ET tube and the rest of the chest tubes are all in good location. Louin-Issac catheter was also in good location. No significant abnormalities identified. At this point in time, the patient is intubated mechanical ventilator assist-control mode rate of 14, tidal volume of 500, FiO2 100% with a PEEP of 8. Blood gas showed a pH of 7.3 with a PCO2 of 43 and pO2 of 65. Output from the mediastinal and left lower chest tube were minimal. The patient is currently in a paced rhythm, DDD pacing at a rate of 80. Noted underlying rhythm is junctional. He is on milrinone at 0.2 mcg and epinephrine drip at 0.04 mcg and the most recent cardiac output is at 5 with an index of 2.8 with PA pressures of 48/27 and SVR of 958. Urine output is adequate for now. The white cell count of 14.7 with a hemoglobin 8.4 and a platelet count of 87. INR is at 1.5 with a PT of 15.8. Sodium is at 139, potassium is at 4.5, BUN 30 with a 0.7. LFTs Are Normal. Ionized Calcium Is at 4.5. Blood Sugar Is at 141. On 04/07/2025, the patient is postop to a #1. The patient was weaned off the mechanical ventilator and the patient was extubated without any major difficulties and the patient is awake and alert and sitting up in a chair. He is calm and comfortable. The patient underwent an aortic valve replacement surgery with a pericardial bovine prosthesis. He is initial cardiac rhythm was junctional and the patient required AV pacing and his current rhythm is sinus and the patient's pacer has been placed to VVI backup at rate of 60. The pat ient also was requiring low-dose epinephrine for symptoms and signs of anaphylaxis/drug-induced and this has been discontinued. The patient remains on Primacor running at 0.2 mcg/kg/min. Insulin drip is at 6 units an hour. Cardiac rhythm is sinus. The PA pressure is 47/16 mmHg and the cardiac output is 6.2 with an index of 3.5 and the patient is currently on 2 L of oxygen by nasal cannula, pulling approximately 1000 on his incentive spirometer. He has a left IJ Louin-Issac catheter. He has a mediastinal left lower chest tube and output he is noted and the left pleural chest tube is drained around 350 cc in surgery and mediastinal chest tube has drained approximately 650 cc since surgery. The patient is awake alert and communicating. No tongue swelling. No lip swelling. No stridor. The hemoglobin is at 7 with a white cell count of 7 and a platelet count of 100. BUN is 14 with a creatinine of 0.7 and sodium levels at 139 and a potassium level is at 4.2. The patient is currently on aspirin and Plavix. The patient is also started on Zestril 5 mg p.o. daily. Beta-blockers have not been initiated yet. Remains on Lipitor 10 mg p.o. daily. On 04/08/2025, the patient is being seen for a follow-up. The patient is postop day #2. The patient is extubated the patient is doing well and remains on room air oxygen. He remains on Primacor and this was weaned down to 0.1 mcg/kg/min and the patient cardiac output is 5.7 with an index of 3.2. He denies having any significant shortness of breath. Denies having any chest pain. Hemoglobin today is at 6.[address] surgery is on the case. They have decided not to transfuse as at this point in time. Meanwhile, the cardiac rhythm is back to sinus. The patient has a backup VVI pacemaker at rate of 60. The platelet count is 87 and the HIT panel was sent and the patient is currently under x-ray. Platelet count is being monitored. Insulin drip remains at 5 units an hour. Rest of the blood work and electrolytes showed an acute kidney injury with a BUN of 24 1.3. sodium levels at 135 potassium levels of 4.2. follow-up chest x-ray from today shows no acute cardiopulmonary process. there is cardiomegaly and postoperative changes noted bilaterally. Objective - Vital Signs Vital signs: Vital Signs Temp 99.3 F 04/08/25 08:00 Pulse 78 04/08/25 08:00 Resp 15 04/08/25 08:00 BP 132/68 04/08/25 08:00 Pulse Ox 97 04/08/25 08:00 FiO2 40 04/06/25 18:30 Intake & Output 04/07/25 04/08/25 04/08/25 18:59 06:59 18:59 Intake Total 1085.125 607.089 94.313 Output Total 525 500 115 Balance 560.125 107.089 -20.687 Weight 88.6 kg 89.5 kg Intake: IV 488 458 88 0.9 @ 50 100 CO/CI 80 110 30 Pressure Bag 108 108 18 Sodium Chloride 0.9% 1, 200 240 40 000 ml @ 20 mls/hr IV . Q24H SUMAYA Rx#:[id number] Intake, IV Titration 97.125 149.089 6.313 Amount EPINEPHrine 4 mg In 37.874 Dextrose 5% in Water 250 ml @ 0.03 MCG/KG/MIN 9. 754 mls/hr IV .Q24H SUMAYA Rx#:[id number] Insulin Regular 100 unit 59.251 60.482 6.313 In Sodium Chloride 0.9% 100 ml @ Per Protocol IV .Q0M SUMAYA Rx#:[id number] Milrinone-D5w Pmx 20 mg 88.607 In Dextrose/Water 1 100ml .bag @ 0.2 MCG/KG/MIN 5. 202 mls/hr IV .[id number] SUMAYA Rx#:[id number] Oral 500 Output: Chest Tube Drainage 190 190 10 Left Chest Tube 130 70 0 Mediastinal Chest Tube X 60 120 10 2 Urine 335 310 105 Other: Voiding Method Indwelling Catheter Indwelling Catheter Indwelling Catheter ABP, PAP, CO, CI - Last Documented Arterial Blood Pressure 141/60 Pulmonary Artery Pressure 46/15 Cardiac Output 5.7 Cardiac Index 3.2 - Exam CONSTITUTIONAL: Appears comfortable, cooperative, no acute distress RESPIRATORY: Lungs sounds diminished bilaterally. Respirations even, nonlabored. Currently on 2 L nasal cannula with oxygen saturation 95%. Able to achieve 1000 mL on incentive spirometry. Strong cough. CARDIOVASCULAR: S1, S2 present. Regular rate and rhythm, sinus rhythm on telemetry. Sternum stable. Palpable peripheral pulses bilaterally. No edema present. No calf pain or tenderness noted. Heart hugger in place with patient demonstrating appropriate use. Antiembolism stockings, SCDs present. GASTROINTESTINAL: Abdomen soft, nontender, nondistended. Hypoactive bowel shayne nds present 4 quadrants. Tolerating minimal clear liquids. Denies flatus GENITOURINARY: Osorio present draining clear, yellow urine. Output overnight 20-50 mL per hour INTEGUMENTARY: Skin is warm and dry with evidence of good perfusion. Anterior chest incision well approximated and covered with dry intact dressing. NEUROLOGIC: Cranial nerves II through XII intact MUSKULOSKELETAL: Able to move all extremities, strength equal bilaterally, gait normal PSYCHIATRIC: Alert and oriented to person place and time, appropriate affect, intact judgment and insight INVASIVE LINES AND TUBES: Mediastinal/left pleural chest tubes present and connected to wall suction, no air leaks present. Mediastinal tube and left lower chest tubes are in place - Labs CBC & Chem 7: 04/08/25 08:08 04/08/25 04:02 Labs: Abnormal Lab Results - Last 24 Hours (Table) 04/07/25 04/07/25 04/07/25 Range/Units 04:16 09:08 09:20 WBC (4.50-10.00) 10*3/uL RBC (4.40-5.60) 10*6/uL Hgb (13.0-17.0) g/dL Hct (39.6-50.0) % MCV 108.7 H (80.0-97.0) fL MCH (27.0-32.0) pg MCHC (32.0-37.0) g/dL Plt Count (140-440) 10*3/uL Immature Gran # (0.00-0.04) 10*3/uL Lymphocytes # (Manual) 0.78 L (1.0-4.8) k/uL Monocytes # (0.20-1.00) 10*3/uL Eosinophils # (0.04-0.35) 10*3/uL Sodium (137-145) mmol/L BUN (9-20) mg/dL Creatinine (0.66-1.25) mg/dL Glucose (74-99) mg/dL POC Glucose (mg/dL) 171 H 157 H (70-110) mg/dL Total Protein (6.3-8.2) g/dL Albumin (3.5-5.0) g/dL 04/07/25 04/07/25 04/07/25 Range/Units 10:34 11:16 12:01 WBC (4.50-10.00) 10*3/uL RBC (4.40-5.60) 10*6/uL Hgb (13.0-17.0) g/dL Hct (39.6-50.0) % MCV (80.0-97.0) fL MCH (27.0-32.0) pg MCHC (32.0-37.0) g/dL Plt Count (140-440) 10*3/uL Immature Gran # (0.00-0.04) 10*3/uL Lymphocytes # (Manual) (1.0-4.8) k/uL Monocytes # (0.20-1.00) 10*3/uL Eosinophils # (0.04-0.35) 10*3/uL Sodium (137-145) mmol/L BUN (9-20) mg/dL Creatinine (0.66-1.25) mg/dL Glucose (74-99) mg/dL POC Glucose (mg/dL) 128 H 114 H 134 H (70-110) mg/dL Total Protein (6.3-8.2) g/dL Albumin (3.5-5.0) g/dL 04/07/25 04/07/25 04/07/25 Range/Units 14:09 15:06 16:16 WBC (4.50-10.00) 10*3/uL RBC (4.40-5.60) 10*6/uL Hgb (13.0-17.0) g/dL Hct (39.6-50.0) % MCV (80.0-97.0) fL MCH (27.0-32.0) pg MCHC (32.0-37.0) g/dL Plt Count (140-440) 10*3/uL Immature Gran # (0.00-0.04) 10*3/uL Lymphocytes # (Manual) (1.0-4.8) k/uL Monocytes # (0.20-1.00) 10*3/uL Eosinophils # (0.04-0.35) 10*3/uL Sodium (137-145) mmol/L BUN (9-20) mg/dL Creatinine (0.66-1.25) mg/dL Glucose (74-99) mg/dL POC Glucose (mg/dL) 203 H 181 H 144 H (70-110) mg/dL Total Protein (6.3-8.2) g/dL Albumin (3.5-5.0) g/dL 04/07/25 04/07/25 04/07/25 Range/Units 16:56 18:04 19:00 WBC (4.50-10.00) 10*3/uL RBC (4.40-5.60) 10*6/uL Hgb (13.0-17.0) g/dL Hct (39.6-50.0) % MCV (80.0-97.0) fL MCH (27.0-32.0) pg MCHC (32.0-37.0) g/dL Plt Count (140-440) 10*3/uL Immature Gran # (0.00-0.04) 10*3/uL Lymphocytes # (Manual) (1.0-4.8) k/uL Monocytes # (0.20-1.00) 10*3/uL Eosinophils # (0.04-0.35) 10*3/uL Sodium (137-145) mmol/L BUN (9-20) mg/dL Creatinine (0.66-1.25) mg/dL Glucose (74-99) mg/dL POC Glucose (mg/dL) 121 H 137 H 146 H (70-110) mg/dL Total Protein (6.3-8.2) g/dL Albumin (3.5-5.0) g/dL 04/07/25 04/07/25 04/07/25 Range/Units 19:48 20:53 22:02 WBC (4.50-10.00) 10*3/uL RBC (4.40-5.60) 10*6/uL Hgb (13.0-17.0) g/dL Hct (39.6-50.0) % MCV (80.0-97.0) fL MCH (27.0-32.0) pg MCHC (32.0-37.0) g/dL Plt Count (140-440) 10*3/uL Immature Gran # (0.00-0.04) 10*3/uL Lymphocytes # (Manual) (1.0-4.8) k/uL Monocytes # (0.20-1.00) 10*3/uL Eosinophils # (0.04-0.35) 10*3/uL Sodium (137-145) mmol/L BUN (9-20) mg/dL Creatinine (0.66-1.25) mg/dL Glucose (74-99) mg/dL POC Glucose (mg/dL) 142 H 138 H 146 H (70-110) mg/dL Total Protein (6.3-8.2) g/dL Albumin (3.5-5.0) g/dL 04/07/25 04/08/25 04/08/25 Range/Units 23:02 00:00 00:02 WBC (4.50-10.00) 10*3/uL RBC (4.40-5.60) 10*6/uL Hgb (13.0-17.0) g/dL Hct (39.6-50.0) % MCV (80.0-97.0) fL MCH (27.0-32.0) pg MCHC (32.0-37.0) g/dL Plt Count (140-440) 10*3/uL Immature Gran # (0.00-0.04) 10*3/uL Lymphocytes # (Manual) (1.0-4.8) k/uL Monocytes # (0.20-1.00) 10*3/uL Eosinophils # (0.04-0.35) 10*3/uL Sodium (137-145) mmol/L BUN (9-20) mg/dL Creatinine (0.66-1.25) mg/dL Glucose (74-99) mg/dL POC Glucose (mg/dL) 143 H 121 H 122 H (70-110) mg/dL Total Protein (6.3-8.2) g/dL Albumin (3.5-5.0) g/dL 04/08/25 04/08/25 04/08/25 Range/Units 01:02 02:53 04:02 WBC 13.25 H (4.50-10.00) 10*3/uL RBC 1.90 L (4.40-5.60) 10*6/uL Hgb 6.5 L* (13.0-17.0) g/dL Hct 21.1 L (39.6-50.0) % MCV 111.1 H (80.0-97.0) fL MCH 34.2 H (27.0-32.0) pg MCHC 30.8 L (32.0-37.0) g/dL Plt Count 88 L (140-440) 10*3/uL Immature Gran # 1.17 H (0.00-0.04) 10*3/uL Lymphocytes # (Manual) (1.0-4.8) k/uL Monocytes # 5.68 H (0.20-1.00) 10*3/uL Eosinophils # 0.00 L (0.04-0.35) 10*3/uL Sodium (137-145) mmol/L BUN (9-20) mg/dL Creatinine (0.66-1.25) mg/dL Glucose (74-99) mg/dL POC Glucose (mg/dL) 116 H 131 H (70-110) mg/dL Total Protein (6.3-8.2) g/dL Albumin (3.5-5.0) g/dL 04/08/25 04/08/25 04/08/25 Range/Units 04:02 04:04 04:53 WBC (4.50-10.00) 10*3/uL RBC (4.40-5.60) 10*6/uL Hgb (13.0-17.0) g/dL Hct (39.6-50.0) % MCV (80.0-97.0) fL MCH (27.0-32.0) pg MCHC (32.0-37.0) g/dL Plt Count (140-440) 10*3/uL Immature Gran # (0.00-0.04) 10*3/uL Lymphocytes # (Manual) (1.0-4.8) k/uL Monocytes # (0.20-1.00) 10*3/uL Eosinophils # (0.04-0.35) 10*3/uL Sodium 134 L (137-145) mmol/L BUN 24 H (9-20) mg/dL Creatinine 1.30 H (0.66-1.25) mg/dL Glucose 104 H (74-99) mg/dL POC Glucose (mg/dL) 125 H 112 H (70-110) mg/dL Total Protein 5.4 L (6.3-8.2) g/dL Albumin 3.4 L (3.5-5.0) g/dL 04/08/25 04/08/25 04/08/25 Range/Units 06:23 06:56 08:08 WBC 13.43 H (4.50-10.00) 10*3/uL RBC 1.90 L (4.40-5.60) 10*6/uL Hgb 6.5 L* (13.0-17.0) g/dL Hct 20.9 L (39.6-50.0) % MCV 110.0 H (80.0-97.0) fL MCH 34.2 H (27.0-32.0) pg MCHC 31.1 L (32.0-37.0) g/dL Plt Count 87 L (140-440) 10*3/uL Immature Gran # (0.00-0.04) 10*3/uL Lymphocytes # (Manual) (1.0-4.8) k/uL Monocytes # (0.20-1.00) 10*3/uL Eosinophils # (0.04-0.35) 10*3/uL Sodium (137-145) mmol/L BUN (9-20) mg/dL Creatinine (0.66-1.25) mg/dL Glucose (74-99) mg/dL POC Glucose (mg/dL) 165 H 143 H (70-110) mg/dL Total Protein (6.3-8.2) g/dL Albumin (3.5-5.0) g/dL 04/08/25 Range/Units 08:11 WBC (4.50-10.00) 10*3/uL RBC (4.40-5.60) 10*6/uL Hgb (13.0-17.0) g/dL Hct (39.6-50.0) % MCV (80.0-97.0) fL MCH (27.0-32.0) pg MCHC (32.0-37.0) g/dL Plt Count (140-440) 10*3/uL Immature Gran # (0.00-0.04) 10*3/uL Lymphocytes # (Manual) (1.0-4.8) k/uL Monocytes # (0.20-1.00) 10*3/uL Eosinophils # (0.04-0.35) 10*3/uL Sodium (137-145) mmol/L BUN (9-20) mg/dL Creatinine (0.66-1.25) mg/dL Glucose (74-99) mg/dL POC Glucose (mg/dL) 134 H (70-110) mg/dL Total Protein (6.3-8.2) g/dL Albumin (3.5-5.0) g/dL Assessment and Plan Plan: Aortic valve replacement with a bovine tissue valve and the patient also underwent a modified Smith-Maze procedure and occlusion of the left atrial appendage in the patient's postoperative # 2. Patient is currently on a combination milrinone and the patient is off epinephrine drip. Cardiac rhythm is back to sinus and the patient has been placed on backup VVI pacing at rate of 60. Postthoracotomy, extubated to 2 L of oxygen by nasal cannula. Chest tubes are still in place. Anaphylaxis secondary to propofol/drug-induced. The patient has recovered and the patient is off epinephrine drip. Junctional rhythm postop, expected outcome of surgery and the patient is back into normal sinus rhythm. History of atrial fibrillation, current rhythm is sinus Coronary artery disease Hypertension History of obstructive sleep apnea maintained on CPAP therapy History of colon polyps Degenerative arthritis Thrombocytopenia, expected outcome of surgery Blood loss anemia, expected outcome of surgery and the patient's hemoglobin is at 6.5 Plan Patient is currently on 2 L of oxygen by nasal cannula. Monitor chest tube output Keep the chest tubes in place and management of the chest tubes for surgery Lasix 20 mg IV push every 12 hours Continue incentive spirometer Wean off milrinone and monitor the cardiac output. Currently milrinone is running at 0.1 mcg/kg/h. Continue insulin drip at 5 units an hour Awake and alert and communicating. Aggressive pulmonary toileting. Will continue to follow make further recommendations based on his progress. Condition is stable for now. Time with Patient: Greater than 30
[2025-04-08 12:15] LABS: Glucose,Whole Blood 105 mg/dL (70-110)
[2025-04-08] MEDS: METOPROLOL TARTRATE 12.5 MG TAB PO SCH (12:36)
[2025-04-08 13:26] LABS: Glucose,Whole Blood 166 mg/dL (70-110)
[2025-04-08 14:25] LABS: Glucose,Whole Blood 171 mg/dL (70-110)
[2025-04-08 15:03] LABS: Glucose,Whole Blood 182 mg/dL (70-110)
--- NOTE | 2025-04-08 15:56 | P.PN ---
Subjective Progress Note Date: 04/08/25 74-year-old gentleman admitted with severe symptomatic aortic insufficiency status post AVR with bovine valve, postop day #1. Tolerated procedure well. Extubated last night. Maintained on Primacor, epi and insulin drips. Apparently patient had acute anaphylactic reaction suspected related to diprovan and was placed on epi. Incentive spirometer up to 1000. Telemetry paced/sinus. Blood sugars controlled. Denies chest pain, palpitations or shortness of breath. Reports surgical pain controlled. Hemoglobin today is at 6.5. Transfusion not recommended at this time. Patient is back in normal sinus rhythm. The platelet count is 87 and the HIT panel was sent and the patient is currently under x-ray. Platelet count is being monitored. Insulin drip remains at 5 units an hour. Rest of the blood work and electrolytes showed an acute kidney injury with a BUN of 24 1.3. sodium levels at 135 potassium levels of 4.2. follow-up chest x-ray from today shows no acute cardiopulmonary process. there is cardiomegaly and postoperative changes noted bilaterally. Objective - Vital Signs Vital signs: Vital Signs Temp 99.3 F 04/08/25 08:00 Pulse 79 04/08/25 10:15 Resp 24 04/08/25 10:15 BP 132/68 04/08/25 08:15 Pulse Ox 94 L 04/08/25 10:15 FiO2 40 04/06/25 18:30 Intake & Output 04/07/25 04/08/25 04/08/25 18:59 06:59 18:59 Intake Total 1085.125 607.089 162.750 Output Total 525 500 205 Balance 560.125 107.089 -42.250 Weight 88.6 kg 89.5 kg Intake: IV 488 458 146 0.9 @ 50 100 CO/CI 80 110 30 Pressure Bag 108 108 36 Sodium Chloride 0.9% 1, 200 240 80 000 ml @ 20 mls/hr IV . Q24H SUMAYA Rx#:[id number] Intake, IV Titration 97.125 149.089 16.750 Amount EPINEPHrine 4 mg In 37.874 Dextrose 5% in Water 250 ml @ 0.03 MCG/KG/MIN 9. 754 mls/hr IV .Q24H SUMAYA Rx#:[id number] Insulin Regular 100 unit 59.251 60.482 16.750 In Sodium Chloride 0.9% 100 ml @ Per Protocol IV .Q0M SUMAYA Rx#:[id number] Milrinone-D5w Pmx 20 mg 88.607 In Dextrose/Water 1 100ml .bag @ 0.1 MCG/KG/MIN 2. 601 mls/hr IV .Q24H SUMAYA Rx#:[id number] Oral 500 Output: Chest Tube Drainage 190 190 20 Left Chest Tube 130 70 0 Mediastinal Chest Tube X 60 120 20 2 Urine 335 310 185 Other: Voiding Method Indwelling Catheter Indwelling Catheter Indwelling Catheter ABP, PAP, CO, CI - Last Documented Arterial Blood Pressure 118/46 Pulmonary Artery Pressure 53/13 Cardiac Output 5.7 Cardiac Index 3.2 - Exam VITAL SIGNS: [Reviewed] GENERAL: Pleasant, well-nourished,sitting up in chair, alert and oriented x 3, no acute distress. HEENT: Normocephalic, atraumatic, conjunctivae normal. eyes normal. MMM. NECK: Supple, no JVD. CARDIOVASCULAR: S1, S2 regular.No murmur RESPIRATION: Unlabored, equal air entry, lungs diminished throughout. Mediastinal, left pleural chest tubes present. ABDOMEN: Soft, nondistended, nontender . No guarding. Positive bowel sounds. LEGS: No edema. no swelling NERVOUS SYSTEM: Cranial N 2-12 grossly normal. No focal deficits. Skin: Warm and dry, no rash . - Labs CBC & Chem 7: 04/08/25 08:08 04/08/25 04:02 Labs: Abnormal Lab Results - Last 24 Hours (Table) 04/07/25 04/07/25 04/07/25 Range/Units 11:16 12:01 14:09 WBC (4.50-10.00) 10*3/uL RBC (4.40-5.60) 10*6/uL Hgb (13.0-17.0) g/dL Hct (39.6-50.0) % MCV (80.0-97.0) fL MCH (27.0-32.0) pg MCHC (32.0-37.0) g/dL Plt Count (140-440) 10*3/uL Immature Gran # (0.00-0.04) 10*3/uL Monocytes # (0.20-1.00) 10*3/uL Eosinophils # (0.04-0.35) 10*3/uL Sodium (137-145) mmol/L BUN (9-20) mg/dL Creatinine (0.66-1.25) mg/dL Glucose (74-99) mg/dL POC Glucose (mg/dL) 114 H 134 H 203 H (70-110) mg/dL Total Protein (6.3-8.2) g/dL Albumin (3.5-5.0) g/dL 04/07/25 04/07/25 04/07/25 Range/Units 15:06 16:16 16:56 WBC (4.50-10.00) 10*3/uL RBC (4.40-5.60) 10*6/uL Hgb (13.0-17.0) g/dL Hct (39.6-50.0) % MCV (80.0-97.0) fL MCH (27.0-32.0) pg MCHC (32.0-37.0) g/dL Plt Count (140-440) 10*3/uL Immature Gran # (0.00-0.04) 10*3/uL Monocytes # (0.20-1.00) 10*3/uL Eosinophils # (0.04-0.35) 10*3/uL Sodium (137-145) mmol/L BUN (9-20) mg/dL Creatinine (0.66-1.25) mg/dL Glucose (74-99) mg/dL POC Glucose (mg/dL) 181 H 144 H 121 H (70-110) mg/dL Total Protein (6.3-8.2) g/dL Albumin (3.5-5.0) g/dL 04/07/25 04/07/25 04/07/25 Range/Units 18:04 19:00 19:48 WBC (4.50-10.00) 10*3/uL RBC (4.40-5.60) 10*6/uL Hgb (13.0-17.0) g/dL Hct (39.6-50.0) % MCV (80.0-97.0) fL MCH (27.0-32.0) pg MCHC (32.0-37.0) g/dL Plt Count (140-440) 10*3/uL Immature Gran # (0.00-0.04) 10*3/uL Monocytes # (0.20-1.00) 10*3/uL Eosinophils # (0.04-0.35) 10*3/uL Sodium (137-145) mmol/L BUN (9-20) mg/dL Creatinine (0.66-1.25) mg/dL Glucose (74-99) mg/dL POC Glucose (mg/dL) 137 H 146 H 142 H (70-110) mg/dL Total Protein (6.3-8.2) g/dL Albumin (3.5-5.0) g/dL 04/07/25 04/07/25 04/07/25 Range/Units 20:53 22:02 23:02 WBC (4.50-10.00) 10*3/uL RBC (4.40-5.60) 10*6/uL Hgb (13.0-17.0) g/dL Hct (39.6-50.0) % MCV (80.0-97.0) fL MCH (27.0-32.0) pg MCHC (32.0-37.0) g/dL Plt Count (140-440) 10*3/uL Immature Gran # (0.00-0.04) 10*3/uL Monocytes # (0.20-1.00) 10*3/uL Eosinophils # (0.04-0.35) 10*3/uL Sodium (137-145) mmol/L BUN (9-20) mg/dL Creatinine (0.66-1.25) mg/dL Glucose (74-99) mg/dL POC Glucose (mg/dL) 138 H 146 H 143 H (70-110) mg/dL Total Protein (6.3-8.2) g/dL Albumin (3.5-5.0) g/dL 04/08/25 04/08/25 04/08/25 Range/Units 00:00 00:02 01:02 WBC (4.50-10.00) 10*3/uL RBC (4.40-5.60) 10*6/uL Hgb (13.0-17.0) g/dL Hct (39.6-50.0) % MCV (80.0-97.0) fL MCH (27.0-32.0) pg MCHC (32.0-37.0) g/dL Plt Count (140-440) 10*3/uL Immature Gran # (0.00-0.04) 10*3/uL Monocytes # (0.20-1.00) 10*3/uL Eosinophils # (0.04-0.35) 10*3/uL Sodium (137-145) mmol/L BUN (9-20) mg/dL Creatinine (0.66-1.25) mg/dL Glucose (74-99) mg/dL POC Glucose (mg/dL) 121 H 122 H 116 H (70-110) mg/dL Total Protein (6.3-8.2) g/dL Albumin (3.5-5.0) g/dL 04/08/25 04/08/25 04/08/25 Range/Units 02:53 04:02 04:02 WBC 13.25 H (4.50-10.00) 10*3/uL RBC 1.90 L (4.40-5.60) 10*6/uL Hgb 6.5 L* (13.0-17.0) g/dL Hct 21.1 L (39.6-50.0) % MCV 111.1 H (80.0-97.0) fL MCH 34.2 H (27.0-32.0) pg MCHC 30.8 L (32.0-37.0) g/dL Plt Count 88 L (140-440) 10*3/uL Immature Gran # 1.17 H (0.00-0.04) 10*3/uL Monocytes # 5.68 H (0.20-1.00) 10*3/uL Eosinophils # 0.00 L (0.04-0.35) 10*3/uL Sodium 134 L (137-145) mmol/L BUN 24 H (9-20) mg/dL Creatinine 1.30 H (0.66-1.25) mg/dL Glucose 104 H (74-99) mg/dL POC Glucose (mg/dL) 131 H (70-110) mg/dL Total Protein 5.4 L (6.3-8.2) g/dL Albumin 3.4 L (3.5-5.0) g/dL 04/08/25 04/08/25 04/08/25 Range/Units 04:04 04:53 06:23 WBC (4.50-10.00) 10*3/uL RBC (4.40-5.60) 10*6/uL Hgb (13.0-17.0) g/dL Hct (39.6-50.0) % MCV (80.0-97.0) fL MCH (27.0-32.0) pg MCHC (32.0-37.0) g/dL Plt Count (140-440) 10*3/uL Immature Gran # (0.00-0.04) 10*3/uL Monocytes # (0.20-1.00) 10*3/uL Eosinophils # (0.04-0.35) 10*3/uL Sodium (137-145) mmol/L BUN (9-20) mg/dL Creatinine (0.66-1.25) mg/dL Glucose (74-99) mg/dL POC Glucose (mg/dL) 125 H 112 H 165 H (70-110) mg/dL Total Protein (6.3-8.2) g/dL Albumin (3.5-5.0) g/dL 04/08/25 04/08/25 04/08/25 Range/Units 06:56 08:08 08:11 WBC 13.43 H (4.50-10.00) 10*3/uL RBC 1.90 L (4.40-5.60) 10*6/uL Hgb 6.5 L* (13.0-17.0) g/dL Hct 20.9 L (39.6-50.0) % MCV 110.0 H (80.0-97.0) fL MCH 34.2 H (27.0-32.0) pg MCHC 31.1 L (32.0-37.0) g/dL Plt Count 87 L (140-440) 10*3/uL Immature Gran # (0.00-0.04) 10*3/uL Monocytes # (0.20-1.00) 10*3/uL Eosinophils # (0.04-0.35) 10*3/uL Sodium (137-145) mmol/L BUN (9-20) mg/dL Creatinine (0.66-1.25) mg/dL Glucose (74-99) mg/dL POC Glucose (mg/dL) 143 H 134 H (70-110) mg/dL Total Protein (6.3-8.2) g/dL Albumin (3.5-5.0) g/dL 04/08/25 04/08/25 Range/Units 09:26 10:17 WBC (4.50-10.00) 10*3/uL RBC (4.40-5.60) 10*6/uL Hgb (13.0-17.0) g/dL Hct (39.6-50.0) % MCV (80.0-97.0) fL MCH (27.0-32.0) pg MCHC (32.0-37.0) g/dL Plt Count (140-440) 10*3/uL Immature Gran # (0.00-0.04) 10*3/uL Monocytes # (0.20-1.00) 10*3/uL Eosinophils # (0.04-0.35) 10*3/uL Sodium (137-145) mmol/L BUN (9-20) mg/dL Creatinine (0.66-1.25) mg/dL Glucose (74-99) mg/dL POC Glucose (mg/dL) 136 H 120 H (70-110) mg/dL Total Protein (6.3-8.2) g/dL Albumin (3.5-5.0) g/dL Assessment and Plan Assessment: Aortic valvular insufficiency, status post aortic valve replacement with bovine valve, biatrial modified Smith-Maze procedure, occlusion of left atrial appendage. Acute anaphylactic reaction suspected related to propofol Acute blood loss anemia with thrombocytopenia, postoperative, expected outcome Chronic atrial fibrillation Hypertension Obstructive sleep apnea Obesity, BMI 32 Alcohol use, 2 beers nightly Plan: Continue on current medication regimen ,monitoring and symptomatic treatment. Maximizing medical therapy, anticoagulation as per CTS. close monitoring of hemoglobin, platelets, electrolytes with repeat labs ordered for a.m. aggressive pulmonary toileting with nebulized bronchodilators, incentive spirometer reinforced. Increase ambulation as tolerated. Tight glycemic con trol, currently on insulin drip.
[2025-04-08 16:26] LABS: Glucose,Whole Blood 126 mg/dL (70-110)
[2025-04-08 16:41] LABS: HCT 22.4 % (39.6-50.0); Immature Platelet Fraction 9.7 % (1.1-6.1); MCH 34.7 pg (27.0-32.0); MCHC 30.8 g/dL (32.0-37.0); MCV 112.6 fL (80.0-97.0); Mean Platelet Volume 12.3 fL (9.5-12.2); Platelet Count 107 10*3/uL (140-440); RBC 1.99 10*6/uL (4.40-5.60); WBC 15.08 10*3/uL (4.50-10.00)
[2025-04-08 16:46] LABS: HGB 6.9 g/dL (13.0-17.0)
[2025-04-08 16:52] LABS: African American GFR (CKD) 52 (>60 ml/min/1.73 sqM); Blood Urea Nitrogen 26 mg/dL (9-20); Non-African American GFR(CKD) 45 (>60 ml/min/1.73 sqM)
[2025-04-08 18:09] LABS: Glucose,Whole Blood 107 mg/dL (70-110)
[2025-04-08 18:58] LABS: Glucose,Whole Blood 134 mg/dL (70-110)
[2025-04-08 21:00] LABS: Glucose,Whole Blood 108 mg/dL (70-110)
[2025-04-08 21:54] LABS: Glucose,Whole Blood 117 mg/dL (70-110)
[2025-04-08 22:58] LABS: Glucose,Whole Blood 121 mg/dL (70-110)
[2025-04-09 00:06] LABS: Glucose,Whole Blood 124 mg/dL (70-110)
[2025-04-09 01:13] LABS: Glucose,Whole Blood 125 mg/dL (70-110)
[2025-04-09 01:57] LABS: Glucose,Whole Blood 103 mg/dL (70-110)
[2025-04-09 03:04] LABS: Glucose,Whole Blood 131 mg/dL (70-110)
[2025-04-09 04:10] LABS: Glucose,Whole Blood 117 mg/dL (70-110)
[2025-04-09 04:48] LABS: Glucose,Whole Blood 115 mg/dL (70-110)
[2025-04-09 06:06] LABS: Glucose,Whole Blood 110 mg/dL (70-110)
[2025-04-09 06:19] LABS: HCT 21.9 % (39.6-50.0); MCH 34.2 pg (27.0-32.0); MCHC 30.6 g/dL (32.0-37.0); MCV 111.7 fL (80.0-97.0); Mean Platelet Volume 12.2 fL (9.5-12.2); RBC 1.96 10*6/uL (4.40-5.60); RDW 19.1 % (11.5-14.5)
[2025-04-09 06:35] LABS: ALT 50 U/L (4-49); AST 91 U/L (17-59); African American GFR (CKD) 52 (>60 ml/min/1.73 sqM); Albumin 3.4 g/dL (3.5-5.0); Alkaline Phosphatase 62 U/L (38-126); Anion Gap 10 mmol/L; Blood Urea Nitrogen 33 mg/dL (9-20); Calcium 9.1 mg/dL (8.4-10.2); Carbon Dioxide 22 mmol/L (22-30); Chloride 101 mmol/L (98-107); Glucose 92 mg/dL (74-99); Non-African American GFR(CKD) 45 (>60 ml/min/1.73 sqM); Potassium 4.6 mmol/L (3.5-5.1); Sodium 133 mmol/L (137-145); Total Bilirubin 1.5 mg/dL (0.2-1.3); Total Protein 5.6 g/dL (6.3-8.2)
[2025-04-09 06:59] LABS: Glucose,Whole Blood 128 mg/dL (70-110)
[2025-04-09 07:23] LABS: HGB 6.7 g/dL (13.0-17.0)
[2025-04-09 07:53] LABS: Eosinophils # (M) 0.24 k/uL (0-0.7); Lymphocytes # (M) 4.65 k/uL (1.0-4.8); Monocytes # (M) 3.06 k/uL (0-1.0); Neutrophils # (M) 4.41 k/uL (1.3-7.7); Neutrophils % (M) 36 %; Nucleated Red Blood Cells 10 /100 WBC (0-0); Total Cells Counted 200; WBC 12.24 10*3/uL (4.50-10.00)
[2025-04-09 07:54] LABS: Platelet Count 101 10*3/uL (140-440)
[2025-04-09 07:57] LABS: Glucose,Whole Blood 127 mg/dL (70-110)
--- NOTE | 2025-04-09 08:51 | P.PN ---
Subjective Progress Note Date: 04/09/25 Principal diagnosis: Aortic valvular insufficiency, chronic atrial fibrillation. Past medical history significant for chronic persistent atrial fibrillation with previous unsuccessful cardioversion on [facility] outpatient for anticoagulation, hypertension, obstructive sleep apnea, lifelong non-smoker, drinks 2 beers per night. POD #3 aortic valve replacement with 25 mm Inspiris bovine pericardial valve prosthesis, biatrial modified Smith-Maze procedure with full lesion set and occlusion of the left atrial appendage with 40 mm AtriCure clip, transesophageal echocardiogram by anesthesia Acute anaphylactic reaction, thought to be from propofol. Postoperative acute blood loss anemia and thrombocytopenia, expected given hemodilution and cardiopulmonary bypass pump. Junctional rhythm which is somewhat expected with aortic valve replacement and biatrial modified Smith-Maze procedure, currently normal sinus rhythm. The patient was seen and examined in follow-up today April 09, 2025 at his bedside in the intensive care unit. He is currently sitting at the bedside chair, is awake, alert, oriented x 3 and is in no acute apparent distress. Denies any complaints of pain or shortness of breath at this time. Reports the current pain medication regimen is controlling his pain. Denies any complaints of nausea. He has been up ambulating in the intensive care unit hallway with standby assistance nursing and therapy staff and tolerating well. Oxygen saturations are 98% on 2 L nasal cannula and he is achieving 1250 mL on his incentive spirometry with encouragement. Right IJ cordis remains in place with continuous CVP monitoring, current CVP pressure 17 mmHg. Bedside telemetry is showing normal sinus rhythm heart rate 70 bpm. Osorio catheter was removed without incident yesterday, and his urine output was 475 mL in the last 8 hours. Laboratory results reviewed, hemoglobin 6.7 today, BUN 33 and creatinine 1.49. Chest x-ray results reviewed. Objective - Vital Signs Vital signs: Vital Signs Temp 97.8 F 04/09/25 04:00 Pulse 72 04/09/25 07:59 Resp 21 04/09/25 06:30 BP 118/83 04/09/25 06:30 Pulse Ox 98 04/09/25 06:30 FiO2 40 04/06/25 18:30 Intake & Output 04/08/25 04/09/25 04/09/25 18:59 06:59 18:59 Intake Total 1010.957 285.952 23 Output Total 405 525 0 Balance 605.957 -239.048 23 Weight 90 kg Intake: IV 359 253 23 CO/CI 30 Pressure Bag 69 33 3 Sodium Chloride 0.9% 1, 260 220 20 000 ml @ 20 mls/hr IV . Q24H SUMAYA Rx#:[id number] Intake, IV Titration 151.957 32.952 Amount Insulin Regular 100 unit 51.957 32.952 In Sodium Chloride 0.9% 100 ml @ Per Protocol IV .Q0M SUMAYA Rx#:[id number] Milrinone-D5w Pmx 20 mg 100 In Dextrose/Water 1 100ml .bag @ 0.1 MCG/KG/MIN 2. 601 mls/hr IV .Q24H SUMAYA Rx#:[id number] Oral 500 Output: Chest Tube Drainage 20 Left Chest Tube 0 Mediastinal Chest Tube X 20 2 Urine 385 525 0 Other: Voiding Method Indwelling Catheter # Voids 1 ABP, PAP, CO, CI - Last Documented Arterial Blood Pressure 123/55 Pulmonary Artery Pressure 57/15 Cardiac Output 5.7 Cardiac Index 3.2 - Exam CONSTITUTIONAL: Appears comfortable, cooperative, no acute distress RESPIRATORY: Lungs sounds diminished bilaterally. Respirations symmetrical, nonlabored. Currently on 2 L nasal cannula with oxygen saturation 98%. Able to achieve 1250 mL on his incentive spirometry. Strong cough. CARDIOVASCULAR: S1, S2 present. Regular rate and rhythm, sinus rhythm on telemetry. Sternum stable. Palpable peripheral pulses bilaterally. No edema present. No calf pain or tenderness noted. Heart hugger in place with patient demonstrating appropriate use. Antiembolism stockings, SCDs present. GASTROINTESTINAL: Abdomen soft, nontender, nondistended. Active bowel sounds present 4 quadrants. Tolerating clear liquid diet. Passing flatus. GENITOURINARY: Continues to void. Urine output 475 mL in the last 8 hours. INTEGUMENTARY: Skin is warm and dry with no clubbing or cyanosis present. M idline sternal incision well approximated and covered with dry intact dressing. NEUROLOGIC: Cranial nerves II through XII intact. No focal deficits. MUSKULOSKELETAL: Able to move all extremities, strength equal bilaterally, gait normal. PSYCHIATRIC: Alert and oriented to person place and time, appropriate affect, intact judgment and insight. INVASIVE LINES AND TUBES: Atrial and ventricular epicardial pacemaker wires present, connected to generator, VVI mode with backup rate 50 bpm. Left internal jugular Cordis, right brachial arterial line present. Current hemodynamic showing a CVP 17 mmHg. - Allied health notes Allied health notes reviewed: nursing - Labs CBC & Chem 7: 04/09/25 05:53 04/09/25 05:53 Labs: Abnormal Lab Results - Last 24 Hours (Table) 04/08/25 04/08/25 04/08/25 Range/Units 09:26 10:17 11:12 WBC (4.50-10.00) 10*3/uL RBC (4.40-5.60) 10*6/uL Hgb (13.0-17.0) g/dL Hct (39.6-50.0) % MCV (80.0-97.0) fL MCH (27.0-32.0) pg MCHC (32.0-37.0) g/dL Plt Count (140-440) 10*3/uL MPV (9.5-12.2) fL Immature Gran # (0.00-0.04) 10*3/uL Monocytes # (Manual) (0-1.0) k/uL Nucleated RBCs (0-0) /100 WBC Immature Plt Fraction (1.1-6.1) % Sodium (137-145) mmol/L BUN (9-20) mg/dL Creatinine (0.66-1.25) mg/dL POC Glucose (mg/dL) 136 H 120 H 117 H (70-110) mg/dL Total Bilirubin (0.2-1.3) mg/dL AST (17-59) U/L ALT (4-49) U/L Total Protein (6.3-8.2) g/dL Albumin (3.5-5.0) g/dL 04/08/25 04/08/25 04/08/25 Range/Units 13:24 14:14 15:01 WBC (4.50-10.00) 10*3/uL RBC (4.40-5.60) 10*6/uL Hgb (13.0-17.0) g/dL Hct (39.6-50.0) % MCV (80.0-97.0) fL MCH (27.0-32.0) pg MCHC (32.0-37.0) g/dL Plt Count (140-440) 10*3/uL MPV (9.5-12.2) fL Immature Gran # (0.00-0.04) 10*3/uL Monocytes # (Manual) (0-1.0) k/uL Nucleated RBCs (0-0) /100 WBC Immature Plt Fraction (1.1-6.1) % Sodium (137-145) mmol/L BUN (9-20) mg/dL Creatinine (0.66-1.25) mg/dL POC Glucose (mg/dL) 166 H 171 H 182 H (70-110) mg/dL Total Bilirubin (0.2-1.3) mg/dL AST (17-59) U/L ALT (4-49) U/L Total Protein (6.3-8.2) g/dL Albumin (3.5-5.0) g/dL 04/08/25 04/08/25 04/08/25 Range/Units 16:14 16:23 16:23 WBC 15.08 H (4.50-10.00) 10*3/uL RBC 1.99 L (4.40-5.60) 10*6/uL Hgb 6.9 L* (13.0-17.0) g/dL Hct 22.4 L (39.6-50.0) % MCV 112.6 H (80.0-97.0) fL MCH 34.7 H (27.0-32.0) pg MCHC 30.8 L (32.0-37.0) g/dL Plt Count 107 L (140-440) 10*3/uL MPV 12.3 H (9.5-12.2) fL Immature Gran # (0.00-0.04) 10*3/uL Monocytes # (Manual) (0-1.0) k/uL Nucleated RBCs (0-0) /100 WBC Immature Plt Fraction 9.7 H (1.1-6.1) % Sodium (137-145) mmol/L BUN 26 H (9-20) mg/dL Creatinine 1.50 H (0.66-1.25) mg/dL POC Glucose (mg/dL) 126 H (70-110) mg/dL Total Bilirubin (0.2-1.3) mg/dL AST (17-59) U/L ALT (4-49) U/L Total Protein (6.3-8.2) g/dL Albumin (3.5-5.0) g/dL 04/08/25 04/08/25 04/08/25 Range/Units 18:57 21:52 22:58 WBC (4.50-10.00) 10*3/uL RBC (4.40-5.60) 10*6/uL Hgb (13.0-17.0) g/dL Hct (39.6-50.0) % MCV (80.0-97.0) fL MCH (27.0-32.0) pg MCHC (32.0-37.0) g/dL Plt Count (140-440) 10*3/uL MPV (9.5-12.2) fL Immature Gran # (0.00-0.04) 10*3/uL Monocytes # (Manual) (0-1.0) k/uL Nucleated RBCs (0-0) /100 WBC Immature Plt Fraction (1.1-6.1) % Sodium (137-145) mmol/L BUN (9-20) mg/dL Creatinine (0.66-1.25) mg/dL POC Glucose (mg/dL) 134 H 117 H 121 H (70-110) mg/dL Total Bilirubin (0.2-1.3) mg/dL AST (17-59) U/L ALT (4-49) U/L Total Protein (6.3-8.2) g/dL Albumin (3.5-5.0) g/dL 04/09/25 04/09/25 04/09/25 Range/Units 00:05 01:11 03:02 WBC (4.50-10.00) 10*3/uL RBC (4.40-5.60) 10*6/uL Hgb (13.0-17.0) g/dL Hct (39.6-50.0) % MCV (80.0-97.0) fL MCH (27.0-32.0) pg MCHC (32.0-37.0) g/dL Plt Count (140-440) 10*3/uL MPV (9.5-12.2) fL Immature Gran # (0.00-0.04) 10*3/uL Monocytes # (Manual) (0-1.0) k/uL Nucleated RBCs (0-0) /100 WBC Immature Plt Fraction (1.1-6.1) % Sodium (137-145) mmol/L BUN (9-20) mg/dL Creatinine (0.66-1.25) mg/dL POC Glucose (mg/dL) 124 H 125 H 131 H (70-110) mg/dL Total Bilirubin (0.2-1.3) mg/dL AST (17-59) U/L ALT (4-49) U/L Total Protein (6.3-8.2) g/dL Albumin (3.5-5.0) g/dL 04/09/25 04/09/25 04/09/25 Range/Units 04:09 04:47 05:53 WBC 12.24 H (4.50-10.00) 10*3/uL RBC 1.96 L (4.40-5.60) 10*6/uL Hgb 6.7 L* (13.0-17.0) g/dL Hct 21.9 L (39.6-50.0) % MCV 111.7 H (80.0-97.0) fL MCH 34.2 H (27.0-32.0) pg MCHC 30.6 L (32.0-37.0) g/dL Plt Count 101 L (140-440) 10*3/uL MPV (9.5-12.2) fL Immature Gran # 2.49 H (0.00-0.04) 10*3/uL Monocytes # (Manual) 3.06 H (0-1.0) k/uL Nucleated RBCs 10 H (0-0) /100 WBC Immature Plt Fraction (1.1-6.1) % Sodium (137-145) mmol/L BUN (9-20) mg/dL Creatinine (0.66-1.25) mg/dL POC Glucose (mg/dL) 117 H 115 H (70-110) mg/dL Total Bilirubin (0.2-1.3) mg/dL AST (17-59) U/L ALT (4-49) U/L Total Protein (6.3-8.2) g/dL Albumin (3.5-5.0) g/dL 04/09/25 04/09/25 04/09/25 Range/Units 05:53 06:57 07:56 WBC (4.50-10.00) 10*3/uL RBC (4.40-5.60) 10*6/uL Hgb (13.0-17.0) g/dL Hct (39.6-50.0) % MCV (80.0-97.0) fL MCH (27.0-32.0) pg MCHC (32.0-37.0) g/dL Plt Count (140-440) 10*3/uL MPV (9.5-12.2) fL Immature Gran # (0.00-0.04) 10*3/uL Monocytes # (Manual) (0-1.0) k/uL Nucleated RBCs (0-0) /100 WBC Immature Plt Fraction (1.1-6.1) % Sodium 133 L (137-145) mmol/L BUN 33 H (9-20) mg/dL Creatinine 1.49 H (0.66-1.25) mg/dL POC Glucose (mg/dL) 128 H 127 H (70-110) mg/dL Total Bilirubin 1.5 H (0.2-1.3) mg/dL AST 91 H (17-59) U/L ALT 50 H (4-49) U/L Total Protein 5.6 L (6.3-8.2) g/dL Albumin 3.4 L (3.5-5.0) g/dL - Imaging and Cardiology Chest x-ray: report reviewed, image reviewed Assessment and Plan Assessment: Aortic valvular insufficiency, status post aortic valve replacement Chronic atrial fibrillation, status post biatrial modified Smith-Maze procedure w ith full lesion set and occlusion of the left atrial appendage with 40 mm AtriCure clip Acute anaphylactic reaction, thought to be from propofol, off epinephrine drip Postoperative acute blood loss anemia and thrombocytopenia, expected given hemodilution and cardiopulmonary bypass pump Junctional rhythm which is somewhat expected with aortic valve replacement and modified Smith-Maze procedure, currently normal sinus rhythm Acute kidney injury, possibly secondary to hypotension History of chronic persistent atrial fibrillation with previous unsuccessful cardioversion on [facility] outpatient for anticoagulation Hypertension Obstructive sleep apnea Lifelong non-smoker Drinks 2 beers per night Plan: Continue to maximize medical therapy with aspirin, Plavix, statin and beta- nafisa. Metoprolol to tartrate 12.5 mg p.o. twice daily with hold parameters was initiated yesterday. Continue lisinopril 5 mg p.o. daily for afterload reduction. Discontinue Primacor drip. Will drop aspirin to baby aspirin, will discontinue Plavix, and restart Eliquis after all lines and tubes have been discontinued. Wean oxygen as tolerated. Encourage incentive spirometry use 10 times every hour while awake. Bronchodilators per pulmonology. Continue epicardial pacemaker at VVI mode with backup rate 50 bpm. Will monitor daily labs and chest x-rays, electrolyte replacement per protocol. Increase activity, ambulate as tolerated. PT/OT/cardiac rehab following. GI/DVT prophylaxis. Pain control per current medication regimen. Insulin management per internal medicine. Patient is not diabetic, preoperative hemoglobin A1c 5.6%. Patient should remain on continuous IV insulin for 48 hours, then may transition to subcutaneous per protocol Remove left IJ cordis. Continue to monitor record strict accurate intake and output. May bladder scan every 6 hours and as needed postvoid residuals, if greater than 300 mL of urine may straight cath. More recommendations to follow based on patient's clinical course. Time with Patient: Greater than 30
[2025-04-09 09:15] LABS: Glucose,Whole Blood 136 mg/dL (70-110)
[2025-04-09] MEDS ORDERED: DEXTROSE 50% SYRINGE 50 ML IVP PRN ×2 (09:36)
[2025-04-09 11:19] LABS: Glucose,Whole Blood 130 mg/dL (70-110)
--- NOTE | 2025-04-09 11:24 | XR ---
EXAMINATION TYPE: XR chest 2V DATE OF EXAM: 04/09/2025 6:32 AM COMPARISON: 04/08/2025 CLINICAL INDICATION: Male, 74 years old with history of post op AVR, TECHNIQUE: XR chest 2V view(s) obtained. FINDINGS: The heart size is normal. The pulmonary vasculature is normal. No suspicious infiltrates. [place] catheter is present. Sternotomy wires and prior cardiac valve surgery are IMPRESSION: 1. No acute pulmonary process. [facility], , 04/09/2025 11:21 AM
[2025-04-09] MEDS: INSULIN LISPRO (HumaLOG) 100 UNIT/ML 10 mL VL SQ SCH (12:17)
[2025-04-09] MEDS: FUROSEMIDE 10 MG/ML 2 ML VIAL IV SCH (12:59)
--- NOTE | 2025-04-09 13:28 | P.PN ---
Subjective Progress Note Date: 04/09/25 This is a 74-year-old male patient underwent aortic valve replacement utilizing an Inspiris bovine pericardial valve prosthesis and the patient also had a modified Smith-Maze procedure and occlusion of the left atrial appendage. Postop, the patient was kept intubated, sedated with propofol and the patient was brought into the intensive care unit. Upon arrival to the ICU, the patient seemed to be in anaphylaxis. The patient had developed a maculopapular rash throughout her body and she was also having increase in facial swelling, eye swelling, lip swelling and hypotension. Anaphylaxis was suspected and this was probably drug-induced and only medications was introduced. Was propofol. Immediately, propofol was discontinued. The patient was given a total of 4 doses of IV albumin 5%, Benadryl 50 mg IV and Solu-Medrol 125 mg IV. The patient was also started on low-dose norepinephrine. Noted the patient SVR was quite low at 400 and improved. SVR is at 958. Immediately a chest x-ray was d one and the patient showed no evidence of any pneumothorax. ET tube and the rest of the chest tubes are all in good location. Loretto-Issac catheter was also in good location. No significant abnormalities identified. At this point in time, the patient is intubated mechanical ventilator assist-control mode rate of 14, tidal volume of 500, FiO2 100% with a PEEP of 8. Blood gas showed a pH of 7.3 with a PCO2 of 43 and pO2 of 65. Output from the mediastinal and left lower chest tube were minimal. The patient is currently in a paced rhythm, DDD pacing at a rate of 80. Noted underlying rhythm is junctional. He is on milrinone at 0.2 mcg and epinephrine drip at 0.04 mcg and the most recent cardiac output is at 5 with an index of 2.8 with PA pressures of 48/27 and SVR of 958. Urine output is adequate for now. The white cell count of 14.7 with a hemoglobin 8.4 and a platelet count of 87. INR is at 1.5 with a PT of 15.8. Sodium is at 139, potassium is at 4.5, BUN 30 with a 0.7. LFTs Are Normal. Ionized Calcium Is at 4.5. Blood Sugar Is at 141. On 04/07/2025, the patient is postop to a #1. The patient was weaned off the mechanical ventilator and the patient was extubated without any major difficulties and the patient is awake and alert and sitting up in a chair. He is calm and comfortable. The patient underwent an aortic valve replacement surgery with a pericardial bovine prosthesis. He is initial cardiac rhythm was junctional and the patient required AV pacing and his current rhythm is sinus and the patient's pacer has been placed to VVI backup at rate of 60. The pat ient also was requiring low-dose epinephrine for symptoms and signs of anaphylaxis/drug-induced and this has been discontinued. The patient remains on Primacor running at 0.2 mcg/kg/min. Insulin drip is at 6 units an hour. Cardiac rhythm is sinus. The PA pressure is 47/16 mmHg and the cardiac output is 6.2 with an index of 3.5 and the patient is currently on 2 L of oxygen by nasal cannula, pulling approximately 1000 on his incentive spirometer. He has a left IJ Loretto-Issac catheter. He has a mediastinal left lower chest tube and output he is noted and the left pleural chest tube is drained around 350 cc in surgery and mediastinal chest tube has drained approximately 650 cc since surgery. The patient is awake alert and communicating. No tongue swelling. No lip swelling. No stridor. The hemoglobin is at 7 with a white cell count of 7 and a platelet count of 100. BUN is 14 with a creatinine of 0.7 and sodium levels at 139 and a potassium level is at 4.2. The patient is currently on aspirin and Plavix. The patient is also started on Zestril 5 mg p.o. daily. Beta-blockers have not been initiated yet. Remains on Lipitor 10 mg p.o. daily. On 04/08/2025, the patient is being seen for a follow-up. The patient is postop day #2. The patient is extubated the patient is doing well and remains on room air oxygen. He remains on Primacor and this was weaned down to 0.1 mcg/kg/min and the patient cardiac output is 5.7 with an index of 3.2. He denies having any significant shortness of breath. Denies having any chest pain. Hemoglobin today is at 6.[address] surgery is on the case. They have decided not to transfuse as at this point in time. Meanwhile, the cardiac rhythm is back to sinus. The patient has a backup VVI pacemaker at rate of 60. The platelet count is 87 and the HIT panel was sent and the patient is currently under x-ray. Platelet count is being monitored. Insulin drip remains at 5 units an hour. Rest of the blood work and electrolytes showed an acute kidney injury with a BUN of 24 1.3. sodium levels at 135 potassium levels of 4.2. follow-up chest x-ray from today shows no acute cardiopulmonary process. there is cardiomegaly and postoperative changes noted bilaterally. On 04/09/2025, the patient is being seen for a follow-up. The patient is sitting up in a chair and the patient is currently on 2 L of oxygen by nasal cannula. The patient's hemoglobin currently is at 6.7 and the patient will likely need a unit of packed RBC. The patient was taken off the methadone this morning. Remains on insulin drip at 2 units an hour. Loretto-Issac catheter has been removed. The patient otherwise has no specific complaints. Chest x-ray shows adequate summation of both lungs. White cell count of 12.2 with a hemoglobin of 6.7 and a platelet count of 101. Electrolytes are normal, BUN 33 with a creatinine of 1.45. LFTs are mildly elevated Objective - Vital Signs Vital signs: Vital Signs Temp 97.8 F 04/09/25 04:00 Pulse 72 04/09/25 07:59 Resp 21 04/09/25 06:30 BP 118/83 04/09/25 06:30 Pulse Ox 98 04/09/25 06:30 FiO2 40 04/06/25 18:30 Intake & Output 04/08/25 04/09/25 04/09/25 18:59 06:59 18:59 Intake Total 1010.957 285.952 23 Output Total 405 525 0 Balance 605.957 -239.048 23 Weight 90 kg Intake: IV 359 253 23 CO/CI 30 Pressure Bag 69 33 3 Sodium Chloride 0.9% 1, 260 220 20 000 ml @ 20 mls/hr IV . Q24H [facility] Rx#:[id number] Intake, IV Titration 151.957 32.952 Amount Insulin Regular 100 unit 51.957 32.952 In Sodium Chloride 0.9% 100 ml @ Per Protocol IV .Q0M [facility] Rx#:[id number] Milrinone-D5w Pmx 20 mg 100 In Dextrose/Water 1 100ml .bag @ 0.1 MCG/KG/MIN 2. 601 mls/hr IV .Q24H [facility] Rx#:[id number] Oral 500 Output: Chest Tube Drainage 20 Left Chest Tube 0 Mediastinal Chest Tube X 20 2 Urine 385 525 0 Other: Voiding Method Indwelling Catheter # Voids 1 ABP, PAP, CO, CI - Last Documented Arterial Blood Pressure 123/55 Pulmonary Artery Pressure 57/15 Cardiac Output 5.7 Cardiac Index 3.2 - Exam CONSTITUTIONAL: Appears comfortable, cooperative, no acute distress RESPIRATORY: Lungs sounds diminished bilaterally. Respirations symmetrical, nonlabored. Currently on 2 L nasal cannula with oxygen saturation 98%. Able to achieve 1250 mL on his incentive spirometry. Strong cough. CARDIOVASCULAR: S1, S2 present. Regular rate and rhythm, sinus rhythm on telemetry. Sternum stable. Palpable peripheral pulses bilaterally. No edema present. No calf pain or tenderness noted. Heart hugger in place with patient demonstrating appropriate use. Antiembolism stockings, SCDs present. GASTROINTESTINAL: Abdomen soft, nontender, nondistended. Active bowel sounds present 4 quadrants. Tolerating clear liquid diet. Passing flatus. GENITOURINARY: Continues to void. Urine output 475 mL in the last 8 hours. INTEGUMENTARY: Skin is warm and dry with no clubbing or cyanosis present. Midline sternal incision well approximated and covered with dry intact dressing. NEUROLOGIC: Cranial nerves II through XII intact. No focal deficits. MUSKULOSKELETAL: Able to move all extremities, strength equal bilaterally, gait normal. PSYCHIATRIC: Alert and oriented to person place and time, appropriate affect, intact judgment and insight. INVASIVE LINES AND TUBES: Atrial and ventricular epicardial pacemaker wires present, connected to generator, VVI mode with backup rate 50 bpm. Left internal jugular Cordis, right brachial arterial line present. Current hemodynamic showing a CVP 17 mmHg. - Labs CBC & Chem 7: 04/09/25 05:53 04/09/25 05:53 Labs: Abnormal Lab Results - Last 24 Hours (Table) 04/08/25 04/08/25 04/08/25 Range/Units 10:17 11:12 13:24 WBC (4.50-10.00) 10*3/uL RBC (4.40-5.60) 10*6/uL Hgb (13.0-17.0) g/dL Hct (39.6-50.0) % MCV (80.0-97.0) fL MCH (27.0-32.0) pg MCHC (32.0-37.0) g/dL Plt Count (140-440) 10*3/uL MPV (9.5-12.2) fL Immature Gran # (0.00-0.04) 10*3/uL Monocytes # (Manual) (0-1.0) k/uL Nucleated RBCs (0-0) /100 WBC Immature Plt Fraction (1.1-6.1) % Sodium (137-145) mmol/L BUN (9-20) mg/dL Creatinine (0.66-1.25) mg/dL POC Glucose (mg/dL) 120 H 117 H 166 H (70-110) mg/dL Total Bilirubin (0.2-1.3) mg/dL AST (17-59) U/L ALT (4-49) U/L Total Protein (6.3-8.2) g/dL Albumin (3.5-5.0) g/dL 04/08/25 04/08/25 04/08/25 Range/Units 14:14 15:01 16:14 WBC (4.50-10.00) 10*3/uL RBC (4.40-5.60) 10*6/uL Hgb (13.0-17.0) g/dL Hct (39.6-50.0) % MCV (80.0-97.0) fL MCH (27.0-32.0) pg MCHC (32.0-37.0) g/dL Plt Count (140-440) 10*3/uL MPV (9.5-12.2) fL Immature Gran # (0.00-0.04) 10*3/uL Monocytes # (Manual) (0-1.0) k/uL Nucleated RBCs (0-0) /100 WBC Immature Plt Fraction (1.1-6.1) % Sodium (137-145) mmol/L BUN (9-20) mg/dL Creatinine (0.66-1.25) mg/dL POC Glucose (mg/dL) 171 H 182 H 126 H (70-110) mg/dL Total Bilirubin (0.2-1.3) mg/dL AST (17-59) U/L ALT (4-49) U/L Total Protein (6.3-8.2) g/dL Albumin (3.5-5.0) g/dL 04/08/25 04/08/25 04/08/25 Range/Units 16:23 16:23 18:57 WBC 15.08 H (4.50-10.00) 10*3/uL RBC 1.99 L (4.40-5.60) 10*6/uL Hgb 6.9 L* (13.0-17.0) g/dL Hct 22.4 L (39.6-50.0) % MCV 112.6 H (80.0-97.0) fL MCH 34.7 H (27.0-32.0) pg MCHC 30.8 L (32.0-37.0) g/dL Plt Count 107 L (140-440) 10*3/uL MPV 12.3 H (9.5-12.2) fL Immature Gran # (0.00-0.04) 10*3/uL Monocytes # (Manual) (0-1.0) k/uL Nucleated RBCs (0-0) /100 WBC Immature Plt Fraction 9.7 H (1.1-6.1) % Sodium (137-145) mmol/L BUN 26 H (9-20) mg/dL Creatinine 1.50 H (0.66-1.25) mg/dL POC Glucose (mg/dL) 134 H (70-110) mg/dL Total Bilirubin (0.2-1.3) mg/dL AST (17-59) U/L ALT (4-49) U/L Total Protein (6.3-8.2) g/dL Albumin (3.5-5.0) g/dL 04/08/25 04/08/25 04/09/25 Range/Units 21:52 22:58 00:05 WBC (4.50-10.00) 10*3/uL RBC (4.40-5.60) 10*6/uL Hgb (13.0-17.0) g/dL Hct (39.6-50.0) % MCV (80.0-97.0) fL MCH (27.0-32.0) pg MCHC (32.0-37.0) g/dL Plt Count (140-440) 10*3/uL MPV (9.5-12.2) fL Immature Gran # (0.00-0.04) 10*3/uL Monocytes # (Manual) (0-1.0) k/uL Nucleated RBCs (0-0) /100 WBC Immature Plt Fraction (1.1-6.1) % Sodium (137-145) mmol/L BUN (9-20) mg/dL Creatinine (0.66-1.25) mg/dL POC Glucose (mg/dL) 117 H 121 H 124 H (70-110) mg/dL Total Bilirubin (0.2-1.3) mg/dL AST (17-59) U/L ALT (4-49) U/L Total Protein (6.3-8.2) g/dL Albumin (3.5-5.0) g/dL 04/09/25 04/09/25 04/09/25 Range/Units 01:11 03:02 04:09 WBC (4.50-10.00) 10*3/uL RBC (4.40-5.60) 10*6/uL Hgb (13.0-17.0) g/dL Hct (39.6-50.0) % MCV (80.0-97.0) fL MCH (27.0-32.0) pg MCHC (32.0-37.0) g/dL Plt Count (140-440) 10*3/uL MPV (9.5-12.2) fL Immature Gran # (0.00-0.04) 10*3/uL Monocytes # (Manual) (0-1.0) k/uL Nucleated RBCs (0-0) /100 WBC Immature Plt Fraction (1.1-6.1) % Sodium (137-145) mmol/L BUN (9-20) mg/dL Creatinine (0.66-1.25) mg/dL POC Glucose (mg/dL) 125 H 131 H 117 H (70-110) mg/dL Total Bilirubin (0.2-1.3) mg/dL AST (17-59) U/L ALT (4-49) U/L Total Protein (6.3-8.2) g/dL Albumin (3.5-5.0) g/dL 04/09/25 04/09/25 04/09/25 Range/Units 04:47 05:53 05:53 WBC 12.24 H (4.50-10.00) 10*3/uL RBC 1.96 L (4.40-5.60) 10*6/uL Hgb 6.7 L* (13.0-17.0) g/dL Hct 21.9 L (39.6-50.0) % MCV 111.7 H (80.0-97.0) fL MCH 34.2 H (27.0-32.0) pg MCHC 30.6 L (32.0-37.0) g/dL Plt Count 101 L (140-440) 10*3/uL MPV (9.5-12.2) fL Immature Gran # 2.49 H (0.00-0.04) 10*3/uL Monocytes # (Manual) 3.06 H (0-1.0) k/uL Nucleated RBCs 10 H (0-0) /100 WBC Immature Plt Fraction (1.1-6.1) % Sodium 133 L (137-145) mmol/L BUN 33 H (9-20) mg/dL Creatinine 1.49 H (0.66-1.25) mg/dL POC Glucose (mg/dL) 115 H (70-110) mg/dL Total Bilirubin 1.5 H (0.2-1.3) mg/dL AST 91 H (17-59) U/L ALT 50 H (4-49) U/L Total Protein 5.6 L (6.3-8.2) g/dL Albumin 3.4 L (3.5-5.0) g/dL 04/09/25 04/09/25 04/09/25 Range/Units 06:57 07:56 09:14 WBC (4.50-10.00) 10*3/uL RBC (4.40-5.60) 10*6/uL Hgb (13.0-17.0) g/dL Hct (39.6-50.0) % MCV (80.0-97.0) fL MCH (27.0-32.0) pg MCHC (32.0-37.0) g/dL Plt Count (140-440) 10*3/uL MPV (9.5-12.2) fL Immature Gran # (0.00-0.04) 10*3/uL Monocytes # (Manual) (0-1.0) k/uL Nucleated RBCs (0-0) /100 WBC Immature Plt Fraction (1.1-6.1) % Sodium (137-145) mmol/L BUN (9-20) mg/dL Creatinine (0.66-1.25) mg/dL POC Glucose (mg/dL) 128 H 127 H 136 H (70-110) mg/dL Total Bilirubin (0.2-1.3) mg/dL AST (17-59) U/L ALT (4-49) U/L Total Protein (6.3-8.2) g/dL Albumin (3.5-5.0) g/dL Assessment and Plan Plan: Aortic valve replacement with a bovine tissue valve and the patient also underwent a modified Smith-Maze procedure and occlusion of the left atrial appendage in the patient's postoperative # 3. Patient is currently off milrinone, hemodynamically stable Postthoracotomy, extubated to 2 L of oxygen by nasal cannula. Chest tubes are removed Anaphylaxis secondary to propofol/drug-induced. The patient has recovered and the patient is off epinephrine drip. Junctional rhythm postop, expected outcome of surgery and the patient is back into normal sinus rhythm. History of atrial fibrillation, current rhythm is sinus Coronary artery disease Hypertension History of obstructive sleep apnea maintained on CPAP therapy History of colon polyps Degenerative arthritis Thrombocytopenia, expected outcome of surgery Blood loss anemia, expected outcome of surgery and the patient's hemoglobin is at 6.7 Plan Patient is currently on 2 L of oxygen by nasal cannula. Chest tubes have been removed Transfused with units of packed RBC Continue incentive spirometer Patient is currently off milrinone. Discontinue insulin drip and put the patient on sign scale insulin coverage Awake and alert and communicating. Aggressive pulmonary toileting. Will continue to follow make further recommendations based on his progress. Condition is stable for now. Time with Patient: Greater than 30
--- NOTE | 2025-04-09 15:38 | P.PN ---
Subjective Progress Note Date: 04/09/25 74-year-old gentleman admitted with severe symptomatic aortic insufficiency status post AVR with bovine valve, postop day #1. Tolerated procedure well. Extubated last night. Maintained on Primacor, epi and insulin drips. Apparently patient had acute anaphylactic reaction suspected related to diprovan and was placed on epi. Incentive spirometer up to 1000. Telemetry paced/sinus. Blood sugars controlled. Denies chest pain, palpitations or shortness of breath. Reports surgical pain controlled. Hemoglobin today is at 6.5. Transfusion not recommended at this time. Patient is back in normal sinus rhythm. The platelet count is 87 and the HIT panel was sent and the patient is currently under x-ray. Platelet count is being monitored. Insulin drip remains at 5 units an hour. Rest of the blood work and electrolytes showed an acute kidney injury with a BUN of 24 1.3. sodium levels at 135 potassium levels of 4.2. follow-up chest x-ray from today shows no acute cardiopulmonary process. there is cardiomegaly and postoperative changes noted bilaterally. 04/09/2025 -the patient is seen and evaluated in room at bedside; patient is sitting up in a chair; family members are present in room; patient is currently on 2 L of oxygen by nasal cannula. - The patient's hemoglobin currently is at 6.7; needs transfusion with packed RBC. The patient was taken off the methadone this morning. - Remains on insulin drip at 2 units an hour. [place]-Issac catheter has been removed. The patient otherwise has no specific complaints. - Chest x-ray shows adequate summation of both lungs. Lab review shows white cell count of 12.2 with a hemoglobin of 6.7 and a platelet count of 101. Electrolytes are normal, BUN 33 with a creatinine of 1.45. LFTs are mildly elevated Cardiothoracic surgery on board and planning to continue to maximize medical therapy with aspirin, Plavix, statins and beta-blockers in form of metoprolol tartrate 12.5 mg twice daily; aspirin is changed to 81 mg and Plavix is discontinued; plan to resume Eliquis after all lines and tubes have been discontinued patient remains on lisinopril; Primacor infusion is discontinued Objective - Vital Signs Vital signs: Vital Signs Temp 97.8 F 04/09/25 04:00 Pulse 72 04/09/25 07:59 Resp 21 04/09/25 06:30 BP 118/83 04/09/25 06:30 Pulse Ox 98 04/09/25 06:30 FiO2 40 04/06/25 18:30 Intake & Output 04/08/25 04/09/25 04/09/25 18:59 06:59 18:59 Intake Total 1010.957 285.952 23 Output Total 405 525 0 Balance 605.957 -239.048 23 Weight 90 kg Intake: IV 359 253 23 CO/CI 30 Pressure Bag 69 33 3 Sodium Chloride 0.9% 1, 260 220 20 000 ml @ 20 mls/hr IV . Q24H [facility] Rx#:[id number] Intake, IV Titration 151.957 32.952 Amount Insulin Regular 100 unit 51.957 32.952 In Sodium Chloride 0.9% 100 ml @ Per Protocol IV .Q0M [facility] Rx#:[id number] Milrinone-D5w Pmx 20 mg 100 In Dextrose/Water 1 100ml .bag @ 0.1 MCG/KG/MIN 2. 601 mls/hr IV .Q24H [facility] Rx#:[id number] Oral 500 Output: Chest Tube Drainage 20 Left Chest Tube 0 Mediastinal Chest Tube X 20 2 Urine 385 525 0 Other: Voiding Method Indwelling Catheter # Voids 1 ABP, PAP, CO, CI - Last Documented Arterial Blood Pressure 123/55 Pulmonary Artery Pressure 57/15 Cardiac Output 5.7 Cardiac Index 3.2 - Exam VITAL SIGNS: [Reviewed] GENERAL: Pleasant, well-nourished,sitting up in chair, alert and oriented x 3, no acute distress. HEENT: Normocephalic, atraumatic, conjunctivae normal. eyes normal. MMM. NECK: Supple, no JVD. CARDIOVASCULAR: S1, S2 regular.No murmur RESPIRATION: Unlabored, equal air entry, lungs diminished throughout. Mediastinal, left pleural chest tubes present. ABDOMEN: Soft, nondistended, nontender . No guarding. Positive bowel sounds. LEGS: No edema. no swelling NERVOUS SYSTEM: Cranial N 2-12 grossly normal. No focal deficits. Skin: Warm and dry, no rash . - Labs CBC & Chem 7: 04/09/25 05:53 04/09/25 05:53 Labs: Abnormal Lab Results - Last 24 Hours (Table) 06/05/2604/08/25 04/08/25 Range/Units 11:12 13:24 14:14 WBC (4.50-10.00) 10*3/uL RBC (4.40-5.60) 10*6/uL Hgb (13.0-17.0) g/dL Hct (39.6-50.0) % MCV (80.0-97.0) fL MCH (27.0-32.0) pg MCHC (32.0-37.0) g/dL Plt Count (140-440) 10*3/uL MPV (9.5-12.2) fL Immature Gran # (0.00-0.04) 10*3/uL Monocytes # (Manual) (0-1.0) k/uL Nucleated RBCs (0-0) /100 WBC Immature Plt Fraction (1.1-6.1) % Sodium (137-145) mmol/L BUN (9-20) mg/dL Creatinine (0.66-1.25) mg/dL POC Glucose (mg/dL) 117 H 166 H 171 H (70-110) mg/dL Total Bilirubin (0.2-1.3) mg/dL AST (17-59) U/L ALT (4-49) U/L Total Protein (6.3-8.2) g/dL Albumin (3.5-5.0) g/dL 04/08/25 04/08/25 04/08/25 Range/Units 15:01 16:14 16:23 WBC 15.08 H (4.50-10.00) 10*3/uL RBC 1.99 L (4.40-5.60) 10*6/uL Hgb 6.9 L* (13.0-17.0) g/dL Hct 22.4 L (39.6-50.0) % MCV 112.6 H (80.0-97.0) fL MCH 34.7 H (27.0-32.0) pg MCHC 30.8 L (32.0-37.0) g/dL Plt Count 107 L (140-440) 10*3/uL MPV 12.3 H (9.5-12.2) fL Immature Gran # (0.00-0.04) 10*3/uL Monocytes # (Manual) (0-1.0) k/uL Nucleated RBCs (0-0) /100 WBC Immature Plt Fraction 9.7 H (1.1-6.1) % Sodium (137-145) mmol/L BUN (9-20) mg/dL Creatinine (0.66-1.25) mg/dL POC Glucose (mg/dL) 182 H 126 H (70-110) mg/dL Total Bilirubin (0.2-1.3) mg/dL AST (17-59) U/L ALT (4-49) U/L Total Protein (6.3-8.2) g/dL Albumin (3.5-5.0) g/dL 04/08/25 04/08/25 04/08/25 Range/Units 16:23 18:57 21:52 WBC (4.50-10.00) 10*3/uL RBC (4.40-5.60) 10*6/uL Hgb (13.0-17.0) g/dL Hct (39.6-50.0) % MCV (80.0-97.0) fL MCH (27.0-32.0) pg MCHC (32.0-37.0) g/dL Plt Count (140-440) 10*3/uL MPV (9.5-12.2) fL Immature Gran # (0.00-0.04) 10*3/uL Monocytes # (Manual) (0-1.0) k/uL Nucleated RBCs (0-0) /100 WBC Immature Plt Fraction (1.1-6.1) % Sodium (137-145) mmol/L BUN 26 H (9-20) mg/dL Creatinine 1.50 H (0.66-1.25) mg/dL POC Glucose (mg/dL) 134 H 117 H (70-110) mg/dL Total Bilirubin (0.2-1.3) mg/dL AST (17-59) U/L ALT (4-49) U/L Total Protein (6.3-8.2) g/dL Albumin (3.5-5.0) g/dL 04/08/25 04/09/25 04/09/25 Range/Units 22:58 00:05 01:11 WBC (4.50-10.00) 10*3/uL RBC (4.40-5.60) 10*6/uL Hgb (13.0-17.0) g/dL Hct (39.6-50.0) % MCV (80.0-97.0) fL MCH (27.0-32.0) pg MCHC (32.0-37.0) g/dL Plt Count (140-440) 10*3/uL MPV (9.5-12.2) fL Immature Gran # (0.00-0.04) 10*3/uL Monocytes # (Manual) (0-1.0) k/uL Nucleated RBCs (0-0) /100 WBC Immature Plt Fraction (1.1-6.1) % Sodium (137-145) mmol/L BUN (9-20) mg/dL Creatinine (0.66-1.25) mg/dL POC Glucose (mg/dL) 121 H 124 H 125 H (70-110) mg/dL Total Bilirubin (0.2-1.3) mg/dL AST (17-59) U/L ALT (4-49) U/L Total Protein (6.3-8.2) g/dL Albumin (3.5-5.0) g/dL 04/09/25 04/09/25 04/09/25 Range/Units 03:02 04:09 04:47 WBC (4.50-10.00) 10*3/uL RBC (4.40-5.60) 10*6/uL Hgb (13.0-17.0) g/dL Hct (39.6-50.0) % MCV (80.0-97.0) fL MCH (27.0-32.0) pg MCHC (32.0-37.0) g/dL Plt Count (140-440) 10*3/uL MPV (9.5-12.2) fL Immature Gran # (0.00-0.04) 10*3/uL Monocytes # (Manual) (0-1.0) k/uL Nucleated RBCs (0-0) /100 WBC Immature Plt Fraction (1.1-6.1) % Sodium (137-145) mmol/L BUN (9-20) mg/dL Creatinine (0.66-1.25) mg/dL POC Glucose (mg/dL) 131 H 117 H 115 H (70-110) mg/dL Total Bilirubin (0.2-1.3) mg/dL AST (17-59) U/L ALT (4-49) U/L Total Protein (6.3-8.2) g/dL Albumin (3.5-5.0) g/dL 04/09/25 04/09/25 04/09/25 Range/Units 05:53 05:53 06:57 WBC 12.24 H (4.50-10.00) 10*3/uL RBC 1.96 L (4.40-5.60) 10*6/uL Hgb 6.7 L* (13.0-17.0) g/dL Hct 21.9 L (39.6-50.0) % MCV 111.7 H (80.0-97.0) fL MCH 34.2 H (27.0-32.0) pg MCHC 30.6 L (32.0-37.0) g/dL Plt Count 101 L (140-440) 10*3/uL MPV (9.5-12.2) fL Immature Gran # 2.49 H (0.00-0.04) 10*3/uL Monocytes # (Manual) 3.06 H (0-1.0) k/uL Nucleated RBCs 10 H (0-0) /100 WBC Immature Plt Fraction (1.1-6.1) % Sodium 133 L (137-145) mmol/L BUN 33 H (9-20) mg/dL Creatinine 1.49 H (0.66-1.25) mg/dL POC Glucose (mg/dL) 128 H (70-110) mg/dL Total Bilirubin 1.5 H (0.2-1.3) mg/dL AST 91 H (17-59) U/L ALT 50 H (4-49) U/L Total Protein 5.6 L (6.3-8.2) g/dL Albumin 3.4 L (3.5-5.0) g/dL 04/09/25 04/09/25 Range/Units 07:56 09:14 WBC (4.50-10.00) 10*3/uL RBC (4.40-5.60) 10*6/uL Hgb (13.0-17.0) g/dL Hct (39.6-50.0) % MCV (80.0-97.0) fL MCH (27.0-32.0) pg MCHC (32.0-37.0) g/dL Plt Count (140-440) 10*3/uL MPV (9.5-12.2) fL Immature Gran # (0.00-0.04) 10*3/uL Monocytes # (Manual) (0-1.0) k/uL Nucleated RBCs (0-0) /100 WBC Immature Plt Fraction (1.1-6.1) % Sodium (137-145) mmol/L BUN (9-20) mg/dL Creatinine (0.66-1.25) mg/dL POC Glucose (mg/dL) 127 H 136 H (70-110) mg/dL Total Bilirubin (0.2-1.3) mg/dL AST (17-59) U/L ALT (4-49) U/L Total Protein (6.3-8.2) g/dL Albumin (3.5-5.0) g/dL Assessment and Plan Assessment: Aortic valvular insufficiency, status post aortic valve replacement with bovine valve, biatrial modified Smith-Maze procedure, occlusion of left atrial appendage. Acute anaphylactic reaction suspected related to propofol Acute blood loss anemia with thrombocytopenia, postoperative, expected outcome Chronic atrial fibrillation Hypertension Obstructive sleep apnea Obesity, BMI 32 Alcohol use, 2 beers nightly Plan: Continue on current medication regimen ,monitoring and symptomatic treatment. Maximizing medical therapy, anticoagulation as per CTS. close monitoring of hemoglobin, platelets, electrolytes with repeat labs ordered for a.m. aggressive pulmonary toileting with nebulized bronchodilators, incentive spirometer reinforced. Increase ambulation as tolerated. Tight glycemic control, currently on insulin drip.
[2025-04-09 16:05] LABS: Glucose,Whole Blood 145 mg/dL (70-110)
[2025-04-09 20:00] LABS: Glucose,Whole Blood 159 mg/dL (70-110)
[2025-04-09] MEDS: AMIODARONE 200 MG TAB PO SCH (20:06)
--- NOTE | 2025-04-09 20:15 | P.PN ---
Subjective Progress Note Date: 04/08/25 The patient is a pleasant 74-year-old female patient who is known to our service from before who sees Dr. Quiles on a regular basis who was diagnosed recently with severe symptomatic aortic insufficiency. Recently she underwent a FARHAD which revealed moderate to severe aortic insufficiency with preserved LV systolic function. The heart catheterization revealed no evidence of obstructive coronary artery disease. The patient was referred to undergo aortic valve replacement. Yesterday she underwent aortic valve replacement using 25 mm bovine pericardial valve along with the exclusion of the left atrial appendage. The procedure/surgery was uneventful and this is postoperation day #1. The patient was extubated yesterday. Hemodynamically she is stable. Urine output has been adequate. Hemoglobin was 7.0. Electrolytes are within normal limits as well. The creatinine also appears to be within normal limits with normal GFR as well. The chest x-ray was reviewed from this morning as well. Overall the patient is stable from a cardiovascular standpoint of view. She is on dual antiplatelet therapy using aspirin and Plavix and she is also on statin. The physical examination is remarkable for distant heart sounds and diminished breathing sounds bilaterally and no significant edema was noted in the lower extremities 04/08/2025 Postop day 2, extubated, doing well on room air, remains on Primacor, appropriate cardiac output and cardiac index, No significant arrhythmias noted on telemetry, creatinine 1.3 Assessment Severe symptomatic aortic insufficiency status post AVR as described above Status post exclusion of the left atrial appendage Multiple comorbid conditions Plan Continue dual antiplatelet therapy at this point Supportive ICU care Follow recommendations from CT surgery team Objective - Vital Signs Vital signs: Vital Signs Temp 98 F 04/09/25 20:00 Pulse 66 04/09/25 20:00 Resp 18 04/09/25 20:00 BP 128/62 04/09/25 20:00 Pulse Ox 95 04/09/25 20:00 FiO2 40 04/06/25 18:30 Intake & Output 04/09/25 04/09/25 04/10/25 06:59 18:59 06:59 Intake Total 285.952 949 Output Total 525 760 Balance -239.048 189 Weight 90 kg Intake: IV 253 299 Pressure Bag 33 39 Sodium Chloride 0.9% 1, 220 260 000 ml @ 20 mls/hr IV . Q24H [facility] Rx#:[id number] Intake, IV Titration 32.952 Amount Insulin Regular 100 unit 32.952 In Sodium Chloride 0.9% 100 ml @ Per Protocol IV .Q0M [facility] Rx#:[id number] Oral 650 Output: Urine 525 760 Other: # Voids 1 ABP, PAP, CO, CI - Last Documented Arterial Blood Pressure 123/55 Pulmonary Artery Pressure 57/15 Cardiac Output 5.7 Cardiac Index 3.2 - Labs CBC & Chem 7: 04/09/25 05:53 04/09/25 05:53 Labs: Abnormal Lab Results - Last 24 Hours (Table) 04/08/25 04/08/25 04/09/25 Range/Units 21:52 22:58 00:05 WBC (4.50-10.00) 10*3/uL RBC (4.40-5.60) 10*6/uL Hgb (13.0-17.0) g/dL Hct (39.6-50.0) % MCV (80.0-97.0) fL MCH (27.0-32.0) pg MCHC (32.0-37.0) g/dL Plt Count (140-440) 10*3/uL Immature Gran # (0.00-0.04) 10*3/uL Monocytes # (Manual) (0-1.0) k/uL Nucleated RBCs (0-0) /100 WBC Sodium (137-145) mmol/L BUN (9-20) mg/dL Creatinine (0.66-1.25) mg/dL POC Glucose (mg/dL) 117 H 121 H 124 H (70-110) mg/dL Total Bilirubin (0.2-1.3) mg/dL AST (17-59) U/L ALT (4-49) U/L Total Protein (6.3-8.2) g/dL Albumin (3.5-5.0) g/dL 04/09/25 04/09/25 04/09/25 Range/Units 01:11 03:02 04:09 WBC (4.50-10.00) 10*3/uL RBC (4.40-5.60) 10*6/uL Hgb (13.0-17.0) g/dL Hct (39.6-50.0) % MCV (80.0-97.0) fL MCH (27.0-32.0) pg MCHC (32.0-37.0) g/dL Plt Count (140-440) 10*3/uL Immature Gran # (0.00-0.04) 10*3/uL Monocytes # (Manual) (0-1.0) k/uL Nucleated RBCs (0-0) /100 WBC Sodium (137-145) mmol/L BUN (9-20) mg/dL Creatinine (0.66-1.25) mg/dL POC Glucose (mg/dL) 125 H 131 H 117 H (70-110) mg/dL Total Bilirubin (0.2-1.3) mg/dL AST (17-59) U/L ALT (4-49) U/L Total Protein (6.3-8.2) g/dL Albumin (3.5-5.0) g/dL 04/09/25 04/09/25 04/09/25 Range/Units 04:47 05:53 05:53 WBC 12.24 H (4.50-10.00) 10*3/uL RBC 1.96 L (4.40-5.60) 10*6/uL Hgb 6.7 L* (13.0-17.0) g/dL Hct 21.9 L (39.6-50.0) % MCV 111.7 H (80.0-97.0) fL MCH 34.2 H (27.0-32.0) pg MCHC 30.6 L (32.0-37.0) g/dL Plt Count 101 L (140-440) 10*3/uL Immature Gran # 2.49 H (0.00-0.04) 10*3/uL Monocytes # (Manual) 3.06 H (0-1.0) k/uL Nucleated RBCs 10 H (0-0) /100 WBC Sodium 133 L (137-145) mmol/L BUN 33 H (9-20) mg/dL Creatinine 1.49 H (0.66-1.25) mg/dL POC Glucose (mg/dL) 115 H (70-110) mg/dL Total Bilirubin 1.5 H (0.2-1.3) mg/dL AST 91 H (17-59) U/L ALT 50 H (4-49) U/L Total Protein 5.6 L (6.3-8.2) g/dL Albumin 3.4 L (3.5-5.0) g/dL 04/09/25 04/09/25 04/09/25 Range/Units 06:57 07:56 09:14 WBC (4.50-10.00) 10*3/uL RBC (4.40-5.60) 10*6/uL Hgb (13.0-17.0) g/dL Hct (39.6-50.0) % MCV (80.0-97.0) fL MCH (27.0-32.0) pg MCHC (32.0-37.0) g/dL Plt Count (140-440) 10*3/uL Immature Gran # (0.00-0.04) 10*3/uL Monocytes # (Manual) (0-1.0) k/uL Nucleated RBCs (0-0) /100 WBC Sodium (137-145) mmol/L BUN (9-20) mg/dL Creatinine (0.66-1.25) mg/dL POC Glucose (mg/dL) 128 H 127 H 136 H (70-110) mg/dL Total Bilirubin (0.2-1.3) mg/dL AST (17-59) U/L ALT (4-49) U/L Total Protein (6.3-8.2) g/dL Albumin (3.5-5.0) g/dL 04/09/25 04/09/25 04/09/25 Range/Units 11:18 16:04 19:59 WBC (4.50-10.00) 10*3/uL RBC (4.40-5.60) 10*6/uL Hgb (13.0-17.0) g/dL Hct (39.6-50.0) % MCV (80.0-97.0) fL MCH (27.0-32.0) pg MCHC (32.0-37.0) g/dL Plt Count (140-440) 10*3/uL Immature Gran # (0.00-0.04) 10*3/uL Monocytes # (Manual) (0-1.0) k/uL Nucleated RBCs (0-0) /100 WBC Sodium (137-145) mmol/L BUN (9-20) mg/dL Creatinine (0.66-1.25) mg/dL POC Glucose (mg/dL) 130 H 145 H 159 H (70-110) mg/dL Total Bilirubin (0.2-1.3) mg/dL AST (17-59) U/L ALT (4-49) U/L Total Protein (6.3-8.2) g/dL Albumin (3.5-5.0) g/dL
--- NOTE | 2025-04-09 20:19 | P.PN ---
Subjective Progress Note Date: 04/09/25 The patient is a pleasant 74-year-old female patient who is known to our service from before who sees Dr. Quiles on a regular basis who was diagnosed recently with severe symptomatic aortic insufficiency. Recently she underwent a FARHAD which revealed moderate to severe aortic insufficiency with preserved LV systolic function. The heart catheterization revealed no evidence of obstructive coronary artery disease. The patient was referred to undergo aortic valve replacement. Yesterday she underwent aortic valve replacement using 25 mm bovine pericardial valve along with the exclusion of the left atrial appendage. The procedure/surgery was uneventful and this is postoperation day #1. The patient was extubated yesterday. Hemodynamically she is stable. Urine output has been adequate. Hemoglobin was 7.0. Electrolytes are within normal limits as well. The creatinine also appears to be within normal limits with normal GFR as well. The chest x-ray was reviewed from this morning as well. Overall the patient is stable from a cardiovascular standpoint of view. She is on dual antiplatelet therapy using aspirin and Plavix and she is also on statin. The physical examination is remarkable for distant heart sounds and diminished breathing sounds bilaterally and no significant edema was noted in the lower extremities 04/08/2025 Postop day 2, extubated, doing well on room air, remains on Primacor, appropriate cardiac output and cardiac index, No significant arrhythmias noted on telemetry, creatinine 1.3 04/09/2025 Postop day 3 aortic valve replacement BP 124/67, heart rate 65 Hemoglobin 6.7 BUN 23, creatinine 1.49, Assessment Severe symptomatic aortic insufficiency status post AVR with 25 mm Inspira bovine Status post exclusion of the left atrial appendage Bilateral modified Smith-Maze procedure Multiple comorbid conditions Plan Continue aspirin Plavix, Lipitor, low-dose beta-nafisa, low-dose lisinopril Primacor drip was discontinued CT surgery plans to discontinue DAPT, Start Eliquis once all drains are out Epicardial pacemaker in place, currently in sinus rhythm Give IV iron for low hemoglobin. Objective - Vital Signs Vital signs: Vital Signs Temp 98 F 04/09/25 20:00 Pulse 66 04/09/25 20:00 Resp 18 04/09/25 20:00 BP 128/62 04/09/25 20:00 Pulse Ox 95 04/09/25 20:00 FiO2 40 04/06/25 18:30 Intake & Output 04/09/25 04/09/25 04/10/25 06:59 18:59 06:59 Intake Total 285.952 949 Output Total 525 760 Balance -239.048 189 Weight 90 kg Intake: IV 253 299 Pressure Bag 33 39 Sodium Chloride 0.9% 1, 220 260 000 ml @ 20 mls/hr IV . Q24H [facility] Rx#:[id number] Intake, IV Titration 32.952 Amount Insulin Regular 100 unit 32.952 In Sodium Chloride 0.9% 100 ml @ Per Protocol IV .Q0M [facility] Rx#:[id number] Oral 650 Output: Urine 525 760 Other: # Voids 1 ABP, PAP, CO, CI - Last Documented Arterial Blood Pressure 123/55 Pulmonary Artery Pressure 57/15 Cardiac Output 5.7 Cardiac Index 3.2 - Labs CBC & Chem 7: 04/09/25 05:53 04/09/25 05:53 Labs: Abnormal Lab Results - Last 24 Hours (Table) 04/08/25 04/08/25 04/09/25 Range/Units 21:52 22:58 00:05 WBC (4.50-10.00) 10*3/uL RBC (4.40-5.60) 10*6/uL Hgb (13.0-17.0) g/dL Hct (39.6-50.0) % MCV (80.0-97.0) fL MCH (27.0-32.0) pg MCHC (32.0-37.0) g/dL Plt Count (140-440) 10*3/uL Immature Gran # (0.00-0.04) 10*3/uL Monocytes # (Manual) (0-1.0) k/uL Nucleated RBCs (0-0) /100 WBC Sodium (137-145) mmol/L BUN (9-20) mg/dL Creatinine (0.66-1.25) mg/dL POC Glucose (mg/dL) 117 H 121 H 124 H (70-110) mg/dL Total Bilirubin (0.2-1.3) mg/dL AST (17-59) U/L ALT (4-49) U/L Total Protein (6.3-8.2) g/dL Albumin (3.5-5.0) g/dL 04/09/25 04/09/25 04/09/25 Range/Units 01:11 03:02 04:09 WBC (4.50-10.00) 10*3/uL RBC (4.40-5.60) 10*6/uL Hgb (13.0-17.0) g/dL Hct (39.6-50.0) % MCV (80.0-97.0) fL MCH (27.0-32.0) pg MCHC (32.0-37.0) g/dL Plt Count (140-440) 10*3/uL Immature Gran # (0.00-0.04) 10*3/uL Monocytes # (Manual) (0-1.0) k/uL Nucleated RBCs (0-0) /100 WBC Sodium (137-145) mmol/L BUN (9-20) mg/dL Creatinine (0.66-1.25) mg/dL POC Glucose (mg/dL) 125 H 131 H 117 H (70-110) mg/dL Total Bilirubin (0.2-1.3) mg/dL AST (17-59) U/L ALT (4-49) U/L Total Protein (6.3-8.2) g/dL Albumin (3.5-5.0) g/dL 04/09/25 04/09/25 04/09/25 Range/Units 04:47 05:53 05:53 WBC 12.24 H (4.50-10.00) 10*3/uL RBC 1.96 L (4.40-5.60) 10*6/uL Hgb 6.7 L* (13.0-17.0) g/dL Hct 21.9 L (39.6-50.0) % MCV 111.7 H (80.0-97.0) fL MCH 34.2 H (27.0-32.0) pg MCHC 30.6 L (32.0-37.0) g/dL Plt Count 101 L (140-440) 10*3/uL Immature Gran # 2.49 H (0.00-0.04) 10*3/uL Monocytes # (Manual) 3.06 H (0-1.0) k/uL Nucleated RBCs 10 H (0-0) /100 WBC Sodium 133 L (137-145) mmol/L BUN 33 H (9-20) mg/dL Creatinine 1.49 H (0.66-1.25) mg/dL POC Glucose (mg/dL) 115 H (70-110) mg/dL Total Bilirubin 1.5 H (0.2-1.3) mg/dL AST 91 H (17-59) U/L ALT 50 H (4-49) U/L Total Protein 5.6 L (6.3-8.2) g/dL Albumin 3.4 L (3.5-5.0) g/dL 04/09/25 04/09/25 04/09/25 Range/Units 06:57 07:56 09:14 WBC (4.50-10.00) 10*3/uL RBC (4.40-5.60) 10*6/uL Hgb (13.0-17.0) g/dL Hct (39.6-50.0) % MCV (80.0-97.0) fL MCH (27.0-32.0) pg MCHC (32.0-37.0) g/dL Plt Count (140-440) 10*3/uL Immature Gran # (0.00-0.04) 10*3/uL Monocytes # (Manual) (0-1.0) k/uL Nucleated RBCs (0-0) /100 WBC Sodium (137-145) mmol/L BUN (9-20) mg/dL Creatinine (0.66-1.25) mg/dL POC Glucose (mg/dL) 128 H 127 H 136 H (70-110) mg/dL Total Bilirubin (0.2-1.3) mg/dL AST (17-59) U/L ALT (4-49) U/L Total Protein (6.3-8.2) g/dL Albumin (3.5-5.0) g/dL 04/09/25 04/09/25 04/09/25 Range/Units 11:18 16:04 19:59 WBC (4.50-10.00) 10*3/uL RBC (4.40-5.60) 10*6/uL Hgb (13.0-17.0) g/dL Hct (39.6-50.0) % MCV (80.0-97.0) fL MCH (27.0-32.0) pg MCHC (32.0-37.0) g/dL Plt Count (140-440) 10*3/uL Immature Gran # (0.00-0.04) 10*3/uL Monocytes # (Manual) (0-1.0) k/uL Nucleated RBCs (0-0) /100 WBC Sodium (137-145) mmol/L BUN (9-20) mg/dL Creatinine (0.66-1.25) mg/dL POC Glucose (mg/dL) 130 H 145 H 159 H (70-110) mg/dL Total Bilirubin (0.2-1.3) mg/dL AST (17-59) U/L ALT (4-49) U/L Total Protein (6.3-8.2) g/dL Albumin (3.5-5.0) g/dL
[2025-04-09] MEDS: SODIUM FERRIC GLUCONAT-SUCROSE 125 MG in SODIUM CHLORIDE 0.9% 100 ML IVPB ONE (20:42)
[2025-04-10] MEDS: FUROSEMIDE 10 MG/ML 4 ML VIAL IV STA (01:59)
[2025-04-10 02:58] LABS: Magnesium 2.2 mg/dL (1.6-2.3); Potassium 4.6 mmol/L (3.5-5.1)
[2025-04-10 05:54] LABS: HCT 22.5 % (39.6-50.0); MCHC 31.1 g/dL (32.0-37.0); MCV 109.2 fL (80.0-97.0); Mean Platelet Volume 12.6 fL (9.5-12.2); Platelet Count 126 10*3/uL (140-440); RBC 2.06 10*6/uL (4.40-5.60); RDW 18.7 % (11.5-14.5); WBC 13.43 10*3/uL (4.50-10.00)
[2025-04-10 05:58] LABS: Glucose,Whole Blood 128 mg/dL (70-110)
[2025-04-10] MEDS: DEXTROSE 5% IN WATER 100 ML with AMIODARONE 150 MG IV ONE ×2 (06:05→07:05)
[2025-04-10 06:28] LABS: ALT 108 U/L (4-49); AST 117 U/L (17-59); African American GFR (CKD) 68 (>60 ml/min/1.73 sqM); Albumin 3.5 g/dL (3.5-5.0); Alkaline Phosphatase 74 U/L (38-126); Anion Gap 12 mmol/L; Blood Urea Nitrogen 34 mg/dL (9-20); Calcium 9.2 mg/dL (8.4-10.2); Carbon Dioxide 22 mmol/L (22-30); Chloride 98 mmol/L (98-107); Glucose 108 mg/dL (74-99); Magnesium 2.1 mg/dL (1.6-2.3); Non-African American GFR(CKD) 59 (>60 ml/min/1.73 sqM); Potassium 4.2 mmol/L (3.5-5.1); Sodium 132 mmol/L (137-145); Total Bilirubin 1.9 mg/dL (0.2-1.3); Total Protein 5.8 g/dL (6.3-8.2)
[2025-04-10] MEDS: FUROSEMIDE 10 MG/ML 2 ML VIAL IV ONE (07:05)
--- NOTE | 2025-04-10 07:21 | XR ---
EXAMINATION TYPE: XR chest 2V DATE OF EXAM: 04/10/2025 6:26 AM COMPARISON: None. CLINICAL INDICATION: Male, 74 years old with history of post op AVR, TECHNIQUE: XR chest 2V view(s) obtained. FINDINGS: The heart size is mildly prominent. The pulmonary vasculature is normal. Minimal linear opacities in the left midlung may be some atelectasis. IMPRESSION: 1. Cardiomegaly. 2. Mild linear atelectasis left midlung [facility], , 04/10/2025 7:19 AM
--- NOTE | 2025-04-10 11:01 | P.PN ---
Subjective Progress Note Date: 04/10/25 - History of Present Illness 04/07/25 This is a pleasant 74-year-old gentleman admitted with severe symptomatic aortic insufficiency status post AVR with bovine valve, postop day #1. Tolerated procedure well. Extubated last night. Maintained on Primacor, epi and insulin drips. Apparently patient had acute anaphylactic reaction suspected related to diprovan and was placed on epi. Incentive spirometer up to 1000. Telemetry paced/sinus. Blood sugars controlled. Denies chest pain, palpitations or shortness of breath. Reports surgical pain controlled. 04/10/2025 sitting up in chair, incentive spirometer up to 1300. Chest x-ray reports cardiomegaly, mild linear atelectasis left midlung. Denies chest pain, palpitations or shortness of breath. Maintaining O2 sats in the 90s on room air. reports poor appetite. Blood sugars controlled. Received IV iron yesterday. hemoglobin 7, platelets 126. Bicarb 22, BUN 34, creatinine decreased ,1.19 denies lightheadedness dizziness or focal deficits. Reports ambulated in the hallway yesterday with staff, had to stop 3 times due to exertional shortness of breath. T. bili increased to 1.9, AST 117, ALT 108, alk phos 74. TSH 1.9. Objective - Vital Signs Vital signs: Vital Signs Temp 97.8 F 04/10/25 04:00 Pulse 77 04/10/25 08:06 Resp 18 04/10/25 04:00 BP 148/90 04/10/25 04:00 Pulse Ox 97 04/10/25 07:55 FiO2 40 04/06/25 18:30 Intake & Output 04/09/25 04/10/25 04/10/25 18:59 06:59 18:59 Intake Total 949 100 Output Total 760 2100 Balance 189 -2000 Weight 90.1 kg Intake: IV 299 100 Pressure Bag 39 Sodium Chloride 0.9% 1, 260 000 ml @ 20 mls/hr IV . Q24H [facility] Rx#:[id number] Sodium Ferric Gluconat- 100 Sucrose 125 mg In Sodium Chloride 0.9% 100 ml @ 100 mls/hr IVPB ONCE ONE Rx#:[id number] Oral 650 Output: Urine 760 2100 Other: # Voids 1 ABP, PAP, CO, CI - Last Documented Arterial Blood Pressure 123/55 Pulmonary Artery Pressure 57/15 Cardiac Output 5.7 Cardiac Index 3.2 - Exam VITAL SIGNS: [Reviewed] GENERAL: Alert and oriented x 3, sitting up in chair, no acute distress. HEENT: Normocephalic, atraumatic, conjunctivae normal. eyes normal. MMM. NECK: Supple, no JVD. CARDIOVASCULAR: S1, S2 regular.No murmur RESPIRATION: Unlabored, equal air entry, lungs diminished throughout. ABDOMEN: Soft, nondistended, nontender . No guarding. Positive bowel sounds. LEGS: No edema. no swelling NERVOUS SYSTEM: Cranial N 2-12 grossly normal. No focal deficits. Skin: Warm and dry, no rash . - Labs CBC & Chem 7: 04/10/25 05:19 04/10/25 05:19 Labs: Abnormal Lab Results - Last 24 Hours (Table) 04/09/25 04/09/25 04/09/25 Range/Units 09:14 11:18 16:04 WBC (4.50-10.00) 10*3/uL RBC (4.40-5.60) 10*6/uL Hgb (13.0-17.0) g/dL Hct (39.6-50.0) % MCV (80.0-97.0) fL MCH (27.0-32.0) pg MCHC (32.0-37.0) g/dL Plt Count (140-440) 10*3/uL MPV (9.5-12.2) fL Sodium (137-145) mmol/L BUN (9-20) mg/dL Glucose (74-99) mg/dL POC Glucose (mg/dL) 136 H 130 H 145 H (70-110) mg/dL Total Bilirubin (0.2-1.3) mg/dL AST (17-59) U/L ALT (4-49) U/L Total Protein (6.3-8.2) g/dL 04/09/25 04/10/25 04/10/25 Range/Units 19:59 05:19 05:19 WBC 13.43 H (4.50-10.00) 10*3/uL RBC 2.06 L (4.40-5.60) 10*6/uL Hgb 7.0 L (13.0-17.0) g/dL Hct 22.5 L (39.6-50.0) % MCV 109.2 H (80.0-97.0) fL MCH 34.0 H (27.0-32.0) pg MCHC 31.1 L (32.0-37.0) g/dL Plt Count 126 L (140-440) 10*3/uL MPV 12.6 H (9.5-12.2) fL Sodium 132 L (137-145) mmol/L BUN 34 H (9-20) mg/dL Glucose 108 H (74-99) mg/dL POC Glucose (mg/dL) 159 H (70-110) mg/dL Total Bilirubin 1.9 H (0.2-1.3) mg/dL AST 117 H (17-59) U/L ALT 108 H (4-49) U/L Total Protein 5.8 L (6.3-8.2) g/dL 04/10/25 Range/Units 05:57 WBC (4.50-10.00) 10*3/uL RBC (4.40-5.60) 10*6/uL Hgb (13.0-17.0) g/dL Hct (39.6-50.0) % MCV (80.0-97.0) fL MCH (27.0-32.0) pg MCHC (32.0-37.0) g/dL Plt Count (140-440) 10*3/uL MPV (9.5-12.2) fL Sodium (137-145) mmol/L BUN (9-20) mg/dL Glucose (74-99) mg/dL POC Glucose (mg/dL) 128 H (70-110) mg/dL Total Bilirubin (0.2-1.3) mg/dL AST (17-59) U/L ALT (4-49) U/L Total Protein (6.3-8.2) g/dL Assessment and Plan Assessment: Aortic valvular insufficiency, status post aortic valve replacement with bovine valve, biatrial modified Smith-Maze procedure, occlusion of left atrial appendage. Acute anaphylactic reaction suspected related to propofol Acute blood loss anemia with thrombocytopenia, postoperative, expected outcome Chronic atrial fibrillation Hypertension Obstructive sleep apnea Obesity, BMI 32 Alcohol use, 2 beers nightly Plan: Continue on current medication regimen ,monitoring and symptomatic t reatment. Maintain aggressive pulmonary toileting with incentive spirometer reinforced. Close monitoring of hemoglobin, platelets with repeat labs ordered for a.m. increase ambulation as tolerated. Maintain tight glycemic control, now on NovoLog sliding scale. PT/OT. The impression and plan of care has been dictated as directed. : I performed a history and examination of this patient, discussed the same with the dictator. I agree with the dictator's note ,documented as a scribe. Any additional findings or plans will be noted.
[2025-04-10 11:12] LABS: Glucose,Whole Blood 151 mg/dL (70-110)
[2025-04-10] MEDS: DEXTROSE 5% IN WATER 100 ML with AMIODARONE 150 MG IV PRN (11:27)
[2025-04-10] MEDS: AMIODARONE 360 MG in DEXTROSE 5% IN WATER 200 ML IV PRN (11:45)
--- NOTE | 2025-04-10 15:48 | P.PN ---
Subjective Progress Note Date: 04/10/25 Principal diagnosis: POD #4 aortic valve replacement with 25 mm Inspiris bovine pericardial valve prosthesis, biatrial modified Smith-Maze procedure with full lesion set and occlusion of the left atrial appendage with 40 mm AtriCure clip, transesophageal echocardiogram by anesthesia This is a 74-year-old male patient underwent aortic valve replacement utilizing an Inspiris bovine pericardial valve prosthesis and the patient also had a modified Smith-Maze procedure and occlusion of the left atrial appendage. Postop, the patient was kept intubated, sedated with propofol and the patient was brought into the intensive care unit. Upon arrival to the ICU, the patient seemed to be in anaphylaxis. The patient had developed a maculopapular rash throughout her body and she was also having increase in facial swelling, eye swelling, lip swelling and hypotension. Anaphylaxis was suspected and this was probably drug-induced and only medications was introduced. Was propofol. Immediately, propofol was discontinued. The patient was given a total of 4 doses of IV albumin 5%, Benadryl 50 mg IV and Solu-Medrol 125 mg IV. The patient was also started on low-dose norepinephrine. Noted the patient SVR was quite low at 400 and improved. SVR is at 958. Immediately a chest x-ray was done and the patient showed no evidence of any pneumothorax. ET tube and the rest of the chest tubes are all in good location. [place]-Issac catheter was also in good location. No significant abnormalities identified. At this point in time, the patient is intubated mechanical ventilator assist-control mode rate of 14, tidal volume of 500, FiO2 100% with a PEEP of 8. Blood gas showed a pH of 7.3 with a PCO2 of 43 and pO2 of 65. Output from the mediastinal and left lower chest tube were minimal. The patient is currently in a paced rhythm, DDD pacing at a rate of 80. Noted underlying rhythm is junctional. He is on milrinone at 0.2 mcg and epinephrine drip at 0.04 mcg and the most recent cardiac output is at 5 with an index of 2.8 with PA pressures of 48/27 and SVR of 958. Urine output is adequate for now. The white cell count of 14.7 with a hemoglobin 8.4 and a platelet count of 87. INR is at 1.5 with a PT of 15.8. Sodium is at 139, potassium is at 4.5, BUN 30 with a 0.7. LFTs Are Normal. Ionized Calcium Is at 4.5. Blood Sugar Is at 141. On 04/07/2025, the patient is postop to a #1. The patient was weaned off the mechanical ventilator and the patient was extubated without any major difficulties and the patient is awake and alert and sitting up in a chair. He i s calm and comfortable. The patient underwent an aortic valve replacement surgery with a pericardial bovine prosthesis. He is initial cardiac rhythm was junctional and the patient required AV pacing and his current rhythm is sinus and the patient's pacer has been placed to VVI backup at rate of 60. The patient also was requiring low-dose epinephrine for symptoms and signs of anaphylaxis/drug-induced and this has been discontinued. The patient remains on Primacor running at 0.2 mcg/kg/min. Insulin drip is at 6 units an hour. Cardiac rhythm is sinus. The PA pressure is 47/16 mmHg and the cardiac output is 6.2 with an index of 3.5 and the patient is currently on 2 L of oxygen by nasal cannula, pulling approximately 1000 on his incentive spirometer. He has a left IJ [place]-Issac catheter. He has a mediastinal left lower chest tube and output he is noted and the left pleural chest tube is drained around 350 cc in surgery and mediastinal chest tube has drained approximately 650 cc since surgery. The patient is awake alert and communicating. No tongue swelling. No lip swelling. No stridor. The hemoglobin is at 7 with a white cell count of 7 and a platelet count of 100. BUN is 14 with a creatinine of 0.7 and sodium levels at 139 and a potassium level is at 4.2. The patient is currently on aspirin and Plavix. The patient is also started on Zestril 5 mg p.o. daily. Beta-blockers have not been initiated yet. Remains on Lipitor 10 mg p.o. daily. On 04/08/2025, the patient is being seen for a follow-up. The patient is postop day #2. The patient is extubated the patient is doing well and remains on room air oxygen. He remains on Primacor and this was weaned down to 0.1 mcg/kg/min and the patient cardiac output is 5.7 with an index of 3.2. He denies having any significant shortness of breath. Denies having any chest pain. Hemoglobin today is at 6.[address] surgery is on the case. They have decided not to transfuse as at this point in time. Meanwhile, the cardiac rhythm is back to sinus. The patient has a backup VVI pacemaker at rate of 60. The platelet co unt is 87 and the HIT panel was sent and the patient is currently under x-ray. Platelet count is being monitored. Insulin drip remains at 5 units an hour. Rest of the blood work and electrolytes showed an acute kidney injury with a BUN of 24 1.3. sodium levels at 135 potassium levels of 4.2. follow-up chest x-ray from today shows no acute cardiopulmonary process. there is cardiomegaly and po stoperative changes noted bilaterally. On 04/09/2025, the patient is being seen for a follow-up. The patient is sitting up in a chair and the patient is currently on 2 L of oxygen by nasal cannula. T he patient's hemoglobin currently is at 6.7 and the patient will likely need a unit of packed RBC. The patient was taken off the methadone this morning. Remains on insulin drip at 2 units an hour. [place]-Issac catheter has been removed. The patient otherwise has no specific complaints. Chest x-ray shows adequate summation of both lungs. White cell count of 12.2 with a hemoglobin of 6.7 and a platelet count of 101. Electrolytes are normal, BUN 33 with a creatinine of 1.45. LFTs are mildly elevated Seen today on 04/10/2025, patient is doing well, relatively asymptomatic, in no distress, on room air, hemodynamically stable, not requiring any pressors or any inotropes, chest x-ray showed minimal linear atelectasis in the left midlung and cardiomegaly. No evidence of pneumonia or pulmonary edema. WBC is 13.4 hemoglobin is 7 electrolytes are normal renal profile showed a BUN of 34 creati nine 1.19, platelets are 1 26,000. Liver enzymes are borderline elevated blood sugar is 108. Objective - Vital Signs Vital signs: Vital Signs Temp 97.5 F L 04/10/25 08:00 Pulse 74 04/10/25 15:38 Resp 18 04/10/25 11:00 BP 112/77 04/10/25 11:00 Pulse Ox 96 04/10/25 11:00 FiO2 40 04/06/25 18:30 Intake & Output 04/09/25 04/10/25 04/10/25 18:59 06:59 18:59 Intake Total 949 100 Output Total 760 2100 Balance 189 -2000 Weight 90.1 kg Intake: IV 299 100 Pressure Bag 39 Sodium Chloride 0.9% 1, 260 000 ml @ 20 mls/hr IV . Q24H [facility] Rx#:[id number] Sodium Ferric Gluconat- 100 Sucrose 125 mg In Sodium Chloride 0.9% 100 ml @ 100 mls/hr IVPB ONCE ONE Rx#:[id number] Oral 650 Output: Urine 760 2100 Other: # Voids 1 ABP, PAP, CO, CI - Last Documented Arterial Blood Pressure 123/55 Pulmonary Artery Pressure 57/15 Cardiac Output 5.7 Cardiac Index 3.2 - Exam GENERAL: Physical exam reveals 74-year-old white male in no distress Head: Atraumatic, normocephalic HEENT: Normocephalic, atraumatic, conjunctivae normal. eyes normal. MMM. NECK: Supple, no JVD. CARDIOVASCULAR: Distant S1-S2, no S3 gallop, no murmur. RESPIRATION: Clear bilaterally no rhonchi no wheezes ABDOMEN: Soft nontender no megaly no rebound no guarding LEGS: No edema. no swelling NERVOUS SYSTEM: Alert oriented x 3 no focal deficit Skin: No rashes - Labs CBC & Chem 7: 04/10/25 05:19 04/10/25 05:19 Labs: Abnormal Lab Results - Last 24 Hours (Table) 04/09/25 04/09/25 04/10/25 Range/Units 16:04 19:59 05:19 WBC 13.43 H (4.50-10.00) 10*3/uL RBC 2.06 L (4.40-5.60) 10*6/uL Hgb 7.0 L (13.0-17.0) g/dL Hct 22.5 L (39.6-50.0) % MCV 109.2 H (80.0-97.0) fL MCH 34.0 H (27.0-32.0) pg MCHC 31.1 L (32.0-37.0) g/dL Plt Count 126 L (140-440) 10*3/uL MPV 12.6 H (9.5-12.2) fL Sodium (137-145) mmol/L BUN (9-20) mg/dL Glucose (74-99) mg/dL POC Glucose (mg/dL) 145 H 159 H (70-110) mg/dL Total Bilirubin (0.2-1.3) mg/dL AST (17-59) U/L ALT (4-49) U/L Total Protein (6.3-8.2) g/dL 04/10/25 04/10/25 04/10/25 Range/Units 05:19 05:57 11:11 WBC (4.50-10.00) 10*3/uL RBC (4.40-5.60) 10*6/uL Hgb (13.0-17.0) g/dL Hct (39.6-50.0) % MCV (80.0-97.0) fL MCH (27.0-32.0) pg MCHC (32.0-37.0) g/dL Plt Count (140-440) 10*3/uL MPV (9.5-12.2) fL Sodium 132 L (137-145) mmol/L BUN 34 H (9-20) mg/dL Glucose 108 H (74-99) mg/dL POC Glucose (mg/dL) 128 H 151 H (70-110) mg/dL Total Bilirubin 1.9 H (0.2-1.3) mg/dL AST 117 H (17-59) U/L ALT 108 H (4-49) U/L Total Protein 5.8 L (6.3-8.2) g/dL Assessment and Plan Assessment: Impression: Aortic valve replacement with a bovine tissue valve and the patient also un derwent a modified Smith-Maze procedure and occlusion of the left atrial appendage in the patient's postoperative #4 Anaphylaxis secondary to propofol/drug-induced. Junctional rhythm postop, expected outcome of surgery and the patient is back into normal sinus rhythm. History of atrial fibrillation, current rhythm is sinus Coronary artery disease Hypertension History of obstructive sleep apnea maintained on CPAP therapy History of colon polyps Degenerative arthritis Thrombocytopenia, expected outcome of surgery Blood loss anemia, expected outcome of surgery Recommendation: Continue present supportive care measures Continue incentive spirometry Continue ambulation Chest tubes have been removed Continue GI and DVT prophylaxis Will follow as needed Time with Patient: Less than 30
--- NOTE | 2025-04-10 16:24 | P.PN ---
Subjective Progress Note Date: 04/10/25 HPI: [This gentleman is status post aortic valve replacement with a tissue valve. He has no significant obstructive CAD. 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 Hemodynamically stable seems to be doing, remains in atrial fibrillation rate is well-controlled hemodynamically stable. I am recommending that we continue current medical regimen incentive spirometry and pulmonary toilet. His Eliquis needs to be resumed I will leave that to cardiac surgery. Would recommend that we continue incentive spirometry pulmonary time]. PHYSICIAL EXAM: [Vitals are stable no JVD S1-S2 with ejection systolic murmur lungs reveal fairly decent air entry abdomen is soft Central nervous system no focal deficits.]. IMPRESSION: 1. [Status post aortic valve replacement, Smith-Maze procedure postop day 4]. 2. [Persistent atrial fibrillation. 3. []. 4. []. 5. []. RECOMMENDATIONS: [Continue current medications incentive spirometry and Eliquis to be restarted as soon as possible I will leave this up to cardiac surgery.]. Objective - Vital Signs Vital signs: Vital Signs Temp 97.5 F L 04/10/25 08:00 Pulse 74 04/10/25 15:38 Resp 18 04/10/25 11:00 BP 112/77 04/10/25 11:00 Pulse Ox 96 04/10/25 11:00 FiO2 40 04/06/25 18:30 Intake & Output 04/09/25 04/10/25 04/10/25 18:59 06:59 18:59 Intake Total 949 100 0 Output Total 760 2100 1035 Balance 189 -1999 -1035 Weight 90.1 kg Intake: IV 299 100 0 Pressure Bag 39 0 Sodium Chloride 0.9% 1, 260 000 ml @ 20 mls/hr IV . Q24H [facility] Rx#:[id number] Sodium Ferric Gluconat- 100 Sucrose 125 mg In Sodium Chloride 0.9% 100 ml @ 100 mls/hr IVPB ONCE ONE Rx#:[id number] Oral 650 Output: Urine 760 2100 1035 Other: # Voids 1 ABP, PAP, CO, CI - Last Documented Arterial Blood Pressure 123/55 Pulmonary Artery Pressure 57/15 Cardiac Output 5.7 Cardiac Index 3.2 - Labs CBC & Chem 7: 04/10/25 05:19 04/10/25 05:19 Labs: Abnormal Lab Results - Last 24 Hours (Table) 04/09/25 04/10/25 04/10/25 Range/Units 19:59 05:19 05:19 WBC 13.43 H (4.50-10.00) 10*3/uL RBC 2.06 L (4.40-5.60) 10*6/uL Hgb 7.0 L (13.0-17.0) g/dL Hct 22.5 L (39.6-50.0) % MCV 109.2 H (80.0-97.0) fL MCH 34.0 H (27.0-32.0) pg MCHC 31.1 L (32.0-37.0) g/dL Plt Count 126 L (140-440) 10*3/uL MPV 12.6 H (9.5-12.2) fL Sodium 132 L (137-145) mmol/L BUN 34 H (9-20) mg/dL Glucose 108 H (74-99) mg/dL POC Glucose (mg/dL) 159 H (70-110) mg/dL Total Bilirubin 1.9 H (0.2-1.3) mg/dL AST 117 H (17-59) U/L ALT 108 H (4-49) U/L Total Protein 5.8 L (6.3-8.2) g/dL 04/10/25 04/10/25 Range/Units 05:57 11:11 WBC (4.50-10.00) 10*3/uL RBC (4.40-5.60) 10*6/uL Hgb (13.0-17.0) g/dL Hct (39.6-50.0) % MCV (80.0-97.0) fL MCH (27.0-32.0) pg MCHC (32.0-37.0) g/dL Plt Count (140-440) 10*3/uL MPV (9.5-12.2) fL Sodium (137-145) mmol/L BUN (9-20) mg/dL Glucose (74-99) mg/dL POC Glucose (mg/dL) 128 H 151 H (70-110) mg/dL Total Bilirubin (0.2-1.3) mg/dL AST (17-59) U/L ALT (4-49) U/L Total Protein (6.3-8.2) g/dL
[2025-04-10 16:59] LABS: Glucose,Whole Blood 137 mg/dL (70-110)
--- NOTE | 2025-04-10 17:06 | P.PN ---
Subjective Progress Note Date: 04/10/25 Principal diagnosis: Aortic valvular insufficiency, chronic atrial fibrillation. Past medical history significant for chronic persistent atrial fibrillation with previous unsuccessful cardioversion on [facility] outpatient for anticoagulation, hypertension, obstructive sleep apnea, lifelong non-smoker, drinks 2 beers per night. POD #4 aortic valve replacement with 25 mm Inspiris bovine pericardial valve prosthesis, biatrial modified Smith-Maze procedure with full lesion set and occlusion of the left atrial appendage with 40 mm AtriCure clip, transesophageal echocardiogram by anesthesia Acute anaphylactic reaction, thought to be from propofol. Postoperative acute blood loss anemia and thrombocytopenia, expected given hemodilution and cardiopulmonary bypass pump. Junctional rhythm which is somewhat expected with aortic valve replacement and biatrial modified Smith-Maze procedure, currently normal sinus rhythm. Paroxysmal atrial fibrillation, a known common occurrence after cardiac surgery and the patient history of persistent atrial fibrillation. The patient was seen and examined in follow-up today April 10, 2025 at his bedside in the intensive care unit. He is currently sitting at the bedside chair, is awake, alert, oriented x 3 and is in no acute apparent distress. Denies any complaints of pain or shortness of breath at this time. He has been up ambulating in the intensive care unit hallway with standby assistance nursing and therapy staff and tolerating well. Oxygen saturations are 98% on 2 L nasal cannula and he is achieving 1500 mL on his incentive spirometry with encouragement. Bedside telemetry is showing atrial fibrillation heart rate 96 bpm, he has received 1 bolus of amiodarone 150 mg for the atrial fibrillation. Atrial and ventricular epicardial pacemaker wires remain in place and are currently grounded. Laboratory results and chest x-ray results reviewed. Objective - Vital Signs Vital signs: Vital Signs Temp 97.8 F 04/10/25 04:00 Pulse 62 04/10/25 04:00 Resp 18 04/10/25 04:00 BP 148/90 04/10/25 04:00 Pulse Ox 98 04/10/25 04:00 FiO2 40 04/06/25 18:30 Intake & Output 04/09/25 04/10/25 04/10/25 18:59 06:59 18:59 Intake Total 949 100 Output Total 760 2100 Balance 189 -2000 Weight 90.1 kg Intake: IV 299 100 Pressure Bag 39 Sodium Chloride 0.9% 1, 260 000 ml @ 20 mls/hr IV . Q24H [facility] Rx#:[id number] Sodium Ferric Gluconat- 100 Sucrose 125 mg In Sodium Chloride 0.9% 100 ml @ 100 mls/hr IVPB ONCE ONE Rx#:[id number] Oral 650 Output: Urine 760 2100 Other: # Voids 1 ABP, PAP, CO, CI - Last Documented Arterial Blood Pressure 123/55 Pulmonary Artery Pressure 57/15 Cardiac Output 5.7 Cardiac Index 3.2 - Exam CONSTITUTIONAL: Appears comfortable, cooperative, no acute distress RESPIRATORY: Lungs sounds diminished bilaterally. Respirations symmetrical, nonlabored. Currently on 2 L nasal cannula with oxygen saturation 98%. Able to achieve 1250 mL on his incentive spirometry. Strong cough. CARDIOVASCULAR: S1, S2 present. Irregular rate and rhythm, atrial fibrillation on telemetry, heart rate 96 bpm. Sternum stable. Palpable peripheral pulses bilaterally. No edema present. No calf pain or tenderness noted. Heart hugger in place with patient demonstrating appropriate use. Antiembolism stockings, SCDs present. GASTROINTESTINAL: Abdomen soft, nontender, nondistended. Active bowel sounds present 4 quadrants. Tolerating clear liquid diet. Passing flatus. GENITOURINARY: Continues to void. Urine output 1600 mL in the last 8 hours. INTEGUMENTARY: Skin is warm and dry with no clubbing or cyanosis present. Midline sternal incision well approximated and covered with dry intact dressing. NEUROLOGIC: Cranial nerves II through XII intact. No focal deficits. MUSKULOSKELETAL: Able to move all extremities, strength equal bilaterally, gait normal. PSYCHIATRIC: Alert and oriented to person place and time, appropriate affect, intact judgment and insight. INVASIVE LINES AND TUBES: Atrial and ventricular epicardial pacemaker wires present, pacemaker wires are currently grounded. - Allied health notes Allied health notes reviewed: nursing - Labs CBC & Chem 7: 04/10/25 05:19 04/10/25 05:19 Labs: Abnormal Lab Results - Last 24 Hours (Table) 04/09/25 04/09/25 04/09/25 Range/Units 05:53 07:56 09:14 WBC 12.24 H (4.50-10.00) 10*3/uL RBC 1.96 L (4.40-5.60) 10*6/uL Hgb 6.7 L* (13.0-17.0) g/dL Hct 21.9 L (39.6-50.0) % MCV 111.7 H (80.0-97.0) fL MCH 34.2 H (27.0-32.0) pg MCHC 30.6 L (32.0-37.0) g/dL Plt Count 101 L (140-440) 10*3/uL MPV (9.5-12.2) fL Immature Gran # 2.49 H (0.00-0.04) 10*3/uL Monocytes # (Manual) 3.06 H (0-1.0) k/uL Nucleated RBCs 10 H (0-0) /100 WBC Sodium (137-145) mmol/L BUN (9-20) mg/dL Glucose (74-99) mg/dL POC Glucose (mg/dL) 127 H 136 H (70-110) mg/dL Total Bilirubin (0.2-1.3) mg/dL AST (17-59) U/L ALT (4-49) U/L Total Protein (6.3-8.2) g/dL 04/09/25 04/09/25 04/09/25 Range/Units 11:18 16:04 19:59 WBC (4.50-10.00) 10*3/uL RBC (4.40-5.60) 10*6/uL Hgb (13.0-17.0) g/dL Hct (39.6-50.0) % MCV (80.0-97.0) fL MCH (27.0-32.0) pg MCHC (32.0-37.0) g/dL Plt Count (140-440) 10*3/uL MPV (9.5-12.2) fL Immature Gran # (0.00-0.04) 10*3/uL Monocytes # (Manual) (0-1.0) k/uL Nucleated RBCs (0-0) /100 WBC Sodium (137-145) mmol/L BUN (9-20) mg/dL Glucose (74-99) mg/dL POC Glucose (mg/dL) 130 H 145 H 159 H (70-110) mg/dL Total Bilirubin (0.2-1.3) mg/dL AST (17-59) U/L ALT (4-49) U/L Total Protein (6.3-8.2) g/dL 04/10/25 04/10/25 04/10/25 Range/Units 05:19 05:19 05:57 WBC 13.43 H (4.50-10.00) 10*3/uL RBC 2.06 L (4.40-5.60) 10*6/uL Hgb 7.0 L (13.0-17.0) g/dL Hct 22.5 L (39.6-50.0) % MCV 109.2 H (80.0-97.0) fL MCH 34.0 H (27.0-32.0) pg MCHC 31.1 L (32.0-37.0) g/dL Plt Count 126 L (140-440) 10*3/uL MPV 12.6 H (9.5-12.2) fL Immature Gran # (0.00-0.04) 10*3/uL Monocytes # (Manual) (0-1.0) k/uL Nucleated RBCs (0-0) /100 WBC Sodium 132 L (137-145) mmol/L BUN 34 H (9-20) mg/dL Glucose 108 H (74-99) mg/dL POC Glucose (mg/dL) 128 H (70-110) mg/dL Total Bilirubin 1.9 H (0.2-1.3) mg/dL AST 117 H (17-59) U/L ALT 108 H (4-49) U/L Total Protein 5.8 L (6.3-8.2) g/dL - Imaging and Cardiology Chest x-ray: report reviewed, image reviewed Assessment and Plan Assessment: Aortic valvular insufficiency, status post aortic valve replacement Chronic atrial fibrillation, status post biatrial modified Smith-Maze procedure with full lesion set and occlusion of the left atrial appendage with 40 mm AtriCure clip Acute anaphylactic reaction, thought to be from propofol, off epinephrine drip Postoperative acute blood loss anemia and thrombocytopenia, expected given hemod ilution and cardiopulmonary bypass pump Junctional rhythm which is somewhat expected with aortic valve replacement and modified Smith-Maze procedure, currently normal sinus rhythm Acute kidney injury, possibly secondary to hypotension Paroxysmal atrial fibrillation, a known common occurrence after cardiac surgery, especially given the patient's history of persistent atrial fibrillation History of chronic persistent atrial fibrillation with previous unsuccessful cardioversion on [facility] outpatient for anticoagulation Hypertension Obstructive sleep apnea Lifelong non-smoker Drinks 2 beers per night Plan: Continue to maximize medical therapy with aspirin, Plavix, statin and beta- nafisa. Metoprolol to tartrate 12.5 mg p.o. twice daily with hold parameters. Continue lisinopril 5 mg p.o. daily for afterload reduction. Will drop aspirin to baby aspirin, will discontinue Plavix, and restart Eliquis after all lines and tubes have been discontinued. Wean oxygen as tolerated. Encourage incentive spirometry use 10 times every hour while awake. Bronchodilators per pulmonology. Continue epicardial pacemaker at VVI mode with backup rate 50 bpm. Will monitor daily labs and chest x-rays, electrolyte replacement per protocol. Increase activity, ambulate as tolerated. PT/OT/cardiac rehab following. GI/DVT prophylaxis. Pain control per current medication regimen. Insulin management per internal medicine. Patient is not diabetic, preoperative hemoglobin A1c 5.6%. Continue to monitor record strict accurate intake and output. May bladder scan every 6 hours and as needed postvoid residuals, if greater than 300 mL of urine may straight cath. Transferred to the third floor cardiac stepdown unit when bed available. More recommendations to follow based on patient's clinical course. Time with Patient: Greater than 30
[2025-04-10] MEDS: AMIODARONE 450 MG in DEXTROSE 5% IN WATER 250 ML IV PRN (17:49)
[2025-04-10 20:36] LABS: Glucose,Whole Blood 177 mg/dL (70-110)
[2025-04-11 06:03] LABS: Glucose,Whole Blood 134 mg/dL (70-110)
[2025-04-11 07:16] LABS: HGB 7.5 g/dL (13.0-17.0); MCH 34.4 pg (27.0-32.0); MCHC 31.3 g/dL (32.0-37.0); MCV 110.1 fL (80.0-97.0); Mean Platelet Volume 11.8 fL (9.5-12.2); Platelet Count 147 10*3/uL (140-440); RBC 2.18 10*6/uL (4.40-5.60)
[2025-04-11 07:46] LABS: ALT 100 U/L (4-49); AST 80 U/L (17-59); African American GFR (CKD) >90 (>60 ml/min/1.73 sqM); Albumin 3.6 g/dL (3.5-5.0); Alkaline Phosphatase 88 U/L (38-126); Anion Gap 8 mmol/L; Blood Urea Nitrogen 22 mg/dL (9-20); Calcium 8.8 mg/dL (8.4-10.2); Carbon Dioxide 26 mmol/L (22-30); Chloride 101 mmol/L (98-107); Glucose 118 mg/dL (74-99); Non-African American GFR(CKD) 80 (>60 ml/min/1.73 sqM); Potassium 4.1 mmol/L (3.5-5.1); Sodium 135 mmol/L (137-145); Total Protein 5.9 g/dL (6.3-8.2)
--- NOTE | 2025-04-11 07:46 | XR ---
EXAMINATION TYPE: XR chest 2V DATE OF EXAM: 04/11/2025 6:25 AM COMPARISON: Multiple radiographs, with the most recent on 04/10/2025 TECHNIQUE: XR chest 2V Frontal and lateral views of the chest. CLINICAL INDICATION:Male, 74 years old with history of post op AVR; FINDINGS: Lungs/Pleura: Trace bilateral pleural effusions. No pneumothorax. Left midlung linear atelectasis. Pulmonary vascularity: Pulmonary vascular congestion. Heart/mediastinum: Cardiomediastinal silhouette is enlarged and stable. Postsurgical changes from ao rtic valvular replacement. Left atrial appendage occlusion devices present. Musculoskeletal: No acute osseous pathology. Midline sternotomy wires are noted and stable. IMPRESSION: Cardiomegaly, pulmonary vascular congestion and trace bilateral pleural effusions. Correlate with BNP for congestive heart failure. [facility], , 04/11/2025 7:43 AM
[2025-04-11] MEDS ORDERED: METOPROLOL TARTRATE 25 MG TAB PO SCH (09:00)
[2025-04-11 09:20] LABS: Basophils # (M) 0.12 k/uL (0-0.2); Lymphocytes # (M) 4.27 k/uL (1.0-4.8); Monocytes # (M) 3.23 k/uL (0-1.0); Neutrophils # (M) 4.04 k/uL (1.3-7.7); Neutrophils % (M) 35 %; Nucleated Red Blood Cells 10 /100 WBC (0-0); Total Cells Counted 200; WBC 11.53 10*3/uL (4.50-10.00)
[2025-04-11] MEDS: FUROSEMIDE 10 MG/ML 2 ML VIAL IV ONE (10:22)
[2025-04-11] MEDS: POTASSIUM CHLORIDE ER 10 MEQ TAB.ER.PRT PO STA (10:22)
[2025-04-11] MEDS: METOPROLOL TARTRATE 50 MG TAB PO SCH (10:22)
--- NOTE | 2025-04-11 10:44 | P.PN ---
Subjective HPI: [This gentleman is status post aortic valve replacement with a tissue valve. He has no significant obstructive CAD. 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 Hemodynamically stable seems to be doing, remains in atrial fibrillation rate is well-controlled hemodynamically stable. I am recommending that we continue current medical regimen incentive spirometry and pulmonary toilet. His Eliquis needs to be resumed I will leave that to cardiac surgery. Would recommend that we continue incentive spirometry pulmonary time]. 04/11/2025 Patient seen and examined sitting up in the recliner no acute distress. He is using his incentive spirometer as recommended. Blood pressure 135/83 heart rate 108 afebrile maintaining oxygen saturation on room air. Telemetry tracings reveal persistent atrial fibrillation with variable rates. PHYSICAL EXAMINATION CONSTITUTIONAL: No apparent distress. HEENT: Head is normocephalic. Pupils are equal, round. Sclerae anicteric. Mucous membranes of the mouth are moist. No JVD. No carotid bruit. CHEST EXAMINATION: Lungs are clear to auscultation. No chest wall tenderness is noted on palpation or with deep breathing. HEART EXAMINATION: Irregular rate and rhythm. S1, S2 heard. Systolic ejection murmur at the base, no gallops or rub. Surgical incision site intact. No signs of drainage or infection. ABDOMEN: Soft, nontender. EXTREMITIES: 2+ peripheral pulses, no lower extremity edema and no calf tenderness. NEUROLOGIC EXAMINATION: Patient is awake, alert and oriented x3. ASSESSMENT Status post aortic valve replacement Persistent atrial fibrillation PLAN Increase metoprolol to 50 mg twice daily. Resume Eliquis once CT surgery removes pacemaker wires. Further recommendations to follow based upon clinical course. Nurse Practitioner note has been reviewed, I agree with a documented findings and plan of care. Patient was seen and examined. Objective - Vital Signs Vital signs: Vital Signs Temp 98.3 F 04/11/25 08:00 Pulse 108 H 04/11/25 08:47 Resp 14 04/11/25 08:00 BP 135/83 04/11/25 08:00 Pulse Ox 96 04/11/25 08:00 FiO2 40 04/06/25 18:30 Intake & Output 04/10/25 04/11/25 04/11/25 18:59 06:59 18:59 Intake Total 0 218.615 Output Total 1185 650 Balance -1185 -431.385 Weight 89 kg Intake: IV 0 Pressure Bag 0 Intake, IV Titration 218.615 Amount Amiodarone 450 mg In 218.615 Dextrose 5% in Water 250 ml @ 0.5 MG/MIN 16.667 mls/hr IV .Q15H PRN Rx#: [id number] Output: Urine 1185 650 Other: Voiding Method Urinal ABP, PAP, CO, CI - Last Documented Arterial Blood Pressure 123/55 Pulmonary Artery Pressure 57/15 Cardiac Output 5.7 Cardiac Index 3.2 - Labs CBC & Chem 7: 04/11/25 06:44 04/11/25 06:44 Labs: Abnormal Lab Results - Last 24 Hours (Table) 04/10/25 04/10/25 04/10/25 Range/Units 11:11 16:57 20:34 WBC (4.50-10.00) 10*3/uL RBC (4.40-5.60) 10*6/uL Hgb (13.0-17.0) g/dL Hct (39.6-50.0) % MCV (80.0-97.0) fL MCH (27.0-32.0) pg MCHC (32.0-37.0) g/dL Immature Gran # (0.00-0.04) 10*3/uL Monocytes # (Manual) (0-1.0) k/uL Nucleated RBCs (0-0) /100 WBC Sodium (137-145) mmol/L BUN (9-20) mg/dL Glucose (74-99) mg/dL POC Glucose (mg/dL) 151 H 137 H 177 H (70-110) mg/dL Total Bilirubin (0.2-1.3) mg/dL AST (17-59) U/L ALT (4-49) U/L Total Protein (6.3-8.2) g/dL 04/11/25 04/11/25 04/11/25 Range/Units 06:02 06:44 06:44 WBC 11.53 H (4.50-10.00) 10*3/uL RBC 2.18 L (4.40-5.60) 10*6/uL Hgb 7.5 L (13.0-17.0) g/dL Hct 24.0 L (39.6-50.0) % MCV 110.1 H (80.0-97.0) fL MCH 34.4 H (27.0-32.0) pg MCHC 31.3 L (32.0-37.0) g/dL Immature Gran # 4.40 H (0.00-0.04) 10*3/uL Monocytes # (Manual) 3.23 H (0-1.0) k/uL Nucleated RBCs 10 H (0-0) /100 WBC Sodium 135 L (137-145) mmol/L BUN 22 H (9-20) mg/dL Glucose 118 H (74-99) mg/dL POC Glucose (mg/dL) 134 H (70-110) mg/dL Total Bilirubin 2.0 H (0.2-1.3) mg/dL AST 80 H (17-59) U/L ALT 100 H (4-49) U/L Total Protein 5.9 L (6.3-8.2) g/dL
--- NOTE | 2025-04-11 10:45 | P.PN ---
Subjective Progress Note Date: 04/11/25 Principal diagnosis: Aortic valvular insufficiency, chronic atrial fibrillation. Past medical history significant for chronic persistent atrial fibrillation with previous unsuccessful cardioversion on [facility] outpatient for anticoagulation, hypertension, obstructive sleep apnea, lifelong non-smoker, drinks 2 beers per night. POD #5 aortic valve replacement with 25 mm Inspiris bovine pericardial valve prosthesis, biatrial modified Smith-Maze procedure with full lesion set and occlusion of the left atrial appendage with 40 mm AtriCure clip, transesophageal echocardiogram by anesthesia Acute anaphylactic reaction, thought to be from propofol. Postoperative acute blood loss anemia and thrombocytopenia, expected given hemodilution and cardiopulmonary bypass pump. Junctional rhythm which is somewhat expected with aortic valve replacement and biatrial modified Smith-Maze procedure, currently normal sinus rhythm. Paroxysmal atrial fibrillation, a known common occurrence after cardiac surgery and the patient history of persistent atrial fibrillation. The patient was seen and examined in follow-up today April 11, 2025 at his bedside on the third floor cardiac stepdown unit. Patient is currently sitting up to the bedside chair, is awake, alert, oriented x 3 and is in no acute apparent distress. He denies any complaints of pain or shortness of breath at this time. He reports the current pain medication regimen is controlling his pain. Oxygen saturations are 96% on room air and he is achieving 1500 mL on his incentive spirometry. He has been afebrile in the last 24 hours. His atrial and ventricular epicardial pacemaker wires remain in place and are grounded. Remote telemetry is showing atrial fibrillation heart rate 116 bpm. He remains on metoprolol tartrate and amiodarone. He reports he has been up ambulating in the cardiac stepdown unit hallway with standby assistance nursing and therapy staff and tolerating well. Chest x-ray and laboratory results reviewed. Discharge planning is in place. Objective - Vital Signs Vital signs: Vital Signs Temp 98.3 F 04/11/25 08:00 Pulse 108 H 04/11/25 08:47 Resp 14 04/11/25 08:00 BP 135/83 04/11/25 08:00 Pulse Ox 96 04/11/25 08:00 FiO2 40 04/06/25 18:30 Intake & Output 04/10/25 04/11/25 04/11/25 18:59 06:59 18:59 Intake Total 0 218.615 Output Total 1185 650 Balance -1185 -431.385 Weight 89 kg Intake: IV 0 Pressure Bag 0 Intake, IV Titration 218.615 Amount Amiodarone 450 mg In 218.615 Dextrose 5% in Water 250 ml @ 0.5 MG/MIN 16.667 mls/hr IV .Q15H PRN Rx#: [id number] Output: Urine 1185 650 Other: Voiding Method Urinal ABP, PAP, CO, CI - Last Documented Arterial Blood Pressure 123/55 Pulmonary Artery Pressure 57/15 Cardiac Output 5.7 Cardiac Index 3.2 - Exam CONSTITUTIONAL: Appears comfortable, cooperative, no acute distress RESPIRATORY: Lungs sounds diminished bilaterally. Respirations symmetrical, nonlabored. Currently on room air with oxygen saturation 96%. Able to achieve 1500 mL on his incentive spirometry. Strong cough. CARDIOVASCULAR: S1, S2 present. Irregular rate and rhythm, atrial fibrillation on telemetry, heart rate 116 bpm. Sternum stable. Palpable peripheral pulses bilaterally. No edema present. No calf pain or tenderness noted. Heart hugger in place with patient demonstrating appropriate use. Antiembolism stockings, SCDs present. GASTROINTESTINAL: Abdomen soft, nontender, nondistended. Active bowel sounds present 4 quadrants. Tolerating clear liquid diet. Passing flatus. GENITOURINARY: Continues to void. Urine output 550 mL in the last 8 hours. INTEGUMENTARY: Skin is warm and dry with no clubbing or cyanosis present. Midline sternal incision well approximated and covered with dry intact dressing. NEUROLOGIC: Cranial nerves II through XII intact. No focal deficits. MUSKULOSKELETAL: Able to move all extremities, strength equal bilaterally, gait normal. PSYCHIATRIC: Alert and oriented to person place and time, appropriate affect, intact judgment and insight. INVASIVE LINES AND TUBES: Atrial and ventricular epicardial pacemaker wires present, pacemaker wires are currently grounded. - Allied health notes Allied health notes reviewed: nursing - Labs CBC & Chem 7: 04/11/25 06:44 04/11/25 06:44 Labs: Abnormal Lab Results - Last 24 Hours (Table) 04/10/25 04/10/25 04/10/25 Range/Units 11:11 16:57 20:34 WBC (4.50-10.00) 10*3/uL RBC (4.40-5.60) 10*6/uL Hgb (13.0-17.0) g/dL Hct (39.6-50.0) % MCV (80.0-97.0) fL MCH (27.0-32.0) pg MCHC (32.0-37.0) g/dL Immature Gran # (0.00-0.04) 10*3/uL Monocytes # (Manual) (0-1.0) k/uL Nucleated RBCs (0-0) /100 WBC Sodium (137-145) mmol/L BUN (9-20) mg/dL Glucose (74-99) mg/dL POC Glucose (mg/dL) 151 H 137 H 177 H (70-110) mg/dL Total Bilirubin (0.2-1.3) mg/dL AST (17-59) U/L ALT (4-49) U/L Total Protein (6.3-8.2) g/dL 04/11/25 04/11/25 04/11/25 Range/Units 06:02 06:44 06:44 WBC 11.53 H (4.50-10.00) 10*3/uL RBC 2.18 L (4.40-5.60) 10*6/uL Hgb 7.5 L (13.0-17.0) g/dL Hct 24.0 L (39.6-50.0) % MCV 110.1 H (80.0-97.0) fL MCH 34.4 H (27.0-32.0) pg MCHC 31.3 L (32.0-37.0) g/dL Immature Gran # 4.40 H (0.00-0.04) 10*3/uL Monocytes # (Manual) 3.23 H (0-1.0) k/uL Nucleated RBCs 10 H (0-0) /100 WBC Sodium 135 L (137-145) mmol/L BUN 22 H (9-20) mg/dL Glucose 118 H (74-99) mg/dL POC Glucose (mg/dL) 134 H (70-110) mg/dL Total Bilirubin 2.0 H (0.2-1.3) mg/dL AST 80 H (17-59) U/L ALT 100 H (4-49) U/L Total Protein 5.9 L (6.3-8.2) g/dL - Imaging and Cardiology Chest x-ray: report reviewed, image reviewed Assessment and Plan Assessment: Aortic valvular insufficiency, status post aortic valve replacement Chronic atrial fibrillation, status post biatrial modified Smith-Maze procedure with full lesion set and occlusion of the left atrial appendage with 40 mm AtriCure clip Acute anaphylactic reaction, thought to be from propofol, off epinephrine drip Postoperative acute blood loss anemia and thrombocytopenia, expected given hemodilution and cardiopulmonary bypass pump Junctional rhythm which is somewhat expected with aortic valve replacement and modified Smith-Maze procedure, currently normal sinus rhythm Acute kidney injury, possibly secondary to hypotension Paroxysmal atrial fibrillation, a known common occurrence after cardiac surgery, especially given the patient's history of persistent atrial fibrillation History of chronic persistent atrial fibrillation with previous unsuccessful cardioversion on [facility] outpatient for anticoagulation Hypertension Obstructive sleep apnea Lifelong non-smoker Drinks 2 beers per night Plan: Continue to maximize medical therapy with aspirin, Plavix, statin and beta- nafisa. Metoprolol tartrate increased to 50 mg p.o. twice daily with hold parameters. Continue lisinopril 5 mg p.o. daily for afterload reduction. Will drop aspirin to 81 mg p.o. daily, discontinue Plavix, and restart Eliquis 5 mg p.o. twice daily with first dose to be given this evening at 9 PM. His atrial and ventricular epicardial pacemaker wires were discontinued at 9:45 AM today. Lasix 20 mg IV x 1 now. Bedrest for 1 hour post pacemaker wire removal. Encourage incentive spirometry use 10 times every hour while awake. Bronchodilators per pulmonology. Will monitor daily labs and chest x-rays, electrolyte replacement per protocol. Increase activity, ambulate as tolerated. PT/OT/cardiac rehab following. GI/DVT prophylaxis. Pain control per current medication regimen. Insulin management per internal medicine. Patient is not diabetic, preoperative hemoglobin A1c 5.6%. Continue to monitor record strict accurate intake and output. May bladder scan every 6 hours and as needed postvoid residuals, if greater than 300 mL of urine may straight cath. Discharge planning is in place, anticipate discharge home with home health care in the next 24 hours. More recommendations to follow based on patient's clinical course. Time with Patient: Greater than 30
[2025-04-11 11:41] LABS: Glucose,Whole Blood 126 mg/dL (70-110)
--- NOTE | 2025-04-11 12:26 | P.PN ---
Subjective Progress Note Date: 04/11/25 - History of Present Illness 04/07/25 This is a pleasant 74-year-old gentleman admitted with severe symptomatic aortic insufficiency status post AVR with bovine valve, postop day #1. Tolerated procedure well. Extubated last night. Maintained on Primacor, epi and insulin drips. Apparently patient had acute anaphylactic reaction suspected related to diprovan and was placed on epi. Incentive spirometer up to 1000. Telemetry paced/sinus. Blood sugars controlled. Denies chest pain, palpitations or shortness of breath. Reports surgical pain controlled. 04/10/2025 sitting up in chair, incentive spirometer up to 1300. Chest x-ray reports cardiomegaly, mild linear atelectasis left midlung. Denies chest pain, palpitations or shortness of breath. Maintaining O2 sats in the 90s on room air. reports poor appetite. Blood sugars controlled. Received IV iron yesterday. hemoglobin 7, platelets 126. Bicarb 22, BUN 34, creatinine decreased ,1.19 denies lightheadedness dizziness or focal deficits. Reports ambulated in the hallway yesterday with staff, had to stop 3 times due to exertional shortness of breath. T. bili increased to 1.9, AST 117, ALT 108, alk phos 74. TSH 1.9. 04/11/2025 patient transferred out of ICU,currently on the stepdown unit. Telemetry atrial fibrillation in the 1 teens to low 100s, on amiodarone and metoprolol tartrate-dose increased. recently finished showering, tolerated exertion well. Pain controlled. Afebrile. Incentive spirometer 1500. Hemoglobin increased to 7.5, platelets 147. Blood sugars controlled. Objective - Vital Signs Vital signs: Vital Signs Temp 98.3 F 04/11/25 08:00 Pulse 108 H 04/11/25 08:47 Resp 14 04/11/25 08:00 BP 135/83 04/11/25 08:00 Pulse Ox 96 04/11/25 08:00 FiO2 40 04/06/25 18:30 Intake & Output 04/10/25 04/11/25 04/11/25 18:59 06:59 18:59 Intake Total 0 218.615 Output Total 1185 650 Balance -1185 -431.385 Weight 89 kg Intake: IV 0 Pressure Bag 0 Intake, IV Titration 218.615 Amount Amiodarone 450 mg In 218.615 Dextrose 5% in Water 250 ml @ 0.5 MG/MIN 16.667 mls/hr IV .Q15H PRN Rx#: [id number] Output: Urine 1185 650 Other: Voiding Method Urinal ABP, PAP, CO, CI - Last Documented Arterial Blood Pressure 123/55 Pulmonary Artery Pressure 57/15 Cardiac Output 5.7 Cardiac Index 3.2 - Exam VITAL SIGNS: [Reviewed] GENERAL: Alert and oriented x 3, sitting up, no acute distress. HEENT: Normocephalic, atraumatic, conjunctivae normal. eyes normal. MMM. NECK: Supple, no JVD. CARDIOVASCULAR: S1, S2. irregular, mild tachycardia.No murmur RESPIRATION: Unlabored, equal air entry, lungs diminished throughout. ABDOMEN: Soft, nondistended, nontender . No guarding. Positive bowel sounds. LEGS: No edema. no swelling NERVOUS SYSTEM: Cranial N 2-12 grossly normal. No focal deficits. Skin: Warm and dry, no rash . - Labs CBC & Chem 7: 04/11/25 06:44 04/11/25 06:44 Labs: Abnormal Lab Results - Last 24 Hours (Table) 04/10/25 04/10/25 04/10/25 Range/Units 11:11 16:57 20:34 WBC (4.50-10.00) 10*3/uL RBC (4.40-5.60) 10*6/uL Hgb (13.0-17.0) g/dL Hct (39.6-50.0) % MCV (80.0-97.0) fL MCH (27.0-32.0) pg MCHC (32.0-37.0) g/dL Immature Gran # (0.00-0.04) 10*3/uL Monocytes # (Manual) (0-1.0) k/uL Nucleated RBCs (0-0) /100 WBC Sodium (137-145) mmol/L BUN (9-20) mg/dL Glucose (74-99) mg/dL POC Glucose (mg/dL) 151 H 137 H 177 H (70-110) mg/dL Total Bilirubin (0.2-1.3) mg/dL AST (17-59) U/L ALT (4-49) U/L Total Protein (6.3-8.2) g/dL 04/11/25 04/11/25 04/11/25 Range/Units 06:02 06:44 06:44 WBC 11.53 H (4.50-10.00) 10*3/uL RBC 2.18 L (4.40-5.60) 10*6/uL Hgb 7.5 L (13.0-17.0) g/dL Hct 24.0 L (39.6-50.0) % MCV 110.1 H (80.0-97.0) fL MCH 34.4 H (27.0-32.0) pg MCHC 31.3 L (32.0-37.0) g/dL Immature Gran # 4.40 H (0.00-0.04) 10*3/uL Monocytes # (Manual) 3.23 H (0-1.0) k/uL Nucleated RBCs 10 H (0-0) /100 WBC Sodium 135 L (137-145) mmol/L BUN 22 H (9-20) mg/dL Glucose 118 H (74-99) mg/dL POC Glucose (mg/dL) 134 H (70-110) mg/dL Total Bilirubin 2.0 H (0.2-1.3) mg/dL AST 80 H (17-59) U/L ALT 100 H (4-49) U/L Total Protein 5.9 L (6.3-8.2) g/dL Assessment and Plan Assessment: Aortic valvular insufficiency, status post aortic valve replacement with bovine valve, biatrial modified Smith-Maze procedure, occlusion of left atrial appendage. Acute anaphylactic reaction suspected related to propofol Acute blood loss anemia with thrombocytopenia, postoperative, expected outcome Chronic atrial fibrillation Hypertension Obstructive sleep apnea Obesity, BMI 32 Alcohol use, 2 beers nightly Elevated LFTs, alcohol abstinence re-enforced. Hemoglobin A1c 5.6 Plan: Continue on current medication regimen ,monitoring and symptomatic treatment. Increase ambulation as tolerated. Aggressive pulmonary toileting with incentive spirometer reinforced. Close monitoring of hemoglobin, platelets, LFTs, electrolytes with repeat labs ordered for a.m. Alcohol abstinence reinforced. Pacemaker wires discontinued this morning, resuming Eliquis tonight. [facility] glycemic control. PT/OT. Discharge planning in progress as per CTS. The impression and plan of care has been dictated as directed. : I performed a history and examination of this patient, discussed the same with the dictator. I agree with the dictator's note ,documented as a scribe. Any additional findings or plans will be noted.
[2025-04-11] MEDS: bisacodyL 10 MG SUPP RECTAL STA (13:24)
[2025-04-11 16:36] LABS: Glucose,Whole Blood 102 mg/dL (70-110)
[2025-04-11 20:10] LABS: Glucose,Whole Blood 160 mg/dL (70-110)
[2025-04-11] MEDS: APIXABAN 5 MG TAB PO SCH (21:08)
[2025-04-12 05:04] VITALS: RESP 18
[2025-04-12 06:04] LABS: Glucose,Whole Blood 103 mg/dL (70-110)
[2025-04-12 07:23] LABS: HCT 25.2 % (39.6-50.0); HGB 7.8 g/dL (13.0-17.0); MCH 34.5 pg (27.0-32.0); Mean Platelet Volume 12.4 fL (9.5-12.2); Platelet Count 180 10*3/uL (140-440); RBC 2.26 10*6/uL (4.40-5.60); RDW 18.9 % (11.5-14.5); WBC 14.34 10*3/uL (4.50-10.00)
[2025-04-12 07:30] LABS: MCV 111.5 fL (80.0-97.0)
[2025-04-12 07:35] LABS: ALT 122 U/L (4-49); AST 87 U/L (17-59); African American GFR (CKD) >90 (>60 ml/min/1.73 sqM); Albumin 3.6 g/dL (3.5-5.0); Alkaline Phosphatase 84 U/L (38-126); Anion Gap 6 mmol/L; Blood Urea Nitrogen 19 mg/dL (9-20); Carbon Dioxide 27 mmol/L (22-30); Chloride 100 mmol/L (98-107); Glucose 103 mg/dL (74-99); Magnesium 2.1 mg/dL (1.6-2.3); Non-African American GFR(CKD) 84 (>60 ml/min/1.73 sqM); Potassium 3.8 mmol/L (3.5-5.1); Sodium 133 mmol/L (137-145)
--- NOTE | 2025-04-12 08:11 | XR ---
EXAMINATION TYPE: XR chest 2V DATE OF EXAM: 04/12/2025 6:46 AM COMPARISON: Chest radiograph from one day prior. CLINICAL INDICATION: Male, 74 years old with history of post op AVR; [facility] TECHNIQUE: XR chest 2V Frontal and lateral views of the chest. FINDINGS: Lungs/Pleura: There is no evidence of pleural effusion, focal consolidation, or pneumothorax. Pulmonary vascularity: Decrease in pulmonary edema on today's exam Heart/mediastinum: Cardiomediastinal silhouette is unremarkable. Post aortic valve repair changes. L eft atrial appendage occlusion device is present. Musculoskeletal: No acute osseous pathology. Other findings: None IMPRESSION: Stable exam post surgical changes with decreased pulmonary edema.. [facility], , 04/12/2025 8:09 AM
[2025-04-12] MEDS: MAGNESIUM HYDROXIDE 2,400 MG/30 ML CUP PO STA (09:44)
[2025-04-12] MEDS: ASPIRIN 81 MG PO SCH (09:45)
--- NOTE | 2025-04-12 11:16 | P.PN ---
Subjective HISTORY OF PRESENT ILLNESS: HPI: [This gentleman is status post aortic valve replacement with a tissue valve. He has no significant obstructive CAD. 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 Hemodynamically stable seems to be doing, remains in atrial fibrillation rate is well-controlled hemodynamically stable. I am recommending that we continue current medical regimen incentive spirometry and pulmonary toilet. His Eliquis needs to be resumed I will leave that to cardiac surgery. Would recommend that we continue incentive spirometry pulmonary time]. 04/11/2025 Patient seen and examined sitting up in the recliner no acute distress. He is using his incentive spirometer as recommended. Blood pressure 135/83 heart rate 108 afebrile maintaining oxygen saturation on room air. Telemetry tracings reveal persistent atrial fibrillation with variable rates. 04/12/2025 Patient examined this morning. Patient is currently sitting in the chair. Patient denies chest pain or pressure. He denies shortness of breath. Patient's pacemaker wires were discontinued and he has been resumed at [facility]. Telemetry Veals atrial fibrillation with heart rate in the 80s. PHYSICAL EXAM: VITAL SIGNS: Reviewed. GENERAL: Well-developed in no acute distress. NECK: Supple. No JVD or thyromegaly LUNGS: Respirations even and unlabored. Lungs essentially clear to auscultation bilaterally. HEART: Irregular rate and rhythm. S1 and S2 heard. Systolic murmur noted. EXTREMITIES: Normal range of motion. No clubbing or cyanosis. Peripheral pulses intact. No lower extremity edema ASSESSMENT: Aortic valvular insufficiency status post aortic valve replacement Persistent atrial fibrillation with controlled ventricular rate History of hypertension Obstructive sleep apnea Obesity: BMI 31.6 PLAN: Continue postoperative management per CT surgery. Increase activity as tolerated Encourage use of incentive spirometer Continue amiodarone, Eliquis, aspirin, lisinopril, metoprolol Further recommendations pending patient course Patient to follow-up postdischarge with Dr. Quiles Nurse practitioner note has been reviewed by physician. Signing provider agrees with the documented findings, assessment, and plan of care documented by RN [employer] as a scribe. Objective - Vital Signs Vital signs: Vital Signs Temp 98.2 F 04/12/25 08:10 Pulse 104 H 04/12/25 09:32 Resp 18 04/12/25 08:10 BP 136/83 04/12/25 08:10 Pulse Ox 98 04/12/25 08:10 FiO2 40 04/06/25 18:30 Intake & Output 04/11/25 04/12/25 04/12/25 18:59 06:59 18:59 Intake Total 658 Output Total 50 550 Balance -50 -550 658 Weight 88.9 kg Intake: Oral 658 Output: Urine 50 550 Other: Voiding Method Urinal Urinal Urinal # Voids 1 ABP, PAP, CO, CI - Last Documented Arterial Blood Pressure 123/55 Pulmonary Artery Pressure 57/15 Cardiac Output 5.7 Cardiac Index 3.2 - Labs CBC & Chem 7: 04/12/25 06:49 04/12/25 06:49 Labs: Abnormal Lab Results - Last 24 Hours (Table) 04/11/25 04/11/25 04/12/25 Range/Units 11:39 20:08 06:49 WBC 14.34 H (4.50-10.00) 10*3/uL RBC 2.26 L (4.40-5.60) 10*6/uL Hgb 7.8 L (13.0-17.0) g/dL Hct 25.2 L (39.6-50.0) % MCV 111.5 H (80.0-97.0) fL MCH 34.5 H (27.0-32.0) pg MCHC 31.0 L (32.0-37.0) g/dL MPV 12.4 H (9.5-12.2) fL Sodium (137-145) mmol/L Glucose (74-99) mg/dL POC Glucose (mg/dL) 126 H 160 H (70-110) mg/dL Total Bilirubin (0.2-1.3) mg/dL AST (17-59) U/L ALT (4-49) U/L Total Protein (6.3-8.2) g/dL 04/12/25 Range/Units 06:49 WBC (4.50-10.00) 10*3/uL RBC (4.40-5.60) 10*6/uL Hgb (13.0-17.0) g/dL Hct (39.6-50.0) % MCV (80.0-97.0) fL MCH (27.0-32.0) pg MCHC (32.0-37.0) g/dL MPV (9.5-12.2) fL Sodium 133 L (137-145) mmol/L Glucose 103 H (74-99) mg/dL POC Glucose (mg/dL) (70-110) mg/dL Total Bilirubin 2.0 H (0.2-1.3) mg/dL AST 87 H (17-59) U/L ALT 122 H (4-49) U/L Total Protein 6.0 L (6.3-8.2) g/dL
--- NOTE | 2025-04-12 11:26 | P.PN ---
Subjective Progress Note Date: 04/12/25 Principal diagnosis: Aortic valvular insufficiency, chronic atrial fibrillation. History of chronic persistent atrial fibrillation with previous unsuccessful cardioversion on [facility] outpatient for anticoagulation, hypertension, obstructive sleep apnea, lifelong non-smoker, drinks 2 beers per night. POD #6 aortic valve replacement with 25 mm Inspiris bovine pericardial valve prosthesis, biatrial modified Smith-Maze procedure with full lesion set and occlusion of the left atrial appendage with 40 mm AtriCure clip, FARHAD by anesthesia Acute anaphylactic reaction, thought to be from propofol Postoperative acute blood loss anemia and thrombocytopenia, expected given hemodilution and cardiopulmonary bypass pump Junctional rhythm which is somewhat expected with aortic valve replacement, currently sinus Paroxysmal atrial fibrillation, a known common occurrence after cardiac surgery especially due to patient's preoperative history of atrial fibrillation The patient was seen and examined this morning sitting up in a chair on the cardiac stepdown unit in no acute distress. Remains in sinus rhythm, hemodynamically stable. Currently on room air with oxygen saturation in the high 90s. He has been ambulatory without difficulty, patient has showered. Anticipates discharge to home today. Objective - Vital Signs Vital signs: Vital Signs Temp 98.2 F 04/12/25 08:10 Pulse 104 H 04/12/25 09:32 Resp 18 04/12/25 08:10 BP 136/83 04/12/25 08:10 Pulse Ox 98 04/12/25 08:10 FiO2 40 04/06/25 18:30 Intake & Output 04/11/25 04/12/25 04/12/25 18:59 06:59 18:59 Intake Total 658 Output Total 50 550 Balance -50 -550 658 Weight 88.9 kg Intake: Oral 658 Output: Urine 50 550 Other: Voiding Method Urinal Urinal Urinal # Voids 1 ABP, PAP, CO, CI - Last Documented Arterial Blood Pressure 123/55 Pulmonary Artery Pressure 57/15 Cardiac Output 5.7 Cardiac Index 3.2 - Exam CONSTITUTIONAL: Appears comfortable, cooperative, no acute distress RESPIRATORY: Lungs sounds diminished in the bases bilaterally. Respirations even, nonlabored. Currently on room air with oxygen saturation 98%. Able to achieve 1500 mL on incentive spirometry. Strong cough. CARDIOVASCULAR: S1, S2 present. Regular rate and rhythm, sinus rhythm on telemetry. Sternum stable. Palpable peripheral pulses bilaterally. Trace bilateral lower extremity edema present. No calf pain or tenderness noted. Heart hugger in place with patient demonstrating appropriate use. Antiembolism stockings, SCDs present. GASTROINTESTINAL: Abdomen soft, nontender, nondistended. Active bowel sounds present 4 quadrants. Tolerating diet. Positive flatus, denies bowel movement GENITOURINARY: Continues to void INTEGUMENTARY: Skin is warm and dry with evidence of good perfusion. Anterior chest incision well approximated NEUROLOGIC: Cranial nerves II through XII intact MUSKULOSKELETAL: Able to move all extremities, strength equal bilaterally, gait normal PSYCHIATRIC: Alert and oriented to person place and time, appropriate affect, intact judgment and insight - Allied health notes Allied health notes reviewed: nursing - Labs CBC & Chem 7: 04/12/25 06:49 04/12/25 06:49 Labs: Abnormal Lab Results - Last 24 Hours (Table) 04/11/25 04/11/25 04/12/25 Range/Units 11:39 20:08 06:49 WBC 14.34 H (4.50-10.00) 10*3/uL RBC 2.26 L (4.40-5.60) 10*6/uL Hgb 7.8 L (13.0-17.0) g/dL Hct 25.2 L (39.6-50.0) % MCV 111.5 H (80.0-97.0) fL MCH 34.5 H (27.0-32.0) pg MCHC 31.0 L (32.0-37.0) g/dL MPV 12.4 H (9.5-12.2) fL Sodium (137-145) mmol/L Glucose (74-99) mg/dL POC Glucose (mg/dL) 126 H 160 H (70-110) mg/dL Total Bilirubin (0.2-1.3) mg/dL AST (17-59) U/L ALT (4-49) U/L Total Protein (6.3-8.2) g/dL 04/12/25 Range/Units 06:49 WBC (4.50-10.00) 10*3/uL RBC (4.40-5.60) 10*6/uL Hgb (13.0-17.0) g/dL Hct (39.6-50.0) % MCV (80.0-97.0) fL MCH (27.0-32.0) pg MCHC (32.0-37.0) g/dL MPV (9.5-12.2) fL Sodium 133 L (137-145) mmol/L Glucose 103 H (74-99) mg/dL POC Glucose (mg/dL) (70-110) mg/dL Total Bilirubin 2.0 H (0.2-1.3) mg/dL AST 87 H (17-59) U/L ALT 122 H (4-49) U/L Total Protein 6.0 L (6.3-8.2) g/dL - Imaging and Cardiology Chest x-ray: report reviewed, image reviewed Assessment and Plan Assessment: Aortic valvular insufficiency, status post aortic valve replacement Chronic atrial fibrillation, status post biatrial modified Smith-Maze procedure with full lesion set and occlusion of the left atrial appendage with 40 mm AtriCure clip Acute anaphylactic reaction, thought to be from propofol Postoperative acute blood loss anemia and thrombocytopenia, expected given hemodilution and cardiopulmonary bypass pump Junctional rhythm which is somewhat expected with aortic valve replacement, currently sinus History of chronic persistent atrial fibrillation with previous unsuccessful cardioversion on [facility] outpatient for anticoagulation Hypertension Obstructive sleep apnea Lifelong non-smoker Drinks 2 beers per night Plan: Continue to maximize medical therapy with aspirin, beta-nafisa. Continue SHANELL for afterload reduction. Will not be discharged on statin, contraindicated due to elevated liver enzymes Continue amiodarone, Eliquis Encourage incentive spirometry use 10 times every hour while awake. Bronchodilators per pulmonology Increase activity, ambulate as tolerated. PT/OT/cardiac rehab consulted GI/DVT prophylaxis Pain control per current medication regimen Insulin management per internal medicine Continue to monitor record strict accurate intake and output Will discharge to home with home care this afternoon
[2025-04-12 11:35] LABS: Glucose,Whole Blood 119 mg/dL (70-110)
[2025-04-12] MEDS: bisacodyL 10 MG SUPP RECTAL STA (12:56)
[2025-04-12] MEDS: FUROSEMIDE 10 MG/ML 2 ML VIAL IV ONE (12:58)
[2025-04-12] MEDS: POTASSIUM BICARBONATE/CIT AC 20 MEQ TABLET.EFF PO ONE (12:58)
[2025-04-12 13:34] VITALS: BP 112/74; PULSE 88; TEMP 97.6
--- NOTE | 2025-04-12 14:03 | P.PN ---
Subjective Progress Note Date: 04/12/25 - History of Present Illness 04/07/25 This is a pleasant 74-year-old gentleman admitted with severe symptomatic aortic insufficiency status post AVR with bovine valve, postop day #1. Tolerated procedure well. Extubated last night. Maintained on Primacor, epi and insulin drips. Apparently patient had acute anaphylactic reaction suspected related to diprovan and was placed on epi. Incentive spirometer up to 1000. Telemetry paced/sinus. Blood sugars controlled. Denies chest pain, palpitations or shortness of breath. Reports surgical pain controlled. 04/10/2025 sitting up in chair, incentive spirometer up to 1300. Chest x-ray reports cardiomegaly, mild linear atelectasis left midlung. Denies chest pain, palpitations or shortness of breath. Maintaining O2 sats in the 90s on room air. reports poor appetite. Blood sugars controlled. Received IV iron yesterday. hemoglobin 7, platelets 126. Bicarb 22, BUN 34, creatinine decreased ,1.19 denies lightheadedness dizziness or focal deficits. Reports ambulated in the hallway yesterday with staff, had to stop 3 times due to exertional shortness of breath. T. bili increased to 1.9, AST 117, ALT 108, alk phos 74. TSH 1.9. 04/11/2025 patient transferred out of ICU,currently on the stepdown unit. Telemetry atrial fibrillation in the 1 teens to low 100s, on amiodarone and metoprolol tartrate-dose increased. recently finished showering, tolerated exertion well. Pain controlled. Afebrile. Incentive spirometer 1500. Hemoglobin increased to 7.5, platelets 147. Blood sugars controlled. 04/12/2025 [address]ulated in hallway x 2, tolerated exertion well. Hemoglobin increased to 7.8, platelets 180. WBC 14.34, afebrile. Passing flatus, no bowel movement. Maintaining O2 sats in the high 90s on room air. Telemetry sinus rhythm. Objective - Vital Signs Vital signs: Vital Signs Temp 98.0 F 04/12/25 04:00 Pulse 104 H 04/12/25 09:32 Resp 18 04/12/25 04:00 BP 136/82 04/12/25 04:00 Pulse Ox 98 04/12/25 04:00 FiO2 40 04/06/25 18:30 Intake & Output 04/11/25 04/12/25 04/12/25 18:59 06:59 18:59 Intake Total 658 Output Total 50 550 Balance -50 -550 658 Weight 88.9 kg Intake: Oral 658 Output: Urine 50 550 Other: Voiding Method Urinal Urinal # Voids 1 ABP, PAP, CO, CI - Last Documented Arterial Blood Pressure 123/55 Pulmonary Artery Pressure 57/15 Cardiac Output 5.7 Cardiac Index 3.2 - Exam VITAL SIGNS: [Reviewed] GENERAL: Alert and oriented x 3, sitting up in chair, no acute distress. HEENT: Normocephalic, atraumatic, pupils equal ,conjunctivae normal. MMM. NECK: Supple, no JVD. CARDIOVASCULAR: S1, S2, irregular.No murmur RESPIRATION: Unlabored, equal air entry, bilateral bases diminished. ABDOMEN: Soft, nondistended, nontender . No guarding. Positive bowel sounds. LEGS: No edema. no swelling NERVOUS SYSTEM: Cranial N 2-12 grossly normal. No focal deficits. Strength and sensation grossly intact. Skin: Warm and dry, no rash . - Labs CBC & Chem 7: 04/12/25 06:49 04/12/25 06:49 Labs: Abnormal Lab Results - Last 24 Hours (Table) 04/11/25 04/11/25 04/12/25 Range/Units 11:39 20:08 06:49 WBC 14.34 H (4.50-10.00) 10*3/uL RBC 2.26 L (4.40-5.60) 10*6/uL Hgb 7.8 L (13.0-17.0) g/dL Hct 25.2 L (39.6-50.0) % MCV 111.5 H (80.0-97.0) fL MCH 34.5 H (27.0-32.0) pg MCHC 31.0 L (32.0-37.0) g/dL MPV 12.4 H (9.5-12.2) fL Sodium (137-145) mmol/L Glucose (74-99) mg/dL POC Glucose (mg/dL) 126 H 160 H (70-110) mg/dL Total Bilirubin (0.2-1.3) mg/dL AST (17-59) U/L ALT (4-49) U/L Total Protein (6.3-8.2) g/dL 04/12/25 Range/Units 06:49 WBC (4.50-10.00) 10*3/uL RBC (4.40-5.60) 10*6/uL Hgb (13.0-17.0) g/dL Hct (39.6-50.0) % MCV (80.0-97.0) fL MCH (27.0-32.0) pg MCHC (32.0-37.0) g/dL MPV (9.5-12.2) fL Sodium 133 L (137-145) mmol/L Glucose 103 H (74-99) mg/dL POC Glucose (mg/dL) (70-110) mg/dL Total Bilirubin 2.0 H (0.2-1.3) mg/dL AST 87 H (17-59) U/L ALT 122 H (4-49) U/L Total Protein 6.0 L (6.3-8.2) g/dL Assessment and Plan Assessment: Aortic valvular insufficiency, status post aortic valve replacement with bovine valve, biatrial modified Smith-Maze procedure, occlusion of left atrial appendage. Atelectasis Acute anaphylactic reaction suspected related to propofol Acute blood loss anemia with thrombocytopenia, postoperative, expected outcome, improving Chronic atrial fibrillation Hypertension Obstructive sleep apnea Obesity, BMI 32 Alcohol use, 2 beers nightly Elevated LFTs, alcohol abstinence re-enforced. Hemoglobin A1c 5.6 Plan: Continue on current medication regimen ,monitoring and symptomatic treatment. Continue aggressive pulmonary toileting with incentive spirometer reinforced. Increase ambulation as tolerated. Alcohol abstinence reinforced. PT. discharge planning in progress per primary/CTS for today. The impression and plan of care has been dictated as directed. : I performed a history and examination of this patient, discussed the same with the dictator. I agree with the dictator's note ,documented as a scribe. Any additional findings or plans will be noted.
--- NOTE | 2025-04-13 16:13 | P.DS ---
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 Consult: post cardiac surgery Do you want consulting provider notified?: Yes Consult Physician Routine Consulting Provider: Wing Macedo Consult Reason/Comments: insulin mgmt Do you want consulting provider notified?: Yes Primary care physician: Wing Macedo [facility] Course: FINAL DIAGNOSIS: Aortic valvular insufficiency Chronic atrial fibrillation Acute anaphylactic reaction, thought to be from propofol Postoperative acute blood loss anemia and thrombocytopenia, expected given hemodilution and cardiopulmonary bypass pump Junctional rhythm which is somewhat expected with aortic valve replacement, currently sinus History of chronic persistent atrial fibrillation with previous unsuccessful cardioversion on [facility] outpatient for anticoagulation Hypertension Obstructive sleep apnea Lifelong non-smoker Drinks 2 beers per night PRINCIPAL PROCEDURE: Aortic valve replacement with 25 mm Inspiris bovine pericardial valve prosthesis Biatrial modified Smith-Maze procedure with full lesion set Occlusion of the left atrial appendage with 40 mm AtriCure clip FARHAD by anesthesia HISTORY OF PRESENT ILLNESS: This is a 74-year-old gentleman who follows outpatient at the [facility] for internal medicine as well as with Dr. Quiles for cardiology. He was recently diagnosed with atrial fibrillation at the [facility] and referred to Dr. Quiles. He underwent cardioversion which was unsuccessful. Further workup revealed severe aortic insufficiency with mildly dilated left ventricle and borderline normal left ventricular function. He also underwent cardiac catheterization revealing normal coronary arteries. Symptoms included progressive dyspnea on exertion and fatigue over the last year along with occasional episodes of chest wall pressure with activity. The patient was referred to Dr. Amezcua from cardiothoracic surgery. He was recommended to undergo aortic valve replacement. The usual perioperative course was discussed in detail with the patient and his family, all risks and benefits were explained, all questions were answered, and consent was obtained to proceed with surgery. The patient was scheduled for surgery at the earliest possible date. HOSPITAL COURSE: The patient was brought to the hospital on 04/06/25, taken to the preoperative area, prepared in the usual fashion, and subsequently taken to the operating room where Dr. Amezcua performed aortic valve replacement along with biatrial modified Smith-Maze and ligation of the left atrial appendage. Upon completion of surgery the patient was transferred to the cardiovascular intensive care unit where he was recovered and monitored hemodynamically. He was extubated, all lines, tubes, and drips were discontinued when appropriate, and he was transferred to 3 S. cardiac stepdown unit for further monitoring and rehabilitation. His oxygen was titrated down, he continued to work with physical and occupational therapy, he was tolerating oral diet, his pain was co ntrolled, and he was ready to be discharged to home with [facility] home care] on postoperative day #6. He received written and verbal instruction regarding his medications, activity restrictions, signs and symptoms requiring physician notification, and follow-up appointments. Plan - Discharge Summary Discharge Rx Participant: Yes New Discharge Prescriptions: New Furosemide [Lasix] 20 mg PO DAILY #30 tab Metoprolol Tartrate [Lopressor] 50 mg PO BID #60 tab Sennosides-Docusate Sodium [Senokot-S] 2 each PO HS PRN tab PRN Reason: Constipation Aspirin 81 mg PO DAILY #30 tab Amiodarone [Cordarone] 400 mg PO DAILY #60 tab Pantoprazole [Protonix] 40 mg PO AC-BRKFST #30 tab Acetaminophen Tab [Tylenol] 1,000 mg PO Q6HR PRN tab PRN Reason: Fever And/ Or Pain Continue Benazepril [Lotensin] 20 mg PO DAILY Testosterone [Androgel 1.62% Gel Pump] 2 pump TOPICAL Q48H Cyanocobalamin (Vitamin B-12) [Vitamin B-12] 1,000 mcg PO DAILY Vitamin D3 +K2 1 tab PO DAILY Sambucus 2 tab PO DAILY Apixaban [Eliquis] 5 mg PO BID Escitalopram [Lexapro] 20 mg PO DAILY Zinc 50 mg PO DAILY Ascorbic Acid [Vitamin C] 500 mg PO DAILY Selenium 200 mcg PO DAILY Atorvastatin [Lipitor] 10 mg PO DAILY Turmeric Root Extract [Turmeric] 1,000 mg PO DAILY Magnesium 240 mg PO DAILY Discontinued carvediloL [Coreg] 6.25 mg PO BID Mupirocin [Mupirocin 2%] 1 applic NASAL BID #1 tub Discharge Medication List Benazepril [Lotensin] 20 mg PO DAILY 10/09/14 [History] Testosterone [Androgel 1.62% Gel Pump] 2 pump TOPICAL Q48H 12/22/18 [History] Ascorbic Acid [Vitamin C] 500 mg PO DAILY 07/23/21 [History] Cyanocobalamin (Vitamin B-12) [Vitamin B-12] 1,000 mcg PO DAILY 07/23/21 [History] Sambucus 2 tab PO DAILY 07/23/21 [History] Selenium 200 mcg PO DAILY 07/23/21 [History] Vitamin D3 +K2 1 tab PO DAILY 07/23/21 [History] Zinc 50 mg PO DAILY 07/23/21 [History] Apixaban [Eliquis] 5 mg PO BID 03/03/25 [History] Atorvastatin [Lipitor] 10 mg PO DAILY 04/04/25 [History] Escitalopram [Lexapro] 20 mg PO DAILY 04/04/25 [History] Magnesium 240 mg PO DAILY 04/04/25 [History] Turmeric Root Extract [Turmeric] 1,000 mg PO DAILY 04/04/25 [History] Acetaminophen Tab [Tylenol] 1,000 mg PO Q6HR PRN tab 04/12/25 [Rx] Amiodarone [Cordarone] 400 mg PO DAILY #60 tab 04/12/25 [Rx] Aspirin 81 mg PO DAILY #30 tab 04/12/25 [Rx] Furosemide [Lasix] 20 mg PO DAILY #30 tab 04/12/25 [Rx] Metoprolol Tartrate [Lopressor] 50 mg PO BID #60 tab 04/12/25 [Rx] Pantoprazole [Protonix] 40 mg PO AC-BRKFST #30 tab 04/12/25 [Rx] Sennosides-Docusate Sodium [Senokot-S] 2 each PO HS PRN tab 04/12/25 [Rx] Follow up Appointment(s)/Referral(s): Elke Mccarthy NPC [Nurse Practitioner] - 04/18/25 2:00 pm (You will be seen in the surgeon's office behind the hospital in [facility], [address] Office phone number is ) Enrique Quiles MD [STAFF PHYSICIAN] - 04/26/25 3:30 pm Rehab [facility] PH,Cardiac [NON-STAFF] - 4 Weeks (You will receive a phone call in approximately 4-6 weeks for evaluation for cardiac rehab) Wing Macedo DO [Primary Care Provider] - 04/27/25 11:20 am Remington Amezcua MD [STAFF PHYSICIAN] - 05/01/25 10:00 am Lindsey Mcmullen MD [STAFF PHYSICIAN] - 05/02/25 9:00 am [facility] Visiting Nurse, [NON-STAFF] - 1-2 Days (You should be seen by home care registered nurse the day after discharge, then 2-3 times per week until you start cardiac rehab. Physical and occupational therapy should visit at least once, may continue to visit if needed) Ambulatory/Diagnostic Orders: Complete Blood Count w/diff [LAB.AMB] Time Frame: 3 Days, Location: None Selected Comprehensive Metabolic Panel [LAB.AMB] Time Frame: 3 Days, Location: None Selected Activity/Diet/Wound Care/Special Instructions: DISCHARGE INSTRUCTIONS: 1. No driving for 4 weeks, or until physician gives their ok. 2. The patient should sleep in their own bed, no medical bed needed. 3. Stairs are not an issue. If the bedroom is upstairs, it is advised that the patient go up at night and down in the morning for the first week. Go slowly, using handrail and take 1 step at a time. 4. IVY hose are to be worn for 30 days post surgery or until physician discontinues. 5. Heart hugger is to be worn 100% of the time until physician discontinues.(except when showering) 6. No lifting, pushing, or pulling more than 10 pounds for 12 weeks. The physician will advise of any restriction changes. 7. The patient is expected to continue the prescribed walking program. 8. Continue pain control per as needed orders. 9. Continue with incentive spirometry and splinting/heart hugger until otherwise directed by the physician. 10. Must shower daily using liquid antibacterial soap 11. Routine sternal incision care. No powders, lotions, ointments on incisions. No dressings are necessary on incisions unless they are draining. Dermabond tape is to remain on sternal incision until surgeon follow-up. 12. Please call surgeon/HEALTH INFORMATION TECHNICIAN for temp greater than 101 F or purulent drainage from incisions. 13. You should weigh yourself daily, record and bring log with you to follow up appointments. 14. All prescriptions given by surgeon for 30 days. Refills need to be filled through sales office administrator/primary care physician. 15. A Red armband has been placed on the patient. It should be worn for 30 days post discharge from surgery and will be removed by the cardiac surgeons. If an ER visit is necessary, please make sure the number on the Red armband is called before going to ER. 16. You have been referred to and are expected to begin Cardiac Rehab in approximately 4-6 weeks. 17. Quitting smoking is the most important step you can take to improve your health. For additional information and assistance to quit smoking, please call the [place] tobacco quit line (2-321-FWAN-NOW/ ) or online: [email or web address] HEALTH SERVICES TO PROVIDE: RN SKILLED HOME CARE SERVICES FOR POST-OP SURGICAL PATIENTS WITH THE FOLLOWING: Coronary Artery Bypass Surgery (CABG), Mitral Valve Replacement/Repair ( MVR), Aortic Valve Replacement/Repair (AVR) RN TO CONTINUE EDUCATION FROM ``ROAD TO A HEALTH HEART PATIENT EDUCATION MANUAL (GIVEN TO PATIENT IN THE HOSPITAL) MEDICATION RECONCILIATION WITH EDUCATION NEEDED ON FIRST HOME VISIT EMPHASIZE IMPORTANCE OF WEARING BREAST SUPPORT/HEART HUGGER ENCOURAGE USE OF INCENTIVE SPIROMETER 10 X EVERY HOUR WHILE AWAKE ENCOURAGE UTILIZATION OF LOWER EXTREMITY COMPRESSION STOCKINGS/IVY HOSE and ELEVATE LEGS ABOVE LEVEL OF HEART WHILE AT REST. ENCOURAGE AMBULATION 3-5x/day INCREASING TOLERATES, WHILE AVOIDING EXTREMES IN TEMPERATURE FREQUENCY: RN TO OPEN THE PATIENT WITHIN 24 HOURS OF DISCHARGE FROM THE HOSPITAL WITH TELEHEALTH INSTALLED AT [facility], RN TO VISIT 2-3 X A WEEK FOR 4 WEEKS ESTABLISHED BY PATIENT NEEDS. LABORATORY: CBC, CMP TO BE DRAWN ON THE THIRD DAY HOME, (RAN STAT) FAX RESULTS TO [phone]. TELEHEALTH PARAMETERS: WEIGHT: NOTIFY MD OF WEIGHT GAIN OF 2 LBS IN 24 HOURS OR 5 LBS IN ONE WEEK HR: NOTIFY MD OF HR <55 BPM OR HR>100 BPM BP: NOTIFY MD IF BP <90/55 OR BP>140/100 O2 SAT: NOTIFY MD IF PO2<93% ON ROOM AIR SEND TELEHEALTH REPORT TO CITY PLANNING TEACHER AND CARDIOVASCULAR SURGEON THE FIRST WEEK OF CARE AND THEN BI-WEEKLY. PLEASE ADDITIONALLY COMMUNICATE ANY ABNORMALS AND NEW FINDINGS TO THE SURGEONS OFFICE. Discharge Disposition: HOME WITH HOME HEALTH SERVICES
== END 2025-04-12 14:28 | disposition home health service (06) | DRG 220 ==
LOC: 2ORMAIN 05:39 → 2SICU 10:57 → 3SCARD 04-10 16:30
PROVIDERS: ADMIT Thoracic Surgery (Cardiothoracic Vascular Surgery); ATTEND Thoracic Surgery (Cardiothoracic Vascular Surgery)
PROC: 02L70CK Occlusion of Left Atrial Appendage with Extraluminal Device, Open Approach (ICD-10-PCS; 2025-04-06)
PROC: 5A1221Z Performance of Cardiac Output, Continuous (ICD-10-PCS; 2025-04-06)
PROC: B24BZZ4 Ultrasonography of Heart with Aorta, Transesophageal (ICD-10-PCS; 2025-04-06)
PROC: 02HV33Z Insertion of Infusion Device into Superior Vena Cava, Percutaneous Approach (ICD-10-PCS; 2025-04-06)
PROC: 02RF08Z Replacement of Aortic Valve with Zooplastic Tissue, Open Approach (ICD-10-PCS; principal; 2025-04-06 08:00)
PROC: 02584ZZ Destruction of Conduction Mechanism, Percutaneous Endoscopic Approach (ICD-10-PCS; 2025-04-06 08:00)
DX: I35.1 Nonrheumatic aortic (valve) insufficiency (principal); Z00.6 Encounter for examination for normal comparison and control in clinical research program; D62 Acute posthemorrhagic anemia; N17.9 Acute kidney failure, unspecified; D69.6 Thrombocytopenia, unspecified; T88.6XXA Anaphylactic reaction due to adverse effect of correct drug or medicament properly administered, initial encounter; Z68.32 Body mass index [BMI] 32.0-32.9, adult; I10 Essential (primary) hypertension; I48.19 Other persistent atrial fibrillation; I49.8 Other specified cardiac arrhythmias; T41.295A Adverse effect of other general anesthetics, initial encounter; I25.10 Atherosclerotic heart disease of native coronary artery without angina pectoris; R01.1 Cardiac murmur, unspecified; Z82.49 Family history of ischemic heart disease and other diseases of the circulatory system; E66.9 Obesity, unspecified; G47.33 Obstructive sleep apnea (adult) (pediatric); M19.90 Unspecified osteoarthritis, unspecified site; Z79.01 Long term (current) use of anticoagulants; Z79.02 Long term (current) use of antithrombotics/antiplatelets; Z79.82 Long term (current) use of aspirin; Z79.899 Other long term (current) drug therapy; Z86.0100 Personal history of colon polyps, unspecified; Z88.8 Allergy status to other drugs, medicaments and biological substances
CPT/HCPCS: 71045; 71046; 80053; 82330; 82565; 82805; 83735; 84132; 84443; 84520; 85025; 85027; 85610; 85730; 86022; 86850; 86891; 86900; 86901; 86920; 88305; 88311; 94002; 94640